=== PATIENT | female | born 1935 | race Caucasian/White ===

== ENCOUNTER 2019-10-12 13:10 | Outpatient (CLI) | payer MEDICARE, OTHER, SELFPAY ==
[2019-10-12 16:35] LABS: Basophils % 0.4 %; Eosinophils # 0.1 10^3/uL (0.0-0.8); Hematocrit 42.5 % (37.0-47.0); Hemoglobin 12.7 g/dL (11.5-15.3); Lymphocytes # 1.2 10^3/uL (0.8-4.8); Lymphocytes % 21.2 %; Mean Corpuscular HGB Conc 29.9 g/dL (30.0-36.0); Mean Corpuscular Hemoglobin 28.2 pg (28.0-34.0); Mean Corpuscular Volume 94.2 fL (81-99); Mean Platelet Volume 10.1 fL (7.4-10.4); Monocytes # 0.4 10^3/uL (0.2-0.9); Monocytes % 7.8 %; Neutrophils # 3.8 10^3/uL (1.8-7.7); Neutrophils % 68.4 %; Nucleated Red Blood Cells % 0 %; Platelet Count 358 10^3/cmm (130-400); Red Blood Count 4.51 10^6/uL (4.1-5.3); Red Cell Distribution Width 13.6 % (12.1-15.1); White Blood Count 5.5 10^3/uL (4.0-10.0)
[2019-10-12 16:46] LABS: Alanine Aminotransferase 11 U/L (0-33); Albumin Level 3.8 g/dL (3.5-5.2); Alkaline Phosphatase 81 IU/L (35-105); Anion Gap 16.2 (5-19); Aspartate Amino Transferase 19 U/L (0-32); Blood Urea Nitrogen 29 mg/dL (8-23); Carbon Dioxide 28 mmol/L (22-29); Chloride 101 mmol/L (98-107); Ferritin 121 ng/mL (15-150); Globulin 3.7 g/dL (1.3-4.6); Glucose 96 mg/dL (65-115); Iron 69 ug/dL (37-145); Osmolality Calculated 289 mOsm/kg (285-295); Percent Saturation 25.7 % (20-50); Potassium 4.2 mmol/L (3.5-5.1); Sodium 141 mmol/L (136-145); Total Bilirubin 0.3 mg/dL (0.15-1.2); Total Iron Binding Capacity 268 mcg/dl; Total Protein 7.5 g/dL (6.6-8.7); Unsaturated Iron Binding 199 ug/dL (112-347)
== END 2019-10-12 13:11 | disposition home or self-care (01) ==
LOC: ONCMED 16:30
PROVIDERS: Family Provider Nurse Practitioner Family; PCP Nurse Practitioner Family; Visit Provider Internal Medicine Medical Oncology
DX: Z08 Encounter for follow-up examination after completed treatment for malignant neoplasm (principal); D50.9 Iron deficiency anemia, unspecified; E78.00 Pure hypercholesterolemia, unspecified; M81.0 Age-related osteoporosis without current pathological fracture; M19.90 Unspecified osteoarthritis, unspecified site; E04.1 Nontoxic single thyroid nodule; R42 Dizziness and giddiness; I71.4 Abdominal aortic aneurysm, without rupture; K59.09 Other constipation; Z85.118 Personal history of other malignant neoplasm of bronchus and lung; Z79.01 Long term (current) use of anticoagulants
CPT/HCPCS: 36415; 80053; 82728; 83540; 83550; 85025

== ENCOUNTER 2019-10-28 11:11 | Inpatient (IN) | payer MEDICARE, OTHER, SELFPAY ==
[2019-10-28] VITALS (9 sets, daily range): BP systolic 84–166; BP diastolic 51–75; PULSE 70–92; RESP 18–20; TEMP 36.6–38.6; O2SAT 92–97; BMI 21.9
--- NOTE | 2019-10-28 11:50 | XRR_ITS ---
PROCEDURE INFORMATION: Exam: XR Chest, 1 View Exam date and time: 10/28/2019 12:07 PM Age: 84 years old Clinical indication: Pain; Other: Back; Additional info: Weakness, h/o lung cancer TECHNIQUE: Imaging protocol: XR of the chest Views: 1 view. COMPARISON: CR Chest 1 [place] [id number] 09/24/2017 10:49 AM FINDINGS: Lungs: No confluent infiltrate evident. Pleural space: Unremarkable. No pleural effusion. No pneumothorax. Heart/Mediastinum: Prior surgery with mediastinal clips and sutures in place. Vasculature: Calcified tortuous aorta. Bones/joints: Unremarkable. XR/XR chest 1V portable [id number] IMPRESSION: No acute process evident.
--- NOTE | 2019-10-28 11:51 | ECG_ITS ---
Measurements Intervals [place] Rate: 71 P: 78 VA: 195 QRS: -18 QRSD: 112 T: 68 QT: 414 QTc: 452 SINUS RHYTHM MODERATE INTRAVENTRICULAR CONDUCTION DELAY [110+ ms QRS DURATION] NONSPECIFIC T-WAVE ABNORMALITY Compared to ECG 09/25/2017 05:41:55 Intraventricular conduction delay now present T-wave abnormality still present Electronically Signed On 10-29-2019 11:06:21 CDT by Sam Cody MD [email or web address]
[2019-10-28] MEDS: sodium chloride 0.9% 1,000 ML 999 ML IV (12:08)
[2019-10-28] MEDS: ondansetron 2 mg/ML SDV 2 mL 4 MG IVP ×2 (12:10→17:53)
[2019-10-28] MEDS: morphine 4 mg/mL SDV 1 mL 2 MG IVP (12:10)
[2019-10-28 12:24] LABS: Hematocrit 40.7 % (37.0-47.0); Hemoglobin 12.8 g/dL (11.5-15.3); Lymphocytes # 0.2 10^3/uL (0.8-4.8); Mean Corpuscular HGB Conc 31.4 g/dL (30.0-36.0); Mean Corpuscular Hemoglobin 27.6 pg (28.0-34.0); Mean Corpuscular Volume 87.7 fL (81-99); Mean Platelet Volume 11.1 fL (7.4-10.4); Monocytes # 0.2 10^3/uL (0.2-0.9); Monocytes % 5.6 %; Neutrophils # 2.3 10^3/uL (1.8-7.7); Nucleated Red Blood Cells % 0 %; Platelet Count 135 10^3/cmm (130-400); Red Blood Count 4.64 10^6/uL (4.1-5.3); Red Cell Distribution Width 13.7 % (12.1-15.1); White Blood Count 2.7 10^3/uL (4.0-10.0)
--- NOTE | 2019-10-28 12:30 | ED_ITS ---
HPI - General Adult General: Chief complaint: General Medical Stated complaint: multiple complaints Time Seen by Provider: 10/28/19 11:41 History of Present Illness: HPI narrative: Patient is an 84-year-old female presenting with complaints of being sick for a week. She said for the first several days she just felt terrible and was not able to eat. For the past several days she has had terrible vomiting and diarrhea. She also complains of severe pain in her back and legs. She cannot really describe the pain but says it is like nothing she has ever had before. She was also having left ear pain and went to see her primary care doctor a few days ago. She was put on amoxicillin for an ear infection and mastoiditis. She reports that that is feeling better. She denies cough or shortness of breath. Onset (ago): week(s) (1) Location: head, back and lower extremity Radiation: back and extremity Severity: severe Quality: other (Unable to describe) Pain Consistency: constant Relieving factors: none Exacerbating factors: none Associated symptoms: Reports decreased appetite, dyspnea, malaise, nausea, vomiting and other (Diarrhea); Deny chest pain, headache(s) or rash Treatments prior to arrival: none Review of Systems General: Reports: 10 or more systems reviewed and unremarkable except in HPI and below Const: Reports: malaise Eyes: Denies: change in vision ENMT: Denies: odynophagia Card: Denies: chest pain or swelling of feet/ankles Resp: Reports: dyspnea GI: Reports: nausea, vomiting and diarrhea : Denies: flank pain or difficulty voiding Musc: Reports: back pain and extremity pain; Denies: neck pain Skin/Breast: Denies: rash Neuro: Reports: numbness in extremities, weakness in extremities and difficulty walking; Denies: headache(s) Edison/Lymph: Denies: easy bruising or easy bleeding [facility] ED PFSH: Medical History (Updated 10/28/19 @ 17:02 by Austen Villeda MD) AAA (abdominal aortic aneurysm) Chronic back pain COPD (chronic obstructive pulmonary disease) Diastolic dysfunction without heart failure DJD (degenerative joint disease) Hyperlipidemia Hypertension Pulmonary embolism Recurrent adenocarcinoma of lung Surgical History (Updated 10/28/19 @ 16:54 by Austen Villeda MD) H/O: hysterectomy History of lobectomy of lung Twice, bilateral, Right upper lobe lobectomy 2001 Left upper lobe lobectomy 2009 Hx of cholecystectomy S/P AAA repair Family History Other CAD (coronary artery disease) Social History Smoking and tobacco status: never smoked Alcohol intake: former Physical Exam Const: COMMON NORMALS: patient oriented x3 and no limitations GENERAL APPEARANCE: cooperative, in distress, lethargic and ill appearing ORIENTATION/CONSCIOUSNESS: Yes lethargic HENMT: COMMON NORMALS: external ears normal HEAD & SCALP: normal to inspection FACE & SINUS: normal facial exam EXTERNAL EAR: Yes external ears normal and Yes mastoids normal TYMPANIC MEMBRANE: TM normal on the right and TM normal on the left (no infection) Eye: GENERAL EYE: appearance normal, both eyes and all related structures Neck/C-Spine: COMMON NORMALS: supple, no meningeal signs and no JVD Chest: COMMONS NORMALS: normal inspection of the chest Resp: COMMON NORMALS: normal respiratory effort, No use of accessory muscles and clear to auscultation bilaterally AUSCULTATION: clear to auscultation bilaterally Cardio: COMMON NORMALS: no JVD, regular rate, regular rhythm and No murmurs present (Cardio) RATE: regular rate RHYTHM: regular rhythm GI: COMMON NORMALS: Normal to inspection, nondistended, normoactive bowel sounds present, Soft to palpation and non-tender INSPECTION: Yes normal to inspection AUSCULTATION: Yes normoactive bowel sounds PALPATION: Yes Soft to palpation Back/Pelvis: COMMON NORMALS: thoracic and lumbar spine normal to inspection Extremity: COMMON NORMALS: normal to inspection Neuro: COMMON NORMALS: patient oriented x3, moves all extremities, no focal motor deficits and no sensory deficits noted SENSORIUM/ORIENTATION: Yes lethargic MENINGEAL SIGNS: Yes no meningeal signs Psych: COMMON NORMALS: mental status grossly normal, cooperative and normal affect Skin: COMMON NORMALS: no rashes or lesions noted and turgor normal GENERAL SKIN EXAM: no rashes or lesions noted and turgor normal Course ED course: Patient came in with complaints of vomiting for several days. She was hypotensive at triage. She was quite dehydrated on her labs. She has not had a cough or fever. Her creatinine was 1.8. She responded well to some fluids and reported feeling better. She said she would like to go home but she is still quite weak and not tolerating fluids. She will be admitted for hydration given her acute renal injury. I did also cover her with some antibiotics based on the concern that she might be septic on her initial presentation. Vital Signs: Vital signs: Vital Signs Temperature 98.8 F 10/28/19 17:00 Pulse Rate 70 10/28/19 18:37 Respiratory Rate 18 10/28/19 17:00 Blood Pressure 166/74 10/28/19 17:00 Pulse Oximetry 93 10/28/19 18:37 [facility] - General Adult Lab Data: Labs: Lab Results 10/28/19 10/28/19 10/28/19 Range/Units 12:00 12:00 12:00 WBC 2.7 L (4.0-10.0) 10^3/ uL RBC 4.64 (4.1-5.3) 10^6/u L Hgb 12.8 (11.5-15.3) g/dL Hct 40.7 (37.0-47.0) % MCV 87.7 (81-99) fL MCH 27.6 L (28.0-34.0) pg MCHC 31.4 (30.0-36.0) g/dL RDW 13.7 (12.1-15.1) % Plt Count 135 (130-400) 10^3/c mm MPV 11.1 H (7.4-10.4) fL Neut % (Auto) 85.0 % Lymph % (Auto) 9.0 % [place] % (Auto) 5.6 % Eos % (Auto) 0.0 % Baso % (Auto) 0.0 % Neut # (Auto) 2.3 (1.8-7.7) 10^3/u L Lymph # (Auto) 0.2 L (0.8-4.8) 10^3/u L [place] # (Auto) 0.2 (0.2-0.9) 10^3/u L Eos # (Auto) 0.0 (0.0-0.8) 10^3/u L Baso # (Auto) 0.0 (0.0-0.1) 10^3/u L Nucleated RBC % (a uto) 0 % Nucleated RBCs # 0.0 /100WBC ESR 23 H (0-15) mm/hr PT (10.5-13.3) SECO NDS INR (0.8-1.2) Sodium 131 L (136-145) mmol/L Potassium 3.9 (3.5-5.1) mmol/L Chloride 95 L (98-107) mmol/L Carbon Dioxide 21 L (22-29) mmol/L Anion Gap 18.9 (5-19) BUN 36 H (8-23) mg/dL Creatinine 1.8 H (0.5-0.9) mg/dL Glucose 137 H (65-115) mg/dL POC Glucose (70-110) mg/dL Calculated Osmolal ity 272 L (285-295) mOsm/k g Lactate (0.5-2.2) mmol/L Calcium 8.9 (8.5-10.5) mg/dL Magnesium 2.0 (1.7-2.3) mg/dL Total Bilirubin 0.3 (0.15-1.2) mg/dL AST 45 H (0-32) U/L ALT 19 (0-33) U/L Alkaline Phosphata se 62 (35-105) IU/L Troponin T Baselin e (0-10) ng/mL Troponin T 120 Min cher-ae heights (0-10) ng/mL Delta Troponin T (0-10) ABS# C-Reactive Protein 89.2 H (0.0-4.9) mg/L Total Protein 7.0 (6.6-8.7) g/dL Albumin 3.4 L (3.5-5.2) g/dL Globulin 3.6 (1.3-4.6) g/dL Lipase 47 (13-60) U/L Procalcitonin 2.74 H (0-0.5) ng/mL Urine Color (Yellow) Urine Appearance (CLEAR) Urine pH (5-7) Ur Specific Gravit y (1.005-1.030) Urine Protein (Negative) Urine Glucose (UA) (Normal) Urine Ketones (Negative) Urine Blood (Negative) Urine Nitrate (Negative) Urine Bilirubin (NEGATIVE) Urine Urobilinogen (Negative) mg/dL Ur Leukocyte Breonna ase (Negative) Urine RBC (0-2) /hpf Urine WBC (0-5) /hpf Ur Squamous Epith Cells (0-5) Amorphous Sediment Urine Bacteria (NONE) Coarse Granular Ca sts /lpf Ur Random Sodium mmol/L Ur Random Potassiu m mmol/L Ur Random Chloride mmol/L 10/28/19 10/28/19 10/28/19 Range/Units 12:00 12:00 12:37 WBC (4.0-10.0) 10^3/ uL RBC (4.1-5.3) 10^6/u L Hgb (11.5-15.3) g/dL Hct (37.0-47.0) % MCV (81-99) fL MCH (28.0-34.0) pg MCHC (30.0-36.0) g/dL RDW (12.1-15.1) % Plt Count (130-400) 10^3/c mm MPV (7.4-10.4) fL Neut % (Auto) % Lymph % (Auto) % [place] % (Auto) % Eos % (Auto) % Baso % (Auto) % Neut # (Auto) (1.8-7.7) 10^3/u L Lymph # (Auto) (0.8-4.8) 10^3/u L [place] # (Auto) (0.2-0.9) 10^3/u L Eos # (Auto) (0.0-0.8) 10^3/u L Baso # (Auto) (0.0-0.1) 10^3/u L Nucleated RBC % (a uto) % Nucleated RBCs # /100WBC ESR (0-15) mm/hr PT 12.80 (10.5-13.3) SECO NDS INR 0.93 (0.8-1.2) Sodium (136-145) mmol/L Potassium (3.5-5.1) mmol/L Chloride (98-107) mmol/L Carbon Dioxide (22-29) mmol/L Anion Gap (5-19) BUN (8-23) mg/dL Creatinine (0.5-0.9) mg/dL Glucose (65-115) mg/dL POC Glucose (70-110) mg/dL Calculated Osmolal ity (285-295) mOsm/k g Lactate 1.2 (0.5-2.2) mmol/L Calcium (8.5-10.5) mg/dL Magnesium (1.7-2.3) mg/dL Total Bilirubin (0.15-1.2) mg/dL AST (0-32) U/L ALT (0-33) U/L Alkaline Phosphata se (35-105) IU/L Troponin T Baselin e 36 H (0-10) ng/mL Troponin T 120 Min cher-ae heights (0-10) ng/mL Delta Troponin T (0-10) ABS# C-Reactive Protein (0.0-4.9) mg/L Total Protein (6.6-8.7) g/dL Albumin (3.5-5.2) g/dL Globulin (1.3-4.6) g/dL Lipase (13-60) U/L Procalcitonin (0-0.5) ng/mL Urine Color (Yellow) Urine Appearance (CLEAR) Urine pH (5-7) Ur Specific Gravit y (1.005-1.030) Urine Protein (Negative) Urine Glucose (UA) (Normal) Urine Ketones (Negative) Urine Blood (Negative) Urine Nitrate (Negative) Urine Bilirubin (NEGATIVE) Urine Urobilinogen (Negative) mg/dL Ur Leukocyte Breonna ase (Negative) Urine RBC (0-2) /hpf Urine WBC (0-5) /hpf Ur Squamous Epith Cells (0-5) Amorphous Sediment Urine Bacteria (NONE) Coarse Granular Ca sts /lpf Ur Random Sodium mmol/L Ur Random Potassiu m mmol/L Ur Random Chloride mmol/L 10/28/19 10/28/19 10/28/19 Range/Units 14:05 14:15 14:25 WBC (4.0-10.0) 10^3/ uL RBC (4.1-5.3) 10^6/u L Hgb (11.5-15.3) g/dL Hct (37.0-47.0) % MCV (81-99) fL MCH (28.0-34.0) pg MCHC (30.0-36.0) g/dL RDW (12.1-15.1) % Plt Count (130-400) 10^3/c mm MPV (7.4-10.4) fL Neut % (Auto) % Lymph % (Auto) % [place] % (Auto) % Eos % (Auto) % Baso % (Auto) % Neut # (Auto) (1.8-7.7) 10^3/u L Lymph # (Auto) (0.8-4.8) 10^3/u L [place] # (Auto) (0.2-0.9) 10^3/u L Eos # (Auto) (0.0-0.8) 10^3/u L Baso # (Auto) (0.0-0.1) 10^3/u L Nucleated RBC % (a uto) % Nucleated RBCs # /100WBC ESR (0-15) mm/hr PT (10.5-13.3) SECO NDS INR (0.8-1.2) Sodium (136-145) mmol/L Potassium (3.5-5.1) mmol/L Chloride (98-107) mmol/L Carbon Dioxide (22-29) mmol/L Anion Gap (5-19) BUN (8-23) mg/dL Creatinine (0.5-0.9) mg/dL Glucose (65-115) mg/dL POC Glucose 116 (70-110) mg/dL Calculated Osmolal ity (285-295) mOsm/k g Lactate (0.5-2.2) mmol/L Calcium (8.5-10.5) mg/dL Magnesium (1.7-2.3) mg/dL Total Bilirubin (0.15-1.2) mg/dL AST (0-32) U/L ALT (0-33) U/L Alkaline Phosphata se (35-105) IU/L Troponin T Baselin e (0-10) ng/mL Troponin T 120 Min cher-ae heights 26.27 H (0-10) ng/mL Delta Troponin T -9.73 L (0-10) ABS# C-Reactive Protein (0.0-4.9) mg/L Total Protein (6.6-8.7) g/dL Albumin (3.5-5.2) g/dL Globulin (1.3-4.6) g/dL Lipase (13-60) U/L Procalcitonin (0-0.5) ng/mL Urine Color Yellow (Yellow) Urine Appearance Sl cloudy A (CLEAR) Urine pH 5 (5-7) Ur Specific Gravit y 1.015 (1.005-1.030) Urine Protein Trace (Negative) Urine Glucose (UA) Norm (Normal) Urine Ketones Negative (Negative) Urine Blood 2+ H (Negative) Urine Nitrate Negative (Negative) Urine Bilirubin Neg (NEGATIVE) Urine Urobilinogen Norm (Negative) mg/dL Ur Leukocyte Breonna ase Negative (Negative) Urine RBC 0-4 H (0-2) /hpf Urine WBC Rare (0-5) /hpf Ur Squamous Epith Cells 5-10 H (0-5) Amorphous Sediment 2+ Urine Bacteria 2+ H (NONE) Coarse Granular Ca sts 0-4 H /lpf Ur Random Sodium mmol/L Ur Random Potassiu m mmol/L Ur Random Chloride mmol/L 10/27/ Range/Units 14:25 WBC (4.0-10.0) 10^3/ uL RBC (4.1-5.3) 10^6/u L Hgb (11.5-15.3) g/dL Hct (37.0-47.0) % MCV (81-99) fL MCH (28.0-34.0) pg MCHC (30.0-36.0) g/dL RDW (12.1-15.1) % Plt Count (130-400) 10^3/c mm MPV (7.4-10.4) fL Neut % (Auto) % Lymph % (Auto) % [place] % (Auto) % Eos % (Auto) % Baso % (Auto) % Neut # (Auto) (1.8-7.7) 10^3/u L Lymph # (Auto) (0.8-4.8) 10^3/u L [place] # (Auto) (0.2-0.9) 10^3/u L Eos # (Auto) (0.0-0.8) 10^3/u L Baso # (Auto) (0.0-0.1) 10^3/u L Nucleated RBC % (a uto) % Nucleated RBCs # /100WBC ESR (0-15) mm/hr PT (10.5-13.3) SECO NDS INR (0.8-1.2) Sodium (136-145) mmol/L Potassium (3.5-5.1) mmol/L Chloride (98-107) mmol/L Carbon Dioxide (22-29) mmol/L Anion Gap (5-19) BUN (8-23) mg/dL Creatinine (0.5-0.9) mg/dL Glucose (65-115) mg/dL POC Glucose (70-110) mg/dL Calculated Osmolal ity (285-295) mOsm/k g Lactate (0.5-2.2) mmol/L Calcium (8.5-10.5) mg/dL Magnesium (1.7-2.3) mg/dL Total Bilirubin (0.15-1.2) mg/dL AST (0-32) U/L ALT (0-33) U/L Alkaline Phosphata se (35-105) IU/L Troponin T Baselin e (0-10) ng/mL Troponin T 120 Min cher-ae heights (0-10) ng/mL Delta Troponin T (0-10) ABS# C-Reactive Protein (0.0-4.9) mg/L Total Protein (6.6-8.7) g/dL Albumin (3.5-5.2) g/dL Globulin (1.3-4.6) g/dL Lipase (13-60) U/L Procalcitonin (0-0.5) ng/mL Urine Color (Yellow) Urine Appearance (CLEAR) Urine pH (5-7) Ur Specific Gravit y (1.005-1.030) Urine Protein (Negative) Urine Glucose (UA) (Normal) Urine Ketones (Negative) Urine Blood (Negative) Urine Nitrate (Negative) Urine Bilirubin (NEGATIVE) Urine Urobilinogen (Negative) mg/dL Ur Leukocyte Breonna ase (Negative) Urine RBC (0-2) /hpf Urine WBC (0-5) /hpf Ur Squamous Epith Cells (0-5) Amorphous Sediment Urine Bacteria (NONE) Coarse Granular Ca sts /lpf Ur Random Sodium 16 mmol/L Ur Random Potassiu m 28 mmol/L Ur Random Chloride 13 mmol/L Discharge Plan Discharge Admit Provider: Austen Villeda Discharge Date/Time: 10/28/19 16:30 Coding Level of Care Code ED Petroleum Inspector for g Fwd Exam Comprehensive
[2019-10-28 12:33] LABS: INR 0.93 (0.8-1.2)
--- NOTE | 2019-10-28 12:37 | CTR_ITS ---
PROCEDURE INFORMATION: Exam: CT Head Without Contrast Exam date and time: 10/28/2019 12:38 PM Age: 84 years old Clinical indication: Dizziness; Additional info: Question mastoiditis, weakness TECHNIQUE: Imaging protocol: Computed tomography of the head without contrast. Radiation optimization: All CT scans at this facility use at least one of these dose optimization techniques: automated exposure control; mA and/or kV adjustment per patient size (includes targeted exams where dose is matched to clinical indication); or iterative reconstruction. COMPARISON: CT head wo con* [id number] 06/29/2018 12:50 PM RADIATION DOSE METRICS: Total DLP: 780.95 mGy-cm FINDINGS: Brain: No acute intracranial mass or bleed. Mild cerebral atrophy. Mild cerebral hemisphere subcortical and periventricular white matter low-density which appears chronic and is presumably related to chronic small vessel disease. Punctate left parietal cortical calcification, unchanged. Ventricles: Normal. No ventriculomegaly. Bones/joints: Unremarkable. No acute fracture. Sinuses: Visualized sinuses are unremarkable. No fluid levels. Mastoid air cells: Visualized mastoid air cells are well aerated. Soft tissues: Unremarkable. CT/CT head wo con* [id number] IMPRESSION: No acute process evident. Radiation Dose CTDIVOL = (mGy): DLP = 780.95 (mGy-cm)
[2019-10-28 12:43] LABS: Troponin(5th) Baseline 36 ng/mL (0-10)
[2019-10-28 12:51] LABS: Procalcitonin 2.74 ng/mL (0-0.5)
[2019-10-28 12:56] LABS: Lactate (Lactic Acid level) 1.2 mmol/L (0.5-2.2)
[2019-10-28 13:02] LABS: Alanine Aminotransferase 19 U/L (0-33); Albumin Level 3.4 g/dL (3.5-5.2); Alkaline Phosphatase 62 IU/L (35-105); Anion Gap 18.9 (5-19); Aspartate Amino Transferase 45 U/L (0-32); Blood Urea Nitrogen 36 mg/dL (8-23); C Reactive Protein 89.2 mg/L (0.0-4.9); Calcium 8.9 mg/dL (8.5-10.5); Carbon Dioxide 21 mmol/L (22-29); Chloride 95 mmol/L (98-107); Globulin 3.6 g/dL (1.3-4.6); Glucose 137 mg/dL (65-115); Lipase 47 U/L (13-60); Osmolality Calculated 272 mOsm/kg (285-295); Potassium 3.9 mmol/L (3.5-5.1); Sodium 131 mmol/L (136-145); Total Bilirubin 0.3 mg/dL (0.15-1.2)
[2019-10-28 13:40] LABS: Erythrocyte Sedimentation Rate 23 mm/hr (0-15)
--- NOTE | 2019-10-28 13:51 | ECG_ITS ---
Measurements Intervals [place] Rate: 72 P: 60 AL: 197 QRS: -20 QRSD: 112 T: 82 QT: 390 QTc: 429 SINUS RHYTHM WITH OCCASIONAL SUPRAVENTRICULAR PREMATURE COMPLEXES MODERATE INTRAVENTRICULAR CONDUCTION DELAY [110+ ms QRS DURATION] NONSPECIFIC T-WAVE ABNORMALITY Compared to ECG 09/25/2017 05:41:55 Intraventricular conduction delay now present T-wave abnormality still present Electronically Signed On 10-29-2019 11:10:21 CDT by Sam Cody MD [email or web address]
--- NOTE | 2019-10-28 14:10 | PC.NURSE ---
Patient blood glucose is 116 and shown to ER doctor
[2019-10-28 14:13] LABS: Glucose Point of Care 116 mg/dL (70-110)
[2019-10-28 14:34] LABS: Add Urine Microscopic? YES; Bilirubin Urine Neg (NEGATIVE); Blood Urine 2+ (Negative); Glucose Urine UA Norm (Normal); Ketones Urine Negative (Negative); Leukocyte Esterase Urine Negative (Negative); Nitrate Urine Negative (Negative); Protein Urine Trace (Negative); Specific Gravity, Urine 1.015 (1.005-1.030); Urine Color Yellow (Yellow); Urobilinogen Urine Norm (Negative); pH Urine 5 (5-7)
[2019-10-28 14:43] LABS: Troponin 5 2HR 26.27 ng/mL (0-10)
[2019-10-28 14:44] LABS: Amorphous Sediment Urine 2+; Bacteria Urine 2+; RBC Urine 0-4 /hpf (0-2)
[2019-10-28 14:45] LABS: Add Urine Culture? Yes; Coarse Granular Casts Urine 0-4 /lpf; WBC Urine RARE /hpf (0-5)
[2019-10-28 15:00] LABS: Troponin 5 2HR Delta -9.73 ABS# (0-10)
--- NOTE | 2019-10-28 15:22 | PM.HP ---
Providers/Chief Complaint Primary Care Provider: ALYSON Keane Chief Complaint: N/V History of Present Illness Keely Chan is a 84 year old female with past medical history of hypertension with labile blood pressures for which Coreg has been recently started by Dr. 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 Palmer, diastolic dysfunction of of left ventricle without any symptoms of heart failure, dizziness, AAA post repair, pulmonary embolism on maintenance Xarelto, dyslipidemia, chronic anemia on oral iron supplementation, GERD who presents to the ER today because of multiple episodes of nausea and vomiting for last 2 days and 3 episodes of diarrhea since yesterday evening. Patient states she was at her baseline health till Wednesday when she started having dizziness went to her primary care and was diagnosed of left ear mastoiditis for which she was started on Augmentin after which from she started having recurrent nausea and multiple episodes of vomiting in which she was vomiting mostly food particles at first but now clear liquid and 3-4 episodes of diarrhea since yesterday evening. Diarrhea is mostly liquidy, not bloodstained, not foul-smelling. She complains of mild abdominal pain since today morning. She is not able to eat anything because she feels nauseous when she is trying to eat. Of note, she was seen by Dr. Palmer on October 08 and she was having constipation and was started on bowel regimen which she was taking p.o. this Wednesday. Today she was feeling mild dizziness so she presented to the ER. In ER, on presentation she was having hypotension which was treated with IV fluid boluses, her blood work showed leukopenia with white count of 2.7, TABBY with creatinine of 1.8, sodium of 132 and bicarb of 21 on the BMP. Procalcitonin was also done in the ER which was 2.4. She denies of having any fever, chills, headache, flulike symptoms, runny nose, cough, sick contacts, anybody who she knows having similar symptoms, dysuria, chest pain, palpitations, hemoptysis. Review of Systems Const: Denies: fever(s), chills, body aches, change in appetite, malaise, night sweats, diaphoresis, change in sleep pattern, daytime sleepiness or snoring Eyes: Denies: change in vision, blurry vision, photophobia, eye discomfort or eye discharge ENMT: Denies: throat pain, enlarged tonsils, hoarseness, mouth pain, oral sores, dry mouth, tinnitus, nasal congestion or post nasal drip Card: Denies: chest pain, palpitations, irregular heart rhythm, edema, swelling of feet/ankles, lightheadedness, syncope, pre-syncope, dyspnea on exertion, orthopnea, leg pain with exertion or acrocyanosis Resp: Denies: dyspnea, productive cough, non-productive cough, wheezing, stridor, pain on inspiration, change in phlegm color, hemoptysis or chest congestion GI: Reports: abdominal pain, nausea, vomiting, diarrhea and GI cramping; Denies: hematemesis, coffee ground emesis, dysphagia, heartburn, constipation, bloating, change in bowel habits, pain on defecation, hematochezia or melena : Denies: flank pain, dysuria, urinary frequency, urinary urgency, urinary hesitancy, nocturia or hematuria Musc: Denies: neck pain, back pain, extremity pain, joint pain, joint swelling, joint redness, joint stiffness or limited range of motion Neuro: Reports: dizziness; Denies: headache(s), numbness in extremities, weakness in extremities, sensory changes, lack of coordination, difficulty walking, frequent falls, vertigo, confusion, Slurred speech present, difficulty communicating thoughts or seizure-like activity Psych: Denies: anxiety, depression, mood swings, panic attacks, hopelessness or irritability Endo: Denies: polyuria, polydipsia, tired all the time, cold intolerance, excessive sweating, flushing or heat intolerance Edison/Lymph: Denies: easy bruising or easy bleeding All/Imm: Denies: tongue swelling, facial swelling or acute wheezing Medications/Allergies Home Medications Medication Instructions Recorded Confirmed Last Taken Type aspirin 81 mg tablet,delayed 81 mg PO DAILY 10/16/19 10/28/19 10/28/19 History release carvedilol 6.25 mg tablet 6.25 mg PO BID 90 Days #180 tab 10/16/19 10/28/19 10/28/19 Rx cholecalciferol (vitamin D3) 1,250 1,250 mcg PO Q7D cap 10/16/19 10/28/1920 History mcg (50,000 unit) capsule fluticasone propionate 50 2 spray INTRANASAL DAILY 10/16/19 10/28/19 10/27/19 History mcg/actuation nasal spray,suspension gabapentin 300 mg capsule 400 mg PO BID 10/16/19 10/28/19 10/28/19 History hydrocodone 5 mg-acetaminophen 325 1 tab PO Q6H PRN 10/16/19 10/28/19 10/28/19 History mg tablet nitroglycerin 0.4 mg sublingual 0.4 mg SUBLINGUAL Q5M PRN 10/16/19 10/28/19 Unknown History tablet omeprazole 40 mg capsule,delayed 40 mg PO DAILY 10/16/19 10/28/19 10/28/19 History release rivaroxaban 20 mg tablet 20 mg PO DAILY 10/16/19 10/28/19 10/28/19 History amoxicillin 1,000 mg PO BID 10/28/19 10/28/19 10/28/19 History cetirizine 10 mg PO DAILY 10/28/19 10/28/19 10/28/19 History meclizine 25 mg PO TID PRN 10/28/19 10/28/19 Unknown History montelukast 10 mg PO DAILY 10/28/19 10/28/19 10/28/19 History Allergies Allergy/AdvReac Type Severity Reaction Status Date / Time ezetimibe [From Zetia] Allergy Unknown unknown Verified 10/16/19 11:51 simvastatin [From Zocor] Allergy Unknown unknown Verified 10/16/19 11:51 tetanus and diphtheria Allergy Unknown unknown Verified 10/16/19 11:51 toxoids albuterol AdvReac Unknown hypertensio Verified 10/16/19 11:51 n PFSH Acute PFSH: Medical History (Updated 10/28/19 @ 17:02 by Austen Villeda MD) AAA (abdominal aortic aneurysm) Chronic back pain COPD (chronic obstructive pulmonary disease) Diastolic dysfunction without heart failure DJD (degenerative joint disease) Hyperlipidemia Hypertension Pulmonary embolism Recurrent adenocarcinoma of lung Surgical History (Updated 10/28/19 @ 16:54 by Austen Villeda MD) H/O: hysterectomy History of lobectomy of lung Twice, bilateral, Right upper lobe lobectomy 2001 Left upper lobe lobectomy 2010 Hx of cholecystectomy S/P AAA repair Family History Other CAD (coronary artery disease) Social History Smoking and tobacco status: never smoked Alcohol intake: former Vitals/I&O/Wt Last Vital Signs Temp 97.9 F 10/28/19 11:34 Pulse 82 10/28/19 11:47 Resp 20 H 10/28/19 12:10 BP 109/61 10/28/19 11:47 Pulse Ox 96 10/28/19 11:47 Weight last 48 hrs Weight 63.503 kg Physical Exam Narrative: EXAM NARRATIVE: General: Acute distress because of abdominal pain, dehydrated, AO x3 HEENT: PERRLA, pupils bilaterally equal and reactive Chest: Normal vesicular breath sounds, no added sounds, equal good air entry bilaterally CVS: S1-S2 regular, no murmurs, no tachycardia, no gallops, no rubs Abdomen: Soft,tender, no organomegaly, bowel sounds present, epigastric region Neuro: No focal deficits, no facial deformity, AO x3, power 5/5 in all limbs Data : 10/28/19 12:00 10/28/19 12:00 A&P Assessment and plan (1) Vomiting: Status: Acute (2) Diarrhea: Status: Acute (3) Hypotension: Status: Acute (4) TABBY (acute kidney injury): Status: Acute (5) Pulmonary embolism: Status: Acute Qualifiers: Pulmonary embolism type: unspecified Chronicity: chronic Acute cor pulmonale presence: unspecified Qualified Code(s): I27.82 - Chronic pulmonary embolism (6) Hypertension: Status: Acute Qualifiers: Hypertension type: essential hypertension Qualified Code(s): I10 - Essential (primary) hypertension (7) Hyperlipidemia: Status: Acute Qualifiers: Hyperlipidemia type: mixed hyperlipidemia Qualified Code(s): E78.2 - Mixed hyperlipidemia (8) Recurrent adenocarcinoma of lung: Status: Acute (9) Diastolic dysfunction without heart failure: Status: Acute (10) Metabolic acidosis: Status: Acute (11) Hyponatremia: Status: Acute (12) Hypokalemia: Status: Acute Additional A&P Information Dehydration: Most likely due to vomiting/diarrhea: Could be related to gastritis because of amoxicillin but given the recent exposure to antibiotic cannot rule out C. difficile. Normal saline with 20 mg potassium at 100 cc/h. Check CT abdomen pelvis without contrast Stool studies for C. difficile, lactoferrin, bacterial antigen for parasite and bacteria, rotavirus antigen. Clear liquid diet for now. Will advance as tolerated. Zofran for nausea. No Loperamide for till C. difficile is ruled out. TABBY: Baseline creatinine normal. 1.8 today. Most likely from dehydration. IV fluids as above. Medical reconciliation done for nephrotoxic drugs. Metabolic acidosis: Most likely because of extreme vomiting and diarrhea along with TABBY. Continue IV fluids. Hyponatremia: Most likely from dehydration tach but given the history of lung cancer cannot rule out SIADH. Urine lites, urine osmolarity, serum osmolarity. Continue IV fluids as above. Check BMP in 6 hours to monitor for sodium levels. Hypokalemia: Most likely because of vomiting and diarrhea. Replace with oral 40 mEq. Also replaced with IV fluids after the above. Hypertension: Not on any treatment as per Dr. Tapia recently. We will continue to hold off on Coreg and monitor blood pressures. Pulmonary embolism: Continue Xarelto as outpatient. Oxygen therapy as needed keeping saturation over 92%. Recurrent adenocarcinoma of lungs: Post lobectomy: Follows up with Dr. Palmer last seen earlier this month. On Flovent/expectant treatment. Full code. Clear liquid diet. Xarelto will also work as DVT prophylaxis Attestations Medical Necessity Statement*: More than 2 midnights for vomiting, diarrhea, TABBY Time Spent in Patient Care: Greater than 35 minutes (>than 50% of time spent in counselling and/or direct pt care on unit). Coding Level of Care Code Acute Retail Client Solutions Analyst for [facility] Fwd Diagnoses Vomiting R11.10 Diarrhea R19.7 Hypotension I95.9 TABBY (acute kidney injury) N17.9 Pulmonary embolism I27.82 Pulmonary embolism type: unspecified Chronicity: chronic Acute cor pulmonale presence: unspecified Hypertension I10 Hypertension type: essential hypertension Hyperlipidemia E78.2 Hyperlipidemia type: mixed hyperlipidemia Recurrent adenocarcinoma of lung C34.90 Diastolic dysfunction without heart failure I51.89 Metabolic acidosis E87.2 Hyponatremia E87.1 Hypokalemia E87.6
--- NOTE | 2019-10-28 15:46 | CTR_ITS ---
PROCEDURE INFORMATION: Exam: CT Abdomen And Pelvis Without Contrast Exam date and time: 10/28/2019 3:50 PM Age: 84 years old Clinical indication: Nausea and vomiting; Prior surgery; Surgery date: 6+ months; Surgery type: Gb, hyst, appy, aorta; Patient HX: C/O n/v/d x 2 days; Additional info: Diarrhea TECHNIQUE: Imaging protocol: Computed tomography of the abdomen and pelvis without contrast. Radiation optimization: All CT scans at this facility use at least one of these dose optimization techniques: automated exposure control; mA and/or kV adjustment per patient size (includes targeted exams where dose is matched to clinical indication); or iterative reconstruction. COMPARISON: [place] [id number] 11/18/2013 6:11 PM RADIATION DOSE METRICS: Total DLP: 556.18 mGy-cm FINDINGS: Liver: Normal. No mass. Gallbladder and bile ducts: Prior cholecystectomy. Mild intrahepatic biliary ductal dilatation, chronic and unchanged. Pancreas: Normal. No ductal dilation. Spleen: Normal. No splenomegaly. Adrenals: Normal. No mass. Kidneys and ureters: Normal. No hydronephrosis. Stomach and bowel: Sigmoid colon contains several diverticula. No evidence for acute diverticulitis. Appendix: No evidence of appendicitis. Intraperitoneal space: Unremarkable. No free air. No significant fluid collection. Vasculature: Status post EVAR with aortoiliac stent graft in place. Lymph nodes: Unremarkable. No enlarged lymph nodes. Bladder: Unremarkable as visualized. Reproductive: Prior hysterectomy. Bones/joints: Unremarkable. No acute fracture. Soft tissues: Unremarkable. CT/CT abdomen pelvis [facility] [id number] IMPRESSION: 1.) no acute process evident. 2.) Prior surgeries as noted above. 3.) Several sigmoid colon diverticula. No evidence for acute diverticulitis. Radiation Dose CTDIVOL = (mGy): DLP = 556.18 (mGy-cm)
[2019-10-28 16:39] LABS: Lactic Sepsis W/Reflex 1.4 mmol/L (0.5-2.2)
[2019-10-28 17:37] LABS: Glucose Point of Care 99 mg/dL (70-110)
--- NOTE | 2019-10-28 17:51 | ECG_ITS ---
Measurements Intervals [place] Rate: 79 P: 47 ID: [id number] QRS: -40 QRSD: 102 T: 71 QT: 381 QTc: 438 SINUS RHYTHM LEFT AXIS DEVIATION [QRS AXIS < -30] NONSPECIFIC T-WAVE ABNORMALITY Compared to ECG 09/25/2017 05:41:55 Left-axis deviation now present T-wave abnormality still present Electronically Signed On 10-29-2019 11:10:52 CDT by Sam Cody MD [id number]
[2019-10-28] MEDS: meclizine 25 mg tablet PO (17:52)
[2019-10-28] MEDS: HYDROcodone-acetaminophen 5-325 mg Tablet 1 TAB PO (17:52)
[2019-10-28] MEDS: gabapentin 400 mg Capsule PO (17:52)
[2019-10-28] MEDS: sodium chlor 0.45% +KCl 20 mEq 20 MEQ/1,000 ML BAG 125 MEQ IV (17:53)
[2019-10-28 18:53] LABS: Troponin 5 6HR 27.83 ng/mL (0-10)
[2019-10-28 19:16] LABS: Potassium, Radom Urine 28 mmol/L
[2019-10-28 19:23] LABS: Urine Random Chloride 13 mmol/L; Urine Random Sodium 16 mmol/L
[2019-10-28 23:33] LABS: Blood Urea Nitrogen 32 mg/dL (8-23); Carbon Dioxide 21 mmol/L (22-29); Chloride 99 mmol/L (98-107); Glucose 103 mg/dL (65-115); Osmolality Calculated 271 mOsm/kg (285-295); Sodium 132 mmol/L (136-145)
[2019-10-29] VITALS (9 sets, daily range): BP systolic 91–118; BP diastolic 49–78; PULSE 63–115; RESP 16–32; TEMP 36.6–38.1; O2SAT 93–97
[2019-10-29] MEDS: acetaminophen 325 mg Tablet 650 MG PO ×2 (01:04→11:25)
[2019-10-29] MEDS: metroNIDAZOLE IV 500 MG/100 ML PREMIX 100 MG IV ×3 (01:05→16:32)
[2019-10-29] MEDS: HYDROcodone-acetaminophen 5-325 mg Tablet 1 TAB PO ×2 (01:05→07:57)
[2019-10-29] MEDS: cefTRIAXone 1,000 MG in sodium chloride 0.9% (plus) 50 ML 100 MG IV (01:05)
[2019-10-29] MEDS: sodium chlor 0.45% +KCl 20 mEq 20 MEQ/1,000 ML BAG 125 MEQ IV ×2 (04:32→16:33)
[2019-10-29 06:02] LABS: Hematocrit 36.7 % (37.0-47.0); Hemoglobin 11.3 g/dL (11.5-15.3); Mean Corpuscular HGB Conc 30.8 g/dL (30.0-36.0); Mean Corpuscular Hemoglobin 27.9 pg (28.0-34.0); Mean Corpuscular Volume 90.6 fL (81-99); Mean Platelet Volume 11.5 fL (7.4-10.4); Nucleated Red Blood Cells % 0 %; Platelet Count 96 10^3/cmm (130-400); Red Blood Count 4.05 10^6/uL (4.1-5.3); Red Cell Distribution Width 14.1 % (12.1-15.1); White Blood Count 1.8 10^3/uL (4.0-10.0)
[2019-10-29 06:20] LABS: Alanine Aminotransferase 17 U/L (0-33); Albumin Level 2.9 g/dL (3.5-5.2); Alkaline Phosphatase 54 IU/L (35-105); Anion Gap 15.9 (5-19); Aspartate Amino Transferase 49 U/L (0-32); Blood Urea Nitrogen 29 mg/dL (8-23); Carbon Dioxide 22 mmol/L (22-29); Chloride 100 mmol/L (98-107); Glucose 106 mg/dL (65-115); Osmolality Calculated 275 mOsm/kg (285-295); Potassium 3.9 mmol/L (3.5-5.1); Sodium 134 mmol/L (136-145); Total Bilirubin 0.2 mg/dL (0.15-1.2); Total Protein 5.9 g/dL (6.6-8.7)
[2019-10-29 07:18] LABS: Slide Review Slide Review Perform
[2019-10-29 07:20] LABS: Absolute Segmented Neutrophil 0.9 10/cmm (1.6-7.1); Band Neutrophils Absolute 0.6 10^3/cmm (0.0-1.2); Lymphocytes 11 %; Lymphocytes Absolute 0.2 10^3/cmm (1.2-3.4); Segmented Neutrophils 51 %; Total Cells Counted 100 (0-100)
[2019-10-29 07:21] LABS: Anisocytosis 1+; Ovalocytes 1+; Platelet Estimate Decreased (Normal); Poikilocytosis 1+
[2019-10-29] MEDS: aspirin 81 mg EC Tablet PO (07:57)
[2019-10-29] MEDS: rivaroxaban 10 mg Tablet PO (07:57)
[2019-10-29] MEDS: gabapentin 400 mg Capsule PO ×2 (07:57→17:24)
[2019-10-29] MEDS: pantoprazole DR 40 mg Tablet PO (07:58)
[2019-10-29] MEDS: cetirizine 10 mg Tablet PO (07:58)
[2019-10-29] MEDS: montelukast sodium 10 mg Tablet PO (07:58)
[2019-10-29] MEDS: fluticasone nasal spray 16gm Btl 2 SPRAY INTRANASAL (08:00)
[2019-10-29 08:38] LABS: Eosinophil Urine No Eosinophils Seen; Urine Eosinophil Count 0 (0-0)
--- NOTE | 2019-10-29 10:37 | P.PN_ITS ---
Subjective Subjective: Interval history: Overnight patient developed fevers. Going as high as 101.1 Fahrenheit. On examination today she states she is feeling a lot better. States her nausea and vomiting has improved. She has not had any more episodes of bowel movements. She is wondering if she can go today. States she is feeling little weak but overall a lot better. Denies of having any headache, palpitations. Vitals/I&O/Wt Last Vital Signs Temp 99.2 F 10/29/19 07:24 Pulse 63 10/29/19 08:43 Resp 18 10/29/19 07:24 BP 109/67 10/29/19 07:24 Pulse Ox 97 10/29/19 08:43 10/28/19 10/29/19 10/29/19 22:59 06:59 14:59 Intake Total 1150 / 2150 120 / 120 Balance 1150 / 2150 120 / 120 Weight last 48 hrs Weight 63.503 kg Physical Exam Narrative: EXAM NARRATIVE: General: No acute distress, AO x3 HEENT: PERRLA, pupils bilaterally equal and reactive Chest: Normal vesicular breath sounds, no added sounds, equal good air entry bilaterally CVS: S1-S2 regular, no murmurs, no tachycardia, no gallops, no rubs Abdomen: Soft,tender, no organomegaly, bowel sounds present, epigastric region Neuro: No focal deficits, no facial deformity, AO x3, power 5/5 in all limbs Data : 10/29/19 05:35 10/29/19 05:35 Micro: Microbiology 10/29/19 01:03 Blood Culture - Preliminary Blood SPECIMEN COLLECTED 10/29/19 01:06 Blood Culture - Preliminary Blood SPECIMEN COLLECTED 10/28/19 18:25 Blood Culture - Preliminary Blood SPECIMEN COLLECTED 10/28/19 18:20 Blood Culture - Preliminary Blood SPECIMEN COLLECTED A&P Assessment and plan (1) Vomiting: Status: Acute (2) Diarrhea: Status: Acute (3) Hypotension: Status: Acute (4) TABBY (acute kidney injury): Status: Acute (5) Pulmonary embolism: Status: Acute Qualifiers: Acute cor pulmonale presence: unspecified Chronicity: chronic Pulmonary embolism type: unspecified Qualified Code(s): I27.82 - Chronic pulmonary embolism (6) Recurrent adenocarcinoma of lung: Status: Acute (7) Diastolic dysfunction without heart failure: Status: Acute (8) Metabolic acidosis: Status: Acute (9) Hyponatremia: Status: Acute (10) Hypokalemia: Status: Acute (11) Leukopenia: Status: Acute (12) Hypertension: Status: Acute Qualifiers: Hypertension type: essential hypertension Qualified Code(s): I10 - Essential (primary) hypertension (13) Hyperlipidemia: Status: Acute Qualifiers: Hyperlipidemia type: mixed hyperlipidemia Qualified Code(s): E78.2 - Mixed hyperlipidemia Additional A&P Information Gastroenteritis: Most likely viral. Dehydration: Most likely due to vomiting/diarrhea: Resolving Could be related to gastritis because of amoxicillin but given the recent exposure to antibiotic cannot rule out C. difficile. CT abdomen results appreciated. Negative for any colitis. For now continue with ceftriaxone and Flagyl. Will de-escalate antibiotics as per the culture results. Tolerating diet well. Increase to GI soft/bland diet. Decrease fluid to 50 cc/h. Stool studies elevated. Zofran for nausea. No Loperamide for till C. difficile is ruled out. Leukopenia: Baseline white count normal. Worsening leukopenia today. 1.8. ANC normal. Have requested for peripheral smear. ESR CRP mildly elevated. We will continue to monitor. TABBY: Baseline creatinine normal. Improving. 1.4 today. Most likely from dehydration. IV fluids as above. Medical reconciliation done for nephrotoxic drugs. Metabolic acidosis: Resolved. Most likely because of extreme vomiting and diarrhea along with TABBY. Continue IV fluids. Hyponatremia: Most likely from dehydration. Urine studies appreciated. Continue IV fluids as above. Check BMP in 6 hours to monitor for sodium levels. Hypokalemia: Resolved. Most likely because of vomiting and diarrhea. Hypertension: Blood pressure stable. Not on any treatment as per Dr. Tapia recently. We will continue to hold off on Coreg and monitor blood pressures. Pulmonary embolism: Continue Xarelto as outpatient. Oxygen therapy as needed keeping saturation over 92%. Recurrent adenocarcinoma of lungs: Post lobectomy: Follows up with Dr. Palmer last seen earlier this month. On Flovent/expectant treatment. Diastolic dysfunction of heart: Euvolemic. Continue to monitor for fluid overload. Full code. Clear liquid diet. Xarelto will also work as DVT prophylaxis Attestations Medical Necessity Statement*: Gastroenteritis Time Spent in Patient Care: Greater than 35 minutes (>than 50% of time spent in counselling and/or direct pt care on unit) . Coding Level of Care Code Acute Apparel Rental Clerk for [facility] Fwd Diagnoses Vomiting R11.10 Diarrhea R19.7 Hypotension I95.9 TABBY (acute kidney injury) N17.9 Pulmonary embolism I27.82 Acute cor pulmonale presence: unspecified Chronicity: chronic Pulmonary embolism type: unspecified Recurrent adenocarcinoma of lung C34.90 Diastolic dysfunction without heart failure I51.89 Metabolic acidosis E87.2 Hyponatremia E87.1 Hypokalemia E87.6 Leukopenia D72.819 Hypertension I10 Hypertension type: essential hypertension Hyperlipidemia E78.2 Hyperlipidemia type: mixed hyperlipidemia
[2019-10-29 10:43] LABS: LAB Peripheral Smear Sent for Review
--- NOTE | 2019-10-29 18:23 | PC.RESP ---
Pulmonary rehab information to be mailed to patient.
[2019-10-30] VITALS (126 sets, daily range): BP systolic 81–134; BP diastolic 49–84; PULSE 66–128; RESP 16–27; TEMP 36.4–37.7; O2SAT 75–98
[2019-10-30] MEDS: metroNIDAZOLE IV 500 MG/100 ML PREMIX 100 MG IV ×2 (02:00→10:16)
[2019-10-30] MEDS: cefTRIAXone 1,000 MG in sodium chloride 0.9% (plus) 50 ML 100 MG IV (02:00)
[2019-10-30 06:28] LABS: Hematocrit 36.1 % (37.0-47.0); Hemoglobin 11.2 g/dL (11.5-15.3); Mean Corpuscular Hemoglobin 27.7 pg (28.0-34.0); Mean Corpuscular Volume 89.1 fL (81-99); Mean Platelet Volume 12.1 fL (7.4-10.4); Platelet Count 70 10^3/cmm (130-400); Red Blood Count 4.05 10^6/uL (4.1-5.3); Red Cell Distribution Width 14.2 % (12.1-15.1); White Blood Count 1.9 10^3/uL (4.0-10.0)
[2019-10-30 06:54] LABS: Alanine Aminotransferase 33 U/L (0-33); Albumin Level 2.9 g/dL (3.5-5.2); Alkaline Phosphatase 49 IU/L (35-105); Anion Gap 16.9 (5-19); Aspartate Amino Transferase 120 U/L (0-32); Blood Urea Nitrogen 22 mg/dL (8-23); Calcium 7.1 mg/dL (8.5-10.5); Carbon Dioxide 19 mmol/L (22-29); Chloride 96 mmol/L (98-107); Globulin 2.5 g/dL (1.3-4.6); Glucose 109 mg/dL (65-115); Osmolality Calculated 263 mOsm/kg (285-295); Potassium 3.9 mmol/L (3.5-5.1); Sodium 128 mmol/L (136-145); Total Bilirubin 0.2 mg/dL (0.15-1.2); Total Protein 5.4 g/dL (6.6-8.7)
[2019-10-30 07:03] LABS: Total Cells Counted 100 (0-100)
[2019-10-30 07:23] LABS: Absolute Segmented Neutrophil 1.4 10/cmm (1.6-7.1); Band Neutrophils Absolute 0.2 10^3/cmm (0.0-1.2); Lymphocytes 11 %; Segmented Neutrophils 76 %
[2019-10-30 07:24] LABS: Lymphocytes Absolute 0.2 10^3/cmm (1.2-3.4)
[2019-10-30 07:25] LABS: Ovalocytes 1+
[2019-10-30 07:29] LABS: Anisocytosis 1+; Platelet Estimate Decreased (Normal); Poikilocytosis 1+
--- NOTE | 2019-10-30 09:04 | ECG_ITS ---
Measurements Intervals [place] Rate: 123 P: MD: 0 QRS: -24 QRSD: 101 T: 70 QT: 285 QTc: 408 ATRIAL FIBRILLATION WITH RAPID VENTRICULAR RESPONSE BORDERLINE LEFT AXIS DEVIATION [QRS AXIS < -20] NONSPECIFIC T-WAVE ABNORMALITY ABNORMAL RHYTHM ECG Compared to ECG 10/28/2019 14:14:28 Sinus rhythm no longer present Intraventricular conduction delay no longer present T-wave abnormality still present Electronically Signed On 10-30-2019 10:28:55 CDT by Sam Cody MD [id number]
--- NOTE | 2019-10-30 09:14 | XR_ITS ---
WS: [id number] PORTABLE CHEST HISTORY: sob COMPARISON: 10/28/2019 Significantly rotated to the RIGHT. There is also motion artifact. Taking into consideration the kris on and rotation no pneumonia is identified. No pleural effusion or pneumothorax. Cardiac size: Normal. Mediastinum/Aorta: Mild atherosclerosis aorta. No osseous abnormality seen. XR/XR chest 1V portable [id number] IMPRESSION: 1. Limited by rotation and motion. 2. No abnormality identified or interval change since 10/28/2019.
--- NOTE | 2019-10-30 09:15 | ECG_ITS ---
Measurements Intervals [place] Rate: 101 P: MO: 0 QRS: -33 QRSD: 105 T: 61 QT: 335 QTc: 435 ATRIAL FIBRILLATION WITH RAPID VENTRICULAR RESPONSE WITH ABERRANT CONDUCTION OR VENTRICULAR PREMATURE COMPLEXES MARKED LEFT AXIS DEVIATION [QRS AXIS < -30] Compared to ECG 10/30/2019 11:03:10 Ventricular premature complex(es) now present Aberrant conduction of supraventricular beat(s) now present Left-axis deviation now present Myocardial infarct finding no longer present Electronically Signed On 10-31-2019 22:06:01 CDT by Mica Barrow M.D. [id number]
--- NOTE | 2019-10-30 09:30 | PC.NURSE ---
After 5mg metoprolol IV and 40mg Lasix IV Dr. Cerna gave verbal order for another 5mg metoprolol IV. Pt bp 101/58 pule 104 at this time, Dr. Cerna said to go ahead and give another dose.
[2019-10-30] MEDS: metoprolol tartrate 1 mg/1 mL SDV 5 mL 5 MG (09:47)
[2019-10-30] MEDS: FUROsemide 10 mg/mL SDV 4mL 40 MG IVP ×2 (09:47→18:01)
[2019-10-30] MEDS: aspirin 81 mg EC Tablet PO (10:14)
[2019-10-30] MEDS: gabapentin 400 mg Capsule PO ×2 (10:15→18:01)
[2019-10-30] MEDS: fluticasone nasal spray 16gm Btl 2 SPRAY INTRANASAL (10:15)
[2019-10-30] MEDS: cetirizine 10 mg Tablet PO (10:15)
[2019-10-30] MEDS: rivaroxaban 10 mg Tablet PO (10:16)
[2019-10-30] MEDS: pantoprazole DR 40 mg Tablet PO (10:16)
[2019-10-30] MEDS: montelukast sodium 10 mg Tablet PO (10:16)
[2019-10-30] MEDS: metoprolol tartrate 1 mg/1 mL SDV 5 mL 5 MG IV (10:17)
[2019-10-30] MEDS: HYDROcodone-acetaminophen 5-325 mg Tablet 1 TAB PO (10:18)
[2019-10-30] MEDS: amiodarone 200 mg Tablet 400 MG PO (10:34)
[2019-10-30 10:44] LABS: Troponin(5th) Baseline 82 ng/mL (0-10)
--- NOTE | 2019-10-30 10:44 | PC.PT ---
Pt. nurse requests hold today, due to pt. being very ill . Will check back 10/31/19
[2019-10-30 10:52] LABS: NT Pro B Type Natriuretic Pept 8766 pg/mL (0-450)
--- NOTE | 2019-10-30 11:15 | ECG_ITS ---
Measurements Intervals [place] Rate: 112 P: MT: 0 QRS: -28 QRSD: 102 T: 64 QT: 329 QTc: 449 ATRIAL FIBRILLATION WITH RAPID VENTRICULAR RESPONSE POSSIBLE ANTERIOR MYOCARDIAL INFARCTION [30 ms Q WAVE IN V3/V4, OR R < 0.2 mV IN V4 V4 V4 V4], OF INDETERMINATE AGE Compared to ECG 10/30/2019 09:57:32 Myocardial infarct finding now present T-wave abnormality no longer present Electronically Signed On 10-30-2019 14:26:00 CDT by Sam Cody MD [id number]
--- NOTE | 2019-10-30 12:26 | CTR_ITS ---
PROCEDURE INFORMATION: Exam: CT Angiography Chest With Contrast Exam date and time: 10/30/2019 12:58 PM Age: 84 years old Clinical indication: Nausea and vomiting; Shortness of breath; Prior surgery; Surgery date: 6+ months; Surgery type: Gb, hysto, appy, aorta; Additional info: SOB, R/O pe TECHNIQUE: Imaging protocol: Computed tomographic angiography of the chest with intravenous contrast. 3D rendering: MIP and/or 3D reconstructed images were created by the technologist. Radiation optimization: All CT scans at this facility use at least one of these dose optimization techniques: automated exposure control; mA and/or kV adjustment per patient size (includes targeted exams where dose is matched to clinical indication); or iterative reconstruction. Contrast material: Visipaque 320; Contrast volume: 95 ml; Contrast route: RT AC; COMPARISON: CTA Chest-Pulmonary Emb [id number] 09/24/2017 12:16 PM RADIATION DOSE METRICS: Total DLP: 1269.57 mGy-cm FINDINGS: Pulmonary arteries: Normal. No pulmonary emboli. Aorta: No aortic aneurysm. No aortic dissection. Thyroid: Left thyroid hyperdensity measuring 8.4 mm. No specific followup required/recommended. Lungs: Previous right upper lobectomy. Previous left upper lobe and lingular resection. Right lower lobe superior segment pulmonary parenchymal scarring. There is moderate centrilobular emphysema in the remaining left lower lobe. Moderate paraseptal and centrilobular emphysema is present in the right lower lobe. Right lower lobe calcified pulmonary parenchymal granuloma. Left posterior pulmonary partial passive atelectasis. Pleural space: Small left, minimal right pleural effusions. No pneumothorax. Heart: Cardiac right atrial mild enlargement is present measuring 5.0 cm AP dimension (previously 4.6 cm). LAD, LCx and RCA calcified coronary atherosclerosis. Mediastinum: Right hilar granulomatous jose martin calcifications are present. Lymph nodes: No enlarged lymph nodes. 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 Left 5th intercostal site synostosis, probable prior surgical site. Diffuse osteopenia. Thoracic spine vertebral body marginal osteophytes are noted at multiple levels. No destructive bony process identified. Soft tissues: Benign bilateral breast macro calcifications. IMPRESSION: 1. Previous right upper lobectomy. 2. Previous left upper lobe and lingular resection. 3. No pulmonary embolism identified. 4. Pulmonary emphysema. 5. Small left, minimal right pleural effusions, new. 6. Mild cardiac right atrial enlargement, increased. 7. Coronary atherosclerosis. 8. Please see the abdomen/pelvis CT report of the same date for additional findings. COMMENTS: Consistent with the [employer]'s Incidental Findings Committee white paper (J Am Gulshan Radiol 2015): In patients aged 35 years and older with an incidental thyroid nodule equal to or greater than 1.[address], MRI or extrathyroidal US, further evaluation with dedicated thyroid US is recommended for patients with normal life expectancy and without comorbidities. For smaller nodules without suspicious features, no further evaluation or follow up is recommended. PROCEDURE INFORMATION: Exam: CT Abdomen And Pelvis With Contrast Exam date and time: 10/30/2019 12:58 PM Age: 84 years old Clinical indication: Nausea and vomiting; Shortness of breath; Prior surgery; Surgery date: 6+ months; Surgery type: Gb, hysto, appy, aorta; Additional info: SOB, R/O pe TECHNIQUE: Imaging protocol: Computed tomography of the abdomen and pelvis with intravenous contrast. Radiation optimization: All CT scans at this facility use at least one of these dose optimization techniques: automated exposure control; mA and/or kV adjustment per patient size (includes targeted exams where dose is matched to clinical indication); or iterative reconstruction. Contrast material: Visipaque 320; Contrast volume: 95 ml; Contrast route: IV; COMPARISON: CTA Chest-Pulmonary Emb [id number] 09/24/2017 12:16 PM RADIATION DOSE METRICS: Total DLP: 1269.57 mGy-cm FINDINGS: Liver: Normal. No mass. Gallbladder and bile ducts: The gallbladder is surgically absent, with metallic clips in the gallbladder fossa. Mild central intrahepatic biliary ductal dilatation. Pancreas: Normal. No ductal dilation. Spleen: Splenic calcified granuloma. Adrenals: Normal. No mass. Kidneys and ureters: Normal. No hydronephrosis. Stomach and bowel: There is mildly increased fluid noted throughout the abdominal and rectosigmoid colon. Sigmoid and descending colonic diverticula are present without evidence of diverticulitis. Appendix: The vermiform appendix is not identified on this examination. There is, however, no pericecal abnormality to suggest appendicitis. Intraperitoneal space: Unremarkable. No free air. No significant fluid collection. Vasculature: An aorto-iliac stent graft is present, patent. No evidence of endoleak. Collapsed viejas aortic lumen. Left pelvic phleboliths. Lymph nodes: No enlarged lymph nodes. Bladder: Unremarkable as visualized. Reproductive: The uterus is status post hysterectomy. The ovaries are not identified. Bones/joints: Diffuse osteopenia. L4-L5 and L5-S1 degenerative disc disease. Soft tissues: Unremarkable. CT/CT angio chest w abd pel w con IMPRESSION: 1. Prior cholecystectomy. 2. Mild central intrahepatic biliary ductal dilatation, stable. 3. Aortoiliac stent graft. 4. Increased abdominal and rectosigmoid colonic fluid consistent with any diarrheal illness. Clinical correlation is recommended. 5. Prior hysterectomy. 6. Diverticulosis. 7. Please see the CTA chest report of the same date for additional findings. Radiation Dose CTDIVOL = (mGy): DLP = 1269.57~1269.57 (mGy-cm)
--- NOTE | 2019-10-30 12:35 | PC.NURSE ---
Invertebrate Paleontologist called and left a message for the son and the daughter to let them know that pt was being transferred to ICU.
[2019-10-30 12:43] LABS: Troponin 5 2HR 89.12 ng/mL (0-10); Troponin 5 2HR Delta 7.12 ABS# (0-10)
--- NOTE | 2019-10-30 12:43 | PC.NURSE ---
Sterile Technician spoke to pt son regarding transferring her to ICU he voiced understanding
[2019-10-30] MEDS: iodixanol 320 mg/mL 100mL Btl IV (13:51)
[2019-10-30] MEDS: sodium chloride 0.9% 250 ML IV (14:34)
--- NOTE | 2019-10-30 15:15 | ECG_ITS ---
Measurements Intervals [place] Rate: 106 P: MD: 0 QRS: -22 QRSD: 105 T: 76 QT: 321 QTc: 427 ATRIAL FIBRILLATION WITH RAPID VENTRICULAR RESPONSE BORDERLINE LEFT AXIS DEVIATION [QRS AXIS < -20] NONSPECIFIC T-WAVE ABNORMALITY ABNORMAL RHYTHM ECG Compared to ECG 10/28/2019 14:14:28 Sinus rhythm no longer present Intraventricular conduction delay no longer present T-wave abnormality still present Electronically Signed On 10-30-2019 10:33:15 CDT by Sam Cody MD [email or web address]
[2019-10-30 17:22] LABS: Troponin 5 6HR 112.9 ng/mL (0-10); Troponin 5 6HR Delta 30.9 ng/L (0-12)
--- NOTE | 2019-10-30 17:26 | ECG_ITS ---
Measurements Intervals [place] Rate: 115 P: [place]: 0 QRS: -28 QRSD: 106 T: 79 QT: 304 QTc: 421 ATRIAL FIBRILLATION WITH RAPID VENTRICULAR RESPONSE BORDERLINE LEFT AXIS DEVIATION [QRS AXIS < -20] NONSPECIFIC T-WAVE ABNORMALITY Compared to ECG 10/30/2019 11:03:10 T-wave abnormality now present Myocardial infarct finding no longer present Electronically Signed On 10-31-2019 22:05:13 CDT by Mica Barrow M.D. [email or web address]
--- NOTE | 2019-10-30 17:30 | PM.PN ---
Subjective Subjective: Interval history: This morning patient was seen on the general medical floors, I was alerted by nursing staff that patient was increasingly short of breath, was put on 15 L nonrebreather, she was found to be in A. fib with RVR, heart rates in the 140s, rate controlled with 5 mg IV metoprolol push once, heart rate was in the 90s to low teens, she received 40 mg IV Lasix, her breathing improved, was put onto 3 to 4 L nasal cannula, but blood pressures remained soft, that she was transferred to the ICU for further monitoring, she was also started on amiodarone 400 mg daily In the ICU, patient's blood pressures have remained normotensive, last blood pressure 116/76, heart rates 100s to the 120s, A. fib, she is on 2 to 3 L nasal cannula, patient stated that her breathing had improved, she has had urine output, 220 charted, but I was told by nurses that she has had good urine output, patient's answering all questions appropriate, alert oriented x3, Chest x-ray, BMP, troponin show acute hypoxic respiratory failure likely secondary to CHF, denies any chest pain, will continue to monitor in ICU Vitals/I&O/Wt Last Vital Signs Temp 97.5 F L 10/30/19 14:30 Pulse 107 H 10/30/19 16:40 Resp 23 H 10/30/19 16:40 BP 116/76 10/30/19 16:40 Pulse Ox 93 10/30/19 16:40 10/30/19 10/30/19 10/30/19 06:59 14:59 22:59 Intake Total 2019 220 / 220 Balance 2019 220 220 Physical Exam Const: COMMON NORMALS: no acute distress and patient oriented x3 HENMT: COMMON NORMALS: normocephalic HEAD & SCALP: normocephalic Neck/C-Spine: COMMON NORMALS: no JVD Resp: COMMON NORMALS: No retractions and No use of accessory muscles AUSCULTATION: crackles Cardio: COMMON NORMALS: no JVD, regular rate, regular rhythm, S1 normal heart sound present and S2 normal heart sound present RATE: regular rate RHYTHM: regular rhythm HEART SOUNDS: S1 normal heart sound present and S2 normal heart sound present GI: COMMON NORMALS: Normal to inspection, nondistended, normoactive bowel sounds present, Soft to palpation, non-tender, No hepatosplenomegaly present, no masses and no bruits PALPATION: Yes Soft to palpation and Yes No hepatosplenomegaly present Extremity: COMMON NORMALS: capillary refill normal, no clubbing, cyanosis or edema, no calf tenderness and no pedal edema Neuro: COMMON NORMALS: patient oriented x3 Psych: COMMON NORMALS: mental status grossly normal Data : 10/30/19 06:11 10/30/19 06:11 Micro: Microbiology 10/28/19 14:25 Urine Culture - Preliminary Urine,Clean Catch 10/29/19 01:03 Blood Culture - Preliminary Blood NEGATIVE TO DATE 10/29/19 01:06 Blood Culture - Preliminary Blood NEGATIVE TO DATE 10/28/19 18:25 Blood Culture - Preliminary Blood NEGATIVE TO DATE 10/28/19 18:20 Blood Culture - Preliminary Blood NEGATIVE TO DATE A&P Assessment and plan (1) Acute respiratory failure with hypoxia: -Secondary to heart failure exacerbation, A. fib Plan: -Admit to ICU -Currently doing well on nasal cannula, BiPAP as needed, patient is a full code -Diuresed to 40 mg IV Lasix in the morning, will give another 40 mg this afternoon -Place Chinchilla for strict I's and O's -Repeat chest x-ray in the morning, repeat BMP tomorrow morning -Echocardiogram has been ordered Status: Acute (2) New onset atrial fibrillation: -Currently rate controlled -Currently on amiodarone 400 mg daily -We will add additional rate control medications depending on heart rates -For now I have held off on anticoagulation as patient's platelet count is 71, hemoglobin 11.2, no overt signs of bleeding -SCDs for DVT prophylaxis Status: Acute (3) NSTEMI (non-ST elevated myocardial infarction): -Baseline troponin 82, 120-minute 89.2, 6-hour 112.9, positive delta 30.9, EKG shows no acute ST-T wave changes -Likely type II end STEMI from acute respiratory failure Plan: -Repeat troponin in 6 hours -Telemetry monitoring -Serial EKGs, monitor for chest pain -I have held off on aspirin, as patient's platelet count is 70,000 -We will reassess resuming antiplatelet therapy tomorrow morning -Continue statin Status: Acute (4) Hyperlipidemia: Status: Acute Qualifiers: Hyperlipidemia type: mixed hyperlipidemia Qualified Code(s): E78.2 - Mixed hyperlipidemia (5) Vomiting: Status: Acute (6) Diarrhea: Status: Acute (7) Hypotension: Status: Acute (8) TABBY (acute kidney injury): Status: Acute (9) Pulmonary embolism: Status: Acute Qualifiers: Pulmonary embolism type: unspecified Chronicity: chronic Acute cor pulmonale presence: unspecified Qualified Code(s): I27.82 - Chronic pulmonary embolism (10) Recurrent adenocarcinoma of lung: Status: Acute (11) Diastolic dysfunction without heart failure: Status: Acute (12) Metabolic acidosis: Status: Acute (13) Hyponatremia: Status: Acute (14) Hypokalemia: Status: Acute (15) Leukopenia: Status: Acute (16) Hypertension: Status: Acute Qualifiers: Hypertension type: essential hypertension Qualified Code(s): I10 - Essential (primary) hypertension Additional A&P Information Gastroenteritis: Most likely viral. Dehydration: Most likely due to vomiting/diarrhea: Resolving Could be related to gastritis because of amoxicillin but given the recent exposure to antibiotic cannot rule out C. difficile. CT abdomen results appreciated. Negative for any colitis. For now continue with ceftriaxone and Flagyl. Tolerating diet well. Increase to GI soft/bland diet. Stop IV fluids Stool studies elevated. Zofran for nausea. No Loperamide for till C. difficile is ruled out. Leukopenia: Baseline white count normal. Cell count 1.9 ANC normal. Have requested for peripheral smear. ESR CRP mildly elevated. We will continue to monitor. TABBY: Baseline creatinine normal. Creatinine 1.5 today Medical reconciliation done for nephrotoxic drugs. Metabolic acidosis: Resolved. Continue IV fluids. Hyponatremia: We will continue to monitor serum sodiums, fluid restrictions Hypokalemia: Resolved. Most likely because of vomiting and diarrhea. Hypertension: Blood pressure stable. Not on any treatment as per Dr. Tapia recently. We will continue to hold off on Coreg and monitor blood pressures. Pulmonary embolism: Hold Xarelto Oxygen therapy as needed keeping saturation over 92%. Recurrent adenocarcinoma of lungs: Post lobectomy: Follows up with Dr. Palmer last seen earlier this month. On Flovent/expectant treatment. Diastolic dysfunction of heart: Received 2 dose of Lasix today, dose as needed Full code. Clear liquid diet. SCDs for DVT prophylaxis Attestations Medical Necessity Statement*: Patient requires continued hospitalization, ICU, for acute respiratory failure secondary to A. 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
[2019-10-30] MEDS: atorvastatin 40 mg Tablet PO (20:24)
[2019-10-31] VITALS (91 sets, daily range): BP systolic 72–124; BP diastolic 32–83; PULSE 71–131; RESP 15–29; TEMP 36.6–36.9; O2SAT 87–98
[2019-10-31] MEDS: cefTRIAXone 1,000 MG in sodium chloride 0.9% (plus) 50 ML 100 MG IV (00:47)
[2019-10-31 04:34] LABS: Basophils % 0.4 %; Hematocrit 36.6 % (37.0-47.0); Hemoglobin 11.7 g/dL (11.5-15.3); Lymphocytes # 0.3 10^3/uL (0.8-4.8); Lymphocytes % 14.5 %; Mean Corpuscular Hemoglobin 27.4 pg (28.0-34.0); Mean Corpuscular Volume 85.7 fL (81-99); Mean Platelet Volume 12.8 fL (7.4-10.4); Monocytes # 0.1 10^3/uL (0.2-0.9); Monocytes % 3.4 %; Neutrophils # 1.9 10^3/uL (1.8-7.7); Neutrophils % 80.8 %; Nucleated Red Blood Cells % 0 %; Platelet Count 67 10^3/cmm (130-400); Red Blood Count 4.27 10^6/uL (4.1-5.3); Red Cell Distribution Width 14.6 % (12.1-15.1); White Blood Count 2.3 10^3/uL (4.0-10.0)
[2019-10-31 05:04] LABS: Alanine Aminotransferase 68 U/L (0-33); Albumin Level 2.6 g/dL (3.5-5.2); Alkaline Phosphatase 49 IU/L (35-105); Anion Gap 19.5 (5-19); Aspartate Amino Transferase 229 U/L (0-32); Blood Urea Nitrogen 33 mg/dL (8-23); Calcium 7.6 mg/dL (8.5-10.5); Carbon Dioxide 17 mmol/L (22-29); Chloride 95 mmol/L (98-107); Globulin 3.1 g/dL (1.3-4.6); Glucose 105 mg/dL (65-115); Magnesium 1.6 mg/dL (1.7-2.3); Osmolality Calculated 264 mOsm/kg (285-295); Phosphorus 2.9 mg/dL (2.5-4.5); Potassium 3.5 mmol/L (3.5-5.1); Sodium 128 mmol/L (136-145); Total Bilirubin 0.2 mg/dL (0.15-1.2); Total Protein 5.7 g/dL (6.6-8.7)
[2019-10-31 05:54] LABS: Slide Review Slide Review Perform
[2019-10-31] MEDS: gabapentin 400 mg Capsule PO ×2 (08:44→17:45)
[2019-10-31] MEDS: pantoprazole DR 40 mg Tablet PO (08:44)
[2019-10-31] MEDS: dilTIAZem 30 mg Tablet PO ×3 (08:45→20:17)
[2019-10-31] MEDS: montelukast sodium 10 mg Tablet PO (08:45)
[2019-10-31] MEDS: amiodarone 200 mg Tablet 400 MG PO (08:45)
[2019-10-31] MEDS: cetirizine 10 mg Tablet PO (08:45)
--- NOTE | 2019-10-31 10:15 | XR_ITS ---
WS: [id number] PORTABLE CHEST HISTORY: low oxygen COMPARISON: 10/30/2019 Partial obscuration of the LEFT diaphragm and blunting of the LEFT costophrenic angle. RIGHT lung is clear. Small amount of biapical pleural thickening and scarring. Small LEFT pleural effusion. Cardiac size: Normal. Mediastinum/Aorta: Mild atherosclerosis aorta. Surgical clips are noted at the AP window. No osseous abnormality seen. XR/XR chest 1V portable [id number] IMPRESSION: 1. Small LEFT pleural effusion with LEFT basilar pneumonitis. 2. Prior LEFT upper lobe resection. 3. Emphysema.
--- NOTE | 2019-10-31 10:24 | PC.SOCIAL ---
Pg 2 IMM. Explained to pt Pg 2 IMM. Pt verbally understands. No questions voiced. Provided pt a copy & left on pt's bedside table. Signed, dated, & timed a copy & placed in pt's chart.
[2019-10-31 11:16] LABS: Glucose Point of Care 100 mg/dL (70-110)
[2019-10-31 11:27] LABS: LAB Peripheral Smear Sent for Review
--- NOTE | 2019-10-31 11:42 | PM.PN ---
Subjective Subjective: Interval history: This morning patient was seen in the ICU, she was on 5 L oxygen, I turned her down to 2-3 oxygen, she sustained this throughout my examination, she states that her breathing has improved, has a minimal cough, no fevers, no chills, no nausea, no vomiting, no chest pain, no palpitations he is fairly weak,, has poor appetite, she states that she lives at home alone, does not use any oxygen at home Vitals/I&O/Wt Last Vital Signs Temp 98.4 F 10/31/19 10:20 Pulse 106 H 10/31/19 10:20 Resp 26 H 10/31/19 10:20 BP 95/52 10/31/19 10:20 Pulse Ox 92 10/31/19 10:20 10/30/19 10/31/19 10/31/19 22:59 06:59 14:59 Intake Total 300 / 520 150 / 670 240 / 240 Output Total 350 / 350 1000 / 1350 Balance -50 / 170 -850 / -680 240 / 240 Physical Exam Const: COMMON NORMALS: no acute distress and patient oriented x3 HENMT: COMMON NORMALS: normocephalic HEAD & SCALP: normocephalic Neck/C-Spine: COMMON NORMALS: no JVD Resp: COMMON NORMALS: normal respiratory effort, No retractions and No use of accessory muscles AUSCULTATION: crackles Cardio: COMMON NORMALS: no JVD, regular rate, regular rhythm, S1 normal heart sound present and S2 normal heart sound present RATE: regular rate RHYTHM: regular rhythm HEART SOUNDS: S1 normal heart sound present and S2 normal heart sound present GI: COMMON NORMALS: Normal to inspection, nondistended, normoactive bowel sounds present, Soft to palpation, non-tender, No hepatosplenomegaly present, no masses and no bruits PALPATION: Yes Soft to palpation and Yes No hepatosplenomegaly present Extremity: COMMON NORMALS: capillary refill normal, no clubbing, cyanosis or edema, no calf tenderness and no pedal edema Neuro: COMMON NORMALS: patient oriented x3 Psych: COMMON NORMALS: mental status grossly normal Urinary Catheter Management^: Chinchilla: Cath Placed During This Visit: yes Reason for Continuing Indwelling Catheter: Accurate Measurement of Urinary Output in Critically Ill Patients Urinary Catheter Date of Insertion: 10/30/19 Urinary Catheter Time of Insertion: 17:30 Data : 10/31/19 03:57 10/31/19 03:57 Micro: Microbiology 10/28/19 14:25 Urine Culture - Final Urine,Clean Catch 10/31/19 08:30 Stool Lactoferrin - Final Stool Occult Blood (FIT) - Final A&P Assessment and plan (1) Acute respiratory failure with hypoxia: -Secondary to heart failure exacerbation, A. fib Plan: -Admit to ICU -Patient's blood work shows persistent leukopenia, has persistent oxygen requirement, CT of the chest was negative for pulmonary embolism, CT chest showed no infiltrate, minimal right pleural effusion, her admission diagnosis was abdominal pain and diarrhea, as a significant number of COVID cases present with diarrhea and abdominal pain, given patient's previous findings, I will order COVID-19 testing, COVID-19 precautions -Currently stable on nasal cannula, BiPAP as needed, patient is a full code -Creatinine is up to 2.7, hold Lasix, fluid restrictions, monitor I's and O's -Place Chinchilla for strict I's and O's, diuresed 1350 since Chinchilla catheter placement -Repeat chest x-ray in the morning, repeat BMP tomorrow morning -Echocardiogram has been ordered Status: Acute (2) New onset atrial fibrillation: -Currently rate controlled -Currently on amiodarone 400 mg daily -I have added Cardizem 60 every 6 hours as patient has had heart rates in the high 120s 130s -For now I have held off on anticoagulation as patient's platelet count is 67, hemoglobin 11.7, no overt signs of bleeding -SCDs for DVT prophylaxis Status: Acute (3) NSTEMI (non-ST elevated myocardial infarction): -Baseline troponin 82, 120-minute 89.2, 6-hour 112.9, positive delta 30.9, EKG shows no acute ST-T wave changes -Likely type II end STEMI from acute respiratory failure Plan: -Telemetry monitoring -Serial EKGs, monitor for chest pain -I have held off on aspirin, as patient's platelet count is 67,000 -We will reassess resuming antiplatelet therapy tomorrow morning -Continue statin -Awaiting echocardiogram Status: Acute (4) Hyperlipidemia: Status: Acute Qualifiers: Hyperlipidemia type: mixed hyperlipidemia Qualified Code(s): E78.2 - Mixed hyperlipidemia (5) Vomiting: Status: Acute (6) Diarrhea: Status: Acute (7) Hypotension: Status: Acute (8) TABBY (acute kidney injury): Status: Acute (9) Pulmonary embolism: Status: Acute Qualifiers: Pulmonary embolism type: unspecified Chronicity: chronic Acute cor pulmonale presence: unspecified Qualified Code(s): I27.82 - Chronic pulmonary embolism (10) Recurrent adenocarcinoma of lung: Status: Acute (11) Diastolic dysfunction without heart failure: Status: Acute (12) Metabolic acidosis: Status: Acute (13) Hyponatremia: Status: Acute (14) Hypokalemia: Status: Acute (15) Leukopenia: Status: Acute (16) Hypertension: Status: Acute Qualifiers: Hypertension type: essential hypertension Qualified Code(s): I10 - Essential (primary) hypertension (17) Generalized weakness: Status: Acute Additional A&P Information Gastroenteritis: Most likely viral. CT scan of the abdomen shows increased abdominal and rectosigmoid colonic fluid consistent with diarrheal illness, COVID-19 testing pending For now continue with ceftriaxone and Flagyl. Tolerating diet well. Increase to GI soft/bland diet. Stool studies pending Zofran for nausea. C. difficile pending Leukopenia: Baseline white count normal. Cell count 2.3 ANC normal. Peripheral smear shows pancytopenia, no atypical forms seen We will continue to monitor. Thrombocytopenia, platelet count 67,000, CT scan of the abdomen shows no liver cirrhosis, no splenomegaly, hepatitis panel pending, HIV pending, PATRICIA pending TABBY: Creatinine up to 2.7 Baseline creatinine normal. Hold Lasix Hold nephrotoxic agents Metabolic acidosis: Resolved. Hyponatremia: We will continue to monitor serum sodiums, fluid restrictions Hypokalemia: Resolved. Most likely because of vomiting and diarrhea. Hypertension: Blood pressure stable. Not on any treatment as per Dr. Willie dsouza. We will continue to hold off on Coreg and monitor blood pressures. Pulmonary embolism: Hold Xarelto Oxygen therapy as needed keeping saturation over 92%. Recurrent adenocarcinoma of lungs: Post lobectomy: Follows up with Dr. Palmer last seen earlier this month. On Flovent/expectant treatment. Diastolic dysfunction of heart: Received 2 dose of Lasix today, hold Lasix for now as elevated creatinine Generalized weakness: PT OT, encourage oral hydration Full code. Clear liquid diet. SCDs for DVT prophylaxis Attestations Medical Necessity Statement*: Patient requires persistent hospitalization for acute respiratory failure, atrial fibrillation, versus leukopenia, thrombocytopenia, generalized weakness Coding Level of Care Code Acute Transfusion Nurse for Chg Fwd Diagnoses Acute respiratory failure with hypoxia J96.01 New onset atrial fibrillation I48.91 NSTEMI (non-ST elevated myocardial infarction) I21.4 Hyperlipidemia E78.2 Hyperlipidemia type: mixed hyperlipidemia Vomiting R11.10 Diarrhea R19.7 Hypotension I95.9 TABBY (acute kidney injury) N17.9 Pulmonary embolism I27.82 Pulmonary embolism type: unspecified Chronicity: chronic Acute cor pulmonale presence: unspecified Recurrent adenocarcinoma of lung C34.90 Diastolic dysfunction without heart failure I51.89 Metabolic acidosis E87.2 Hyponatremia E87.1 Hypokalemia E87.6 Leukopenia D72.819 Hypertension I10 Hypertension type: essential hypertension Generalized weakness R53.1
[2019-10-31] MEDS: HYDROcodone-acetaminophen 5-325 mg Tablet 1 TAB PO (13:18)
[2019-10-31 13:26] LABS: Osmolality Urine 780 mOsm/kg (50-1200)
[2019-10-31 13:27] LABS: Procalcitonin 7.18 ng/mL (0-0.5)
[2019-10-31 13:38] LABS: C Reactive Protein 132.2 mg/L (0.0-4.9)
[2019-10-31 13:40] LABS: Hepatitis A Antibody IgM Non-Reactive (Nonreactive); Hepatitis B Core AB, Total Non-Reactive (Nonreactive); Hepatitis B Surface AB 3.5 (0-8.5); Hepatitis B Surface Antigen Non-Reactive (Nonreactive); Hepatitis C Virus Antibody Non-Reactive (Nonreactive)
[2019-10-31 13:43] LABS: Influenza A by IFA Negative (Negative); Influenza B by IFA Negative (Negative)
[2019-10-31] MEDS: dextrose 5%-sod chloride 0.9% 1,000 ML 50 ML IV (14:12)
[2019-10-31 14:17] LABS: HIV 1 & 2 Antibody Non-Reactive (Non-Reactiv); HIV 1 & 2 Antigen Non-Reactive (Non-Reactiv)
--- NOTE | 2019-10-31 18:00 | PC.PT ---
PT evaluation on hold awaiting coved testing results
[2019-10-31] MEDS: atorvastatin 40 mg Tablet PO (20:17)
[2019-10-31] MEDS: acetaminophen 325 mg Tablet 650 MG PO (22:07)
--- NOTE | 2019-10-31 23:19 | PC.NURSE ---
DR ESTRELLA PT BECAME HYPOTENSIVE, PT WAS NOT SYMPTOMATIC. PT BLOOD PRESSURE WAS 85/48 WITH PT IN [place]. DR DONNELLY GAVE ORDER TO GIVE 1L BOLUS OF NORMAL SALINE.
[2019-10-31] MEDS: sodium chloride 0.9% 1,000 ML 999 ML IV (23:38)
[2019-11-01] VITALS (34 sets, daily range): BP systolic 86–123; BP diastolic 41–82; PULSE 73–104; RESP 16–25; TEMP 36.5–37.6; O2SAT 92–97
[2019-11-01] MEDS: sodium chloride 0.9% 500 ML 999 ML IV (02:15)
--- NOTE | 2019-11-01 02:20 | PC.NURSE ---
DR SAMEER BHARDWAJ WAS COMPLAINING OF CHEST PAIN IN THE CENTER OF HER CHEST, EKG WAS PERFORMED AND DR DONNELLY WAS CALLED. NO NEW ORDERS.
--- NOTE | 2019-11-01 02:23 | ECG_ITS ---
Measurements Intervals [place] Rate: 78 P: OR: 0 QRS: -32 QRSD: 110 T: 89 QT: 387 QTc: 443 ATRIAL FIBRILLATION MARKED LEFT AXIS DEVIATION [QRS AXIS < -30] MODERATE INTRAVENTRICULAR CONDUCTION DELAY NONSPECIFIC T-WAVE ABNORMALITY Compared to ECG 10/30/2019 17:42:51 Intraventricular conduction delay now present T-wave abnormality still present Electronically Signed On 11-01-2019 11:50:31 CDT by Mica Barrow M.D. [email or web address]
[2019-11-01 03:48] LABS: Basophils % 0.3 %; Hematocrit 34.4 % (37.0-47.0); Hemoglobin 10.7 g/dL (11.5-15.3); Lymphocytes # 0.5 10^3/uL (0.8-4.8); Lymphocytes % 15.5 %; Mean Corpuscular HGB Conc 31.1 g/dL (30.0-36.0); Mean Corpuscular Hemoglobin 27.1 pg (28.0-34.0); Mean Corpuscular Volume 87.1 fL (81-99); Mean Platelet Volume 12.3 fL (7.4-10.4); Monocytes # 0.1 10^3/uL (0.2-0.9); Monocytes % 3.6 %; Neutrophils # 2.6 10^3/uL (1.8-7.7); Neutrophils % 79.7 %; Nucleated Red Blood Cells % 0 %; Platelet Count 72 10^3/cmm (130-400); Red Blood Count 3.95 10^6/uL (4.1-5.3); Red Cell Distribution Width 14.9 % (12.1-15.1); White Blood Count 3.3 10^3/uL (4.0-10.0)
[2019-11-01 04:17] LABS: Alanine Aminotransferase 46 U/L (0-33); Albumin Level 2.4 g/dL (3.5-5.2); Alkaline Phosphatase 44 IU/L (35-105); Anion Gap 17.5 (5-19); Aspartate Amino Transferase 138 U/L (0-32); Blood Urea Nitrogen 39 mg/dL (8-23); Calcium 7.1 mg/dL (8.5-10.5); Carbon Dioxide 17 mmol/L (22-29); Chloride 100 mmol/L (98-107); Globulin 2.6 g/dL (1.3-4.6); Glucose 99 mg/dL (65-115); Magnesium 1.6 mg/dL (1.7-2.3); Osmolality Calculated 270 mOsm/kg (285-295); Phosphorus 3.7 mg/dL (2.5-4.5); Potassium 3.5 mmol/L (3.5-5.1); Sodium 131 mmol/L (136-145); Total Bilirubin 0.2 mg/dL (0.15-1.2)
[2019-11-01 04:44] LABS: Slide Review Slide Review Perform
[2019-11-01] MEDS: HYDROcodone-acetaminophen 5-325 mg Tablet 1 TAB PO (05:59)
--- NOTE | 2019-11-01 06:39 | PC.NURSE ---
SHIFT SUMMARY PT HAS REMAINED ALERT AND ORIENTATED. PT HAS BEEN TURNED NEEDED. NO BM TONIGHT. PT WAS RESPONSIVE TO FLUID BOLUS LAST NIGHT. PT WAS GIVEN PAIN MEDS IN THE NIGHT TO HELP WITH PAIN. PT IS GENERALIZED WEAKNESS.
--- NOTE | 2019-11-01 07:00 | USCV_ITS ---
Keely Chan Age: 84 Gender: F : 1935 Exam Date: 11/01/2019 12:24 Ordering Phys: Bhupinder Cerna MD Technologist: Thanh Cee [place] [facility] [place]: BP: 121 / 54 HR: 92 Rhythm: Atrial fibrillation Technical Quality: Poor MEASUREMENTS (Male / Female) Normal Values 2D ECHO LV Diastolic Diameter PLAX 2.9 cm 4.2 - 5.9 / 3.9 - 5.3 cm LV Systolic Diameter PLAX 1.9 cm IVS Diastolic Thickness 0.9 cm 0.6 - 1.0 / 0.6 - 0.9 cm IVS Systolic Thickness 1.2 cm LVPW Diastolic Thickness 0.9 cm 0.6 - 1.0 / 0.6 - 0.9 cm LVPW Systolic Thickness 1.2 cm LVOT Diameter 2.0 cm LV Ejection Fraction 2D Teich 65.9 % LV Ejection Fraction MOD 2C 60.1 % LV Ejection Fraction 2C AL 58.5 % LA Diameter 3.2 cm LA Width 4.1 cm LA Height 4.7 cm RA Width 3.7 cm RA Height 5.1 cm Aorta at Sinotubular Diameter 2.4 cm M-MODE Aortic Annulus Diameter 3.1 cm LA Ao Ratio MM 1.0 MV E Point Septal Separation 1.1 cm DOPPLER AV Peak Velocity 113.0 cm/s LVOT Peak Velocity 102.0 cm/s AV Area Cont Eq vti 2.6 cm squared AV Area Cont Eq pk 2.8 cm squared MV Area PHT 4.9 cm squared Mitral E to A Ratio 2.7 MV E' Velocity 11.0 cm/s Mitral E to MV E' Ratio 9.0 Mitral E to LV E' Lateral Ratio 9.3 Mitral E to LV E' Septal Ratio 8.7 TR Peak Velocity 223.0 cm/s TR Peak Gradient 19.9 mmHg TV Peak E Velocity 80.0 cm/s Right Atrial Pressure 3.0 mmHg Pulmonary Artery Systolic Pressu 22.9 mmHg FINDINGS Left Ventricle This is a poor quality study. The rhythm is atrial fibrillation. The ventricle is likely normal in size. There are no obvious wall motion disturbances. Ejection fraction is within normal range. Diastolic function cannot be determined due to the rhythm. Right Ventricle Normal right ventricular size and systolic function. Normal right ventricular systolic pressure. Right Atrium The right atrium is normal in size. Left Atrium Mildly increased left atrial size. Mitral Valve Mitral valve not well visualized. Aortic Valve Aortic valve not well visualized. Tricuspid Valve Tricuspid valve not well visualized. Pulmonic Valve Pulmonic valve not well visualized. Pericardium Normal pericardium without effusion. Aorta Normal ascending aorta dimension. CONCLUSIONS This is a poor quality study. The rhythm is atrial fibrillation. The ventricle is likely normal in size. There are no obvious wall motion disturbances. Ejection fraction is within normal range. Diastolic function cannot be determined due to the rhythm. Mildly increased left atrial size. Technically limited study. No significant valve abnormalities. From the previous echo dictated 09/25/2017, the only change is the new onset of atrial fibrillation. Dr. Priyank Torrez MD (Electronically Signed) Final Date: 01 Nov 2019 17:58 S
--- NOTE | 2019-11-01 07:43 | XR_ITS ---
WS: [id number] PORTABLE CHEST HISTORY: REQUIRING 5l OXYGEN COMPARISON: 10/31/2019 Hyperexpansion and chronic emphysema. Linear opacification in the RIGHT lower lobe. Normal vasculatur e. No pleural effusion or pneumothorax. Cardiac size: Mildly enlarged cardiac silhouette. Mediastinum/Aorta: Mild atherosclerosis aorta. Osteopenia. Endovascular graft in the abdominal aorta. XR/XR chest 1V portable [id number] IMPRESSION: 1. Increasing atelectasis at the RIGHT lung base. 2. Severe chronic emphysema.
[2019-11-01] MEDS: magnesium sulfate premix 2 GM/50 ML PIGGYBACK IV (07:44)
[2019-11-01 07:53] LABS: ABG PCO2 31.1 mmHg (35-45); ABG PH Result 7.36 (7.35-7.45); Arterial Blood Gas Hematocrit 34.1 % (37-47); Base Excess ABG -6.8 mmol/L (-2.0-2.0); Blood Gas Allen Test Pos; Blood Gas Sample Site Brachial, right; Blood Gas Sample Type Arterial; HCO3 ABG 17.7 mmol/L (22-26); Oxygen Device NC; PO2 ABG 67.6 mmHg (80.0-100.0)
[2019-11-01] MEDS: cefTRIAXone 1,000 MG in sodium chloride 0.9% (plus) 50 ML 100 MG IV (07:58)
[2019-11-01] MEDS: montelukast sodium 10 mg Tablet PO (07:59)
[2019-11-01] MEDS: cetirizine 10 mg Tablet PO (08:00)
[2019-11-01] MEDS: amiodarone 200 mg Tablet PO (08:00)
[2019-11-01] MEDS: gabapentin 400 mg Capsule PO ×2 (08:00→17:19)
[2019-11-01] MEDS: pantoprazole DR 40 mg Tablet PO (08:00)
[2019-11-01 08:31] LABS: Iron 43 ug/dL (37-145); NT Pro B Type Natriuretic Pept 14886 pg/mL (0-450)
[2019-11-01] MEDS: metroNIDAZOLE IV 500 MG/100 ML PREMIX 100 MG IV ×2 (08:57→16:47)
[2019-11-01 09:14] LABS: Lactic Acid level (Lactate) 1.1 mmol/L (0.5-2.2)
[2019-11-01 09:20] LABS: Troponin T (5th) Once 118 ng/mL (0-10)
[2019-11-01 09:31] LABS: Fibrinogen 256 mg/dL (184-529)
[2019-11-01 09:39] LABS: Cortisol Random 14.92 mcg/dL (2.47-19.5)
[2019-11-01 09:40] LABS: Calcium 6.2 mg/dL (8.5-10.5); Parathyroid Hormone 196.3 pg/mL (15-65)
[2019-11-01 09:41] LABS: D Dimer 7.44 ug/mIFEU (0-0.59)
--- NOTE | 2019-11-01 10:04 | ECG_ITS ---
Measurements Intervals [place] Rate: 84 P: HI: 0 QRS: -29 QRSD: 105 T: 91 QT: 365 QTc: 431 ATRIAL FIBRILLATION BORDERLINE LEFT AXIS DEVIATION [QRS AXIS < -20] NONSPECIFIC T-WAVE ABNORMALITY Compared to ECG 10/30/2019 17:42:51 No significant changes Electronically Signed On 11-01-2019 11:48:48 CDT by Mica Barrow M.D. [email or web address]
[2019-11-01] MEDS: aspirin 81 mg EC Tablet PO (10:24)
[2019-11-01 10:28] LABS: Vitamin B12 > 2000 pg/mL (232-1245)
[2019-11-01] MEDS: dextrose 5%-sod chloride 0.9% 1,000 ML 50 ML IV (10:32)
[2019-11-01 10:43] LABS: Urine Creatinine 74 mg/dL (28-217); Urine Random Sodium 54 mmol/L
[2019-11-01 11:20] LABS: Creatinine Urine, Random 73 mg/dL (28-217)
[2019-11-01 11:33] LABS: Glucose Point of Care 136 mg/dL (70-110)
[2019-11-01 11:37] LABS: Urea Nitrogen,Urine Random 456 mg/dL
--- NOTE | 2019-11-01 11:44 | P.PN_ITS ---
Subjective Subjective: Interval history: This morning patient continues to look ill, poor appetite, has not been able to get out of bed for the last 2 days, had barely anything to eat this morning, states that she does not have an appetite, states her breathing is improved, but is requiring 5 L of oxygen, denies palpitations, no chest pain, denies lightheadedness, dizziness, no fevers Vitals/I&O/Wt Last Vital Signs Temp 98.7 F 11/01/19 08:00 Pulse 78 11/01/19 10:04 Resp 16 11/01/19 09:00 BP 111/64 11/01/19 09:00 Pulse Ox 96 11/01/19 09:00 10/31/19 11/01/19 11/01/19 22:59 06:59 14:59 Intake Total 336.667 / 443.784 8659 / 9669.395 1934.333 / 1633.333 Output Total 600 / 600 425 / 1025 200 / 200 Balance -263.333 / 96.667 575 / 263.948 4173.333 / 1433.333 Physical Exam Const: COMMON NORMALS: no acute distress and patient oriented x3 GENERAL APPEARANCE: ill appearing HENMT: COMMON NORMALS: normocephalic HEAD & SCALP: normocephalic Neck/C-Spine: COMMON NORMALS: no JVD Resp: COMMON NORMALS: normal respiratory effort, No retractions and No use of accessory muscles AUSCULTATION: crackles Cardio: COMMON NORMALS: no JVD, regular rate, S1 normal heart sound present and S2 normal heart sound present RATE: regular rate RHYTHM: abnormal rhythm HEART SOUNDS: S1 normal heart sound present and S2 normal heart sound present GI: COMMON NORMALS: Normal to inspection, nondistended, normoactive bowel sounds present, Soft to palpation, non-tender, No hepatosplenomegaly present, no masses and no bruits PALPATION: Yes Soft to palpation and Yes No hepatosplenomegaly present Extremity: COMMON NORMALS: capillary refill normal, no clubbing, cyanosis or edema, no calf tenderness and no pedal edema Neuro: COMMON NORMALS: patient oriented x3 Psych: COMMON NORMALS: mental status grossly normal Urinary Catheter Management^: Chinchilla: Cath Placed During This Visit: yes Reason for Continuing Indwelling Catheter: Accurate Measurement of Urinary Output in Critically Ill Patients Urinary Catheter Date of Insertion: 10/30/19 Urinary Catheter Time of Insertion: 17:30 Data : 11/01/19 03:20 11/01/19 03:20 Micro: Microbiology 10/31/19 11:20 MRSA Culture - Final Nose 10/31/19 08:30 Stool Lactoferrin - Final Stool Enteric Pathogens (PCR) - Final Parasite Antigen Panel - Final C.difficile Toxin B Gene (PCR) - Final Occult Blood (FIT) - Final 10/31/19 12:00 Blood Culture - Preliminary Blood SPECIMEN COLLECTED 10/31/19 11:20 Blood Culture - Preliminary Blood SPECIMEN COLLECTED 10/28/19 14:25 Urine Culture - Final Urine,Clean Catch A&P Assessment and plan (1) Acute respiratory failure with hypoxia: -Secondary to diastolic CHF exacerbation, atrial fibrillation rate controlled, aspiration pneumonia, aspiration pneumonitis -Repeat chest x-ray this morning shows right lower lobe atelectasis, no new infiltrate, white blood cell count is 3.3, pro-Nolberto is at 7.44, BNP has increased to 14 886 -Arterial blood gas this morning shows a pH of 7.36, PCO2 of 31, PO2 of 76.6 on 5 L -CT angiogram negative for pulmonary embolism -COVID-19 testing negative -Patient did have a barium swallow 6 months ago, which showed evidence of aspiration -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, thus decreased pulmonary reserve -Creatinine has increased to 2.9, patient's +6 L since at least Chinchilla catheter placement -Trial of Lasix on Wednesday produced roughly a liter of fluid output, but creatinine increased to 2.7 -Over the last 24 hours, patient's had hypotensive episode looks more dehydrated, so I have held off on diuresis, and started gentle hydration -At this point patient's oxygen requirements have remained stable, but remain profound as she did not require any oxygen at home -Patient hypoxic respiratory failure has been difficult to manage, in that that she is dehydrated and ill for the C. difficile colitis, but continues to clinical evidence of pulmonary edema making diuresis a challenge Plan: -Admit to ICU -I have started patient on Rocephin and Flagyl for aspiration pneumonia, aspiration pneumonitis. The thinking here is that she might have a component that has not manifested itself radiographically, but she does have evidence of aspiration on her swallow evaluation not too long ago -Currently stable on nasal cannula, BiPAP as needed, patient is a full code -Creatinine is up to 2.9, hold Lasix, fluid restrictions, monitor I's and O's; I might do a trial of Lasix in the afternoon pending cardiology's approval -Place Chinchilla for strict I's and O's, -Repeat chest x-ray in the morning, repeat BMP tomorrow morning -Echocardiogram has been ordered and is pending -I have consulted cardiology, Dr. Torrez, input appreciated -BiPAP during the day if needed -Patient's prognosis is guarded, status remains stable Status: Acute (2) New onset atrial fibrillation: -Currently rate controlled -Patient has received 2 doses of amiodarone 400 mg once daily, however I have discontinued this medication as I am worried about the possibility of pulmonary fibrosis/large associated with amiodarone given patient's respiratory status -We will continue Cardizem 30 mg every 6 hours -I have avoided beta-robert use, due to patient's hypotensive episodes, as as Dr. Tapia as outpatient has noted that patient has hypotensive episodes and soft blood pressures with beta-blockers -Currently patient A. fib, heart rates are reasonable between 70s to 90s -For now I have held off on anticoagulation as patient's platelet count is 72, 000, hemoglobin 10.7, no overt signs of bleeding -Echocardiogram is pending -SCDs for DVT prophylaxis Status: Acute (3) NSTEMI (non-ST elevated myocardial infarction): -Baseline troponin 82, 120-minute 89.2, 6-hour 112.9, positive delta 30.9, troponin today is 118, EKG shows no acute ST-T wave changes -Likely type II end STEMI from acute respiratory failure but cannot rule out cardiac etiology Plan: -Telemetry monitoring -Serial EKGs, monitor for chest pain -I have restarted patient's aspirin today, as platelet count improves, continue to monitor platelet count very closely -We will reassess resuming anticoagulation tomorrow based on hemoglobin and platelet count -Continue statin -Awaiting echocardiogram -I have not started the patient on Lovenox or heparin given her platelet count and her anemia -I have consulted cardiology, appreciate Dr. Torrez's input Status: Acute (4) C. difficile colitis: -CT scan of the abdomen shows increased abdominal rectosigmoid colonic fluid consistent with diarrheal illness -C. difficile positive -Likely secondary to amoxicillin use for her mastoiditis -Patient has had hypotensive episodes last night, Status: Acute (5) Hypotension: -Patient has had soft blood pressures throughout admission, this morning had an hypotensive episode systolic blood pressures in the 60s, resolved with 1.5 L bolus -Hypotension multifactorial, secondary to dehydration, C. difficile, A. fib -Currently on gentle IV hydration, D5 normal saline 50 cc an hour Status: Acute (6) TABBY (acute kidney injury): -Multifactorial, secondary to hypotensive episodes, dehydration, diuretic therapy -Creatinine 2.9 -Has decent urine output Status: Acute (7) Pulmonary embolism: -I have held patient's Xarelto for the last 2 days, given her worsening thrombocytopenia anemia, will reinstitute as platelet count and anemia improve Status: Acute Qualifiers: Pulmonary embolism type: unspecified Chronicity: chronic Acute cor pulmonale presence: unspecified Qualified Code(s): I27.82 - Chronic pulmonary embolism (8) Hyponatremia: Secondary to dehydration, Lasix therapy Status: Acute (9) Hyperlipidemia: Status: Acute Qualifiers: Hyperlipidemia type: mixed hyperlipidemia Qualified Code(s): E78.2 - Mixed hyperlipidemia (10) Leukopenia: Improving secondary to C. difficile colitis Status: Acute (11) Hypokalemia: Today I repleted the patient's potassium, phosphorus, magnesium Status: Acute (12) Poor appetite: Given patient's continued poor appetite, poor oral intake, I have started her on TPN through peripheral IV, hopefully only for short period of time, as her appetite improves Status: Acute (13) Recurrent adenocarcinoma of lung: Status: Acute (14) Generalized weakness: Status: Acute (15) Hypertension: Status: Acute Qualifiers: Hypertension type: essential hypertension Qualified Code(s): I10 - Esse ntial (primary) hypertension Additional A&P Information Hypokalemia, hypophosphatemia, hypomagnesemia, I have repleted this today Thrombocytopenia, platelet count 67,000, CT scan of the abdomen shows no liver cirrhosis, no splenomegaly, hepatitis panel negative, HIV negative TABBY: Creatinine up to 2.7 Baseline creatinine normal. Hold Lasix Hold nephrotoxic agents Metabolic acidosis: Resolved. Hyponatremia: We will continue to monitor serum sodiums, fluid restrictions Hypertension: Blood pressure stable. Not on any treatment as per Dr. Tapia recently. We will continue to hold off on Coreg and monitor blood pressures. Pulmonary embolism: Hold Xarelto Oxygen therapy as needed keeping saturation over 92%. Recurrent adenocarcinoma of lungs: Post lobectomy: Follows up with Dr. Palmer last seen earlier this month. On Flovent/expectant treatment. Diastolic dysfunction of heart: Received 2 dose of Lasix during admission, hold Lasix for now as elevated creatinine Generalized weakness: PT OT, encourage oral hydration Full code. Dysphagia diet, aspiration precautions SCDs for DVT prophylaxis Attestations Medical Necessity Statement*: Patient requires hospitalization for acute respiratory failure, new onset A. fib, C. difficile colitis, and NSTEMI Coding Level of Care Code Acute Nutrition Services Manager for [facility] Diagnoses Acute respiratory failure with hypoxia J96.01 New onset atrial fibrillation I48.91 NSTEMI (non-ST elevated myocardial infarction) I21.4 C. difficile colitis A04.72 Hypotension I95.9 TABBY (acute kidney injury) N17.9 Pulmonary embolism I27.82 Pulmonary embolism type: unspecified Chronicity: chronic Acute cor pulmonale presence: unspecified Hyponatremia E87.1 Hyperlipidemia E78.2 Hyperlipidemia type: mixed hyperlipidemia Leukopenia D72.819 Hypokalemia E87.6 Poor appetite R63.0 Recurrent adenocarcinoma of lung C34.90 Generalized weakness R53.1 Hypertension I10 Hypertension type: essential hypertension
[2019-11-01 11:45] LABS: Eosinophil Urine No Eosinophils Seen; Urine Eosinophil Count 0 (0-0)
[2019-11-01 12:17] LABS: COMPLEMENT COMPONENT C3C 97 mg/dL; COMPLEMENT COMPONENT C4C 47 mg/dL
[2019-11-01] MEDS: dilTIAZem 30 mg Tablet PO ×2 (13:12→20:27)
[2019-11-01 13:17] LABS: COMPLEMENT, TOTAL (CH50) >60 U/mL (31-60)
[2019-11-01 15:12] LABS: Coronavirus Lab Test PTC NOT DETECTED
[2019-11-01 16:39] LABS: Glucose Point of Care 132 mg/dL (70-110)
[2019-11-01] MEDS: ondansetron 2 mg/ML SDV 2 mL 4 MG IVP (16:40)
[2019-11-01] MEDS: lanolin oint 7 gm 1 APPLIC TOPICAL (17:19)
--- NOTE | 2019-11-01 17:26 | P.CONIM_ITS ---
Providers/Reason For Consult Consulting Physican/Specialty*: Cardiovascular medicine Reason for Consult*: Atrial fibrillation, troponin elevation Attending Physician: Bhupinder Cerna MD Primary Care Provider: ALYSON Keane History of Present Illness History of Present Illness Keely Chan is a 84 year old female who was admitted 4 days ago with nausea, vomiting and abdominal pain with dizziness. At the time of admission her creatinine was 1.8. She was dehydrated, hypokalemic and having diarrhea. Her beta-robert was held. On the second day she developed atrial fibrillation with a rapid ventricular response and was short of breath. Amiodarone was started for short period of time but then was discontinued. The chart states there was a suspicion of congestive heart failure however I do not see that evident on any of the radiologic studies. Her BNP was 8766 however. She was transitioned from intravenous medications over to short acting Cardizem where she is now 30 mg every 6 hours. She was also started on Xarelto. Her heart rates now have been less than 100 for couple days. Her blood pressure has been normal. She has developed hyponatremia down to 128. More recently she has been diagnosed with Clostridium difficile enterocolitis. Her diarrhea has slowed. Currently she is on a number of medications to include Xarelto, diltiazem as mentioned above and others. She has had a tremendous number of radiologic studies. There have been for 5 chest x-rays none of which is showed obvious CHF. There is some atelectasis on the right. She had a CT of the head which was negative and shortly after admission an abdominal and pelvic CT which was negative. 2 days later she had a repeat Dawson abdominal pelvic CT and a chest CT which were unremarkable. EKGs have revealed sinus rhythm and then subsequently atrial fibrillation. Her troponins initially were negative but later increased to 112. This was after she developed atrial fibrillation. Currently she is receiving some parenteral nutrition. She does not have an appetite. She is nauseated but not vomiting. Her diarrhea has slowed. Her blood pressure is now stable. Currently it is 123/65. Her heart rate is 90 but she is still in atrial fibrillation. She states she does not feel very well but she wants to go home. Review of Systems General: Reports: ROS unobtainable due to medical condition Meds/Allergies Home Medications and Allergies Home Medications Medication Instructions Recorded Confirmed Last Taken Type aspirin 81 mg tablet,delayed 81 mg PO DAILY 10/16/19 10/28/19 10/28/19 History release carvedilol 6.25 mg tablet 6.25 mg PO BID 90 Days #180 tab 10/16/19 10/28/19 10/28/19 Rx cholecalciferol (vitamin D3) 1,250 1,250 mcg PO Q7D cap 10/16/19 10/28/19 10/25/19 History mcg (50,000 unit) capsule fluticasone propionate 50 2 spray INTRANASAL DAILY 10/16/19 10/28/19 10/27/19 History mcg/actuation nasal spray,suspension gabapentin 300 mg capsule 400 mg PO BID 10/16/19 10/28/19 10/28/19 History hydrocodone 5 mg-acetaminophen 325 1 tab PO Q6H PRN 10/16/19 10/28/19 10/28/19 History mg tablet nitroglycerin 0.4 mg sublingual 0.4 mg SUBLINGUAL Q5M PRN 10/16/19 10/28/19 Unknown History tablet omeprazole 40 mg capsule,delayed 40 mg PO DAILY 10/16/19 10/28/19 10/28/19 History release rivaroxaban 20 mg tablet 20 mg PO DAILY 10/16/19 10/28/19 10/28/19 History amoxicillin 1,000 mg PO BID 10/28/19 10/28/19 10/28/19 History cetirizine 10 mg PO DAILY 10/28/19 10/28/19 10/28/19 History meclizine 25 mg PO TID PRN 10/28/19 10/28/19 Unknown History montelukast 10 mg PO DAILY 10/28/19 10/28/19 10/28/19 History Allergies Allergy/AdvReac Type Severity Reaction Status Date / Time ezetimibe [From Zetia] Allergy Unknown unknown Verified 10/16/19 11:51 simvastatin [From Zocor] Allergy Unknown unknown Verified 10/16/19 11:51 tetanus and diphtheria Allergy Unknown unknown Verified 10/16/19 11:51 toxoids albuterol AdvReac Unknown hypertensio Verified 10/16/19 11:51 n Current Medications Current Medications Generic Name Dose Route Start Last Admin Trade Name Freq PRN Reason Stop Dose Admin Acetaminophen 650 mg 10/29/19 00:03 10/31/19 22:07 Tylenol PO 650 mg Q6H PRN Administration MILD PAIN Aspirin 81 mg 10/29/19 09:00 11/01/19 10:24 Aspirin Ec PO 81 mg DAILY ESCOBAR Administration Atorvastatin Calcium 40 mg 10/30/19 21:00 10/31/19 20:17 Lipitor PO 40 mg BEDTIME ESCOBAR Administration Cetirizine HCl 10 mg 10/29/19 09:00 11/01/19 08:00 Zyrtec PO 10 mg DAILY ESCOBAR Administration Diltiazem HCl 30 mg 10/31/19 07:45 11/01/19 13:12 Cardizem PO 30 mg Q6H ESCOBAR Administration Fluticasone Propionate 2 spray 10/29/19 09:00 11/01/19 08:57 Flonase INTRANASAL Not Given DAILY ESCOBAR Gabapentin 400 mg 10/28/19 18:00 11/01/19 17:19 Neurontin PO 400 mg BID ESCOBAR Administration Dextrose/Sodium Chloride 1,000 mls @ 50 mls/hr 10/31/19 13:30 11/01/19 10:32 Dextrose 5%-Sod Chloride 0.9% IV 50 mls/hr .Q20H ESCOBAR Administration Ceftriaxone Sodium 1,000 mg/ 50 mls @ 100 mls/hr 11/01/19 08:30 11/01/19 08:46 Sodium Chloride IV Infused Q24H ESCOBAR Infusion Protocol Metronidazole 500 mg in 100 mls @ 100 mls/hr 11/01/19 09:00 11/01/19 16:47 Flagyl Iv IV 100 mls/hr Q8H ESCOBAR Administration Protocol Amino Acids/Electrolytes 1,000 mls @ 42 mls/hr 11/01/19 10:30 11/01/19 10:30 Clinimix E 4.25%-10% IV 42 mls/hr .[id number] ESCOBAR Administration Insulin Aspart 0 unit 11/01/19 12:00 11/01/19 17:15 Novolog SUBCUT Not Given [facility] Protocol Lanolin 1 applic 11/01/19 17:11 11/01/19 17:19 Lanolin Oint TOPICAL 1 applic PRN PRN Administration DRYNESS Meclizine HCl 25 mg 10/28/19 17:17 10/28/19 17:52 Antivert PO 25 mg TID PRN Administration Dizziness Montelukast Sodium 10 mg 10/29/19 09:00 11/01/19 07:59 Singulair PO 10 mg DAILY ESCOBAR Administration Ondansetron HCl 4 mg 10/28/19 17:17 11/01/19 16:40 Zofran IVP 4 mg Q8H PRN Administration vomiting, or N/V if npo Pantoprazole Sodium 40 mg 10/29/19 09:00 11/01/19 08:00 Protonix PO 40 mg DAILY ESCOBAR Administration Rivaroxaban 10 mg 10/29/19 09:00 10/30/19 10:16 Xarelto PO 10 mg DAILY ESCOBAR Administration Vancomycin HCl 125 mg 10/31/19 13:30 11/01/19 16:48 Vancocin PO 125 mg QID ESCOBAR Administration PFSH Acute PFSH: Medical History (Updated 11/01/19 @ 17:32 by Priyank Torrez MD) AAA (abdominal aortic aneurysm) Anemia Anticoagulation adequate with anticoagulant therapy Chronic back pain COPD (chronic obstructive pulmonary disease) Diastolic dysfunction without heart failure DJD (degenerative joint disease) Hyperlipidemia Hypertension Pulmonary embolism Recurrent adenocarcinoma of lung Surgical History (Updated 11/01/19 @ 17:32 by Priyank Torrez MD) H/O: hysterectomy History of lobectomy of lung Twice, bilateral, Right upper lobe lobectomy 2002 Left upper lobe lobectomy 2009 Hx of cholecystectomy S/P AAA repair Stent graft Family History Other CAD (coronary artery disease) Social History Smoking and tobacco status: never smoked Alcohol intake: former Vitals/I&O/Wt Last Vital Signs Temp 99.1 F 11/01/19 16:00 Pulse 93 11/01/19 17:00 Resp 21 H 11/01/19 17:00 BP 123/65 11/01/19 17:00 Pulse Ox 94 11/01/19 17:00 11/01/19 11/01/19 11/01/19 06:59 14:59 22:59 Intake Total 1000 / 9699.112 6132.333 / 1783.333 Output Total 425 / 1025 500 / 500 Balance 575 / 058.761 3245.333 / 1283.333 Physical Exam Narrative: EXAM NARRATIVE: GENERAL: In general she looks weak but is awake and alert and conversant HEENT: Exam within normal limits. NECK: Supple without jugular vein distention. The carotid upstroke is normal without bruits. BACK: Exam normal. LUNGS: Clear. HEART: Irregular rate and rhythm ABDOMEN: Benign without organomegaly or tenderness. EXTREMITIES: No edema. NEUROLOGIC: Exam normal. SKIN: Unremarkable. Urinary Catheter Management^: Chinchilla: Cath Placed During This Visit: yes Reason for Continuing Indwelling Catheter: Accurate Measurement of Urinary Output in Critically Ill Patients Urinary Catheter Date of Insertion: 10/30/19 Urinary Catheter Time of Insertion: 17:30 Data Micro: Micro: Microbiology 10/31/19 12:00 Blood Culture - Pr eliminary Blood NEGATIVE TO ANA E 10/31/19 11:20 Blood Culture - Pr eliminary Blood NEGATIVE TO ANA E 10/31/19 11:20 MRSA Culture - Fin al Nose 10/31/19 08:30 Stool Lactoferrin - Final Stool Enteric Pathogens (PCR) - Final Parasite Antigen P prince - Final C.difficile Toxin B Gene (PCR) - Fin al Occult Blood (FIT) - Final Other Data: Other data: EKG reveals sinus rhythm initially then atrial fibrillation with an interventricular conduction delay and nonspecific ST wave changes. She is COVID negative. Chest x-ray shows some right-sided atelectasis but no evidence of heart failure. Initial troponins 36, 27 and 28. 2 days later 112. BNP 8766. A&P Assessment and plan (1) Recurrent adenocarcinoma of lung: Status: Acute (2) Hyperlipidemia: Status: Acute Qualifiers: Hyperlipidemia type: mixed hyperlipidemia Qualified Code(s): E78.2 - Mixed hyperlipidemia (3) Hypertension: Status: Acute Qualifiers: Hypertension type: essential hypertension Qualified Code(s): I10 - Essential (primary) hypertension (4) AAA (abdominal aortic aneurysm): Status: Acute Qualifiers: Presence of rupture: without rupture Qualified Code(s): I71.4 - Abdominal aortic aneurysm, without rupture (5) Hypotension: Status: Acute (6) Diarrhea: Status: Acute (7) TABBY (acute kidney injury): Status: Acute (8) Diastolic dysfunction without heart failure: Status: Acute (9) Vomiting: Status: Acute (10) Metabolic acidosis: Status: Acute (11) Hyponatremia: Status: Acute (12) Hypokalemia: Status: Acute (13) Acute and chronic respiratory failure with hypoxia: Status: Acute (14) New onset atrial fibrillation: Status: Acute (15) Acute respiratory failure with hypoxia: Status: Acute (16) Generalized weakness: Status: Acute (17) C. difficile colitis: Status: Acute (18) Poor appetite: Status: Acute (19) Anticoagulation adequate with anticoagulant therapy: Status: Acute Additional A&P Information I think we will just continue the Cardizem as is. I would not transfer her off of the short acting Cardizem so that we can manipulate the dose as necessary. Currently her heart rate is consistently below 100 and does not need to be manipulated further. Her blood pressure is stable. Her other underlying illnesses such as the enterocolitis and gastrointestinal issues need to be treated. I would continue the anticoagulant for now. I would not use any amiodarone. Right now rate control and anticoagulation are important. She has acute kidney injury from dehydration which needs to be reversed. We will follow. 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 Castaneda Patient Type New History Comprehensive Exam Comprehensive Medical Decision Making High Complexity Diagnoses Recurrent adenocarcinoma of lung C34.90 Hyperlipidemia E78.2 Hyperlipidemia type: mixed hyperlipidemia Hypertension I10 Hypertension type: essential hypertension AAA (abdominal aortic aneurysm) I71.4 Presence of rupture: without rupture Hypotension I95.9 Diarrhea R19.7 TABBY (acute kidney injury) N17.9 Diastolic dysfunction without heart failure I51.89 Vomiting R11.10 Metabolic acidosis E87.2 Hyponatremia E87.1 Hypokalemia E87.6 Acute and chronic respiratory failure with hypoxia J96.21 New onset atrial fibrillation I48.91 Acute respiratory failure with hypoxia J96.01 Generalized weakness R53.1 C. difficile colitis A04.72 Poor appetite R63.0 Anticoagulation adequate with anticoagulant therapy Z79.01
--- NOTE | 2019-11-01 18:27 | PC.PT ---
PT note; patient still on hold awaiting coved testing; will follow
[2019-11-01] MEDS: atorvastatin 40 mg Tablet PO (20:27)
[2019-11-01] MEDS: budesonide 0.5 mg/2 mL Neb INHALATION (20:29)
[2019-11-02] VITALS (14 sets, daily range): BP systolic 77–129; BP diastolic 44–68; PULSE 69–85; RESP 16–25; TEMP 36.4–36.5; O2SAT 91–99
[2019-11-02] MEDS: metroNIDAZOLE IV 500 MG/100 ML PREMIX 100 MG IV ×3 (01:44→18:02)
[2019-11-02] MEDS: dilTIAZem 30 mg Tablet PO ×4 (01:44→20:45)
[2019-11-02 03:37] LABS: Basophils % 0.5 %; Hemoglobin 10.2 g/dL (11.5-15.3); Lymphocytes # 0.8 10^3/uL (0.8-4.8); Lymphocytes % 22.2 %; Mean Corpuscular HGB Conc 31.9 g/dL (30.0-36.0); Mean Corpuscular Hemoglobin 27.6 pg (28.0-34.0); Mean Corpuscular Volume 86.7 fL (81-99); Mean Platelet Volume 12.3 fL (7.4-10.4); Monocytes # 0.3 10^3/uL (0.2-0.9); Neutrophils # 2.6 10^3/uL (1.8-7.7); Neutrophils % 69.5 %; Nucleated Red Blood Cells % 0 %; Platelet Count 70 10^3/cmm (130-400); Red Blood Count 3.69 10^6/uL (4.1-5.3); Red Cell Distribution Width 15.1 % (12.1-15.1); White Blood Count 3.7 10^3/uL (4.0-10.0)
[2019-11-02 04:00] LABS: Alanine Aminotransferase 33 U/L (0-33); Albumin Level 2.3 g/dL (3.5-5.2); Alkaline Phosphatase 45 IU/L (35-105); Anion Gap 15.4 (5-19); Aspartate Amino Transferase 91 U/L (0-32); Blood Urea Nitrogen 30 mg/dL (8-23); Calcium 6.9 mg/dL (8.5-10.5); Carbon Dioxide 18 mmol/L (22-29); Chloride 102 mmol/L (98-107); Globulin 2.6 g/dL (1.3-4.6); Glucose 143 mg/dL (65-115); Magnesium 1.9 mg/dL (1.7-2.3); Osmolality Calculated 274 mOsm/kg (285-295); Potassium 3.4 mmol/L (3.5-5.1); Sodium 132 mmol/L (136-145); Total Bilirubin 0.2 mg/dL (0.15-1.2); Total Protein 4.9 g/dL (6.6-8.7)
[2019-11-02 04:34] LABS: Slide Review Slide Review Perform
[2019-11-02] MEDS: acetaminophen 325 mg Tablet 650 MG PO ×2 (05:20→20:45)
--- NOTE | 2019-11-02 05:34 | PC.NURSE ---
patient complained of sore throat and achy pains all over. tylenol given for aches and pain patient is now resting comfortably in bed. still is very weak and fraille to look at. v/s are wnl and has had no chest pain this evening.
--- NOTE | 2019-11-02 07:46 | PM.PN ---
Subjective Subjective: Interval history: Keely is essentially unchanged from yesterday. She is still weak without an appetite. Her heart rate however has been lower. She is currently in the 70s. Her blood pressure now is 94/51 but overnight it was in the low 100s and high 90s. She has no specific complaints other than weakness and poor appetite. Medications: Reviewed: Yes Vitals/I&O/Wt Last Vital Signs Temp 99.1 F 11/01/19 16:00 Pulse 81 11/02/19 04:00 Resp 23 H 11/02/19 04:00 BP 94/51 11/02/19 04:00 Pulse Ox 95 11/02/19 04:00 11/01/19 11/02/19 11/02/19 22:59 06:59 14:59 Intake Total 220 / 2003.333 100 / 2103.333 Output Total 450 / 950 250 / 1200 Balance -230 / 1053.333 -150 / 903.333 Physical Exam Narrative: EXAM NARRATIVE: GENERAL: In general she is weak but awake and alert HEENT: Exam within normal limits. NECK: Supple without jugular vein distention. The carotid upstroke is normal without bruits. BACK: Exam normal. LUNGS: Clear. HEART: Irregularly irregular rhythm ABDOMEN: Benign without organomegaly or tenderness. EXTREMITIES: No edema. NEUROLOGIC: Exam normal. SKIN: Unremarkable. Urinary Catheter Management^: Chinchilla: Cath Placed During This Visit: yes Reason for Continuing Indwelling Catheter: Accurate Measurement of Urinary Output in Critically Ill Patients Urinary Catheter Date of Insertion: 10/30/19 Urinary Catheter Time of Insertion: 17:30 Data : 11/02/19 03:10 11/02/19 03:10 Micro: Microbiology 10/31/19 11:20 Blood Culture - Preliminary Blood Gram positive cocci 10/31/19 12:00 Blood Culture - Preliminary Blood NEGATIVE TO DATE A&P Assessment and plan (1) Elevated troponin: Status: Acute (2) Anticoagulation adequate with anticoagulant therapy: Status: Acute (3) Poor appetite: Status: Acute (4) C. difficile colitis: Status: Acute (5) Generalized weakness: Status: Acute (6) Acute respiratory failure with hypoxia: Status: Acute (7) New onset atrial fibrillation: Status: Acute (8) Acute and chronic respiratory failure with hypoxia: Status: Acute (9) Hyponatremia: Status: Acute (10) Hypokalemia: Status: Acute (11) Metabolic acidosis: Status: Acute (12) Vomiting: Status: Acute (13) Diastolic dysfunction without heart failure: Status: Acute (14) Recurrent adenocarcinoma of lung: Status: Acute (15) TABBY (acute kidney injury): Status: Acute (16) AAA (abdominal aortic aneurysm): Status: Acute Qualifiers: Presence of rupture: without rupture Qualified Code(s): I71.4 - Abdominal aortic aneurysm, without rupture (17) Pulmonary embolism: Status: Acute Qualifiers: Pulmonary embolism type: unspecified Chronicity: chronic Acute cor pulmonale presence: unspecified Qualified Code(s): I27.82 - Chronic pulmonary embolism (18) Hyperlipidemia: Status: Acute Qualifiers: Hyperlipidemia type: mixed hyperlipidemia Qualified Code(s): E78.2 - Mixed hyperlipidemia Additional A&P Information Continue current plan. No changes made. We will follow along. 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 difficile colitis A04.72 Generalized weakness R53.1 Acute respiratory failure with hypoxia J96.01 New onset atrial fibrillation I48.91 Acute and chronic respiratory failure with hypoxia J96.21 Hyponatremia E87.1 Hypokalemia E87.6 Metabolic acidosis E87.2 Vomiting R11.10 Diastolic dysfunction without heart failure I51.89 Recurrent adenocarcinoma of lung C34.90 TABBY (acute kidney injury) N17.9 AAA (abdominal aortic aneurysm) I71.4 Presence of rupture: without rupture Pulmonary embolism I27.82 Pulmonary embolism type: unspecified Chronicity: chronic Acute cor pulmonale presence: unspecified Hyperlipidemia E78.2 Hyperlipidemia type: mixed hyperlipidemia
[2019-11-02] MEDS: budesonide 0.5 mg/2 mL Neb INHALATION ×2 (07:50→20:57)
[2019-11-02 07:58] LABS: Glucose Point of Care 153 mg/dL (70-110)
[2019-11-02] MEDS: cefTRIAXone 1,000 MG in sodium chloride 0.9% (plus) 50 ML 100 MG IV (08:20)
[2019-11-02] MEDS: aspirin 81 mg EC Tablet PO (08:22)
[2019-11-02] MEDS: montelukast sodium 10 mg Tablet PO (08:22)
[2019-11-02] MEDS: pantoprazole DR 40 mg Tablet PO (08:22)
[2019-11-02] MEDS: gabapentin 400 mg Capsule PO ×2 (08:22→18:02)
[2019-11-02] MEDS: potassium chloride premix 40 MEQ/100 ML PREMIX 25 MEQ IV (08:23)
[2019-11-02] MEDS: rivaroxaban 10 mg Tablet PO (09:44)
[2019-11-02] MEDS: cetirizine 10 mg Tablet PO (09:51)
[2019-11-02] MEDS: fluticasone nasal spray 16gm Btl 2 SPRAY INTRANASAL (09:51)
[2019-11-02 12:12] LABS: Glucose Point of Care 152 mg/dL (70-110)
[2019-11-02 13:02] LABS: Osmolality Urine 367 mOsm/kg (50-1200)
--- NOTE | 2019-11-02 13:37 | PC.SOCIAL ---
IMM Update Pg 2 of IMM given and explained to patent who verbalized understanding. Copy provided.
[2019-11-02 13:56] LABS: CENTROMERE B ANTIBODY <1.0 NEG AI (<1.0 NEG); JO-1 ANTIBODY <1.0 NEG AI (<1.0 NEG); RNP ANTIBODY <1.0 NEG AI (<1.0 NEG); SCL-70 ANTIBODY <1.0 NEG AI (<1.0 NEG); SJOGREN'S ANTIBODY (SS-A) <1.0 NEG AI (<1.0 NEG); SM ANTIBODY <1.0 NEG AI (<1.0 NEG)
--- NOTE | 2019-11-02 14:00 | PC.NURSE ---
Insulin and oral vancocin , delayed due to caring for other patients at that time..
--- NOTE | 2019-11-02 14:40 | PC.NURSE ---
PPN done infusing, Fresh bag of PPN started . Fresh tubing.
--- NOTE | 2019-11-02 14:51 | PC.NURSE ---
Pt's belongings located in room 253-1. Brought to pt in ICU 1. John Chan, son, , called and notified that belongings wee found and with his mother now.
[2019-11-02 14:52] LABS: ANA SCREEN, IFA NEGATIVE (NEGATIVE)
--- NOTE | 2019-11-02 15:52 | PM.PN ---
Subjective Subjective: Interval history: This morning patient states that she feels a bit better, but still has a poor appetite, she is only consumed half of her Ensure drink, has not really touched breakfast, denies shortness of breath, denies chest pain, states that she really wants to go home, but is fairly weak, remains in complete assist, afebrile, had hypotensive episodes overnight, resolving with fluid boluses, currently A. fib heart rates between 60s to 100, no diarrhea, no abdominal pain, no dysuria, currently down to 4 L Vitals/I&O/Wt Last Vital Signs Temp 97.5 F L 11/02/19 14:00 Pulse 69 11/02/19 14:00 Resp 20 H 11/02/19 14:00 BP 107/68 11/02/19 14:00 Pulse Ox 98 11/02/19 14:00 11/02/19 11/02/19 11/02/19 06:59 14:59 22:59 Intake Total 200 / 2203.333 1180 / 1180 Output Total 250 / 1200 Balance -50 / 7348.890 5830 / 1180 Physical Exam Const: COMMON NORMALS: no acute distress and patient oriented x3 GENERAL APPEARANCE: ill appearing HENMT: COMMON NORMALS: normocephalic HEAD & SCALP: normocephalic Neck/C-Spine: COMMON NORMALS: no JVD Resp: COMMON NORMALS: normal respiratory effort, No retractions and No use of accessory muscles AUSCULTATION: crackles Cardio: COMMON NORMALS: no JVD, regular rate, S1 normal heart sound present and S2 normal heart sound present RATE: regular rate RHYTHM: abnormal rhythm HEART SOUNDS: S1 normal heart sound present and S2 normal heart sound present GI: COMMON NORMALS: Normal to inspection, nondistended, normoactive bowel sounds present, Soft to palpation, non-tender, No hepatosplenomegaly present, no masses and no bruits PALPATION: Yes Soft to palpation and Yes No hepatosplenomegaly present Extremity: COMMON NORMALS: capillary refill normal, no clubbing, cyanosis or edema, no calf tenderness and no pedal edema Neuro: COMMON NORMALS: patient oriented x3 Psych: COMMON NORMALS: mental status grossly normal Urinary Catheter Management^: Chinchilla: Cath Placed During This Visit: yes Reason for Continuing Indwelling Catheter: Accurate Measurement of Urinary Output in Critically Ill Patients Urinary Catheter Date of Insertion: 10/30/19 Urinary Catheter Time of Insertion: 17:30 Data : 11/02/19 03:10 11/02/19 03:10 Micro: Microbiology 11/01/19 09:47 Urine Culture - Preliminary Urine Catheterized Yeast species 10/31/19 11:20 Blood Culture - Preliminary Blood Gram positive cocci 10/31/19 12:00 Blood Culture - Preliminary Blood NEGATIVE TO DATE A&P Assessment and plan (1) Acute respiratory failure with hypoxia: -Secondary to diastolic CHF exacerbation, atrial fibrillation rate controlled, aspiration pneumonia, aspiration pneumonitis -Repeat chest x-ray this morning shows right lower lobe atelectasis, no new infiltrate, white blood cell count is 3.3, pro-Nolberto is at 7.44, BNP has increased to 14 886 -Arterial blood gas this morning shows a pH of 7.36, PCO2 of 31, PO2 of 76.6 on 5 L -CT angiogram negative for pulmonary embolism -COVID-19 testing negative -Patient did have a barium swallow 6 months ago, which showed evidence of aspiration -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, thus decreased pulmonary reserve -Creatinine has increased to 2.9, patient's +6 L since at least Chinchilla catheter placement -Trial of Lasix on Wednesday produced roughly a liter of fluid output, but creatinine increased to 2.7 -Over the last 24 hours, patient's had hypotensive episode looks more dehydrated, so I have held off on diuresis, and started gentle hydration -At this point patient's oxygen requirements have remained stable, but remain profound as she did not require any oxygen at home -Patient hypoxic respiratory failure has been difficult to manage, in that that she is dehydrated and ill for the C. difficile colitis, but continues to clinical evidence of pulmonary edema making diuresis a challenge Plan: -Admit to ICU -I have started patient on Rocephin and Flagyl for aspiration pneumonia, aspiration pneumonitis. The thinking here is that she might have a component that has not manifested itself radiographically, but she does have evidence of aspiration on her swallow evaluation not too long ago -Currently stable on nasal cannula, BiPAP as needed, patient is a full code -Creatinine is 2.3, hold Lasix, fluid restrictions, monitor I's and O's; I might do a trial of Lasix pending cardiology's approval -Place Chinchilla for strict I's and O's, -Repeat chest x-ray in the morning, repeat BMP tomorrow morning -Echocardiogram was a poor quality study, ejection fraction within normal range, no obvious wall motion disturbances -I have consulted cardiology, Dr. Torrez, input appreciated -BiPAP during the day if needed -Patient's prognosis is guarded, status remains stable Status: Acute (2) New onset atrial fibrillation: -Currently rate controlled -Patient has received 2 doses of amiodarone 400 mg once daily, however I have discontinued this medication as I am worried about the possibility of pulmonary fibrosis/large associated with amiodarone given patient's respiratory status -We will continue Cardizem 30 mg every 6 hours -I have avoided beta-robert use, due to patient's hypotensive episodes, as as Dr. Tapia as outpatient has noted that patient has hypotensive episodes and soft blood pressures with beta-blockers -Currently patient A. fib, heart rates are reasonable between 60s to 90s -Today I will resume anticoagulation as patient's platelet count is 70,000, hemoglobin 10.2, no overt signs of bleeding -SCDs and Xarelto for DVT prophylaxis Status: Acute (3) NSTEMI (non-ST elevated myocardial infarction): -Baseline troponin 82, 120-minute 89.2, 6-hour 112.9, positive delta 30.9, troponin today is 118, EKG shows no acute ST-T wave changes -Likely type II end STEMI from acute respiratory failure but cannot rule out cardiac etiology Plan: -Telemetry monitoring -Serial EKGs, monitor for chest pain -I have restarted patient's aspirin today, as platelet count improves, continue to monitor platelet count very closely -We will reassess resuming anticoagulation tomorrow based on hemoglobin and platelet count -Continue statin -Awaiting echocardiogram -I have not started the patient on Lovenox or heparin given her platelet count and her anemia -I have consulted cardiology, appreciate Dr. Torrez's input Status: Acute (4) C. difficile colitis: -CT scan of the abdomen shows increased abdominal rectosigmoid colonic fluid consistent with diarrheal illness -C. difficile positive -Likely secondary to amoxicillin use for her mastoiditis -Patient has had hypotensive episodes last night, resolving with fluid boluses Status: Acute (5) Hypotension: -Patient has had soft blood pressures throughout admission, this morning had an hypotensive episode systolic blood pressures in the 90, resolved with 1.5 L bolus -Hypotension multifactorial, secondary to dehydration, C. difficile, A. fib -Currently on gentle IV hydration, D5 normal saline 50 cc an hour Status: Acute (6) TABBY (acute kidney injury): -Multifactorial, secondary to hypotensive episodes, dehydration, diuretic therapy -Creatinine 2.3 -Has decent urine output Status: Acute (7) Pulmonary embolism: -I have held patient's Xarelto for the last 2 days, given her worsening thrombocytopenia anemia, will reinstitute as platelet count and anemia improve Status: Acute Qualifiers: Pulmonary embolism type: unspecified Chronicity: chronic Acute cor pulmonale presence: unspecified Qualified Code(s): I27.82 - Chronic pulmonary embolism (8) Hyponatremia: Secondary to dehydration, Lasix therapy Status: Acute (9) Hyperlipidemia: Status: Acute Qualifiers: Hyperlipidemia type: mixed hyperlipidemia Qualified Code(s): E78.2 - Mixed hyperlipidemia (10) Leukopenia: Improving secondary to C. difficile colitis Status: Acute (11) Hypokalemia: Today I repleted the patient's potassium, phosphorus, magnesium Status: Acute (12) Poor appetite: Given patient's continued poor appetite, poor oral intake, I have started her on TPN through peripheral IV, hopefully only for short period of time, as her appetite improves Status: Acute (13) Recurrent adenocarcinoma of lung: Status: Acute (14) Generalized weakness: Status: Acute (15) Hypertension: Status: Acute Qualifiers: Hypertension type: essential hypertension Qualified Code(s): I10 - Essential (primary) hypertension Additional A&P Information Hypokalemia, hypophosphatemia, hypomagnesemia, resolving Thrombocytopenia, platelet count 70,000, CT scan of the abdomen shows no liver cirrhosis, no splenomegaly, hepatitis panel negative, HIV negative TABBY: Creatinine up to 2.3 Baseline creatinine normal. Hold Lasix Hold nephrotoxic agents Metabolic acidosis: Resolved. Hyponatremia: We will continue to monitor serum sodiums, fluid restrictions Hypertension: Blood pressure stable. Not on any treatment as per Dr. Tapia recently. We will continue to hold off on Coreg and monitor blood pressures. Pulmonary embolism: Xarelto Oxygen therapy as needed keeping saturation over 92%. Recurrent adenocarcinoma of lungs: Post lobectomy: Follows up with Dr. Palmer last seen earlier this month. On Flovent/expectant treatment. Diastolic dysfunction of heart: Received 2 dose of Lasix during admission, hold Lasix for now as elevated creatinine Generalized weakness: PT OT, encourage oral hydration Full code. Dysphagia diet, aspiration precautions SCDs for DVT prophylaxis Attestations Medical Necessity Statement*: Patient requires hospitalization for C. difficile colitis, hypotensive episodes, dehydration, malnutrition Coding Level of Care Code Acute Real Time Analyst for [facility] Fw Diagnoses Acute respiratory failure with hypoxia J96.01 New onset atrial fibrillation I48.91 NSTEMI (non-ST elevated myocardial infarction) I21.4 C. difficile colitis A04.72 Hypotension I95.9 TABBY (acute kidney injury) N17.9 Pulmonary embolism I27.82 Pulmonary embolism type: unspecified Chronicity: chronic Acute cor pulmonale presence: unspecified Hyponatremia E87.1 Hyperlipidemia E78.2 Hyperlipidemia type: mixed hyperlipidemia Leukopenia D72.819 Hypokalemia E87.6 Poor appetite R63.0 Recurrent adenocarcinoma of lung C34.90 Generalized weakness R53.1 Hypertension I10 Hypertension type: essential hypertension
[2019-11-02 17:56] LABS: Glucose Point of Care 127 mg/dL (70-110)
[2019-11-02] MEDS: dextrose 5%-sod chloride 0.9% 1,000 ML 50 ML IV (20:45)
[2019-11-02] MEDS: atorvastatin 40 mg Tablet PO (20:45)
[2019-11-03] VITALS (13 sets, daily range): BP systolic 118–155; BP diastolic 57–72; PULSE 69–83; RESP 16–28; TEMP 36.4–37.1; O2SAT 83–100
[2019-11-03] MEDS: dilTIAZem 30 mg Tablet PO ×4 (01:53→19:59)
[2019-11-03] MEDS: metroNIDAZOLE IV 500 MG/100 ML PREMIX 100 MG IV ×3 (01:53→17:06)
[2019-11-03 04:08] LABS: Basophils % 0.4 %; Hematocrit 32.8 % (37.0-47.0); Hemoglobin 10.5 g/dL (11.5-15.3); Lymphocytes # 1.3 10^3/uL (0.8-4.8); Lymphocytes % 29.3 %; Mean Corpuscular Hemoglobin 27.6 pg (28.0-34.0); Mean Corpuscular Volume 86.1 fL (81-99); Mean Platelet Volume 12.6 fL (7.4-10.4); Monocytes # 0.3 10^3/uL (0.2-0.9); Monocytes % 6.2 %; Neutrophils # 2.9 10^3/uL (1.8-7.7); Neutrophils % 63.7 %; Nucleated Red Blood Cells % 0 %; Platelet Count 74 10^3/cmm (130-400); Red Blood Count 3.81 10^6/uL (4.1-5.3); Red Cell Distribution Width 15.2 % (12.1-15.1); White Blood Count 4.5 10^3/uL (4.0-10.0)
[2019-11-03 04:19] LABS: Alanine Aminotransferase 31 U/L (0-33); Albumin Level 2.4 g/dL (3.5-5.2); Alkaline Phosphatase 50 IU/L (35-105); Anion Gap 13.5 (5-19); Aspartate Amino Transferase 78 U/L (0-32); Blood Urea Nitrogen 23 mg/dL (8-23); Carbon Dioxide 20 mmol/L (22-29); Chloride 105 mmol/L (98-107); Globulin 2.4 g/dL (1.3-4.6); Glucose 153 mg/dL (65-115); Magnesium 1.7 mg/dL (1.7-2.3); Osmolality Calculated 280 mOsm/kg (285-295); Phosphorus 2.2 mg/dL (2.5-4.5); Potassium 3.5 mmol/L (3.5-5.1); Sodium 135 mmol/L (136-145); Total Bilirubin 0.2 mg/dL (0.15-1.2); Total Protein 4.8 g/dL (6.6-8.7)
[2019-11-03 05:06] LABS: Slide Review Slide Review Perform
[2019-11-03] MEDS: cefTRIAXone 1,000 MG in sodium chloride 0.9% (plus) 50 ML 100 MG IV (07:59)
[2019-11-03] MEDS: pantoprazole DR 40 mg Tablet PO (08:00)
[2019-11-03] MEDS: aspirin 81 mg EC Tablet PO (08:00)
[2019-11-03] MEDS: gabapentin 400 mg Capsule PO ×2 (08:00→17:10)
[2019-11-03] MEDS: rivaroxaban 10 mg Tablet PO (08:00)
[2019-11-03] MEDS: montelukast sodium 10 mg Tablet PO (08:00)
[2019-11-03] MEDS: cetirizine 10 mg Tablet PO (08:00)
[2019-11-03 08:12] LABS: Glucose Point of Care 160 mg/dL (70-110)
[2019-11-03] MEDS: fluticasone nasal spray 16gm Btl 2 SPRAY INTRANASAL (08:22)
[2019-11-03] MEDS: methylphenidate 10 mg Tablet 2.5 MG PO ×2 (08:22→17:06)
[2019-11-03] MEDS: budesonide 0.5 mg/2 mL Neb INHALATION ×2 (09:10→20:00)
--- NOTE | 2019-11-03 10:52 | PM.PN ---
Subjective Subjective: Interval history: This morning patient was examined, she feels a bit better, looks a bit better, but states that she still has a poor appetite, has generalized weakness, states that she really wants to go home, but has not been able to get out of bed for the last few days, and has had a poor appetite Patient's blood pressures have been improved, she is down to 3 L oxygen, afebrile, blood cultures remain unremarkable, kidney function down to 1.4, sodium improving to 134, diarrhea has improved, overall patient is clinically improving. But patient continues to have a poor appetite and generalized weakness Vitals/I&O/Wt Last Vital Signs Temp 97.5 F L 11/02/19 14:00 Pulse 69 11/03/19 09:14 Resp 20 H 11/03/19 09:10 BP 121/61 11/03/19 08:00 Pulse Ox 95 11/03/19 09:10 11/02/19 11/03/19 11/03/19 22:59 06:59 14:59 Intake Total 150 / 1430 100 / 1530 Output Total 1575 / 1575 600 / 2175 Balance -1425 / -145 -500 / -645 Physical Exam Const: COMMON NORMALS: no acute distress and patient oriented x3 HENMT: COMMON NORMALS: normocephalic HEAD & SCALP: normocephalic Neck/C-Spine: COMMON NORMALS: no JVD Resp: COMMON NORMALS: normal respiratory effort, No retractions, No use of accessory muscles and clear to auscultation bilaterally AUSCULTATION: clear to auscultation bilaterally Cardio: COMMON NORMALS: no JVD, regular rate, regular rhythm, S1 normal heart sound present and S2 normal heart sound present RATE: regular rate RHYTHM: regular rhythm HEART SOUNDS: S1 normal heart sound present and S2 normal heart sound present GI: COMMON NORMALS: Normal to inspection, nondistended, normoactive bowel sounds present, Soft to palpation, non-tender, No hepatosplenomegaly present, no masses and no bruits PALPATION: Yes Soft to palpation and Yes No hepatosplenomegaly present Extremity: COMMON NORMALS: capillary refill normal, no clubbing, cyanosis or edema, no calf tenderness and no pedal edema Neuro: COMMON NORMALS: patient oriented x3 Psych: COMMON NORMALS: mental status grossly normal Urinary Catheter Management^: Chinchilla: Cath Placed During This Visit: yes Reason for Continuing Indwelling Catheter: Accurate Measurement of Urinary Output in Critically Ill Patients Urinary Catheter Date of Insertion: 10/30/19 Urinary Catheter Time of Insertion: 17:30 Data : 11/03/19 03:54 11/03/19 03:54 Micro: Microbiology 10/29/19 01:03 Blood Culture - Final Blood NO GROWTH AFTER 5 DAYS 10/29/19 01:06 Blood Culture - Final Blood NO GROWTH AFTER 5 DAYS 10/28/19 18:20 Blood Culture - Final Blood NO GROWTH AFTER 5 DAYS 10/28/19 18:25 Blood Culture - Final Blood NO GROWTH AFTER 5 DAYS 11/01/19 09:47 Urine Culture - Preliminary Urine Catheterized Yeast species A&P Assessment and plan (1) Acute respiratory failure with hypoxia: -Secondary to diastolic CHF exacerbation, atrial fibrillation rate controlled, aspiration pneumonia, aspiration pneumonitis -CT angiogram negative for pulmonary embolism -COVID-19 testing negative -Patient did have a barium swallow 6 months ago, which showed evidence of aspiration -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, thus decreased pulmonary reserve -Creatinine has increased to 2.9, patient's +6 L since at least Chinchilla catheter placement -Trial of Lasix on Wednesday produced roughly a liter of fluid output, but creatinine increased to 2.7, thus Lasix has been held for the last 4 days -Over the last 24 hours, minimal hypotensive episodes, currently normotensive -At this point patient's oxygen requirements have remained stable, but remain profound as she did not require any oxygen at home, currently on 3 L -Patient hypoxic respiratory failure has been difficult to manage, in that that she is dehydrated and ill for the C. difficile colitis, but continues to clinical evidence of pulmonary edema making diuresis a challenge Plan: -We will moved to general medical floors -Continue Rocephin and Flagyl for aspiration pneumonitis, aspiration pneumonia -Currently stable on nasal cannula, BiPAP as needed, patient is a full code -Creatinine is 1.4, hold Lasix, fluid restrictions, monitor I's and O's; I might do a trial of Lasix pending cardiology's approval -Place Chinchilla for strict I's and O's, -Echocardiogram was a poor quality study, ejection fraction within normal range, no obvious wall motion disturbances -I have consulted cardiology, Dr. Torrez, input appreciated -BiPAP during the day if needed -Patient's prognosis is guarded, status remains stable Status: Acute (2) New onset atrial fibrillation: -Currently rate controlled -Patient has received 2 doses of amiodarone 400 mg once daily, however I have discontinued this medication as I am worried about the possibility of pulmonary fibrosis/large associated with amiodarone given patient's respiratory status -We will continue Cardizem 30 mg every 6 hours -I have avoided beta-robert use, due to patient's hypotensive episodes, as as Dr. Tapia as outpatient has noted that patient has hypotensive episodes and soft blood pressures with beta-blockers -Currently patient A. fib, heart rates are reasonable between 60s to 90s - resume anticoagulation as patient's platelet count is 72,000, hemoglobin 10.5, no overt signs of bleeding -SCDs and Xarelto for DVT prophylaxis Status: Acute (3) NSTEMI (non-ST elevated myocardial infarction): -Baseline troponin 82, 120-minute 89.2, 6-hour 112.9, positive delta 30.9, troponin today is 118, EKG shows no acute ST-T wave changes -Likely type II end STEMI from acute respiratory failure but cannot rule out cardiac etiology Plan: -Telemetry monitoring -Serial EKGs, monitor for chest pain -I have restarted patient's aspirin today, as platelet count improves, continue to monitor platelet count very closely -Eliquis resumed -Continue statin -I have not started the patient on Lovenox or heparin given her platelet count and her anemia -I have consulted cardiology, appreciate Dr. Torrez's input Status: Acute (4) C. difficile colitis: -CT scan of the abdomen shows increased abdominal rectosigmoid colonic fluid consistent with diarrheal illness -C. difficile positive -Likely secondary to amoxicillin use for her mastoiditis -Hypotensive episodes resolved, on gentle IV hydration Status: Acute (5) Hypotension: -Patient has had soft blood pressures throughout admission, this morning had an hypotensive episode systolic blood pressures in the 90, resolved with 1.5 L bolus -Hypotension multifactorial, secondary to dehydration, C. difficile, A. fib -Currently on gentle IV hydration, D5 normal saline 50 cc an hour Status: Acute (6) TABBY (acute kidney injury): -Multifactorial, secondary to hypotensive episodes, dehydration, diuretic therapy -Creatinine 1.4 -Has decent urine output Status: Acute (7) Pulmonary embolism: -I have held patient's Xarelto for the last 2 days, given her worsening thrombocytopenia anemia, will reinstitute as platelet count and anemia improve Status: Acute Qualifiers: Pulmonary embolism type: unspecified Chronicity: chronic Acute cor pulmonale presence: unspecified Qualified Code(s): I27.82 - Chronic pulmonary embolism (8) Hyponatremia: Secondary to dehydration, Lasix therapy Status: Acute (9) Hyperlipidemia: Status: Acute Qualifiers: Hyperlipidemia type: mixed hyperlipidemia Qualified Code(s): E78.2 - Mixed hyperlipidemia (10) Leukopenia: Improving secondary to C. difficile colitis Status: Acute (11) Hypokalemia: Today I repleted the patient's potassium, phosphorus, magnesium Status: Acute (12) Poor appetite: -Discontinue TPN today -We will do a trial of Ritalin 2.5 mg twice daily to stimulate her appetite Status: Acute (13) Recurrent adenocarcinoma of lung: Status: Acute (14) Generalized weakness: Status: Acute (15) Hypertension: Status: Acute Qualifiers: Hypertension type: essential hypertension Qualified Code(s): I10 - Essential (primary) hypertension Additional A&P Information Hypokalemia, hypophosphatemia, hypomagnesemia, repleted today Thrombocytopenia, platelet count 72,000, CT scan of the abdomen shows no liver cirrhosis, no splenomegaly, hepatitis panel negative, HIV negative TABBY: Creatinine up to 1.4 Baseline creatinine normal. Hold Lasix Hold nephrotoxic agents Metabolic acidosis: Resolved. Hyponatremia: We will continue to monitor serum sodiums, fluid restrictions Hypertension: Blood pressure stable. Not on any treatment as per Dr. Tapia recently. We will continue to hold off on Coreg and monitor blood pressures. Pulmonary embolism: Xarelto Oxygen therapy as needed keeping saturation over 92%. Recurrent adenocarcinoma of lungs: Post lobectomy: Follows up with Dr. Palmer last seen earlier this month. On Flovent/expectant treatment. Diastolic dysfunction of heart: Received 2 dose of Lasix during admission, hold Lasix for now as elevated creatinine Generalized weakness: PT OT, encourage oral hydration Full code. Dysphagia diet, aspiration precautions SCDs and Xarelto for DVT prophylaxis Attestations Medical Necessity Statement*: Patient requires hospitalization, for C. difficile colitis, generalized weakness, dehydration, poor appetite, acute respiratory failure Coding Level of Care Code Acute Covering Machine Operator Helper for [facility] Fwd Diagnoses Acute respiratory failure with hypoxia J96.01 New onset atrial fibrillation I48.91 NSTEMI (non-ST elevated myocardial infarction) I21.4 C. difficile colitis A04.72 Hypotension I95.9 TABBY (acute kidney injury) N17.9 Pulmonary embolism I27.82 Pulmonary embolism type: unspecified Chronicity: chronic Acute cor pulmonale presence: unspecified Hyponatremia E87.1 Hyperlipidemia E78.2 Hyperlipidemia type: mixed hyperlipidemia Leukopenia D72.819 Hypokalemia E87.6 Poor appetite R63.0 Recurrent adenocarcinoma of lung C34.90 Generalized weakness R53.1 Hypertension I10 Hypertension type: essential hypertension
[2019-11-03] MEDS: magnesium sulfate premix 2 GM/50 ML PIGGYBACK IV (11:57)
--- NOTE | 2019-11-03 11:58 | P.PN_ITS ---
Subjective Subjective: Interval history: Keely says she feels terrible. When I asked her what that means she just says she hurts all over. She is not short of breath. She does not feel like she is getting much better. She still has no appetite whatsoever. Not eating or drinking very much at all. Heart rates have been lower now averaging in the 60s and 70s. Blood pressures have been quite good running well within the normal range. She remains on the short acting Cardizem as the only medication which impacts her heart rate. She is still taking low- dose rivaroxaban. Medications: Reviewed: Yes Vitals/I&O/Wt Last Vital Signs Temp 97.5 F L 11/02/19 14:00 Pulse 69 11/03/19 09:14 Resp 20 H 11/03/19 09:10 BP 121/61 11/03/19 08:00 Pulse Ox 95 11/03/19 09:10 11/02/19 11/03/19 11/03/19 22:59 06:59 14:59 Intake Total 150 / 1430 100 / 1530 Output Total 1575 / 1575 600 / 2175 Balance -1425 / -145 -500 / -645 Physical Exam Narrative: EXAM NARRATIVE: GENERAL: Awake and alert conversant HEENT: Exam within normal limits. NECK: Supple without jugular vein distention. The carotid upstroke is normal without bruits. BACK: Exam normal. LUNGS: Clear. HEART: Irregularly irregular rhythm ABDOMEN: Benign without organomegaly or tenderness. EXTREMITIES: No edema. NEUROLOGIC: Exam normal. SKIN: Unremarkable. Urinary Catheter Management^: Chinchilla: Cath Placed During This Visit: yes Reason for Continuing Indwelling Catheter: Accurate Measurement of Urinary Output in Critically Ill Patients Urinary Catheter Date of Insertion: 10/30/19 Urinary Catheter Time of Insertion: 17:30 Data : 11/03/19 03:54 11/03/19 03:54 Micro: Microbiology 10/29/19 01:03 Blood Culture - Final Blood NO GROWTH AFTER 5 DAYS 10/29/19 01:06 Blood Culture - Final Blood NO GROWTH AFTER 5 DAYS 10/28/19 18:20 Blood Culture - Final Blood NO GROWTH AFTER 5 DAYS 10/28/19 18:25 Blood Culture - Final Blood NO GROWTH AFTER 5 DAYS 11/01/19 09:47 Urine Culture - Preliminary Urine Catheterized Yeast species A&P Assessment and plan (1) Elevated troponin: Status: Acute (2) Anticoagulation adequate with anticoagulant therapy: Status: Acute (3) Poor appetite: Status: Acute (4) C. difficile colitis: Status: Acute (5) Generalized weakness: Status: Acute (6) Acute respiratory failure with hypoxia: Status: Acute (7) New onset atrial fibrillation: Status: Acute (8) Acute and chronic respiratory failure with hypoxia: Status: Acute (9) Metabolic acidosis: Status: Acute (10) Vomiting: Status: Acute (11) Diastolic dysfunction without heart failure: Status: Acute (12) Recurrent adenocarcinoma of lung: Status: Acute (13) TABBY (acute kidney injury): Status: Acute (14) Hypotension: Status: Acute (15) Diarrhea: Status: Acute (16) AAA (abdominal aortic aneurysm): Status: Acute Qualifiers: Presence of rupture: without rupture Qualified Code(s): I71.4 - Abdominal aortic aneurysm, without rupture (17) Pulmonary embolism: Status: Acute Qualifiers: Pulmonary embolism type: unspecified Chronicity: chronic Acute cor pulmonale presence: unspecified Qualified Code(s): I27.82 - Chronic pulmonary embolism (18) Hyperlipidemia: Status: Acute Qualifiers: Hyperlipidemia type: mixed hyperlipidemia Qualified Code(s): E78.2 - Mixed hyperlipidemia Additional A&P Information She remains pretty seriously ill but is probably well enough to go upstairs to the floor. Her cardiac status now is quite stable. Her heart rate is well controlled. I would not change the Cardizem since it is short acting and we can adjusted as necessary. I would not exchange specialist to a long-acting medication at this point nor would I change the medicine to a different class. I would continue the anticoagulant. She needs strengthening and treatment of her enterocolitis and other problems. We will follow along. 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 difficile colitis A04.72 Generalized weakness R53.1 Acute respiratory failure with hypoxia J96.01 New onset atrial fibrillation I48.91 Acute and chronic respiratory failure with hypoxia J96.21 Metabolic acidosis E87.2 Vomiting R11.10 Diastolic dysfunction without heart failure I51.89 Recurrent adenocarcinoma of lung C34.90 TABBY (acute kidney injury) N17.9 Hypotension I95.9 Diarrhea R19.7 AAA (abdominal aortic aneurysm) I71.4 Presence of rupture: without rupture Pulmonary embolism I27.82 Pulmonary embolism type: unspecified Chronicity: chronic Acute cor pulmonale presence: unspecified Hyperlipidemia E78.2 Hyperlipidemia type: mixed hyperlipidemia
[2019-11-03] MEDS: acetaminophen 325 mg Tablet 650 MG PO (12:16)
[2019-11-03 12:22] LABS: Glucose Point of Care 112 mg/dL (70-110)
[2019-11-03 16:37] LABS: THYROID PEROXIDASE ANTIBODIES <1 IU/mL (<9)
[2019-11-03 17:03] LABS: Glucose Point of Care 125 mg/dL (70-110)
[2019-11-03] MEDS: ondansetron 2 mg/ML SDV 2 mL 4 MG IVP (18:32)
[2019-11-03] MEDS: atorvastatin 40 mg Tablet PO (19:59)
[2019-11-03] MEDS: dextrose 5%-sod chloride 0.9% 1,000 ML 50 ML IV (20:00)
[2019-11-03 21:13] LABS: Glucose Point of Care 118 mg/dL (70-110)
[2019-11-04] VITALS (8 sets, daily range): BP systolic 113–127; BP diastolic 62–77; PULSE 70–87; RESP 16–24; TEMP 36.6–37.3; O2SAT 94–97
[2019-11-04] MEDS: metroNIDAZOLE IV 500 MG/100 ML PREMIX 100 MG IV ×2 (01:38→09:11)
[2019-11-04] MEDS: dilTIAZem 30 mg Tablet PO ×4 (01:38→19:40)
[2019-11-04] MEDS: acetaminophen 325 mg Tablet 650 MG PO ×3 (01:39→23:26)
[2019-11-04 06:18] LABS: Basophils % 0.4 %; Eosinophils % 0.4 %; Hematocrit 33.6 % (37.0-47.0); Hemoglobin 10.8 g/dL (11.5-15.3); Lymphocytes # 2.1 10^3/uL (0.8-4.8); Lymphocytes % 40.6 %; Mean Corpuscular HGB Conc 32.1 g/dL (30.0-36.0); Mean Corpuscular Hemoglobin 28.1 pg (28.0-34.0); Mean Corpuscular Volume 87.3 fL (81-99); Mean Platelet Volume 12.7 fL (7.4-10.4); Monocytes # 0.4 10^3/uL (0.2-0.9); Monocytes % 6.6 %; Neutrophils # 2.7 10^3/uL (1.8-7.7); Neutrophils % 51.2 %; Nucleated Red Blood Cells % 0 %; Platelet Count 104 10^3/cmm (130-400); Red Blood Count 3.85 10^6/uL (4.1-5.3); Red Cell Distribution Width 15.2 % (12.1-15.1); White Blood Count 5.3 10^3/uL (4.0-10.0)
--- NOTE | 2019-11-04 06:30 | PC.NURSE ---
pt complain of discomfort and sensation to urinate. Chinchilla examined (14F), no kinks in tubing but urine output to be below normal at 175ml. Balloon deflated, advanced and reinflated. no noticable urine return. scanned bladder to reveal 800+ in bladder. 20ml sterile saline to flush any sediment with no success. With further attempts i was able to manually pull urine out using 60ml syringe but it was very difficult and slow to drain. Lots of sediment seen. Possibly to much sediment to catie dequately with sz 14F cath. Phys notified of situation and he stated with sediment he recommends 16-20F cath. I am unaware why the patient has 14F if it was because a largr cath wasnt able to be advanced. At this time patients bladder has been manually drained and she is in no dicomfort. I will pass this event to day shift nurse for further monitoring.
[2019-11-04 06:35] LABS: Alanine Aminotransferase 31 U/L (0-33); Albumin Level 2.3 g/dL (3.5-5.2); Alkaline Phosphatase 55 IU/L (35-105); Anion Gap 13.7 (5-19); Aspartate Amino Transferase 81 U/L (0-32); Blood Urea Nitrogen 14 mg/dL (8-23); Calcium 6.7 mg/dL (8.5-10.5); Carbon Dioxide 22 mmol/L (22-29); Chloride 104 mmol/L (98-107); Globulin 2.5 g/dL (1.3-4.6); Glucose 111 mg/dL (65-115); Magnesium 1.7 mg/dL (1.7-2.3); Osmolality Calculated 279 mOsm/kg (285-295); Potassium 3.7 mmol/L (3.5-5.1); Sodium 136 mmol/L (136-145); Total Bilirubin 0.3 mg/dL (0.15-1.2); Total Protein 4.8 g/dL (6.6-8.7)
[2019-11-04 06:56] LABS: Glucose Point of Care 111 mg/dL (70-110)
[2019-11-04 07:12] LABS: Slide Review Slide Review Perform
--- NOTE | 2019-11-04 07:55 | PM.PN ---
Subjective Subjective: Interval history: Keely has been transferred to the second floor. This morning she tells me she wants to go home. She states if I stay in here too long I am going to . She states that she has enough help at home but I tend to doubt that. She continues to have diarrhea. She has a poor appetite. She cannot keep much down other than very soft foods. She does not have any pain. She is not short of breath. Medications: Reviewed: Yes Vitals/I&O/Wt Last Vital Signs Temp 97.8 F 11/04/19 04:04 Pulse 70 11/04/19 04:04 Resp 24 H 11/04/19 04:04 BP 116/62 11/04/19 04:04 Pulse Ox 96 11/04/19 04:04 11/03/19 11/04/19 11/04/19 22:59 06:59 14:59 Intake Total 1329.0909 / 2836.1909 Output Total 1005 / 1005 Balance 1329.0909 / 2836.1909 -1005 / 1831.1909 Physical Exam Narrative: EXAM NARRATIVE: GENERAL: In general she appears weak but is awake alert and conversant. HEENT: Exam within normal limits. NECK: Supple without jugular vein distention. The carotid upstroke is normal without bruits. BACK: Exam normal. LUNGS: Clear. HEART: Regular rate and rhythm. ABDOMEN: Benign without organomegaly or tenderness. EXTREMITIES: No edema. NEUROLOGIC: Exam normal. SKIN: Unremarkable. Urinary Catheter Management^: Chinchilla: Cath Placed During This Visit: yes Reason for Continuing Indwelling Catheter: Accurate Measurement of Urinary Output in Critically Ill Patients Urinary Catheter Date of Insertion: 10/30/19 Urinary Catheter Time of Insertion: 17:30 Data : 11/04/19 05:48 11/04/19 05:48 Micro: Microbiology 11/01/19 09:47 Urine Culture - Final Urine Catheterized Josefina albicans A&P Assessment and plan (1) Elevated troponin: Status: Acute (2) Anticoagulation adequate with anticoagulant therapy: Status: Acute (3) Poor appetite: Status: Acute (4) C. difficile colitis: Status: Acute (5) Generalized weakness: Status: Acute (6) Acute respiratory failure with hypoxia: Status: Acute (7) New onset atrial fibrillation: Status: Acute (8) Acute and chronic respiratory failure with hypoxia: Status: Acute (9) Leukopenia: Status: Acute (10) Metabolic acidosis: Status: Acute (11) Vomiting: Status: Acute (12) Diastolic dysfunction without heart failure: Status: Acute (13) Recurrent adenocarcinoma of lung: Status: Acute (14) TABBY (acute kidney injury): Status: Acute (15) Diarrhea: Status: Acute (16) AAA (abdominal aortic aneurysm): Status: Acute Qualifiers: Presence of rupture: without rupture Qualified Code(s): I71.4 - Abdominal aortic aneurysm, without rupture (17) Pulmonary embolism: Status: Acute Qualifiers: Pulmonary embolism type: unspecified Chronicity: chronic Acute cor pulmonale presence: unspecified Qualified Code(s): I27.82 - Chronic pulmonary embolism (18) Hypertension: Status: Acute Qualifiers: Hypertension type: essential hypertension Qualified Code(s): I10 - Essential (primary) hypertension (19) Hyperlipidemia: Status: Acute Qualifiers: Hyperlipidemia type: mixed hyperlipidemia Qualified Code(s): E78.2 - Mixed hyperlipidemia Additional A&P Information She remains too ill to be discharged. I do not know that she will be able to go home. She may need senior care placement. She still having fairly severe diarrhea and is not eating much. Her heart rates have been well controlled. I would continue the short acting Cardizem until such time she is discharged. 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 difficile colitis A04.72 Generalized weakness R53.1 Acute respiratory failure with hypoxia J96.01 New onset atrial fibrillation I48.91 Acute and chronic respiratory failure with hypoxia J96.21 Leukopenia D72.819 Metabolic acidosis E87.2 Vomiting R11.10 Diastolic dysfunction without heart failure I51.89 Recurrent adenocarcinoma of lung C34.90 TBABY (acute kidney injury) N17.9 Diarrhea R19.7 AAA (abdominal aortic aneurysm) I71.4 Presence of rupture: without rupture Pulmonary embolism I27.82 Pulmonary embolism type: unspecified Chronicity: chronic Acute cor pulmonale presence: unspecified Hypertension I10 Hypertension type: essential hypertension Hyperlipidemia E78.2 Hyperlipidemia type: mixed hyperlipidemia
[2019-11-04] MEDS: methylphenidate 10 mg Tablet 2.5 MG PO (08:46)
[2019-11-04] MEDS: gabapentin 400 mg Capsule PO ×2 (08:46→17:25)
[2019-11-04] MEDS: cefTRIAXone 1,000 MG in sodium chloride 0.9% (plus) 50 ML 100 MG IV (08:46)
[2019-11-04] MEDS: aspirin 81 mg EC Tablet PO (08:46)
[2019-11-04] MEDS: rivaroxaban 10 mg Tablet PO (08:46)
[2019-11-04] MEDS: montelukast sodium 10 mg Tablet PO (08:46)
[2019-11-04] MEDS: pantoprazole DR 40 mg Tablet PO (08:46)
[2019-11-04] MEDS: cetirizine 10 mg Tablet PO (08:46)
[2019-11-04] MEDS: budesonide 0.5 mg/2 mL Neb INHALATION ×2 (09:08→19:33)
[2019-11-04] MEDS: fluticasone nasal spray 16gm Btl 2 SPRAY INTRANASAL (09:11)
[2019-11-04] MEDS: ondansetron 2 mg/ML SDV 2 mL 4 MG IVP ×2 (09:20→19:38)
[2019-11-04] MEDS: calcium carbonate 500 mg Chew Tablet 1000 MG PO ×3 (09:50→22:11)
[2019-11-04] MEDS: magnesium sulfate premix 2 GM/50 ML PIGGYBACK IV (10:38)
[2019-11-04 12:35] LABS: Glucose Point of Care 121 mg/dL (70-110)
[2019-11-04 13:00] LABS: 25 Hydroxy Vitamin D 41 ng/mL (30-100); Lipase 180 U/L (13-60)
--- NOTE | 2019-11-04 13:05 | PM.PN ---
Subjective Subjective: Interval history: This morning patient states that he feels a bit better, no shortness of breath, no chest pain, continues to have a poor appetite, continues to have generalized weakness, has not been able to get out of bed, I stopped patient's peripheral TPN yesterday, but her appetite has not improved, I also added a low-dose of Ritalin, but she her appetite has not improved, patient creatinine is improved to 1, sodium is improved yesterday 136, remains afebrile, blood pressures are significantly better, more normotensive, heart rates are well controlled. I had extensive discussion with patient at bedside about senior living placement, short-term rehab. However patient adamantly refuses, states that she stays here too long she is going to , she wants to go home. I advised patient that the basic requirements for discharge to home is self management which includes is ambulation, feeding, and using stooling/ Urinating without help. Patient cannot do any of these without complete assistance. I was very honest with patient, I do not see her going home, she is very unsafe to go home, she needs snf facility placement for short-term rehab. I will reach out to family members to see if they can convince her. Vitals/I&O/Wt Last Vital Signs Temp 98.2 F 11/04/19 11:54 Pulse 82 11/04/19 11:54 Resp 20 H 11/04/19 11:54 BP 122/77 11/04/19 11:54 Pulse Ox 96 11/04/19 11:54 11/03/19 11/04/19 11/04/19 22:59 06:59 14:59 Intake Total 1329.0909 / 2836.1909 100 / 2936.1909 Output Total 1005 / 1005 Balance 1329.0909 / 2836.1909 -905 / 1931.1909 Physical Exam Const: COMMON NORMALS: no acute distress and patient oriented x3 HENMT: COMMON NORMALS: normocephalic HEAD & SCALP: normocephalic Neck/C-Spine: COMMON NORMALS: no JVD Resp: COMMON NORMALS: normal respiratory effort, No retractions, No use of accessory muscles and clear to auscultation bilaterally AUSCULTATION: clear to auscultation bilaterally Cardio: COMMON NORMALS: no JVD, regular rate, regular rhythm, S1 normal heart sound present and S2 normal heart sound present RATE: regular rate RHYTHM: regular rhythm HEART SOUNDS: S1 normal heart sound present and S2 normal heart sound present GI: COMMON NORMALS: Normal to inspection, nondistended, normoactive bowel sounds present, Soft to palpation, non-tender, No hepatosplenomegaly present, no masses and no bruits PALPATION: Yes Soft to palpation and Yes No hepatosplenomegaly present Extremity: COMMON NORMALS: capillary refill normal, no clubbing, cyanosis or edema, no calf tenderness and no pedal edema Neuro: COMMON NORMALS: patient oriented x3 Psych: COMMON NORMALS: mental status grossly normal Urinary Catheter Management^: Chinchilla: Cath Placed During This Visit: yes Reason for Continuing Indwelling Catheter: Accurate Measurement of Urinary Output in Critically Ill Patients Urinary Catheter Date of Insertion: 10/30/19 Urinary Catheter Time of Insertion: 17:30 Data : 11/04/19 05:48 11/04/19 05:48 Micro: Microbiology 11/01/19 09:47 Urine Culture - Final Urine Catheterized Josefina albicans A&P Assessment and plan (1) Acute respiratory failure with hypoxia: -Secondary to diastolic CHF exacerbation, atrial fibrillation rate controlled, aspiration pneumonia, aspiration pneumonitis -CT angiogram negative for pulmonary embolism -COVID-19 testing negative -Patient did have a barium swallow 6 months ago, which showed evidence of aspiration -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 difficile colitis, but continues to clinical evidence of pulmonary edema making diuresis a challenge Plan: -We will moved to general medical floors -I will de-escalate her antibiotics to oral Augmentin -Currently stable on nasal cannula, BiPAP as needed, patient is a full code -Creatinine is 1.0, hold Lasix, fluid restrictions, monitor I's and O's -Chinchilla catheter still in place, due to profound weakness -Echocardiogram was a poor quality study, ejection fraction within normal range, no obvious wall motion disturbances -I have consulted cardiology, Dr. Torrez, input appreciated -BiPAP during the day if needed Status: Acute (2) New onset atrial fibrillation: -Currently rate controlled -Patient has received 2 doses of amiodarone 400 mg once daily, however I have discontinued this medication as I am worried about the possibility of pulmonary fibrosis/large associated with amiodarone given patient's respiratory status -We will continue Cardizem 30 mg every 6 hours -I have avoided beta-robert use, due to patient's hypotensive episodes, as as Dr. Tapia as outpatient has noted that patient has hypotensive episodes and soft blood pressures with beta-blockers -Currently patient A. fib, heart rates are reasonable between 60s to 90s - resume anticoagulation as patient's platelet count is 667225, hemoglobin 10.8, no overt signs of bleeding -SCDs and Xarelto for DVT prophylaxis Status: Acute (3) NSTEMI (non-ST elevated myocardial infarction): -Baseline troponin 82, 120-minute 89.2, 6-hour 112.9, positive delta 30.9, troponin today is 118, EKG shows no acute ST-T wave changes -Likely type II end STEMI from acute respiratory failure but cannot rule out cardiac etiology Plan: -Telemetry monitoring -Serial EKGs, monitor for chest pain -Restarted aspirin -Eliquis resumed -Continue statin -I have consulted cardiology, appreciate Dr. Torrez's input Status: Acute (4) C. difficile colitis: -CT scan of the abdomen shows increased abdominal rectosigmoid colonic fluid consistent with diarrheal illness -C. difficile positive -Likely secondary to amoxicillin use for her mastoiditis -Blood pressures are now reasonable Status: Acute (5) Hypotension: -Patient has had soft blood pressures throughout admission, this morning had an hypotensive episode systolic blood pressures in the 90, resolved with 1.5 L bolus -Hypotension multifactorial, secondary to dehydration, C. difficile, A. fib -Blood pressure is now reasonable stop IV fluids Status: Acute (6) TABBY (acute kidney injury): -Multifactorial, secondary to hypotensive episodes, dehydration, diuretic therapy -Creatinine 1.0 -Has decent urine output Status: Acute (7) Pulmonary embolism: -I have held patient's Xarelto for the last 2 days, given her worsening thrombocytopenia anemia, will reinstitute as platelet count and anemia improve Status: Acute Qualifiers: Pulmonary embolism type: unspecified Chronicity: chronic Acute cor pulmonale presence: unspecified Qualified Code(s): I27.82 - Chronic pulmonary embolism (8) Hyponatremia: resolved Status: Acute (9) Hyperlipidemia: Status: Acute Qualifiers: Hyperlipidemia type: mixed hyperlipidemia Qualified Code(s): E78.2 - Mixed hyperlipidemia (10) Leukopenia: Improving secondary to C. difficile colitis, resolved Status: Acute (11) Hypokalemia: Today I repleted the patient's potassium, phosphorus, magnesium Status: Acute (12) Poor appetite: -Discontinue TPN today -We will do a trial of Ritalin 2.5 mg twice daily to stimulate her appetite Status: Acute (13) Recurrent adenocarcinoma of lung: Status: Acute (14) Generalized weakness: Status: Acute (15) Hypertension: Status: Acute Qualifiers: Hypertension type: essential hypertension Qualified Code(s): I10 - Essential (primary) hypertension Additional A&P Information Hypokalemia, hypophosphatemia, hypomagnesemia, hypocalcemia repleted today Thrombocytopenia, CT scan of the abdomen shows no liver cirrhosis, no splenomegaly, hepatitis panel negative, HIV negative TABBY: Creatinine up to 1.0 Baseline creatinine normal. Hold Lasix Hold nephrotoxic agents Metabolic acidosis: Resolved. Hyponatremia: We will continue to monitor serum sodiums, fluid restrictions Hypertension: Blood pressure stable. Not on any treatment as per Dr. Tapia recently. We will continue to hold off on Coreg and monitor blood pressures. Pulmonary embolism: Xarelto Oxygen therapy as needed keeping saturation over 92%. Recurrent adenocarcinoma of lungs: Post lobectomy: Follows up with Dr. Palmer last seen earlier this month. On Flovent/expectant treatment. Diastolic dysfunction of heart: Received 2 dose of Lasix during admission, hold Lasix for now as elevated creatinine Generalized weakness: PT OT, encourage oral hydration Full code. Dysphagia diet, aspiration precautions SCDs and Xarelto for DVT prophylaxis Attestations Medical Necessity Statement*: Define patient requires continued hospitalization for acute respiratory failure, C. 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 difficile colitis A04.72 Hypotension I95.9 TABBY (acute kidney injury) N17.9 Pulmonary embolism I27.82 Pulmonary embolism type: unspecified Chronicity: chronic Acute cor pulmonale presence: unspecified Hyponatremia E87.1 Hyperlipidemia E78.2 Hyperlipidemia type: mixed hyperlipidemia Leukopenia D72.819 Hypokalemia E87.6 Poor appetite R63.0 Recurrent adenocarcinoma of lung C34.90 Generalized weakness R53.1 Hypertension I10 Hypertension type: essential hypertension
[2019-11-04] MEDS: lidocaine 1% INJ 20 mL 5 ML IV (13:19)
[2019-11-04 16:31] LABS: Glucose Point of Care 126 mg/dL (70-110)
--- NOTE | 2019-11-04 16:32 | PC.SOCIAL ---
*IMM* Patient received the important message from [employer]. Copy placed in the patients chart.
[2019-11-04] MEDS: methylphenidate 10 mg Tablet 5 MG PO (17:24)
[2019-11-04 21:05] LABS: Glucose Point of Care 122 mg/dL (70-110)
[2019-11-04] MEDS: atorvastatin 40 mg Tablet PO (22:07)
[2019-11-05] VITALS (9 sets, daily range): BP systolic 116–136; BP diastolic 65–80; PULSE 67–82; RESP 16–25; TEMP 36.5–36.8; O2SAT 91–98
[2019-11-05] MEDS: HYDROcodone-acetaminophen 5-325 mg Tablet 1 TAB PO ×3 (01:06→17:10)
[2019-11-05] MEDS: dilTIAZem 30 mg Tablet PO ×4 (01:06→20:58)
[2019-11-05 06:45] LABS: Basophils % 0.3 %; Eosinophils % 0.5 %; Hematocrit 33.2 % (37.0-47.0); Hemoglobin 10.4 g/dL (11.5-15.3); Lymphocytes # 3.2 10^3/uL (0.8-4.8); Lymphocytes % 50.7 %; Mean Corpuscular HGB Conc 31.3 g/dL (30.0-36.0); Mean Corpuscular Hemoglobin 27.6 pg (28.0-34.0); Mean Corpuscular Volume 88.1 fL (81-99); Mean Platelet Volume 12.2 fL (7.4-10.4); Monocytes # 0.5 10^3/uL (0.2-0.9); Monocytes % 8.6 %; Neutrophils # 2.4 10^3/uL (1.8-7.7); Neutrophils % 38.9 %; Nucleated Red Blood Cells % 0 %; Platelet Count 147 10^3/cmm (130-400); Red Blood Count 3.77 10^6/uL (4.1-5.3); Red Cell Distribution Width 15.3 % (12.1-15.1); White Blood Count 6.3 10^3/uL (4.0-10.0)
[2019-11-05 06:47] LABS: Glucose Point of Care 105 mg/dL (70-110)
[2019-11-05 07:03] LABS: Alanine Aminotransferase 35 U/L (0-33); Albumin Level 2.4 g/dL (3.5-5.2); Alkaline Phosphatase 69 IU/L (35-105); Anion Gap 12.6 (5-19); Aspartate Amino Transferase 86 U/L (0-32); Blood Urea Nitrogen 10 mg/dL (8-23); Calcium 7.7 mg/dL (8.5-10.5); Carbon Dioxide 25 mmol/L (22-29); Chloride 105 mmol/L (98-107); Globulin 2.9 g/dL (1.3-4.6); Glucose 107 mg/dL (65-115); Magnesium 1.6 mg/dL (1.7-2.3); Osmolality Calculated 284 mOsm/kg (285-295); Phosphorus 2.2 mg/dL (2.5-4.5); Potassium 3.6 mmol/L (3.5-5.1); Sodium 139 mmol/L (136-145); Total Bilirubin 0.3 mg/dL (0.15-1.2); Total Protein 5.3 g/dL (6.6-8.7)
--- NOTE | 2019-11-05 07:21 | PM.PN ---
Subjective Subjective: Interval history: Keely seems slightly improved this morning. She is still awake and alert. No significant symptoms. Heart rate and blood pressure are nicely controlled. She is not in any distress. Still very weak with a poor appetite. Vitals/I&O/Wt Last Vital Signs Temp 98.1 F 11/05/19 04:00 Pulse 73 11/05/19 04:00 Resp 18 11/05/19 04:00 BP 122/65 11/05/19 04:00 Pulse Ox 97 11/05/19 04:00 11/04/19 11/05/19 11/05/19 22:59 06:59 14:59 Intake Total 200 / 200 Output Total 600 / 600 800 / 1400 Balance -400 / -400 -800 / -1200 Physical Exam Narrative: EXAM NARRATIVE: GENERAL: Comfortable at rest HEENT: Exam within normal limits. NECK: Supple without jugular vein distention. The carotid upstroke is normal without bruits. BACK: Exam normal. LUNGS: Clear. HEART: Irregular rate and rhythm ABDOMEN: Benign without organomegaly or tenderness. EXTREMITIES: No edema. NEUROLOGIC: Exam normal. SKIN: Unremarkable. Urinary Catheter Management^: Chinchilla: Cath Placed During This Visit: yes Reason for Continuing Indwelling Catheter: Accurate Measurement of Urinary Output in Critically Ill Patients Urinary Catheter Date of Insertion: 10/30/19 Urinary Catheter Time of Insertion: 17:30 Data : 11/04/19 05:48 11/05/19 06:23 A&P Assessment and plan (1) Elevated troponin: Status: Acute (2) Anticoagulation adequate with anticoagulant therapy: Status: Acute (3) Poor appetite: Status: Acute (4) C. 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 heart failure: Status: Acute (15) Recurrent adenocarcinoma of lung: Status: Acute (16) TABBY (acute kidney injury): Status: Acute (17) Diarrhea: Status: Acute (18) AAA (abdominal aortic aneurysm): Status: Acute Qualifiers: Presence of rupture: without rupture Qualified Code(s): I71.4 - Abdominal aortic aneurysm, without rupture (19) Pulmonary embolism: Status: Acute Qualifiers: Pulmonary embolism type: unspecified Chronicity: chronic Acute cor pulmonale presence: unspecified Qualified Code(s): I27.82 - Chronic pulmonary embolism (20) Hypertension: Status: Acute Qualifiers: Hypertension type: essential hypertension Qualified Code(s): I10 - Essential (primary) hypertension (21) Hyperlipidemia: Status: Acute Qualifiers: Hyperlipidemia type: mixed hyperlipidemia Qualified Code(s): E78.2 - Mixed hyperlipidemia Additional A&P Information No change from a cardiac standpoint. 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
[2019-11-05 07:33] LABS: Slide Review Slide Review Perform
[2019-11-05] MEDS: budesonide 0.5 mg/2 mL Neb INHALATION ×2 (08:02→19:57)
[2019-11-05] MEDS: aspirin 81 mg EC Tablet PO (08:23)
[2019-11-05] MEDS: rivaroxaban 10 mg Tablet PO (08:23)
[2019-11-05] MEDS: gabapentin 400 mg Capsule PO ×2 (08:23→17:10)
[2019-11-05] MEDS: pantoprazole DR 40 mg Tablet PO (08:23)
[2019-11-05] MEDS: montelukast sodium 10 mg Tablet PO (08:23)
[2019-11-05] MEDS: amoxicillin-clav 875-125 mg Tablet 1 TAB PO ×2 (08:23→17:09)
[2019-11-05] MEDS: cetirizine 10 mg Tablet PO (08:23)
[2019-11-05] MEDS: methylphenidate 10 mg Tablet 5 MG PO ×2 (08:25→17:11)
[2019-11-05] MEDS: fluticasone nasal spray 16gm Btl 2 SPRAY INTRANASAL (08:31)
[2019-11-05] MEDS: calcium carbonate 500 mg Chew Tablet 1000 MG PO ×3 (09:56→20:58)
[2019-11-05] MEDS: lidocaine 1% INJ 20 mL 5 ML IV (11:00)
[2019-11-05] MEDS: magnesium sulfate premix 2 GM/50 ML PIGGYBACK IV (11:00)
[2019-11-05] MEDS: potassium chloride premix 40 MEQ/100 ML PREMIX 25 MEQ IV (11:00)
--- NOTE | 2019-11-05 11:39 | P.PN_ITS ---
Subjective Subjective: Interval history: This morning patient seen sitting up into a chair, he is down to 2 L nasal cannula, remains fairly normotensive, has complaints of persistent diarrhea, but improved, still has a poor appetite, still has generalized weakness, but worked a little bit better with physical therapy yesterday, going to physical therapy she is still a max assist, patient still adamant about going home, I spoke to patient's son over the phone yesterday, who stated that she could come home and they would take care of her at home, patient's d mother [place] [facility], that is why she is afraid to go to a [place] [facility] [place]. Patient does enjoy sweets, I brought her cake yesterday afternoon, that seem to cheer her up, she is in a bit better spirits today when I brought her some brownies, we will see how the day progresses. Clinically I feel she is doing significantly better, she is down to 2 L nasal cannula, remains normotensive, heart rates are well controlled, still showing hypokalemia, hypomagnesemia, hypophosphatemia, but I feel that as her appetite improves this should get better. I have increased her Ritalin to 5 mg twice daily. Vitals/I&O/Wt Last Vital Signs Temp 98.1 F 11/05/19 07:19 Pulse 78 11/05/19 08:21 Resp 20 H 11/05/19 08:05 BP 136/77 11/05/19 07:19 Pulse Ox 97 11/05/19 08:05 11/04/19 11/05/19 11/05/19 22:59 06:59 14:59 Intake Total 200 / 200 220 / 220 Output Total 600 / 600 800 / 1400 Balance -400 / -400 -800 / -1200 220 / 220 Physical Exam Const: COMMON NORMALS: no acute distress and patient oriented x3 HENMT: COMMON NORMALS: normocephalic HEAD & SCALP: normocephalic Neck/C-Spine: COMMON NORMALS: no JVD Resp: COMMON NORMALS: normal respiratory effort, No retractions, No use of accessory muscles and clear to auscultation bilaterally AUSCULTATION: clear to auscultation bilaterally Cardio: COMMON NORMALS: no JVD, regular rate, regular rhythm, S1 normal heart sound present and S2 normal heart sound present RATE: regular rate RHYTHM: regular rhythm HEART SOUNDS: S1 normal heart sound present and S2 normal heart sound present GI: COMMON NORMALS: Normal to inspection, nondistended, normoactive bowel sounds present, Soft to palpation, non-tender, No hepatosplenomegaly present, no masses and no bruits PALPATION: Yes Soft to palpation and Yes No hepatosplenomegaly present Extremity: COMMON NORMALS: capillary refill normal, no clubbing, cyanosis or edema, no calf tenderness and no pedal edema Neuro: COMMON NORMALS: patient oriented x3 Psych: COMMON NORMALS: mental status grossly normal Urinary Catheter Management^: Chinchilla: Cath Placed During This Visit: yes Reason for Continuing Indwelling Catheter: Accurate Measurement of Urinary Output in Critically Ill Patients Urinary Catheter Date of Insertion: 10/30/19 Urinary Catheter Time of Insertion: 17:30 Data : 11/05/19 06:23 11/05/19 06:23 A&P Assessment and plan (1) Acute respiratory failure with hypoxia: -Secondary to diastolic CHF exacerbation, atrial fibrillation rate controlled, aspiration pneumonia, aspiration pneumonitis -CT angiogram negative for pulmonary embolism -COVID-19 testing negative -Patient did have a barium swallow 6 months ago, which showed evidence of aspiration -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, thus decreased pulmonary reserve -Creatinine has increased to 2.9, patient's +6 L since at least Chinchilla catheter placement -Trial of Lasix on Wednesday produced roughly a liter of fluid output, but creatinine increased to 2.7, thus Lasix has been held, creatinine down to 1.0 -Over the last 24 hours, minimal hypotensive episodes, currently normotensive -At this point patient's oxygen requirements have remained stable, only down to 2 L Plan: -Doing well on general medical floors -I will de-escalate her antibiotics to oral Augmentin -Currently stable on nasal cannula, BiPAP as needed, patient is a full code -Creatinine is 1.1, hold Lasix, fluid restrictions, monitor I's and O's -We will discontinue Chinchilla -Echocardiogram was a poor quality study, ejection fraction within normal range, no obvious wall motion disturbances -I have consulted cardiology, Dr. Torrez, input appreciated -BiPAP during the day if needed Status: Acute (2) New onset atrial fibrillation: -Currently rate controlled -Patient has received 2 doses of amiodarone 400 mg once daily, however I have discontinued this medication as I am worried about the possibility of pulmonary fibrosis/large associated with amiodarone given patient's respiratory status -We will continue Cardizem 30 mg every 6 hours -I have avoided beta-robert use, due to patient's hypotensive episodes, as as Dr. Tapia as outpatient has noted that patient has hypotensive episodes and soft blood pressures with beta-blockers -Currently patient A. fib, heart rates are reasonable between 60s to 90s - resume anticoagulation as patient's platelet count is [id number], hemoglobin 10.8, no overt signs of bleeding -SCDs and Xarelto for DVT prophylaxis Status: Acute (3) NSTEMI (non-ST elevated myocardial infarction): -Baseline troponin 82, 120-minute 89.2, 6-hour 112.9, positive delta 30.9, troponin today is 118, EKG shows no acute ST-T wave changes -Likely type II end STEMI from acute respiratory failure but cannot rule out cardiac etiology Plan: -Telemetry monitoring -Serial EKGs, monitor for chest pain -Restarted aspirin -Eliquis resumed -Continue statin -I have consulted cardiology, appreciate Dr. Torrez's input Status: Acute (4) C. difficile colitis: -CT scan of the abdomen shows increased abdominal rectosigmoid colonic fluid consistent with diarrheal illness -C. difficile positive -Likely secondary to amoxicillin use for her mastoiditis -Blood pressures are now reasonable -Diarrhea persist to some degree, on day 5 of oral vancomycin Status: Acute (5) Hypotension: -Patient has had soft blood pressures throughout admission, this morning had an hypotensive episode systolic blood pressures in the 90, resolved with 1.5 L bolus -Hypotension multifactorial, secondary to dehydration, C. difficile, A. fib -Blood pressure is now reasonable stop IV fluids Status: Acute (6) TABBY (acute kidney injury): -Multifactorial, secondary to hypotensive episodes, dehydration, diuretic therapy -Creatinine 1.1 -Has decent urine output Status: Acute (7) Pulmonary embolism: -Xarelto has been resumed Status: Acute Qualifiers: Pulmonary embolism type: unspecified Chronicity: chronic Acute cor pulmonale presence: unspecified Qualified Code(s): I27.82 - Chronic pulmonary embolism (8) Hyponatremia: resolved Status: Acute (9) Hyperlipidemia: Status: Acute Qualifiers: Hyperlipidemia type: mixed hyperlipidemia Qualified Code(s): E78.2 - Mixed hyperlipidemia (10) Leukopenia: Improving secondary to C. difficile colitis, resolved Status: Acute (11) Hypokalemia: Today I repleted the patient's potassium, phosphorus, magnesium Status: Acute (12) Poor appetite: -Discontinue TPN today -We will do a trial of Ritalin 2.5 mg twice daily to stimulate her appetite Status: Acute (13) Recurrent adenocarcinoma of lung: Status: Acute (14) Generalized weakness: -Continues to have profound generalized weakness, working a bit better with physical therapy, refusing [place] [facility] [place], I have spoken to family who agreed to take her home on either Wednesday or Wednesday Status: Acute (15) Hypertension: Status: Acute Qualifiers: Hypertension type: essential hypertension Qualified Code(s): I10 - Essential (primary) hypertension Additional A&P Information Hypokalemia, hypophosphatemia, hypomagnesemia, hypocalcemia repleted today Thrombocytopenia, improved, CT scan of the abdomen shows no liver cirrhosis, no splenomegaly, hepatitis panel negative, HIV negative TABBY: Creatinine up to 1.1 Baseline creatinine normal. Hold Lasix Hold nephrotoxic agents Metabolic acidosis: Resolved. Hyponatremia: We will continue to monitor serum sodiums, fluid restrictions Hypertension: Blood pressure stable. Not on any treatment as per Dr. Tapia recently. We will continue to hold off on Coreg and monitor blood pressures. Pulmonary embolism: Xarelto Oxygen therapy as needed keeping saturation over 92%. Recurrent adenocarcinoma of lungs: Post lobectomy: Follows up with Dr. Palmer last seen earlier this month. On Flovent/expectant treatment. Diastolic dysfunction of heart: Received 2 dose of Lasix during admission, hold Lasix for now as elevated creatinine Generalized weakness: PT OT, encourage oral hydration Full code. Dysphagia diet, aspiration precautions SCDs and Xarelto for DVT prophylaxis I have continued to recommend to patient and family that [place] [facility] [place], for short-term rehab would yield the best long-term outcome for the patient, decrease risk of falls, significant morbidity and mortality, allow for appropriate strengthening, conditioning, hydration, clinical monitoring. But patient continually refuses, as her mother in a [place] [facility], she does not want to go through that. Patient refusing [place] [facility] placement, anticipate discharge on Wednesday and Wednesday to family who are agreeable to take care of her, home health care Attestations Medical Necessity Statement*: Patient cannot continue hospitalization due to C. difficile colitis, weakness, deconditioning, hypokalemia, hypomagnesemia, hypophosphatemia Coding Level of Care Code Acute Hris Manager for [facility] F[facility] Diagnoses Acute respiratory failure with hypoxia J96.01 New onset atrial fibrillation I48.91 NSTEMI (non-ST elevated myocardial infarction) I21.4 C. difficile colitis A04.72 Hypotension I95.9 TABBY (acute kidney injury) N17.9 Pulmonary embolism I27.82 Pulmonary embolism type: unspecified Chronicity: chronic Acute cor pulmonale presence: unspecified Hyponatremia E87.1 Hyperlipidemia E78.2 Hyperlipidemia type: mixed hyperlipidemia Leukopenia D72.819 Hypokalemia E87.6 Poor appetite R63.0 Recurrent adenocarcinoma of lung C34.90 Generalized weakness R53.1 Hypertension I10 Hypertension type: essential hypertension
[2019-11-05] MEDS: atorvastatin 40 mg Tablet PO (20:58)
[2019-11-05 21:40] LABS: Glucose Point of Care 167 mg/dL (70-110)
[2019-11-05 21:40] LABS: Glucose Point of Care 123 mg/dL (70-110)
[2019-11-05 21:40] LABS: Glucose Point of Care 93 mg/dL (70-110)
[2019-11-06] VITALS (8 sets, daily range): BP systolic 117–137; BP diastolic 63–84; PULSE 76–92; RESP 16–20; TEMP 36.4–37; O2SAT 94–96
[2019-11-06] MEDS: dilTIAZem 30 mg Tablet PO ×4 (03:04→20:32)
[2019-11-06] MEDS: calcium carbonate 500 mg Chew Tablet 1000 MG PO ×4 (03:09→20:32)
[2019-11-06 06:02] LABS: Basophils % 0.4 %; Eosinophils % 0.6 %; Hematocrit 34.7 % (37.0-47.0); Hemoglobin 10.8 g/dL (11.5-15.3); Lymphocytes # 3.9 10^3/uL (0.8-4.8); Lymphocytes % 55.8 %; Mean Corpuscular HGB Conc 31.1 g/dL (30.0-36.0); Mean Corpuscular Hemoglobin 27.2 pg (28.0-34.0); Mean Corpuscular Volume 87.4 fL (81-99); Mean Platelet Volume 12.5 fL (7.4-10.4); Monocytes # 0.6 10^3/uL (0.2-0.9); Monocytes % 8.4 %; Neutrophils # 2.4 10^3/uL (1.8-7.7); Neutrophils % 34.1 %; Nucleated Red Blood Cells % 0 %; Platelet Count 186 10^3/cmm (130-400); Red Blood Count 3.97 10^6/uL (4.1-5.3); Red Cell Distribution Width 15.2 % (12.1-15.1)
[2019-11-06 06:09] LABS: Alanine Aminotransferase 33 U/L (0-33); Albumin Level 2.4 g/dL (3.5-5.2); Alkaline Phosphatase 72 IU/L (35-105); Anion Gap 11.1 (5-19); Aspartate Amino Transferase 71 U/L (0-32); Blood Urea Nitrogen 9 mg/dL (8-23); Calcium 7.9 mg/dL (8.5-10.5); Carbon Dioxide 26 mmol/L (22-29); Chloride 104 mmol/L (98-107); Globulin 3.1 g/dL (1.3-4.6); Glucose 110 mg/dL (65-115); Magnesium 1.7 mg/dL (1.7-2.3); Osmolality Calculated 281 mOsm/kg (285-295); Phosphorus 1.8 mg/dL (2.5-4.5); Potassium 4.1 mmol/L (3.5-5.1); Sodium 137 mmol/L (136-145); Total Bilirubin 0.3 mg/dL (0.15-1.2); Total Protein 5.5 g/dL (6.6-8.7)
[2019-11-06 06:16] LABS: Glucose Point of Care 96 mg/dL (70-110)
--- NOTE | 2019-11-06 06:17 | PC.NURSE ---
Shift Summary pt took medications well with no problems, had good urinary output, some liquid brown stools, then slept throughout the night. no complaints from pt. pt on 2L NC.
[2019-11-06 06:34] LABS: Slide Review Slide Review Perform
[2019-11-06] MEDS: budesonide 0.5 mg/2 mL Neb INHALATION ×2 (08:07→20:21)
--- NOTE | 2019-11-06 08:23 | P.PN_ITS ---
Subjective Subjective: Interval history: Keely wants to go home. She is still very weak. She says the diarrhea is killing me . She has some discomfort in her abdomen from the diarrhea. She is still nauseated. No vomiting. She is keeping some food down but is not eating much. Heart rate and blood pressures are still well within normal range. No evidence of angina or heart failure. Medications: Reviewed: Yes Vitals/I&O/Wt Last Vital Signs Temp 98.1 F 11/06/19 07:57 Pulse 88 11/06/19 08:07 Resp 16 11/06/19 08:07 BP 121/71 11/06/19 07:57 Pulse Ox 96 11/06/19 08:07 11/05/19 11/06/19 11/06/19 22:59 06:59 14:59 Intake Total 60 / 500 Output Total 200 / 700 Balance -140 / -200 Physical Exam Narrative: EXAM NARRATIVE: GENERAL: She is comfortable at rest HEENT: Exam within normal limits. NECK: Supple without jugular vein distention. The carotid upstroke is normal without bruits. BACK: Exam normal. LUNGS: Clear. HEART: Irregularly irregular ABDOMEN: Benign without organomegaly or tenderness. EXTREMITIES: No edema. NEUROLOGIC: Exam normal. SKIN: Unremarkable. Urinary Catheter Management^: Chinchilla: Cath Placed During This Visit: yes, but has since been removed by the nurse Reason for Continuing Indwelling Catheter: Decision to DC Catheter Urinary Catheter Date of Insertion: 10/30/19 Urinary Catheter Time of Insertion: 17:30 Date Urinary Catheter Removed: 11/05/19 Time Urinary Catheter Discontinued: 13:19 Data : 11/06/19 05:30 11/06/19 05:30 Micro: Microbiology 10/31/19 12:00 Blood Culture - Final Blood NO GROWTH AFTER 5 DAYS A&P Assessment and plan (1) Elevated troponin: Status: Acute (2) Anticoagulation adequate with anticoagulant therapy: Status: Acute (3) Poor appetite: Status: Acute (4) C. difficile colitis: Status: Acute (5) Generalized weakness: Status: Acute (6) Acute respiratory failure with hypoxia: Status: Acute (7) New onset atrial fibrillation: Status: Acute (8) Acute and chronic respiratory failure with hypoxia: Status: Acute (9) Hypokalemia: Status: Acute (10) Hyponatremia: Status: Acute (11) Vomiting: Status: Acute (12) Diastolic dysfunction without heart failure: Status: Acute (13) Recurrent adenocarcinoma of lung: Status: Acute (14) TABBY (acute kidney injury): Status: Acute (15) Diarrhea: Status: Acute (16) AAA (abdominal aortic aneurysm): Status: Acute Qualifiers: Presence of rupture: without rupture Qualified Code(s): I71.4 - Abdominal aortic aneurysm, without rupture (17) Pulmonary embolism: Status: Acute Qualifiers: Pulmonary embolism type: unspecified Chronicity: chronic Acute cor pulmonale presence: unspecified Qualified Code(s): I27.82 - Chronic pulmonary embolism (18) Hypertension: Status: Acute Qualifiers: Hypertension type: essential hypertension Qualified Code(s): I10 - Essential (primary) hypertension (19) Hyperlipidemia: Status: Acute Qualifiers: Hyperlipidemia type: mixed hyperlipidemia Qualified Code(s): E78.2 - Mixed hyperlipidemia Additional A&P Information She remains stable from a cardiac standpoint. No changes made. Attestations Medical Necessity Statement*: Not applicable Coding Level of Care Code Established Pt Acute Facilities Clerk for Chg Fwd Patient Type Established History Detailed Exam Detailed Medical Decision Making Moderate Complexity Diagnoses Elevated troponin R79.89 Anticoagulation adequate with anticoagulant therapy Z79.01 Poor appetite R63.0 C. difficile colitis A04.72 Generalized weakness R53.1 Acute respiratory failure with hypoxia J96.01 New onset atrial fibrillation I48.91 Acute and chronic respiratory failure with hypoxia J96.21 Hypokalemia E87.6 Hyponatremia E87.1 Vomiting R11.10 Diastolic dysfunction without heart failure I51.89 Recurrent adenocarcinoma of lung C34.90 TABBY (acute kidney injury) N17.9 Diarrhea R19.7 AAA (abdominal aortic aneurysm) I71.4 Presence of rupture: without rupture Pulmonary embolism I27.82 Pulmonary embolism type: unspecified Chronicity: chronic Acute cor pulmonale presence: unspecified Hypertension I10 Hypertension type: essential hypertension Hyperlipidemia E78.2 Hyperlipidemia type: mixed hyperlipidemia
[2019-11-06] MEDS: methylphenidate 10 mg Tablet 5 MG PO ×2 (08:42→17:24)
[2019-11-06] MEDS: amoxicillin-clav 875-125 mg Tablet 1 TAB PO (08:42)
[2019-11-06] MEDS: montelukast sodium 10 mg Tablet PO (08:42)
[2019-11-06] MEDS: rivaroxaban 10 mg Tablet PO (08:42)
[2019-11-06] MEDS: aspirin 81 mg EC Tablet PO (08:42)
[2019-11-06] MEDS: cetirizine 10 mg Tablet PO (08:42)
[2019-11-06] MEDS: gabapentin 400 mg Capsule PO ×2 (08:42→17:24)
[2019-11-06] MEDS: pantoprazole DR 40 mg Tablet PO (08:42)
[2019-11-06] MEDS: HYDROcodone-acetaminophen 5-325 mg Tablet 1 TAB PO (08:44)
[2019-11-06] MEDS: fluticasone nasal spray 16gm Btl 2 SPRAY INTRANASAL (08:51)
--- NOTE | 2019-11-06 10:02 | PC.SOCIAL ---
IMM Updated Updated pt on Pg 2 IMM. Pt verbally understands. No questions voiced. Provided pt a copy & left on pt's bedside table. Signed, dated, & timed copy in chart.
[2019-11-06 11:23] LABS: Glucose Point of Care 348 mg/dL (70-110)
--- NOTE | 2019-11-06 15:14 | P.PN_ITS ---
Subjective Subjective: Interval history: No acute events overnight. Patient states he continues to feel weak. Have had 1 episodes of bowel movement yesterday evening. States her appetite is little better than yesterday. Denies of any nausea, vomiting, abdominal pain. Denies of having any weakness, palpitation, chest pain. Patient worked better with physical therapy today. Vitals/I&O/Wt Last Vital Signs Temp 97.8 F 11/06/19 11:18 Pulse 92 11/06/19 11:18 Resp 17 11/06/19 11:18 BP 126/78 11/06/19 11:18 Pulse Ox 94 11/06/19 11:18 11/06/19 11/06/19 11/06/19 06:59 14:59 22:59 Intake Total 360 / 360 Balance 360 / 360 Physical Exam Narrative: EXAM NARRATIVE: General: Awake, no acute distress, AO x3 HEENT: PERRLA, pupils bilaterally equal and reactive Chest: Normal vesicular breath sounds, no added sounds, equal good air entry bilaterally CVS: S1-S2 irregular, no murmurs, no tachycardia, no gallops, no rubs Abdomen: Soft, nontender, no organomegaly, bowel sounds present but sluggish Neuro: No focal deficits, no facial deformity, AO x3, power 5/5 in all limbs Urinary Catheter Management^: Chinchilla: Cath Placed During This Visit: yes, but has since been removed by the nurse Reason for Continuing Indwelling Catheter: Decision to DC Catheter Urinary Catheter Date of Insertion: 10/30/19 Urinary Catheter Time of Insertion: 17:30 Date Urinary Catheter Removed: 11/05/19 Time Urinary Catheter Discontinued: 13:19 Data : 11/06/19 05:30 11/06/19 05:30 Micro: Microbiology 10/31/19 12:00 Blood Culture - Final Blood NO GROWTH AFTER 5 DAYS A&P Assessment and plan (1) C. difficile colitis: Status: Acute (2) Acute respiratory failure with hypoxia: Status: Acute (3) New onset atrial fibrillation: Status: Acute (4) NSTEMI (non-ST elevated myocardial infarction): -Baseline troponin 82, 120-minute 89.2, 6-hour 112.9, positive delta 30.9, troponin today is 118, EKG shows no acute ST-T wave changes -Likely type II end STEMI from acute respiratory failure but cannot rule out cardiac etiology Plan: -Telemetry monitoring -Serial EKGs, monitor for chest pain C/w ASA, Statin. Status: Acute (5) Hypotension: Resolved. Continue to hold antihypertensives for now. Status: Acute (6) TABBY (acute kidney injury): Status: Acute (7) Pulmonary embolism: Status: Acute Qualifiers: Acute cor pulmonale presence: unspecified Chronicity: chronic Pulmonary embolism type: unspecified Qualified Code(s): I27.82 - Chronic pulmonary embolism (8) Hypokalemia: Status: Acute (9) Poor appetite: Status: Acute (10) Hypertension: Status: Acute Qualifiers: Hypertension type: essential hypertension Qualified Code(s): I10 - Es sential (primary) hypertension (11) Hyponatremia: resolved Status: Acute (12) Hyperlipidemia: Status: Acute Qualifiers: Hyperlipidemia type: mixed hyperlipidemia Qualified Code(s): E78.2 - Mixed hyperlipidemia (13) Leukopenia: Status: Acute (14) Generalized weakness: Status: Acute (15) Recurrent adenocarcinoma of lung: Status: Acute Additional A&P Information C. difficile colitis: Severe: Resolving. Continue with p.o. vancomycin 125 every 6 hours. Patient would most likely need 14 days of treatment at this is her first episode. Continue to monitor for dehydration, episodes of diarrhea. Continue contact precautions. Atrial fibrillation: Rate controlled now. Continue with Cardizem 30 mg every 6 hours. Patient already on anticoagulation for pulmonary embolism. We will continue the same. Acute hypoxic respiratory failure: Resolved. Most likely because of congestive heart failure when patient was not A. fib with RVR along with possible aspiration pneumonitis. Patient has had 5-day course of antibiotics. Will discontinue Augmentin as patient most likely got C. difficile because of amoxicillin which she was getting as outpatient for mastoiditis. Oxygen supplementation keeping saturation over 92%. Continue with montelukast, Advair. Generalized weakness/poor appetite/electrolyte abnormality: Most likely because of severe C. difficile. Patient was started on citalopram. We will continue the same for now. Multiple echo abnormalities most likely because of refeeding syndrome. Resolving. Will replete phosphorus. Sodium, potassium, calcium within normal limits today. TABBY: Creatinine up to 1.1 Baseline creatinine normal. Hold Lasix Hold nephrotoxic agents Metabolic acidosis: Resolved. Leukopenia: Resolved. Thrombocytopenia, improved, CT scan of the abdomen shows no liver cirrhosis, no splenomegaly, hepatitis panel negative, HIV negative Hypertension: Blood pressure stable. As an outpatient patient is on thyroid. Blood pressure for now stable without Coreg. We will continue to monitor. Most likely because of severe C. difficile. Pulmonary embolism: Xarelto Oxygen therapy as needed keeping saturation over 92%. Recurrent adenocarcinoma of lungs: Post lobectomy: Follows up with Dr. Palmer last seen earlier this month. On observation/expectant treatment. Diastolic dysfunction of heart: Euvolemic at present. Generalized weakness: PT OT, encourage oral hydration. We will add Glucerna to patient's meal. Full code. Cardiac diet SCDs and Xarelto for DVT prophylaxis Early in the admission patient was advised to go to SNF which she had refused. Patient continues to improve working with physical therapy. Patient really wants to go home. We will try to arrange for home health on discharge. I estimate the patient continues to improve can plan to discharge tomorrow with home health. Attestations Medical Necessity Statement*: Severe C. difficile, generalized weakness Time Spent in Patient Care: Greater than 35 minutes Coding Level of Care Code Acute Raw Silk Grader for [facility] Fwd Diagnoses C. difficile colitis A04.72 Acute respiratory failure with hypoxia J96.01 New onset atrial fibrillation I48.91 NSTEMI (non-ST elevated myocardial infarction) I21.4 Hypotension I95.9 TABBY (acute kidney injury) N17.9 Pulmonary embolism I27.82 Acute cor pulmonale presence: unspecified Chronicity: chronic Pulmonary embolism type: unspecified Hypokalemia E87.6 Poor appetite R63.0 Hypertension I10 Hypertension type: essential hypertension Hyponatremia E87.1 Hyperlipidemia E78.2 Hyperlipidemia type: mixed hyperlipidemia Leukopenia D72.819 Generalized weakness R53.1 Recurrent adenocarcinoma of lung C34.90
[2019-11-06 17:14] LABS: Glucose Point of Care 82 mg/dL (70-110)
[2019-11-06] MEDS: phosphorus 250 mg Tablet PO (17:26)
[2019-11-06] MEDS: famotidine 20 mg Tablet PO (17:26)
[2019-11-06] MEDS: atorvastatin 40 mg Tablet PO (20:32)
[2019-11-06 21:07] LABS: Glucose Point of Care 158 mg/dL (70-110)
[2019-11-07] VITALS (8 sets, daily range): BP systolic 92–155; BP diastolic 50–80; PULSE 94–115; RESP 16–20; TEMP 36.8–37.9; O2SAT 92–96
[2019-11-07] MEDS: calcium carbonate 500 mg Chew Tablet 1000 MG PO ×2 (03:59→08:37)
[2019-11-07] MEDS: dilTIAZem 30 mg Tablet PO ×2 (03:59→08:36)
[2019-11-07 05:42] LABS: Basophils % 0.2 %; Eosinophils % 0.1 %; Hematocrit 35.1 % (37.0-47.0); Hemoglobin 11.1 g/dL (11.5-15.3); Lymphocytes # 3.6 10^3/uL (0.8-4.8); Lymphocytes % 42.8 %; Mean Corpuscular HGB Conc 31.6 g/dL (30.0-36.0); Mean Corpuscular Hemoglobin 27.1 pg (28.0-34.0); Mean Corpuscular Volume 85.8 fL (81-99); Mean Platelet Volume 11.8 fL (7.4-10.4); Monocytes # 0.7 10^3/uL (0.2-0.9); Monocytes % 8.4 %; Neutrophils % 48.1 %; Nucleated Red Blood Cells % 0 %; Platelet Count 230 10^3/cmm (130-400); Red Blood Count 4.09 10^6/uL (4.1-5.3); Red Cell Distribution Width 14.8 % (12.1-15.1); White Blood Count 8.3 10^3/uL (4.0-10.0)
[2019-11-07 05:59] LABS: Alanine Aminotransferase 29 U/L (0-33); Albumin Level 2.7 g/dL (3.5-5.2); Alkaline Phosphatase 73 IU/L (35-105); Aspartate Amino Transferase 55 U/L (0-32); Blood Urea Nitrogen 7 mg/dL (8-23); Calcium 8.5 mg/dL (8.5-10.5); Carbon Dioxide 27 mmol/L (22-29); Chloride 99 mmol/L (98-107); Globulin 3.1 g/dL (1.3-4.6); Glucose 113 mg/dL (65-115); Magnesium 1.3 mg/dL (1.7-2.3); Osmolality Calculated 277 mOsm/kg (285-295); Phosphorus 2.5 mg/dL (2.5-4.5); Sodium 135 mmol/L (136-145); Total Bilirubin 0.5 mg/dL (0.15-1.2); Total Protein 5.8 g/dL (6.6-8.7)
[2019-11-07 06:34] LABS: Glucose Point of Care 112 mg/dL (70-110)
[2019-11-07 06:40] LABS: Slide Review Slide Review Perform
[2019-11-07] MEDS: gabapentin 400 mg Capsule PO (08:36)
[2019-11-07] MEDS: methylphenidate 10 mg Tablet 5 MG PO (08:36)
[2019-11-07] MEDS: aspirin 81 mg EC Tablet PO (08:36)
[2019-11-07] MEDS: phosphorus 250 mg Tablet PO (08:36)
[2019-11-07] MEDS: rivaroxaban 10 mg Tablet PO (08:36)
[2019-11-07] MEDS: montelukast sodium 10 mg Tablet PO (08:36)
[2019-11-07] MEDS: HYDROcodone-acetaminophen 5-325 mg Tablet 1 TAB PO (08:37)
[2019-11-07] MEDS: fluticasone nasal spray 16gm Btl 2 SPRAY INTRANASAL (08:37)
[2019-11-07] MEDS: cetirizine 10 mg Tablet PO (08:38)
[2019-11-07] MEDS: budesonide 0.5 mg/2 mL Neb INHALATION (09:21)
--- NOTE | 2019-11-07 10:22 | PM.PN ---
Subjective Subjective: Interval history: Keely continues to slowly get stronger. She is asking to go home again today. No pain or shortness of breath. Heart rates have been under good control as has the blood pressure. She still has diarrhea but states that it is less. Medications: Reviewed: Yes Vitals/I&O/Wt Last Vital Signs Temp 98.2 F 11/07/19 07:34 Pulse 99 11/07/19 09:22 Resp 16 11/07/19 09:22 BP 153/80 11/07/19 07:34 Pulse Ox 93 11/07/19 09:22 11/06/19 11/07/19 11/07/19 22:59 06:59 14:59 Intake Total 120 / 480 240 / 240 Output Total 650 / 650 4 / 654 Balance -530 / -170 -4 / -174 240 / 240 Physical Exam Narrative: EXAM NARRATIVE: GENERAL: In general she looks stronger today HEENT: Exam within normal limits. NECK: Supple without jugular vein distention. The carotid upstroke is normal without bruits. BACK: Exam normal. LUNGS: Clear. HEART: Irregular rate and rhythm ABDOMEN: Benign without organomegaly or tenderness. EXTREMITIES: No edema. NEUROLOGIC: Exam normal. SKIN: Unremarkable. Urinary Catheter Management^: Chinchilla: Cath Placed During This Visit: yes, but has since been removed by the nurse Reason for Continuing Indwelling Catheter: Decision to DC Catheter Urinary Catheter Date of Insertion: 10/30/19 Urinary Catheter Time of Insertion: 17:30 Date Urinary Catheter Removed: 11/05/19 Time Urinary Catheter Discontinued: 13:19 Data : 11/07/19 05:14 11/07/19 05:14 A&P Assessment and plan (1) Elevated troponin: Status: Acute (2) Anticoagulation adequate with anticoagulant therapy: Status: Acute (3) Poor appetite: Status: Acute (4) C. 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 heart failure: Status: Acute (15) Recurrent adenocarcinoma of lung: Status: Acute (16) TABBY (acute kidney injury): Status: Acute (17) Diarrhea: Status: Acute (18) AAA (abdominal aortic aneurysm): Status: Acute Qualifiers: Presence of rupture: without rupture Qualified Code(s): I71.4 - Abdominal aortic aneurysm, without rupture (19) Pulmonary embolism: Status: Acute Qualifiers: Pulmonary embolism type: unspecified Chronicity: chronic Acute cor pulmonale presence: unspecified Qualified Code(s): I27.82 - Chronic pulmonary embolism (20) Hypertension: Status: Acute Qualifiers: Hypertension type: essential hypertension Qualified Code(s): I10 - Essential (primary) hypertension (21) Hyperlipidemia: Status: Acute Qualifiers: Hyperlipidemia type: mixed hyperlipidemia Qualified Code(s): E78.2 - Mixed hyperlipidemia Additional A&P Information Continue the anticoagulant and the calcium channel robert as currently prescribed. Attestations Medical Necessity Statement*: Not applicable Coding Level of Care Code Established Pt Acute Cement Sack Breaker for Chg Fwd Patient Type Established History Comprehensive Exam Comprehensive Medical Decision Making High Complexity Diagnoses Elevated troponin R79.89 Anticoagulation adequate with anticoagulant therapy Z79.01 Poor appetite R63.0 C. 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
--- NOTE | 2019-11-07 10:45 | PC.RESP ---
PULMONARY REHAB INFORMATION SENT TO PATIENT.
[2019-11-07 10:56] LABS: Glucose Point of Care 135 mg/dL (70-110)
--- NOTE | 2019-11-07 11:23 | PM.DCS ---
Discharge Providers Date of Admission: 10/28/19 14:56 Date of Discharge: November 07, 2019 Attending Provider at Admission: Austen Villeda MD Attending Provider at Discharge: Austen Villeda MD Consults: Cardiology: Dr. Torrez Primary Care Provider: ALYSON Keane Diagnoses at Discharge Discharge Diagnosis (1) Elevated troponin: Status: Acute (2) Anticoagulation adequate with anticoagulant therapy: Status: Acute (3) Poor appetite: Status: Acute (4) C. 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 heart failure: Status: Acute (15) Recurrent adenocarcinoma of lung: Status: Acute (16) TABBY (acute kidney injury): Status: Acute (17) Diarrhea: Status: Acute (18) AAA (abdominal aortic aneurysm): Status: Acute Qualifiers: Presence of rupture: without rupture Qualified Code(s): I71.4 - Abdominal aortic aneurysm, without rupture (19) Pulmonary embolism: Status: Acute Qualifiers: Acute cor pulmonale presence: unspecified Chronicity: chronic Pulmonary embolism type: unspecified Qualified Code(s): I27.82 - Chronic pulmonary embolism (20) Hypertension: Status: Acute Qualifiers: Hypertension type: essential hypertension Qualified Code(s): I10 - Essential (primary) hypertension (21) Hyperlipidemia: Status: Acute Qualifiers: Hyperlipidemia type: mixed hyperlipidemia Qualified Code(s): E78.2 - Mixed hyperlipidemia Reason for Visit Reason for Visit: Reason For Visit: N/V Hospital Course Discharge Summary: Patient has had a prolonged hospitalization. She was admitted on October 27. Keely Chan is a 84 year old female with past medical history of hypertension with labile blood pressures for which Coreg has been recently started by Dr. 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 Palmer, diastolic dysfunction of of left ventricle without any symptoms of heart failure, dizziness, AAA post repair, pulmonary embolism on maintenance Xarelto, dyslipidemia, chronic anemia on oral iron supplementation, GERD who presents to the ER today because of multiple episodes of nausea and vomiting for last 2 days and 3 episodes of diarrhea since yesterday evening. Patient states she was at her baseline health till Wednesday when she started having dizziness went to her primary care and was diagnosed of left ear mastoiditis for which she was started on Augmentin after which from she started having recurrent nausea and multiple episodes of vomiting in which she was vomiting mostly food particles at first but now clear liquid and 3-4 episodes of diarrhea since yesterday evening. Diarrhea is mostly liquidy, not bloodstained, not foul-smelling. She complains of mild abdominal pain since today morning. She is not able to eat anything because she feels nauseous when she is trying to eat. Of note, she was seen by Dr. Palmer on October 08 and she was having constipation and was started on bowel regimen which she was taking p.o. this Wednesday. Today she was feeling mild dizziness so she presented to the ER. In ER, on presentation she was having hypotension which was treated with IV fluid boluses, her blood work showed leukopenia with white count of 2.7, TABBY with creatinine of 1.8, sodium of 132 and bicarb of 21 on the BMP. Procalcitonin was also done in the ER which was 2.4. She denies of having any fever, chills, headache, flulike symptoms, runny nose, cough, sick contacts, anybody who she knows having similar symptoms, dysuria, chest pain, palpitations, hemoptysis. Eventually her stool studies came back positive for C. difficile and she was started on oral vancomycin. Her hospitalization was complicated by A. fib with RVR, leukopenia, hypoxic respiratory failure because of diastolic heart failure, development of TABBY. Because of all of this patient was in ICU for around 4 days of during this hospitalization. For A. fib with RVR cardiology was consulted her home dose of Coreg was discontinued and she was started on oral dose of Cardizem which she tolerated well and her heart rate became better controlled. Echocardiogram was done which a poor study but showed ejection fraction within normal range. For hypoxic respiratory failure it was thought to be because of diastolic heart failure for which she was start aggressively diuresed along with starting of broad-spectrum antibiotics for possible aspiration pneumonia which were eventually discontinued. Patient responded well to the treatment and was at baseline oxygen requirement by the day of discharge. Due to aggressive diuresis she developed TABBY with creatinine going up to 2.9 after which Lasix was discontinued though fluid restrictions and strict input output charting was continued. Eventually her creatinine trended down and was back to baseline. Eventually with improvement of symptoms of C. difficile her white count also improved was was back to baseline. Because of multiple episodes diarrhea patient was severely deconditioned and feeling weak for which she was encouraged to increase her oral intake and physical therapy evaluation was done. Patient was advised to go to SNF for further rehabilitation because severe deconditioning but she declined and wanted to go to home and stated she had good family support for her at home. Which was confirmed with the son. Home health has been arranged. She is been discharged in hemodynamically stable condition with advised to continue vancomycin for 14 more days and to follow-up with the primary care physician within 7 to 10 days. Physical Exam Narrative: EXAM NARRATIVE: General: Awake, no acute distress, AO x3 HEENT: PERRLA, pupils bilaterally equal and reactive Chest: Normal vesicular breath sounds, no added sounds, equal good air entry bilaterally CVS: S1-S2 irregular, no murmurs, no tachycardia, no gallops, no rubs Abdomen: Soft, nontender, no organomegaly, bowel sounds present but sluggish Neuro: No focal deficits, no facial deformity, AO x3, power 5/5 in all limbs Urinary Catheter Management^: Chinchilla: Cath Placed During This Visit: yes, but has since been removed by the nurse Reason for Continuing Indwelling Catheter: Decision to DC Catheter Urinary Catheter Date of Insertion: 10/30/19 Urinary Catheter Time of Insertion: 17:30 Date Urinary Catheter Removed: 11/05/19 Time Urinary Catheter Discontinued: 13:19 Discharge Data Data Completed and Pending: Completed Studies During Hospitalization Category Date Time Status CT abdomen pelvis wo con [id number] Rout ine Cat Scan 10/28/19 15:[address] angio chest w abd pel w con Stat Cat Scan 10/30/19 12:[address] head wo con* [id number] [id number] Stat Cat Scan 10/28/19 12:37 Completed XR chest 1V arden ble [id number] Routine Exams 10/31/19 10:15 Completed XR chest 1V arden ble [id number] Routine Exams 11/01/19 07:43 Completed XR chest 1V arden ble [id number] Stat Exams 10/28/19 11:50 Completed XR chest 1V arden ble [id number] Stat Exams 10/30/19 09:14 Completed CV echo complete* [id number] Routine Ultrasound 11/01/19 07:00 Completed Pending at discharge Category Date Time Status PATRICIA Profile Rheum atology Stat Lab 10/31/19 03:57 Results Blood Culture Sta t Lab 10/31/19 12:00 Results Complete Blood Co unt w/Auto AM LABS Lab 11/08/19 04:00 Ordered Comprehensive Met abolic Panel AM LA BS Lab 11/08/19 04:00 Ordered Magnesium AM LABS Lab 11/08/19 04:00 Ordered Phosphorus AM LAB S Lab 11/08/19 04:[address] at Lab 10/31/19 10:45 Uncollected Sputum Culture an d Gram Stain Stat Lab 10/31/19 10:45 Uncollected Labs from last 24 hours 11/07/19 11/07/19 11/07/19 10:49 06:30 05:14 WBC RBC Hgb Hct MCV MCH MCHC RDW Plt Count MPV Neut % (Auto) Lymph % (Auto) Shannon % (Auto) Eos % (Auto) Baso % (Auto) Neut # (Auto) Lymph # (Auto) Shannon # (Auto) Eos # (Auto) Baso # (Auto) Nucleated RBC % (a uto) Nucleated RBCs # Sodium 135 L Potassium 4.0 Chloride 99 Carbon Dioxide 27 Anion Gap 13.0 BUN 7 L Creatinine 0.9 Glucose 113 POC Glucose 135 112 Calculated Osmolal ity 277 L Calcium 8.5 Phosphorus 2.5 Magnesium 1.3 L Total Bilirubin 0.5 AST 55 H ALT 29 Alkaline Phosphata se 73 Total Protein 5.8 L Albumin 2.7 L Globulin 3.1 11/07/19 11/06/19 11/06/19 05:14 21:01 17:03 WBC 8.3 RBC 4.09 L Hgb 11.1 L Hct 35.1 L MCV 85.8 MCH 27.1 L MCHC 31.6 RDW 14.8 Plt Count 230 MPV 11.8 H Neut % (Auto) 48.1 Lymph % (Auto) 42.8 Shannon % (Auto) 8.4 Eos % (Auto) 0.1 Baso % (Auto) 0.2 Neut # (Auto) 4.0 Lymph # (Auto) 3.6 Shannon # (Auto) 0.7 Eos # (Auto) 0.0 Baso # (Auto) 0.0 Nucleated RBC % (a uto) 0 Nucleated RBCs # 0.0 Sodium Potassium Chloride Carbon Dioxide Anion Gap BUN Creatinine Glucose POC Glucose 158 82 Calculated Osmolal ity Calcium Phosphorus Magnesium Total Bilirubin AST ALT Alkaline Phosphata se Total Protein Albumin Globulin 11/06/19 11:11 WBC RBC Hgb Hct MCV MCH MCHC RDW Plt Count MPV Neut % (Auto) Lymph % (Auto) Shannon % (Auto) Eos % (Auto) Baso % (Auto) Neut # (Auto) Lymph # (Auto) Shannon # (Auto) Eos # (Auto) Baso # (Auto) Nucleated RBC % (a uto) Nucleated RBCs # Sodium Potassium Chloride Carbon Dioxide Anion Gap BUN Creatinine Glucose POC Glucose 348 Calculated Osmolal ity Calcium Phosphorus Magnesium Total Bilirubin AST ALT Alkaline Phosphata se Total Protein Albumin Globulin Vitals: Last Vital Signs Temp 98.2 F 11/07/19 07:34 Pulse 99 11/07/19 09:22 Resp 16 11/07/19 09:22 BP 153/80 11/07/19 07:34 Pulse Ox 93 11/07/19 09:22 Discharge Plan Discharge Patient Disposition: Home Health Service Condition: Stable Prescriptions: New vancomycin 1,000 mg Recon Soln 125 mg PO QID 14 Days Qty: 56 RF: 0 Xarelto 10 mg Tablet 10 mg PO DAILY Qty: 30 RF: 0 Cardizem CD 120 mg capsule,extended release 24hr 120 mg PO DAILY Qty: 30 RF: 0 Advair Diskus 100-50 mcg/dose blister with device 1 inh INHALATION DAILY Qty: 60 RF: 0 doxycycline hyclate 100 mg capsule 100 mg PO DAILY 3 Days Qty: 3 RF: 0 Continued aspirin [Adult Low Dose Aspirin] 81 mg tablet,delayed release (DR/EC) 81 mg PO DAILY RF: 0 omeprazole 40 mg capsule,delayed release(DR/EC) 40 mg PO DAILY RF: 0 gabapentin 300 mg capsule 400 mg PO BID RF: 0 nitroglycerin [Nitrostat] 0.4 mg tablet, sublingual 0.4 mg SUBLINGUAL Q5M PRN (Reason: Chest Pain) RF: 0 hydrocodone-acetaminophen 5-325 mg tablet 1 tab PO Q6H PRN (Reason: Pain) RF: 0 cholecalciferol (vitamin D3) 1,250 mcg (50,000 unit) capsule 1,250 mcg PO Q7D RF: 0 fluticasone propionate [Flonase Allergy Relief] 50 mcg/actuation spray,suspension 2 spray INTRANASAL DAILY RF: 0 cetirizine 10 mg Tablet 10 mg PO DAILY RF: 0 meclizine 25 mg Tablet 25 mg PO TID PRN (Reason: Dizziness) RF: 0 montelukast 10 mg Tablet 10 mg PO DAILY RF: 0 Discontinued Xarelto 20 mg tablet 20 mg PO DAILY RF: 0 carvedilol 6.25 mg tablet 6.25 mg PO BID 90 Days Qty: 180 RF: 3 amoxicillin 500 mg Capsule 1,000 mg PO BID RF: 0 Discharge Orders: Discharge Order (Routine); Ordered 11/07/19 Ordered By: Austen Villeda Referrals: [facility] [Outside] Cristiana Willis FNP [Primary Care Provider] - 11/14/19 10:30 am Discharge Diet: Advance as tolerated and GI Soft Discharge Activity: Resume usual activity and Increase activity as tolerated Patient Instructions: Diltiazem (By mouth), Doxycycline (By mouth), Fluticasone (By breathing), Vancomycin (By mouth), Rivaroxaban (By mouth), Viral Pneumonia (DC), Vancomycin Resistant Enterococcus Infection (DC), Soft Diet Activity Restrictions/Additional Instructions: Continue GI soft diet for now. Currently advance it gradually now 1 week. Home health has been arranged. Please continue physical therapy with home health. Coreg has been withheld and Cardizem has been started. Doxycycline is the antibiotic for pneumonia. Please take it for 3 more days to finish a course. Please follow-up with your primary care provider within next 7 to 10 days. Discharge Date/Time: 11/07/19 15:00 Discharge Attestations Time Spent in Discharge Care*: greater than 30 min Specific Discharge Activities: Specific discharge activities: educating patient, educating and/or supporting family/caregiver, discussing with returned case inspector/social workers/dc planners, documenting/other paperwork and evaluating patient/reviewing data Status at Discharge: Cognitive status at discharge: cognitively intact, Behavioral status at discharge: cooperative, Functional status at discharge: uses cane/walker Overall status at discharge: patient is progressing back to baseline Quality Metrics Clinical Quality Measures During this hospital stay, did patient experience: None Coding Level of Care Code Acute Marine Extension Agent for Chg Fwd Diagnoses Elevated troponin R79.89 Anticoagulation adequate with anticoagulant therapy Z79.01 Poor appetite R63.0 C. difficile colitis A04.72 Generalized weakness R53.1 Acute respiratory failure with hypoxia J96.01 New onset atrial fibrillation I48.91 Acute and chronic respiratory failure with hypoxia J96.21 Leukopenia D72.819 Hypokalemia E87.6 Hyponatremia E87.1 Metabolic acidosis E87.2 Vomiting R11.10 Diastolic dysfunction without heart failure I51.89 Recurrent adenocarcinoma of lung C34.90 TABBY (acute kidney injury) N17.9 Diarrhea R19.7 AAA (abdominal aortic aneurysm) I71.4 Presence of rupture: without rupture Pulmonary embolism I27.82 Acute cor pulmonale presence: unspecified Chronicity: chronic Pulmonary embolism type: unspecified Hypertension I10 Hypertension type: essential hypertension Hyperlipidemia E78.2 Hyperlipidemia type: mixed hyperlipidemia
--- NOTE | 2019-11-07 16:38 | PC.NURSE ---
This [employer] TECHNICIAN got the patient ready to go home. This [employer] TECHNICIAN checked the patients oxygen and it was at 94%. This [employer] TECHNICIAN took the oxygen off the patient and got her dressed and this [employer] TECHNICIAN checked her oxygen level again before leaving the floor and it was at 94% with room air.
--- NOTE | 2019-11-07 17:22 | PC.NURSE ---
DISCHARGE PRESCRIPTIONS DISCHARGE PRESCRIPTIONS SENT TO WRONG PHARMACY AT DISCHARGE. PRESCRIPTIONS FAXED TO [facility].
--- NOTE | 2019-11-08 17:05 | PC.SOCIAL ---
Insurance will not pay for Advair once daily since it comes in a qty of 60 they will pay for twice a day with qty of 60. Dr Villeda is okay with patient taking this BID. Gave verbal order to [facility] to change to twice daily inhalation. Notified daughter Praveena of change. She verbalized understanding and repeated back the instructions.
[2019-11-09 00:31] LABS: DNA AB (DS) CRITHIDIA,IFA NEGATIVE (NEGATIVE)
== END 2019-11-07 15:00 | disposition home health service (06) | DRG 371 ==
LOC: ER 14:43 → MEDSURG 15:27 → ICU 10-30 14:25 → MEDSURG 11-03 14:06
PROVIDERS: Emergency Medicine; Family Medicine; Admitting Provider Student in an Organized Health Care Education/Training Program; PCP Nurse Practitioner Family; Visit Provider Student in an Organized Health Care Education/Training Program
DX: A04.72 Enterocolitis due to Clostridium difficile, not specified as recurrent (principal); I50.31 Acute diastolic (congestive) heart failure; J96.01 Acute respiratory failure with hypoxia; I21.A1 Myocardial infarction type 2; J69.0 Pneumonitis due to inhalation of food and vomit; N17.9 Acute kidney failure, unspecified; E87.2 Acidosis; E87.1 Hypo-osmolality and hyponatremia; I11.0 Hypertensive heart disease with heart failure; Z85.118 Personal history of other malignant neoplasm of bronchus and lung; Z90.2 Acquired absence of lung [part of]; Z86.711 Personal history of pulmonary embolism; Z79.01 Long term (current) use of anticoagulants; E78.2 Mixed hyperlipidemia; D64.9 Anemia, unspecified; K21.9 Gastro-esophageal reflux disease without esophagitis; I95.9 Hypotension, unspecified; G89.29 Other chronic pain; M54.9 Dorsalgia, unspecified; J44.9 Chronic obstructive pulmonary disease, unspecified; E87.6 Hypokalemia; E86.0 Dehydration; I48.91 Unspecified atrial fibrillation; Z79.891 Long term (current) use of opiate analgesic; Z79.82 Long term (current) use of aspirin; D69.6 Thrombocytopenia, unspecified
CPT/HCPCS: 12345; 36415; 36416; 36600; 51702; 70450; 71045; 71275; 74176; 74177; 80048; 80053; 80500; 81001; 82274; 82306; 82310; 82436; 82533; 82570; 82575; 82607; 82728; 82746; 82803; 82962; 83010; 83540; 83605; 83630; 83690; 83735; 83880; 83935; 83970; 84100; 84133; 84145; 84300; 84484; 84540; 85007; 85025; 85027; 85045; 85362; 85378; 85384; 85610; 85651; 85730; 85999; 86140; 86705; 86706; 86709; 86803; 87040; 87086; 87106; 87205; 87340; 87425; 87493; 87506; 87635; 87641; 87804; 87806; 92610; 93005; 93010; 93306; 94640; 94664; 96372; 96375; 97110; 97116; 97161; 97530; 99284; J0696; J1815; J1940; J2001; J2270; J2405; J3370; J3475; J3480; J3490; J7030; J7040; J7050; J7626; J8597; Q9967; S0030

== ENCOUNTER 2019-12-14 08:27 | Outpatient (CLI) | payer MEDICARE, OTHER, SELFPAY ==
--- NOTE | 2019-12-16 16:48 | ONC FU_ITS ---
Dr. Palmer Patient Follow-Up Note Patient: Keely Chan V Unit #: [id number]: [id number] Dicatated By: Alexei Palmer M.D.Date of Visit:Dec 14, 2019 Onc Med Follow-up/Prog Note Chief Complaint: Lung cancer/anemia. History of Present Illness: This is an 84 year-old woman with bilateral non-small cell lung cancer, both stage IA. She has had a mild anemia. 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 She received no further treatment. 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 She again received no further treatment. During subsequent followup there has been no evidence of recurrence. She also is known to have osteoporosis. A CT bone density study in 2005 showed a T score of -3.9. She had been intolerant of Fosamax and she did receive infusions of Reclast in 2006 and in 2007. She tolerated those well. I had seen her again in August 2013 because her PCP, Cristiana Willis NP, had wanted her to get another Reclast infusion, which she did receive here on 09/04/2013. She was to return in one year, but she failed to keep that appointment. I had seen her for an office visit on 10/02/2015. She just came in at that time reporting that something was wrong . Chest CT at that time no adenopathy, recurrent mass, or other evidence of malignancy. She was found to be mildly anemic, though, and she subsequently started an oral iron supplement. Serum iron studies in October showed low transferrin saturation at 12%. Followup studies in January showed no improvement in the iron deficiency, though at that point her hemoglobin was just borderline low. I did opt to give her one dose of parenteral iron with Injectafer in February 2016. Her other medical illnesses include hypercholesterolemia and GERD. She has a history of Lakhani's esophagus. She also is known to have an abdominal aortic aneurysm. She had previously smoked up to 2 packs of cigarettes daily, she quit in 2006. INTERIM HISTORY: Repeat thyroid ultrasound on 03/26/2017 showed multiple cystic and solid nodules in both lobes of the thyroid, but similar in appearance compared to previous studies. Chest CT on 02/03/2018 showed improvement in superior segment right lower lobe infiltrate compared to prior study from November 2017. At that time there is a new spiculated opacity noted in the left upper lobe measuring 1.4 cm. A few prominent paratracheal lymph nodes appeared unchanged. Restaging PET/CT on 04/02/2018 was negative for malignancy. The previously described left upper lobe nodule was not present on that study. Reticular infiltrate in the superior segment right lower lobe showed minimal inflammatory FDG activity, consistent with scarring. There were no other areas of abnormal uptake. She continued on observation/expectant management. Her laboratory studies on 07/13/2018 included CBC showing hemoglobin down to 9.4 g with hematocrit 29.8%. The red cell indices were borderline low. The white blood cell count was 5400 and the platelet count was 347,000. The serum iron was low at 26 mcg/dL with transferrin saturation 8%. Ferritin was also relatively low at 37 ng/mL. I had seen her for a follow-up visit on 07/28/2018. In the setting of persistent iron deficiency despite oral iron supplementation, she was given parenteral iron replacement with Injectafer. Her subsequent evaluation included EGD and colonoscopy. There was no evidence of GI malignancy. Restaging PET/CT on 09/10/2018 showed no evidence for recurrent or residual malignancy. On 10/28/2019 she was admitted to the hospital after presenting to the emergency room with nausea/vomiting and diarrhea. She was found to have C. difficile colitis. She had dehydration and acute renal injury. Her hospitalization was further complicated by atrial fibrillation and by diastolic congestive heart failure with acute respiratory failure. She had gradual recovery, and she was discharged home on 11/07/2019. More recently, she has been seen by an ENT physician in [place] due to problems with her balance and equilibrium. She had a voice change, as she was not able to talk above a whisper. 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 She is scheduled to have further evaluation with PET/CT. She also is supposed to be getting a tube placed in her left ear. She is seen for a followup visit. She says she is still very weak and she has very limited activity. Her ECOG score is 2. She still has no appetite. Her weight is down 15 pounds. She has not had fever since her hospitalization. She does have sweating intermittently. She has ongoing complaints with her balance and equilibrium. She is complaining of sore throat and she she says that anything she eats hurts. She occasionally has nausea. She does not have acid reflux symptoms. She is no longer having diarrhea, but she says her stools have the same abnormal coloration. Her bladder function has been okay. She has pain all over, but especially in her back. She has only rare headache. She has neuropathy in her feet. Medications: Cardizem CD 1 Capsule (of 120 mg) Capsule SR 24 HR Oral daily, Cetirizine HCl 1 Tablet (of 5 mg) Oral daily, Flonase Allergy Relief 2 spray(s) (of 50 mcg/act) Suspension Nasal PRN, Gabapentin 1 Capsule (of 300 mg) Oral b.i.d., Hydrocodone-Acetaminophen 1 Tablet (of 5-325 mg) Oral b.i.d. PRN, Meclizine HCl 1 Tablet (of 25 mg) Oral daily, PriLOSEC 1 Capsule (of 40 mg) Capsule Delayed Release Oral b.i.d., Singulair 1 Tablet (of 10 mg) Oral daily, Stool Softener 1 Tablet Capsule Oral daily, Tylenol Arthritis Pain 1 (650 mg) Tablet, controlled release Oral b.i.d., Xarelto 1 Tablet (of 10 mg) Oral daily Allergies: Albuterol Sulfate, fosamax, and lidoderm. Review of Systems: Constitutional - She is very weak. Her energy is low. She is able to do some very light work. But she is mostly sitting. Her appetite is very poor. Her weight is down 15 pounds from last visit. No fevers. She has occasional sweating episodes, this occured yesterday. No hot flashes. ECOG score is 2, ENMT - She has sinus congestion/drainage. No mouth sores. No sore throat or difficulty swallowing. Patient reporting that she was recently evaluated by her ENT, Keegan Morales MD, in [place] and was told she had vocal cord paralysis and referred her back here to be evaluated. Patient reports that she is scheduled for PET scan and swallow study. She is also to have tympanostomy tubes placed at her next visit, Hematologic/Lymphatic - She bruises easily, Respiratory - She has shortness of breath with exertion. No cough. No pleuritic pain or hemoptysis, Cardiovascular - She has intermittent chest pain, she described as sharp shooting pains. She reports that she has a N-STEMI NC while being hospitalized. No palpitations, Gastrointestinal - No nausea or vomiting. No heartburn or acid reflux. No blood in the stool or black stools. Patient was recently hospitalized for C-Diff. She continues to have alteration in her bowel habits, Genitourinary (F) - No dysuria or hematuria. No urinary frequency. No urgency or incontinence, Musculoskeletal - She is having lower back pain, Integumentary - No skin complications, Neurologic - No headache . She continues to have persistent dizziness. She describes this as an alteration in her balance. She has numbness and tingling in her feet. She also reports numbness in her hands during cold conditions. No other focal neurologic symptoms, Psychiatric - No anxiety or depression. She has insomnia. Vital Signs: Performed on Dec 14, 2019 08:45 Height - 67.00 in Weight - 137.8 lbs (LOW) BSA - 1.73 sq.m BMI - 21.58 Temperature - 97.8 F (LOW) Pulse - 72 /min Respiration - 20 /min BP - 101/61 mm(hg) O2 Sat - 97 % Pain - 2 Physical Examination: Constitutional - She appears generally weak, but not acutely ill, Eyes - Sclerae nonicteric. Conjunctivae clear, ENMT - No lesions noted in the oral cavity. The right TM is unremarkable. The left TM appears discolored and dull, Hematologic/Lymphatic - No cervical, or clavicular, or axillary adenopathy, Respiratory - Lungs are clear with diminished air movement bilaterally, Cardiovascular - Heart rhythm is regular. There is a II/ systolic murmur at the base. There is no gallop or rub noted, Abdomen - Soft. Liver and spleen are not enlarged. There is no abdominal mass or ascites noted and there is no inguinal adenopathy, Extremities - There is evidence of venous insufficiency in her legs and feet. There is slight edema. Dorsalis pedis pulses are palpable bilaterally, Neurologic - No focal neurologic deficits noted. Impression: 1. Patient with bilateral non-small cell lung cancer, both stage IA. She underwent left upper lobectomy/left mediastinal lymphadenectomy in 2006 and right upper lobectomy/right mediastinal lymphadenectomy in 2009. Thus far there has been no evidence of recurrence of her lung cancer. 2. In September 2015 she was found to be mildly anemic. Her laboratory studies were consistent with iron deficiency. It had not been correcting with an oral iron supplement, and she did receive an infusion of Injectafer in February 2016. 3. She has GERD and a history of Lakhani's esophagus. Her other medical illnesses include: 4. Hypercholesterolemia. 5. Osteoporosis. 6. Degenerative arthritis. 7. She is known to have abdominal aortic aneurysm. 8. She has a history of thyroid nodules. 9. She has a history of pulmonary embolism in 2013, and she has been on chronic anticoagulation with rivaroxaban. As of March 2018 her restaging PET/CT was negative for malignancy. She continued, though, to have fairly marginal performance status. Her laboratory studies in July showed recurrence of iron deficiency anemia with positive stool Hemoccult. She was then given parenteral iron replacement with Injectafer. Her further evaluation included EGD and colonoscopy, which reportedly showed no evidence of malignancy. She had a significant response to the parenteral iron, though she initially she remained mildly anemic. A restaging PET/CT in September 2018 showed no evidence of recurrent or residual malignancy. She continued on observation/expectant management. During follow-up she has had limited activity tolerance and somewhat marginal performance status. At her follow-up visit in October she had complained of dizzy spells. These did not improve when she stopped gabapentin. She subsequently was admitted to the hospital with C. difficile colitis. She is showing gradual recovery from that illness. In the meantime, she is continued to have problems with balance/equilibrium, and she has been found to have right vocal cord paralysis. Plan: She is being scheduled for restaging PET/CT, and I will want to see those results and review the disc as soon as they are available. In the meantime, she will be scheduled for a repeat brain MRI for evaluation of her dysequilibrium. She will have further evaluation as indicated. Signed By: Alexei Palmer M.D. <<Signature on File>>
== END 2019-12-14 08:28 | disposition home or self-care (01) ==
LOC: ONCMED 08:31
PROVIDERS: PCP Nurse Practitioner Family; Visit Provider Internal Medicine Medical Oncology
DX: Z08 Encounter for follow-up examination after completed treatment for malignant neoplasm (principal); Z85.118 Personal history of other malignant neoplasm of bronchus and lung; J38.01 Paralysis of vocal cords and larynx, unilateral; R42 Dizziness and giddiness; D50.9 Iron deficiency anemia, unspecified; K21.9 Gastro-esophageal reflux disease without esophagitis; K22.70 Barrett's esophagus without dysplasia; E78.00 Pure hypercholesterolemia, unspecified; M81.0 Age-related osteoporosis without current pathological fracture; M19.90 Unspecified osteoarthritis, unspecified site; I71.4 Abdominal aortic aneurysm, without rupture; Z79.01 Long term (current) use of anticoagulants; Z86.711 Personal history of pulmonary embolism; Z90.2 Acquired absence of lung [part of]
CPT/HCPCS: 99214

== ENCOUNTER 2019-12-26 11:11 | Outpatient (CLI) | payer MEDICARE, OTHER, SELFPAY ==
--- NOTE | 2019-12-26 11:21 | MR_ITS ---
WS: [id number] MRI BRAIN WITH AND WITHOUT CONTRAST HISTORY: LUNG Cancer; dizziness COMPARISON: 12/01/[address] head 10/28/2019 TECHNIQUE: Multiplanar imaging performed through the brain with Prohance 17 ml's IV. No acute infarcts are seen. Sinha-white matter differentiation is well preserved. Mild chronic microva scular ischemic changes in the white matter. Perivascular space along the inferior RIGHT basal gangli a. Single susceptibility artifact cortical white matter RIGHT frontal lobe. Ventricles and extra-axial spaces are normal. Clivus and pituitary gland are normal. Visualized posterior fossa and brainstem are also normal. Postcontrast images are negative for masses or vascular malformations. Dural venous sinuses are normal. Paranasal sinuses: Well aerated with no significant disease. Mastoid air cells: Bilateral mastoid air cell effusions, much greater on the LEFT. Calvarium and scalp: Normal. MR/MR head wo/w con [id number] IMPRESSION: 1. No metastatic disease to the brain. 2. Mild atrophy and mild chronic microvascular ischemic disease is stable.
== END 2019-12-26 11:12 | disposition home or self-care (01) ==
LOC: RADSHAW 11:16
PROVIDERS: PCP Nurse Practitioner Family; Visit Provider Internal Medicine Medical Oncology
DX: C34.12 Malignant neoplasm of upper lobe, left bronchus or lung (principal); R42 Dizziness and giddiness; I67.82 Cerebral ischemia
CPT/HCPCS: 70553; A9579

== ENCOUNTER 2020-04-16 12:05 | Outpatient (CLI) | payer MEDICARE, OTHER, SELFPAY ==
[2020-04-16 12:38] LABS: Basophils % 0.3 %; Eosinophils # 0.2 10^3/uL (0.0-0.8); Eosinophils % 2.6 %; Hemoglobin 11.7 g/dL (11.5-15.3); Lymphocytes # 1.6 10^3/uL (0.8-4.8); Lymphocytes % 27.8 %; Mean Corpuscular Hemoglobin 26.8 pg (28.0-34.0); Mean Corpuscular Volume 89.4 fL (81-99); Mean Platelet Volume 9.7 fL (7.4-10.4); Monocytes # 0.6 10^3/uL (0.2-0.9); Monocytes % 9.5 %; Neutrophils # 3.49 10^3/uL (1.8-7.7); Neutrophils % 59.5 %; Nucleated Red Blood Cells % 0 %; Platelet Count 353 10^3/cmm (130-400); Red Blood Count 4.36 10^6/uL (4.1-5.3); Red Cell Distribution Width 14.9 % (12.1-15.1); White Blood Count 5.9 10^3/uL (4.0-10.0)
[2020-04-16 12:57] LABS: Alanine Aminotransferase 10 U/L (0-33); Albumin Level 3.6 g/dL (3.5-5.2); Alkaline Phosphatase 69 IU/L (35-105); Anion Gap 12.6 (5-19); Aspartate Amino Transferase 19 U/L (0-32); Blood Urea Nitrogen 22 mg/dL (8-23); Calcium 8.8 mg/dL (8.5-10.5); Carbon Dioxide 28 mmol/L (22-29); Chloride 105 mmol/L (98-107); Ferritin 88 ng/mL (15-150); Globulin 3.1 g/dL (1.3-4.6); Glucose 102 mg/dL (65-115); Iron 50 ug/dL (37-145); Osmolality Calculated 296 mOsm/kg (285-295); Percent Saturation 20.2 % (20-50); Potassium 4.6 mmol/L (3.5-5.1); Sodium 141 mmol/L (136-145); Total Bilirubin 0.3 mg/dL (0.15-1.2); Total Iron Binding Capacity 247 mcg/dl; Total Protein 6.7 g/dL (6.6-8.7); Unsaturated Iron Binding 197 ug/dL (112-347)
--- NOTE | 2020-04-16 17:00 | ONC FU_ITS ---
Dr. Palmer Patient Follow-Up Note Patient: Keely Chan V Unit #: [id number]: 1935 Dicatated By: Alexei Palmer M.D.Date of Visit:Apr 16, 2020 Onc Med Follow-up/Prog Note Chief Complaint: Lung cancer/anemia. History of Present Illness: This is an 84 year-old woman with bilateral non-small cell lung cancer, both stage IA. She has had a mild anemia. 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 She received no further treatment. 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 She again received no further treatment. During subsequent followup there has been no evidence of recurrence. She also is known to have osteoporosis. A CT bone density study in 2005 showed a T score of -3.9. She had been intolerant of Fosamax and she did receive infusions of Reclast in 2006 and in 2007. She tolerated those well. I had seen her again in August 2013 because her PCP, Cristiana Willis NP, had wanted her to get another Reclast infusion, which she did receive here on 09/04/2013. She was to return in one year, but she failed to keep that appointment. I had seen her for an office visit on 10/02/2015. She just came in at that time reporting that something was wrong . Chest CT at that time no adenopathy, recurrent mass, or other evidence of malignancy. She was found to be mildly anemic, though, and she subsequently started an oral iron supplement. Serum iron studies in October showed low transferrin saturation at 12%. Followup studies in January showed no improvement in the iron deficiency, though at that point her hemoglobin was just borderline low. I did opt to give her one dose of parenteral iron with Injectafer in February 2016. Her other medical illnesses include hypercholesterolemia and GERD. She has a history of Lakhani's esophagus. She also is known to have an abdominal aortic aneurysm. She had previously smoked up to 2 packs of cigarettes daily, she quit in 2006. INTERIM HISTORY: Repeat thyroid ultrasound on 03/26/2017 showed multiple cystic and solid nodules in both lobes of the thyroid, but similar in appearance compared to previous studies. Chest CT on 02/03/2018 showed improvement in superior segment right lower lobe infiltrate compared to prior study from November 2017. At that time there is a new spiculated opacity noted in the left upper lobe measuring 1.4 cm. A few prominent paratracheal lymph nodes appeared unchanged. Restaging PET/CT on 04/02/2018 was negative for malignancy. The previously described left upper lobe nodule was not present on that study. Reticular infiltrate in the superior segment right lower lobe showed minimal inflammatory FDG activity, consistent with scarring. There were no other areas of abnormal uptake. She continued on observation/expectant management. Her laboratory studies on 07/13/2018 included CBC showing hemoglobin down to 9.4 g with hematocrit 29.8%. The red cell indices were borderline low. The white blood cell count was 5400 and the platelet count was 347,000. The serum iron was low at 26 mcg/dL with transferrin saturation 8%. Ferritin was also relatively low at 37 ng/mL. I had seen her for a follow-up visit on 07/28/2018. In the setting of persistent iron deficiency despite oral iron supplementation, she was given parenteral iron replacement with Injectafer. Her subsequent evaluation included EGD and colonoscopy. There was no evidence of GI malignancy. Restaging PET/CT on 09/10/2018 showed no evidence for recurrent or residual malignancy. On 10/28/2019 she was admitted to the hospital after presenting to the emergency room with nausea/vomiting and diarrhea. She was found to have C. difficile colitis. She had dehydration and acute renal injury. Her hospitalization was further complicated by atrial fibrillation and by diastolic congestive heart failure with acute respiratory failure. She had gradual recovery, and she was discharged home on 11/07/2019. More recently, she has been seen by an ENT physician in [place] due to problems with her balance and equilibrium. She had a voice change, as she was not able to talk above a whisper. 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 She had further evaluation with PET/CT, which reportedly was negative for malignancy. I had seen her for a follow-up visit in December, and I did order a brain MRI, which also was negative for metastatic disease. She is seen for a follow-up visit. She says her energy has been pretty good, but she still has limited activity due to her back pain. She is able to do some light work. ECOG score is 1. Her appetite is not that good, but her weight is up a little. She has not had fever. She does have sweating almost every night. She has a lot of sinus drainage. Her throat feels slightly raw, and she still has some hoarseness. She does not complain of cough. She does have shortness of breath with activity, and she also complains that she has chest pain with exertion. She occasionally has nausea. She has ongoing problems with constipation associated with her pain medication, but it is adequately managed with senna/docusate. Bladder function remains adequate, though she does complain that she voids more frequently during the night then daytime. She has ongoing problems with her back pain and she continues to have poor balance/dysequilibrium. She does not complain of headache. She has numbness on the bottoms of her feet. Medications: Cetirizine HCl 1 Tablet (of 5 mg) Oral daily, Flonase Allergy Relief 2 spray(s) (of 50 mcg/act) Suspension Nasal PRN, Gabapentin 1 Capsule (of 300 mg) Oral b.i.d., Hydrocodone-Acetaminophen 1 Tablet (of 5-325 mg) Oral b.i.d. PRN, Meclizine HCl 1 Tablet (of 25 mg) Oral daily, PriLOSEC 1 Capsule (of 40 mg) Capsule Delayed Release Oral b.i.d., Singulair 1 Tablet (of 10 mg) Oral daily, Stool Softener 1 Tablet Capsule Oral daily, Tylenol Arthritis Pain 1 (650 mg) Tablet, controlled release Oral b.i.d., Xarelto 1 Tablet (of 10 mg) Oral daily Allergies: Albuterol Sulfate, fosamax, and lidoderm. Review of Systems: Constitutional - Her energy is pretty good, but she has limited activity due to her back. She is able to do some light work. Her appetite is not that good. Her weight is up a little. She has not had fever. She has sweating practically every night. ECOG score is 1, ENMT - She has a lot of sinus congestion/drainage. No mouth sores. No sore throat or difficulty swallowing. She has ongoing hoarseness associated with the right vocal cord paralysis, Hematologic/Lymphatic - She has easy bruising, Respiratory - She has shortness of breath with activity. No cough. No pleuritic pain or hemoptysis, Cardiovascular - She complains of having chest pain with exertion. No palpitations, Gastrointestinal - She occasionally has nausea. Her acid reflux is adequately managed with medication. She has chronic constipation associated with her pain medication. It is managed adequately with senna/docusate. No blood in the stool or black stools, Genitourinary (F) - No dysuria or hematuria. She voids more frequently at night than she does in the daytime. No urgency or incontinence, Musculoskeletal - She has chronic back pain, Integumentary - No skin rash, Neurologic - No headache. She has ongoing problems with dysequilibrium. She has numbness on the bottoms of her feet. No numbness or tingling. No other focal neurologic symptoms, Psychiatric - No anxiety or depression. No insomnia. Vital Signs: Performed on Apr 16, 2020 13:43 Height - 67.00 in Weight - 142.4 lbs (HIGH) BSA - 1.75 sq.m BMI - 22.30 Temperature - 98.0 F (LOW) Pulse - 85 /min Respiration - 16 /min BP - 156/79 mm(hg) (HIGH) O2 Sat - 96 % Pain - 3 Physical Examination: Constitutional - She looks pretty good generally, Eyes - Sclerae nonicteric. Conjunctivae clear, ENMT - No lesions noted in the oral cavity, Hematologic/Lymphatic - No cervical, or clavicular, or axillary adenopathy, Respiratory - Lungs are clear with diminished air movement bilaterally, Cardiovascular - Heart rhythm is regular. There is a II/ systolic murmur at the base. There is no gallop or rub noted, Abdomen - Soft. Liver and spleen are not enlarged. There is no abdominal mass or ascites noted and there is no inguinal adenopathy, Extremities - There are venous stasis changes. There is currently no edema, Neurologic - No focal neurologic deficits noted. Lab/Imaging: Test performed on Apr 16, 2020 12:11 Ferritin 88 ng/mL Iron 50 mcg/dL Sodium 141 mmol/L Iron Binding Capacity (TIBC) 247 mcg/dl Potassium 4.6 mmol/L % Iron Saturation 20.2 % Chloride 105 mmol/L CO2 28 mmol/L UIBC 197 mcg/dL Anion Gap 12.6 BUN 22 mg/dL Creatinine 1.2 mg/dL Cr Clearance (Est) 36.22 mL/min Glucose 102 mg/dL Osmolality - Calculated 296 mOsm/kg Calcium 8.8 mg/dL Protein, Total 6.7 g/dL Albumin 3.6 g/dL Globulin 3.1 g/dL Bilirubin, Total 0.3 mg/dL ALT (SGPT) 10 U/L AST (SGOT) 19 U/L Alkaline Phosphatase 69 IU/L WBC 5.9 10 3/uL RBC 4.36 10 6/uL HGB 11.7 g/dL HCT 39.0 % MCV 89.4 fL MCH 26.8 pg MCHC 30.0 g/dL RDW 14.9 % Platelet Count 353 10 3/cmm MPV 9.7 fL Neutrophils 3.49 10 3/uL Lymphocytes 1.6 10 3/uL Monocytes 0.6 10 3/uL Eosinophils 0.2 10 3/uL Basophils 0.0 10 3/uL Neutrophil % 59.5 % Lymphocyte % 27.8 % Monocyte % 9.5 % Eosinophil % 2.6 % Basophils % 0.3 % NRBC % 0 % Impression: 1. Patient with bilateral non-small cell lung cancer, both stage IA. She underwent left upper lobectomy/left mediastinal lymphadenectomy in 2006 and right upper lobectomy/right mediastinal lymphadenectomy in 2009. Thus far there has been no evidence of recurrence of her lung cancer. 2. In September 2015 she was found to be mildly anemic. Her laboratory studies were consistent with iron deficiency. It had not been correcting with an oral iron supplement, and she did receive an infusion of Injectafer in February 2016. 3. She has GERD and a history of Lakhani's esophagus. Her other medical illnesses include: 4. Hypercholesterolemia. 5. Osteoporosis. 6. Degenerative arthritis. 7. She is known to have abdominal aortic aneurysm. 8. She has a history of thyroid nodules. 9. She has a history of pulmonary embolism in 2013, and she has been on chronic anticoagulation with rivaroxaban. As of March 2018 her restaging PET/CT was negative for malignancy. She continued, though, to have fairly marginal performance status. Her laboratory studies in July showed recurrence of iron deficiency anemia with positive stool Hemoccult. She was then given parenteral iron replacement with Injectafer. Her further evaluation included EGD and colonoscopy, which reportedly showed no evidence of malignancy. She had a significant response to the parenteral iron, though she initially she remained mildly anemic. A restaging PET/CT in September 2018 showed no evidence of recurrent or residual malignancy. She continued on observation/expectant management. During follow-up she has had limited activity tolerance and somewhat marginal performance status. At her follow-up visit in October 2019 she had complained of dizzy spells. These did not improve when she stopped gabapentin. She subsequently was admitted to the hospital with C. difficile colitis. She had gradual recovery from that illness. In the meantime, she continued to have problems with balance/equilibrium, and she was found to have right vocal cord paralysis. There was no evidence, though, of recurrence of her lung cancer on restaging PET/CT and on brain MRI. Plan: She remains on observation/expectant management. I will see her again in 1 year, or sooner as needed. Signed By: Alexei Palmer M.D. <<Signature on File>>
== END 2020-04-16 12:06 | disposition home or self-care (01) ==
PROVIDERS: PCP Nurse Practitioner Family; Visit Provider Internal Medicine Medical Oncology
DX: Z08 Encounter for follow-up examination after completed treatment for malignant neoplasm (principal); Z85.118 Personal history of other malignant neoplasm of bronchus and lung; D50.9 Iron deficiency anemia, unspecified; K21.9 Gastro-esophageal reflux disease without esophagitis; E78.00 Pure hypercholesterolemia, unspecified; M81.0 Age-related osteoporosis without current pathological fracture; M19.90 Unspecified osteoarthritis, unspecified site; I71.4 Abdominal aortic aneurysm, without rupture; Z86.39 Personal history of other endocrine, nutritional and metabolic disease; Z86.711 Personal history of pulmonary embolism; Z79.01 Long term (current) use of anticoagulants
CPT/HCPCS: 36415; 80053; 82728; 83540; 83550; 85025; G0463

== ENCOUNTER 2020-10-24 09:55 | Outpatient (CLI) | payer MEDICARE, OTHER, SELFPAY ==
--- NOTE | 2020-10-24 10:12 | CT_ITS ---
WS: [id number] CT scan of the chest with IV contrast, additional two-dimensional coronal and sagittal reconstruction was performed. 10/24/2020 Clinical Data: MALIGNANT NEOPLASM OF LUNG Comparison: CT angiogram chest with abdomen and pelvis imaging, 10/30/2019. DLP: 600.[address] scans at [facility] use at least one of these dose optimization techniques: automat ed exposure control; mA and/or kV adjustment per patient size (includes targeted exams where dose is matched to clinical indication); or iterative reconstruction. Findings: The thyroid gland shows a low-density lesion area in the left lobe unchanged. The patient has had a r ight upper lobectomy and a left upper lobe and lingular resection. The remainder of the lungs shows e mphysematous change. No nodules, masses or effusions are seen. The heart size is normal with no pericardial effusion. There is coronary artery calcification. The pu lmonary artery shows no abnormalities. The thoracic aorta demonstrates calcification in the wall and mural thrombus down to the level of the abdominal aorta. There is an aortic stent graft. There is no axillary or significant mediastinal adenopathy. There are right fifth rib and left fifth rib fractur es probably from surgery. Degenerative change of the thoracic vertebral bodies is noted. No bony meta static disease is seen. The upper abdomen demonstrates no change from before. There are clips in the right upper quadrant fro m a cholecystectomy. CT/CT chest w con* [id number] Impression: 1. Postoperative changes of right upper lobectomy and left upper lobe and ling ular resection. 2. Emphysema. 3. Negative for acute cardiopulmonary disease.
[2020-10-24] MEDS: iodixanol 320 mg/mL 100mL Btl IV (10:35)
== END 2020-10-24 09:56 | disposition home or self-care (01) ==
LOC: RADWPI 10:04
PROVIDERS: PCP Nurse Practitioner Family; Visit Provider Nurse Practitioner Family
DX: Z85.110 Personal history of malignant carcinoid tumor of bronchus and lung (principal); J43.9 Emphysema, unspecified
CPT/HCPCS: 71260; Q9967

== ENCOUNTER 2020-10-31 15:21 | Outpatient (CLI) | payer MEDICARE, OTHER, SELFPAY ==
--- NOTE | 2020-10-31 16:00 | MR_ITS ---
WS: [id number] MRI THORACIC SPINE without contrast. HISTORY: THORACIC BACK PAIN COMPARISON: 12/01/2017 TECHNIQUE: Multiplanar sequences are performed in sagittal and axial planes. Moderate increase in thoracic kyphosis. Disc spaces are narrowed throughout the thoracic spine. No ac [place] fractures or marrow edema. T1-2: Normal. T2-3: Bilateral facet joint arthritis with mild foraminal narrowing. T3-4: Mild bilateral foraminal stenosis due to facet arthritis. T4-5: Mild bilateral foraminal narrowing due to facet disease. T5-6: Mild foraminal narrowing and facet arthritis. Small RIGHT nerve root sleeve diverticulum. T6-7: Stable RIGHT paracentral disc protrusion. No cord contact. T7-8: Moderate-sized central to LEFT paracentral disc protrusion contacting and displacing the thora cic cord. T8-9: LEFT nerve root sleeve diverticulum. T9-10: Small central disc protrusion similar to the prior study. No stenosis. T10-11: Mild facet arthritis. T11-12: Mild facet arthritis. Small RIGHT nerve root sleeve diverticulum. Ectatic thoracic aorta. MR/MR thoracic spin wo con* [id number] IMPRESSION: 1. Very similar appearance of the thoracic spine as compared to 12/01/2017. 2. Increase in thoracic kyphosis with moderate spondylosis. 3. Moderate size central to LEFT paracentral disc protrusion at T7-8 contacts and displaces the thoracic cord.
== END 2020-10-31 15:22 | disposition home or self-care (01) ==
PROVIDERS: PCP Nurse Practitioner Family; Visit Provider Nurse Practitioner Family
DX: M40.294 Other kyphosis, thoracic region (principal); M47.814 Spondylosis without myelopathy or radiculopathy, thoracic region; M51.24 Other intervertebral disc displacement, thoracic region
CPT/HCPCS: 72146

== ENCOUNTER 2020-12-26 14:19 | Outpatient (CLI) | payer MEDICARE, OTHER, SELFPAY ==
--- NOTE | 2020-12-26 14:33 | XR_ITS ---
WS: [id number] Bone mineral density performed on a [employer], 12/26/2020 Clinical data: OSTEOPOROSIS AGE RELATED WITHOUT CURRENT PATHOLOGICAL FX Comparison study: DEXA scan, 10/15/2014. Findings: The first 4 lumbar vertebral bodies demonstrated the bone mineral density of 1.242 g/cm2 for a young adult T score of 0.5. Measurement of the left hip reveals a bone mineral density of 0.724 g/cm2 with a young adult T score of -2.3. Measurement of the right hip reveals the bone mineral density of 0.684 g/cm2 for young adult T score of -2.6. XR/XR DEXA axial skeleton* [id number] Impression: 1. The bone mineral density of the lumbar spine diminished slightly compared to the prior study, normal. 2. The bone mineral density of the left hip diminished compared to prior study, osteopenia. 3. The bone mineral density of the right hip also diminished compared to the pr ior study, osteoporosis.
== END 2020-12-26 14:20 | disposition home or self-care (01) ==
LOC: RADWPI 14:23
PROVIDERS: PCP Nurse Practitioner Family; Visit Provider Nurse Practitioner Family
DX: M81.0 Age-related osteoporosis without current pathological fracture (principal)
CPT/HCPCS: 77080

== ENCOUNTER → 2021-03-13 09:53 | Outpatient (BNVA) | payer MEDICARE, OTHER, SELFPAY | PROVIDERS: PCP Nurse Practitioner Family; Referring Provider Nurse Practitioner Family; Visit Provider Internal Medicine | DX: M81.0 Age-related osteoporosis without current pathological fracture (principal); R40.20 Unspecified coma; R29.6 Repeated falls; Z87.891 Personal history of nicotine dependence | CPT/HCPCS: 80053; 82306; 82310; 83970; 84439; 84443; 99204 ==

== ENCOUNTER 2021-03-13 11:07 | Outpatient (CLI) | payer MEDICARE, OTHER, SELFPAY ==
[2021-03-13 12:31] LABS: Calcium 9.1 mg/dL (8.5-10.5)
[2021-03-13 12:46] LABS: Free T4 Free Thyroxine 1.09 ng/dL (0.82-1.77)
[2021-03-13 12:49] LABS: Alanine Aminotransferase 16 U/L (0-33); Albumin Level 3.8 g/dL (3.5-5.2); Alkaline Phosphatase 77 IU/L (35-105); Anion Gap 14.8 (5-19); Aspartate Amino Transferase 20 U/L (0-32); Blood Urea Nitrogen 18 mg/dL (8-23); Calcium 8.9 mg/dL (8.5-10.5); Carbon Dioxide 27 mmol/L (22-29); Chloride 104 mmol/L (98-107); Globulin 3.2 g/dL (1.3-4.6); Glucose 97 mg/dL (65-115); Osmolality Calculated 294 mOsm/kg (285-295); Potassium 4.8 mmol/L (3.5-5.1); Sodium 141 mmol/L (136-145); Total Bilirubin 0.2 mg/dL (0.15-1.2)
[2021-03-13 12:50] LABS: 25 Hydroxy Vitamin D 36 ng/mL (30-100); Thyroid Stimulating Hormone 0.85 uIU/mL (0.27-4.20)
[2021-03-13 13:02] LABS: Parathyroid Hormone 144.1 pg/mL (15-65)
== END 2021-03-13 11:08 | disposition home or self-care (01) ==
LOC: LAB 11:19
PROVIDERS: PCP Nurse Practitioner Family; Visit Provider Internal Medicine
DX: M81.0 Age-related osteoporosis without current pathological fracture (principal)
CPT/HCPCS: 80053; 82306; 82310; 83970; 84439; 84443

== ENCOUNTER → 2021-03-27 15:35 | Outpatient (BNVA) | payer MEDICARE, OTHER, SELFPAY | PROVIDERS: PCP Nurse Practitioner Family; Referring Provider Nurse Practitioner Family; Visit Provider Physician Assistant | DX: M54.50 Low back pain, unspecified (principal) | CPT/HCPCS: 72110 ==

== ENCOUNTER 2021-04-23 09:06 | Outpatient (CLI) | payer MEDICARE, OTHER, SELFPAY ==
[2021-04-23 09:32] LABS: Basophils % 0.6 %; Eosinophils # 0.1 10^3/uL (0.0-0.8); Eosinophils % 2.6 %; Hematocrit 40.6 % (37.0-47.0); Hemoglobin 12.3 g/dL (11.5-15.3); Lymphocytes # 0.8 10^3/uL (0.8-4.8); Lymphocytes % 14.9 %; Mean Corpuscular HGB Conc 30.3 g/dL (30.0-36.0); Mean Corpuscular Hemoglobin 27.2 pg (28.0-34.0); Mean Corpuscular Volume 89.6 fl (81-99); Mean Platelet Volume 9.3 fL (7.4-10.4); Monocytes # 0.5 10^3/uL (0.2-0.9); Monocytes % 9.9 %; Neutrophils # 3.89 10^3/uL (1.8-7.7); Neutrophils % 71.6 %; Nucleated Red Blood Cells % 0 %; Platelet Count 324 10^3/cmm (130-400); Red Blood Count 4.53 10^6/uL (4.1-5.3); Red Cell Distribution Width 13.8 % (12.1-15.1); White Blood Count 5.4 10^3/uL (4.0-10.0)
[2021-04-23 10:02] LABS: Alanine Aminotransferase 7 U/L (0-33); Albumin Level 3.6 g/dL (3.5-5.2); Alkaline Phosphatase 64 IU/L (35-105); Anion Gap 11.7 (5-19); Aspartate Amino Transferase 22 U/L (0-32); Blood Urea Nitrogen 24 mg/dL (8-23); Calcium 7.8 mg/dL (8.5-10.5); Carbon Dioxide 30 mmol/L (22-29); Chloride 103 mmol/L (98-107); Globulin 3.3 g/dL (1.3-4.6); Glucose 111 mg/dL (65-115); Osmolality Calculated 295 mOsm/kg (285-295); Potassium 4.7 mmol/L (3.5-5.1); Sodium 140 mmol/L (136-145); Total Bilirubin 0.3 mg/dL (0.15-1.2); Total Protein 6.9 g/dL (6.6-8.7)
--- NOTE | 2021-04-26 14:27 | ONC FU_ITS ---
Dr. Palmer Patient Follow-Up Note Patient: Keely Chan V Unit #: [id number]: 1935 Dicatated By: Alexei Palmer M.D.Date of Visit:Apr 23, 2021 Onc Med Follow-up/Prog Note Chief Complaint: Lung cancer/anemia. History of Present Illness: This is an 85 year-old woman with bilateral non-small cell lung cancer, both stage IA. She also has had a mild anemia. 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 She received no further treatment. 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 She again received no further treatment. During her follow-up she also had been found to be mildly anemic, and she had started an oral iron supplement. Serum iron studies in October 2015 showed low transferrin saturation at 12%. Followup studies in January showed no improvement in the iron deficiency, though at that point her hemoglobin was just borderline low. I did opt to give her one dose of parenteral iron with Injectafer in February 2016. As of her follow-up visit in April 2020 she was still slightly anemic with hemoglobin 11.7 g. Her serum iron studies at that time were just borderline low with transferrin saturation 20.2%. Her other medical illnesses include hypercholesterolemia, osteoporosis, multinodular goiter, and GERD. She has a history of Lakhani's esophagus. She also is known to have an abdominal aortic aneurysm. She had previously smoked up to 2 packs of cigarettes daily, she quit in 2006. INTERIM HISTORY: On 10/28/2019 she was admitted to the hospital after presenting to the emergency room with nausea/vomiting and diarrhea. She was found to have C. difficile colitis. She had dehydration and acute renal injury. Her hospitalization was further complicated by atrial fibrillation and by diastolic congestive heart failure with acute respiratory failure. She had gradual recovery, and she was discharged home on 11/07/2019. She had then been seen by an ENT physician in [place] due to problems with her balance and equilibrium. She had a voice change, as she was not able to talk above a whisper. 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 She had further evaluation with PET/CT, which reportedly was negative for malignancy. I had seen her for a follow-up visit in December 2019, and I did order a brain MRI, which also was negative for metastatic disease. A repeat chest CT on 10/24/2020 showed postoperative changes from right upper lobectomy and left upper lobe and lingular resections. There was evidence of emphysema, but there was no evidence for any acute cardiopulmonary disease. Thoracic spine MRI on 10/31/2020 showed degenerative changes and some increase in thoracic kyphosis. A moderate size central to left paracentral disc protrusion at T7-8 was noted to contact and displace the thoracic cord. There was no evidence of metastatic disease. She is seen for a scheduled visit. She says her energy is not good and she complains that she feels tired all the time. Her activity is limited by her back pain, but she is able to do some light housework. Her ECOG score is 1. Her appetite is not too good, but her weight is stable. She has not had fever. She sometimes has sweating. She does not complain of cough. She is short of breath with any activity. She sometimes has chest pain, and she now has a loop recorder in place. She occasionally has nausea. Her acid reflux is adequately managed with Prilosec. Bowel function lately has been okay, though she usually has constipation. Bladder function remains adequate, but she does have nocturia anywhere from 2-4 times. She has chronic back pain. She says that something recently happened to her right knee and that her kneecap has been slipping. She does not complain of headache. She continues to complain of being dizzy all the time. She has Raynaud's symptoms in her hands and feet. She has no focal neurologic symptoms. Medications: Cardizem CD 1 Capsule (of 120 mg) Capsule SR 24 HR Oral daily, Cetirizine HCl 1 Tablet (of 5 mg) Oral daily, Flonase Allergy Relief 2 spray(s) (of 50 mcg/act) Suspension Nasal PRN, Gabapentin 1 Capsule (of 300 mg) Oral b.i.d., Hydrocodone-Acetaminophen 1 Tablet (of 5-325 mg) Oral b.i.d. PRN, Meclizine HCl 1 Tablet (of 25 mg) Oral daily, PriLOSEC 1 Capsule (of 40 mg) Capsule Delayed Release Oral b.i.d., Singulair 1 Tablet (of 10 mg) Oral daily, Stool Softener 1 Tablet Capsule Oral daily, Tylenol Arthritis Pain 1 (650 mg) Tablet, controlled release Oral b.i.d., Xarelto 1 Tablet (of 10 mg) Oral daily Allergies: Albuterol Sulfate, fosamax, and lidoderm. Vital Signs: Performed on Apr 23, 2021 10:47 Height - 67.00 in Weight - 151.8 lbs (HIGH) BSA - 1.80 sq.m BMI - 23.78 Temperature - 97.4 F (LOW) Pulse - 73 /min Respiration - 18 /min BP - 124/70 mm(hg) O2 Sat - 96 % Pain - 3 Fatigue - 6 Physical Examination: Constitutional - She looks pretty good generally, Eyes - Sclerae nonicteric. Conjunctivae clear, ENMT - No lesions noted in the oral cavity, Hematologic/Lymphatic - No cervical, or clavicular, or axillary adenopathy, Respiratory - Lungs sound clear with diminished air movement bilaterally, Cardiovascular - Heart rhythm is regular. There is a II/ systolic murmur at the base. There is no gallop or rub noted, Abdomen - Soft. Liver and spleen are not enlarged. There is no abdominal mass or ascites noted and there is no inguinal adenopathy, Extremities - There are venous stasis changes. There is slight edema, Neurologic - No focal neurologic deficits noted. Lab/Imaging: Test performed on Apr 23, 2021 09:20 Sodium 140 mmol/L Potassium 4.7 mmol/L Chloride 103 mmol/L CO2 30 mmol/L Anion Gap 11.7 BUN 24 mg/dL Creatinine 1.1 mg/dL Cr Clearance (Est) 41.38 mL/min Glucose 111 mg/dL Osmolality - Calculated 295 mOsm/kg Calcium 7.8 mg/dL Protein, Total 6.9 g/dL Albumin 3.6 g/dL Globulin 3.3 g/dL Bilirubin, Total 0.3 mg/dL ALT (SGPT) 7 U/L AST (SGOT) 22 U/L Alkaline Phosphatase 64 IU/L WBC 5.4 10 3/uL RBC 4.53 10 6/uL HGB 12.3 g/dL HCT 40.6 % MCV 89.6 fl MCH 27.2 pg MCHC 30.3 g/dL RDW 13.8 % Platelet Count 324 10 3/cmm MPV 9.3 fL Neutrophils 3.89 10 3/uL Lymphocytes 0.8 10 3/uL Monocytes 0.5 10 3/uL Eosinophils 0.1 10 3/uL Basophils 0.0 10 3/uL Neutrophil % 71.6 % Lymphocyte % 14.9 % Monocyte % 9.9 % Eosinophil % 2.6 % Basophils % 0.6 % NRBC % 0 % Problem List: 1. Bilateral non-small cell lung cancer, both stage IA. She underwent left upper lobectomy/left mediastinal lymphadenectomy in 2006 and right upper lobectomy/right mediastinal lymphadenectomy in 2009. Thus far there has been no evidence of recurrence of her lung cancer. 2. Iron deficiency anemia. 3. She has GERD and a history of Lakhani's esophagus. 4. Hypercholesterolemia. 5. Osteoporosis. 6. Degenerative arthritis. 7. She is known to have abdominal aortic aneurysm. 8. She has a history of thyroid nodules. 9. She has a history of pulmonary embolism in 2013, and she has been on chronic anticoagulation with rivaroxaban. Problems Addressed with this Encounter and Plan: 1. Patient with bilateral non-small cell lung cancer, both stage IA. She underwent left upper lobectomy/left mediastinal lymphadenectomy in 2006 and right upper lobectomy/right mediastinal lymphadenectomy in 2009. She received no further treatment. During follow-up she has had limited activity tolerance and somewhat marginal performance status. At her follow-up visit in October 2019 she had complained of dizzy spells. These did not improve when she stopped gabapentin. She subsequently was admitted to the hospital with C. difficile colitis. She had gradual recovery from that illness. In the meantime, she continued to have problems with balance/equilibrium, and she was found to have right vocal cord paralysis. Restaging with PET/CT and brain MRI showed no evidence of malignancy. Her clinical status and since then remained stable. She has limited activity, in part due to her degenerative disease and chronic back pain. There has been no evidence, though, of recurrence of her lung cancer. She remains on expectant management. At this point she will continue regular follow-up with Cristiana Garcia. I will plan to see her again only as needed. 2. In September 2015 she was found to be mildly anemic. Her laboratory studies were consistent with iron deficiency. It had not been correcting with an oral iron supplement, and she did receive an infusion of Injectafer in February 2016. During follow-up her blood counts have been low normal or just slightly decreased. I can see her again as needed if there is a significant decline in her hemoglobin/hematocrit levels. Signed By: Alexei Palmer M.D. <<Signature on File>>
== END 2021-04-23 09:07 | disposition home or self-care (01) ==
LOC: ONCMED 09:07
PROVIDERS: PCP Nurse Practitioner Family; Visit Provider Internal Medicine Medical Oncology
DX: Z08 Encounter for follow-up examination after completed treatment for malignant neoplasm (principal); Z85.118 Personal history of other malignant neoplasm of bronchus and lung; D50.9 Iron deficiency anemia, unspecified; K21.9 Gastro-esophageal reflux disease without esophagitis; K22.70 Barrett's esophagus without dysplasia; E78.00 Pure hypercholesterolemia, unspecified; M81.0 Age-related osteoporosis without current pathological fracture; M19.90 Unspecified osteoarthritis, unspecified site; Z86.39 Personal history of other endocrine, nutritional and metabolic disease; Z86.711 Personal history of pulmonary embolism; Z79.01 Long term (current) use of anticoagulants
CPT/HCPCS: 36415; 80053; 85025; 99214

== ENCOUNTER 2021-05-15 09:46 | Outpatient (CLI) | payer MEDICARE, OTHER, SELFPAY ==
--- NOTE | 2021-05-15 10:00 | IR_ITS ---
WS: [id number] MYELOGRAM LUMBAR SPINE Fluoroscopic guided lumbar myelogram CLINICAL INFORMATION: M48.062 - Spinal stenosis, lumbar region with neurogenic ... COMPARISON: None. TECHNIQUE: The procedure, including risks, benefits, and complications, were discussed with the patie nt who agreed to proceed. A timeout was performed to confirm correct patient, procedure, and site. Using sterile technique, the patient was prepped and draped in the usual sterile fashion. After admin istration of local anesthesia using 1% preservative-free lidocaine and using fluoroscopic guidance, a 22-gauge spinal needle was advanced into the subarachnoid space at the L5-S1 level. Subsequently 13 cc of Omnipaque 240 was administered into the thecal sac. The needle was removed and hemostasis was a chieved. Spot fluoroscopic images were obtained. FLUOROSCOPIC TIME: 0.6 minutes. Spot fluoroscopic images demonstrate prior aortic endograft placement. Cholecystectomy clips. Normal alignment on the neutral view. Disc space narrowing worse L5-S1. No instability on flexion-extension. Mild facet arthropathy L5-S1. Please see CT myelogram report for additional detail. IR/IR myelogram sp lumbar [id number] IMPRESSION: 1. Uncomplicated lumbar myelogram. 2. Normal alignment on the neutral view. No instability on flexion-extension. 3. Disc space narrowing worse L5-S1.
[2021-05-15] MEDS: iohexol 240 mg/mL 50 mL Btl INTRATHECA (10:48)
--- NOTE | 2021-05-15 11:30 | CT_ITS ---
WS: [id number] CT LUMBAR MYELOGRAM TECHNIQUE: CT lumbar myelogram of the lumbar spine with coronal and sagittal reformatted images. CLINICAL INFORMATION: M48.062 - Spinal stenosis, lumbar region with neurogenic ... COMPARISON: None. DLP: 1776.[address] scans at [facility] use at least one of these dose optimization techniques: automated e xposure control; mA and/or kV adjustment per patient size (includes targeted exams where dose is matc hed to clinical indication); or iterative reconstruction. FINDINGS: Mild lumbar curve. No acute compression. No high-grade central canal stenosis. Disc bulging worse L4- 5 with vacuum disc phenomenon. Vacuum disc phenomenon L5-S1 with mild disc bulging. L1-L2: Mild disc osteophytic ridging. Spinal canal and foramen are patent. L2-L3: No significant disc bulging. Spinal canal and foramen are patent. Mild facet arthropathy. L3-L4: Mild annular bulging. Moderate facet arthropathy. Ligamentum flavum flavum hypertrophy. Spinal canal and foramen are patent. L4-L5: Mild disc bulging with vacuum disc phenomenon. Moderate to advanced facet arthropathy with lig amentum flavum hypertrophy. Slight effacement of ventral thecal sac with slight impingement traversin g L5 nerve roots bilaterally. Foramen are patent. Mild central canal stenosis. L5-S1: Shallow central disc protrusion with slight encroachment traversing S1 nerve roots bilaterally . Slight impingement traversing right S1 nerve root. Moderate facet arthropathy. Foramen are patent. Partially visualized aortic biiliac endograft. Adrenal glands are normal. CT/CT lumbar spine w con [id number] IMPRESSION: 1. Mild lumbar curve. No acute compression. No high-grade central canal stenos is. 2. Mild central canal stenosis L4-5 due to mild annular bulging with facet art hropathy and ligamentum flavum hypertrophy. Slight impingement traversing right greater than left L5 nerve roots. 3. Mild disc bulging L5-S1 with a tiny shallow central protrusion. Slight cont act of the right S1 nerve root. 4. Moderate facet arthropathy L3-L5. 5. Aortic biiliac endograft.
== END 2021-05-15 09:47 | disposition home or self-care (01) ==
PROVIDERS: PCP Nurse Practitioner Family; Visit Provider Physician Assistant
DX: M48.062 Spinal stenosis, lumbar region with neurogenic claudication (principal); M51.37 Other intervertebral disc degeneration, lumbosacral region; M47.816 Spondylosis without myelopathy or radiculopathy, lumbar region; M51.27 Other intervertebral disc displacement, lumbosacral region; M48.061 Spinal stenosis, lumbar region without neurogenic claudication
CPT/HCPCS: 62304; 72120; 72132; 85610; Q9966

== ENCOUNTER 2021-10-03 08:59 | Outpatient (CLI) | payer MEDICARE, OTHER, SELFPAY ==
--- NOTE | 2021-10-03 10:21 | CT_ITS ---
WS: [id number] CT CHEST TECHNIQUE: Contrast enhanced CT of the chest with coronal and sagittal reformatted images. CLINICAL INFORMATION: IMAGING OF LUNG ABNORMAL COMPARISON: CT October 24, 2020 DLP: 671.[address] scans at [facility] use at least one of these dose optimization techniques: automated e xposure control; mA and/or kV adjustment per patient size (includes targeted exams where dose is matc hed to clinical indication); or iterative reconstruction. FINDINGS: Postoperative changes RIGHT upper lobectomy. Prior LEFT upper lobe and lingula resection. Advanced ch ronic emphysematous changes similar to previous. Small amount of fibrosis or pleural fluid in the sup erior RIGHT upper lobe along the fissure. This is similar to October 25, 2019 likely related to prior pos toperative changes. Moderate aortic atheromatous disease. Aortic calcification. Coronary calcification. Calcified nodule thyroid isthmus measuring 9 mm is unchanged. Adrenal glands are normal. Partially visualized is aortic endograft in the upper abdomen. Cholecystec lm clips. Normal portal vein and splenic vein. Prior cholecystectomy. Celiac and SMA are patent. Mild thoracic kyphosis. Mild thoracic curve. CT/CT chest w con* [id number] IMPRESSION: 1. Prior postoperative changes RIGHT upper lobectomy. Prior postoperative rueda ges LEFT upper lobe and lingula resection. 2. Advanced chronic emphysematous changes similar to previous. No new suspicio us pulmonary parenchymal abnormalities 3. Small amount of pleural fluid or pleural thickening in the RIGHT upper lobe along the fissure likely due to postoperative changes. This is similar to October 24, 2020. 4. No mediastinal or hilar lymphadenopathy. 5. Moderate to advanced irregular atheromatous disease thoracic aorta. 6. Partially visualized aortic endograft in the upper abdomen. 7. Cholecystectomy.
[2021-10-03 12:49] LABS: Blood Urea Nitrogen 24 mg/dL (8-23)
== END 2021-10-03 09:00 | disposition home or self-care (01) ==
LOC: RAD 09:01
PROVIDERS: PCP Nurse Practitioner Family; Visit Provider Nurse Practitioner Family
DX: J43.9 Emphysema, unspecified (principal); R91.8 Other nonspecific abnormal finding of lung field; I70.0 Atherosclerosis of aorta
CPT/HCPCS: 71260; 82565; 84520; Q9967

== ENCOUNTER → 2022-06-16 10:11 | Outpatient (BNVA) | payer MEDICARE, OTHER, SELFPAY | PROVIDERS: PCP Nurse Practitioner Family; Referring Provider Nurse Practitioner Family; Visit Provider Orthopaedic Surgery | DX: M19.012 Primary osteoarthritis, left shoulder (principal); S43.402A Unspecified sprain of left shoulder joint, initial encounter; X58.XXXA Exposure to other specified factors, initial encounter | CPT/HCPCS: 20610; 73030; 99203; J0702; J3490 ==

== ENCOUNTER → 2022-10-06 11:27 | Outpatient (BNVA) | payer MEDICARE, OTHER, SELFPAY | PROVIDERS: PCP Nurse Practitioner Family; Visit Provider Internal Medicine Cardiovascular Disease | DX: I25.10 Atherosclerotic heart disease of native coronary artery without angina pectoris (principal); Z95.5 Presence of coronary angioplasty implant and graft; R07.89 Other chest pain; I11.9 Hypertensive heart disease without heart failure; Z79.01 Long term (current) use of anticoagulants; Z85.118 Personal history of other malignant neoplasm of bronchus and lung; I25.2 Old myocardial infarction | CPT/HCPCS: 99215 ==

== ENCOUNTER 2022-10-27 14:42 | Outpatient (CLI) | payer MEDICARE, OTHER, SELFPAY ==
--- NOTE | 2022-10-27 14:50 | US_ITS ---
WS: [id number] RENAL ULTRASOUND HISTORY: CHRONIC KIDNEY DISEASE STAGE 4 COMPARISON: 06/04/2010 and 03/29/2017 TECHNIQUE: 2-D and color Doppler imaging of the kidney submitted. Right kidney: 8.7 cm x 4.7 cm x 3.2 cm. Cortex: 0.8 cm Moderate atrophy of the kidney and increased echogenicity. Progressive atrophy and chronic medical re nal disease since the prior exams. No hydronephrosis or solid mass. Mild diffuse cortical thinning. Left kidney: 9.9 cm x 5.0 cm x 3.8 cm. Cortex: 1.0 cm Low normal size kidney with mild progressive atrophy and increased echogenicity since the prior studi es. No hydronephrosis. Cortex is low normal size throughout the kidney. Aorta: Atherosclerotic plaque with no aneurysm. Urinary Bladder: Minimally distended. US/US renal BI* [id number] IMPRESSION: 1. Mild progressive renal atrophy and chronic medical renal disease as compare d to the prior studies from 2009 and 2016. 2. No renal obstruction.
== END 2022-10-27 14:43 | disposition home or self-care (01) ==
PROVIDERS: PCP Nurse Practitioner Family; Visit Provider Internal Medicine Nephrology
DX: I12.9 Hypertensive chronic kidney disease with stage 1 through stage 4 chronic kidney disease, or unspecified chronic kidney disease (principal); N18.4 Chronic kidney disease, stage 4 (severe)
CPT/HCPCS: 76770

== ENCOUNTER 2022-11-05 09:14 | Outpatient (CLI) | payer MEDICARE, OTHER, SELFPAY ==
--- NOTE | 2022-11-05 | ECG_ITS ---
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 Interpretive Statements NAME OF STUDY: LEXISCAN SESTAMIBI STRESS TEST INDICATION: Chest Pressure PROCEDURE: At the baseline, the blood pressure was 186/79 mmHg with a heart rate of 64 bpm. The electrocardiogram showed sinus rhythm, normal axis with possible old septal infarct. The Lexiscan was infused over a period of 20 seconds. A total of 0.4 milligrams of Lexiscan was infused. The stress phase was continued for a total of 5 minutes. Heart rate at the end of the stress phase was 70 bpm with a blood pressure 149/60 mmHg. The EKG at the peak infusion revealed significant ST-T wave changes. Developed chest pain ~ 2 min during Lexiscan infusion which resolved spontaneously in recovery. Sestamibi was injected 20 seconds after the Lexiscan infusion. Blood pressure at the end of the recovery phase was 133/55 mmHg with a heart rate of 71 beats per minute. CONCLUSION: 1. No significant EKG changes with the LexiScan infusion. 2. No LexiScan induced chest pain or cardiac arrhythmia. 3. Normal blood pressure and heart rate response. 4. Sestamibi/sestamibi perfusion scan pending; see separate report. Electronically Signed On 11-18-2022 17:26:21 CDT by Mica Barrow M.D. [id number]
[2022-11-05 09:30] VITALS: BMI 25.0
--- NOTE | 2022-11-05 10:01 | NMCV_ITS ---
NM lory perf SPECT r/s* [id number] Keely Chan Age: 87 Gender: F : 1935 Exam Date: 11/05/2022 10:26 Ordering Phys: Priyank Torrez MD ([email or web address]) Technologist: RAMONA Mendoza Exam Location: [facility] Indications: CHEST PAIN, ATHEROSCLEROTIC HEART DISEASE, CORONARY ANGIOPLASTY STATUS STRESS TEST Please see separate stress test report in [facility] for full findings IMAGE PROTOCOL Rest/Stress 1 Lexiscan Day Radiopharmaceutical Dose (mCi) Administration Site Administered by Rest: Tc-99m 10.9 IV RAMONA Russ Sestamibi Stress:Tc-99m 32.7 IV RAMONA Russ Sestamibi Rest: 05-Nov-2022 60 Discovery 630 Stress: 05-Nov-2022 30 Discovery 630 0.4mg Lexiscan. Images obtained in supine and prone position. SPECT RESULTS Technical Quality: Excellent Raw Data Analysis: Normal Image Corrections: No attenuation or motion correction applied Summed Stress Score: 4 Summed Rest Score: 2 Summed Difference Score: 2 PERFUSION FINDINGS Small sized reversible perfusion abnormality of mild severity of mid to apical inferior bedoya. FUNCTIONAL RESULTS (calculated via Gated SPECT) Stress Image LV EF (%): 63 Stress EDV (mL):82 TID: 1.16 Stress ESV (mL):30 FUNCTIONAL FINDINGS: The left ventricle is normal in size. Transient Ischemia Dilatation of 1.16. The left ventricular ejection fraction is normal with a value of 63%. There is normal left ventricular wall thickening. IMPRESSIONS 1. Small sized reversible perfusion abnormality of mild severity of mid to apical inferior bedoya. 2. This may represent small area of ischemia in right coronary artery. 3. Overall left ventricular systolic function is normal without regional wall motion abnormalities, LVEF=63%. 4. EKG portion of the study will be reported separately. Mica Barrow MD (Electronically Signed) Final Date: 08 November 2022 21:46 S
[2022-11-05] MEDS: regadenoson 0.4 Mg/5 ml Syringe IVP (10:59)
[2022-11-05 11:09] VITALS: BP 133/55; PULSE 70
== END 2022-11-05 09:15 | disposition home or self-care (01) ==
LOC: CDL 09:14
PROVIDERS: PCP Nurse Practitioner Family; Visit Provider Internal Medicine Cardiovascular Disease
DX: R07.89 Other chest pain (principal); I25.10 Atherosclerotic heart disease of native coronary artery without angina pectoris; Z98.61 Coronary angioplasty status; R93.1 Abnormal findings on diagnostic imaging of heart and coronary circulation
CPT/HCPCS: 36415; 78452; 93017; 96374; A9500; J2785

== ENCOUNTER → 2022-11-18 13:19 | Outpatient (BNVA) | payer MEDICARE, OTHER, SELFPAY | PROVIDERS: PCP Nurse Practitioner Family; Visit Provider Internal Medicine Cardiovascular Disease | DX: I25.10 Atherosclerotic heart disease of native coronary artery without angina pectoris (principal); I26.99 Other pulmonary embolism without acute cor pulmonale; Z95.5 Presence of coronary angioplasty implant and graft; R07.89 Other chest pain; N17.9 Acute kidney failure, unspecified; R00.2 Palpitations; J44.9 Chronic obstructive pulmonary disease, unspecified; Z79.01 Long term (current) use of anticoagulants; I48.91 Unspecified atrial fibrillation; C34.90 Malignant neoplasm of unspecified part of unspecified bronchus or lung; I27.82 Chronic pulmonary embolism; E78.2 Mixed hyperlipidemia; I10 Essential (primary) hypertension | CPT/HCPCS: 99214 ==

== ENCOUNTER 2022-12-29 08:22 | Outpatient (CLI) | payer MEDICARE, OTHER, SELFPAY ==
--- NOTE | 2022-12-29 08:45 | USCV_ITS ---
Keely Chan Age: 87 Gender: F : 1935 Exam Date: 12/29/2022 08:50 Ordering Phys: Priyank Torrez MD ([email or web address]) Technologist: Bennett Amaya Exam Location: [facility] [place] Indication: AAA repair HISTORY: Diameter (cm) AP x Transverse x Length Velocity (cm/s) Waveform Prox Aorta: 2.30 x 1.93 x 76.80 Mid Aorta: 3.10 x 2.85 x 23.10 Distal Aorta: 2.37 x 2.01 x 45.90 Right Iliac Prox: 1.14 x 1.32 x 128.10 Left Iliac Prox: 1.23 x 1.05 x 111.60 Stent Prox Landing x x Aneurysmal Sac Max x x Lt Lat Sac Dim Rt Lat Sac Dim Stent Dist Landing x x Right Iliac Stent x x Left Iliac Stent x x Right Renal Art Left Renal Art FINDINGS: Comparison:. 11/02/18 and 10/28/19 Endovascular aorta graft repair is similar to the prior exams. No aneurysmal dilatation. No evidence of periaortic fluid is detected. There is no evidence of right common iliac artery stenosis. There is no evidence of left common iliac artery stenosis. CONCLUSIONS Stable AAA endovascular graft repair. Dr. Nasima Alonzo DO (Electronically Signed) Final Date: 29 December 2022 12:36 S
== END 2022-12-29 08:23 | disposition home or self-care (01) ==
LOC: RAD 08:23
PROVIDERS: PCP Nurse Practitioner Family; Visit Provider Internal Medicine Cardiovascular Disease
DX: I71.40 Abdominal aortic aneurysm, without rupture, unspecified (principal)
CPT/HCPCS: 93978; 99214

== ENCOUNTER 2023-01-11 07:20 | Outpatient (CLI) | payer MEDICARE, OTHER, SELFPAY ==
--- NOTE | 2023-01-11 07:44 | P.HP_ITS ---
Providers/Chief Complaint Admitting Physician: martin Primary Care Provider: ALYSON Keane Chief Complaint: Z95.5, I25.10, R07.89 History of Present Illness Keely Chan is a 87 year old female who is being seen in the cardiac catheterization laboratory today for purposes of angiography. I originally saw her on October 06 of this year and then follow-up on November 18. Her previous cardiac care has been in the [place] area. She has a history of coronary disease with stents. We have never received any of that information. She is also had a history of racing of the heart and palpitations. Evaluations have not revealed anything. She even had a loop recorder placed which was unrevealing. She has a small AAA, history of anemia, anticoagulation for her pulmonary embolism history, hypertension and dyslipidemia. She was a previous smoker and has COPD. She has had adenocarcinoma the lung and has had surgery twice however I do not know those details either. When I first saw her in October she had multiple complaints including shortness of breath, pain in her thighs and legs, chest pain, weakness among others. She told me at the time she thought the symptoms were similar to her which she had prior to the placement of her previous stents. She was concerned that those symptoms represented a recurrence of her coronary artery disease. A sestamibi examination was required and revealed a very small defect in the distribution of the right coronary artery but no ischemia elsewhere. Her ejection fraction was normal. I saw her back on 18 November and we reviewed the results of the test. She continued to have disabling shortness of breath, burning and pain in her thighs and legs, weakness, dizziness and continued sharp chest pains. I had a long discussion with the patient and her daughter out how to proceed. I explained to her that it 87 years old the risk of the procedure is slightly higher however she wished to proceed because her symptoms were so disabling. I ordered a scan of her abdominal aorta since she has had a AAA repair. This was unremarkable. There was no endoleak and the graft appeared to be situated properly. Review of Systems Narrative: She has multiple's symptoms and other areas. She complains of pain in her legs and thighs, weakness, dizziness, shortness of breath among many others. Medications/Allergies Home Medications Medication Instructions Recorded Confirmed Last Taken Type cholecalciferol (vitamin D3) 1,250 1,250 mcg PO Q7D 10/16/19 01/07/23 10/25/19 History mcg (50,000 unit) capsule gabapentin 300 mg capsule 400 mg PO BID 10/16/19 01/07/23 10/28/19 History hydrocodone 5 mg-acetaminophen 325 1 tab PO Q6H PRN Pain 10/16/19 01/07/23 10/28/19 History mg tablet nitroglycerin 0.4 mg sublingual 0.4 mg sublingual Q5M PRN Chest 10/16/19 01/07/23 Unknown History tablet (Nitrostat) Pain omeprazole 40 mg capsule,delayed 40 mg PO DAILY 10/16/19 01/07/23 10/28/19 History release meclizine 25 mg tablet 25 mg PO TID PRN Dizziness 10/28/19 01/07/23 Unknown History rivaroxaban 10 mg tablet (Xarelto) 10 mg PO DAILY #30 tabs 11/07/19 01/07/23 Unknown Rx amiodarone 200 mg tablet 200 mg PO DAILY 10/06/22 01/07/23 Unknown History amlodipine 5 mg tablet 5 mg PO DAILY #90 tabs 10/06/22 01/07/23 Unknown Rx cetirizine 10 mg tablet 10 mg PO DAILY PRN allergy symptoms 10/06/22 01/07/23 Unknown History clopidogrel 75 mg tablet 75 mg PO DAILY 10/06/22 01/07/23 Unknown History fluticasone propionate 50 2 spray intranasal DAILY PRN 10/06/22 01/07/23 Unknown History mcg/actuation nasal allergy symptoms spray,suspension (Flonase Allergy Relief) hydrochlorothiazide 12.5 mg capsule 12.5 mg PO DAILY PRN Hypertension 10/06/22 01/07/23 Unknown History montelukast 10 mg tablet 10 mg PO DAILY PRN Allergic 10/06/22 01/07/23 Unknown History Symptoms triamcinolone acetonide 0.1 % 1 applic topical DAILY 10/06/22 01/07/23 Unknown History topical cream Allergies Allergy/AdvReac Type Severity Reaction Status Date / Time ezetimibe [From Zetia] Allergy Unknown unknown Verified 11/18/22 08:48 simvastatin [From Zocor] Allergy Unknown unknown Verified 11/18/22 08:48 tetanus and diphtheria Allergy Unknown unknown Verified 11/18/22 08:48 toxoids albuterol AdvReac Unknown hypertensio Verified 11/18/22 08:48 n PFSH Acute PFSH: Medical History AAA (abdominal aortic aneurysm) Anemia Anticoagulation adequate with anticoagulant therapy CAD (coronary artery disease) Chest pressure Chronic back pain COPD (chronic obstructive pulmonary disease) Diastolic dysfunction without heart failure DJD (degenerative joint disease) Hyperlipidemia Hypertension Palpitations Pulmonary embolism Recurrent adenocarcinoma of lung Surgical History (Updated 01/11/23 @ 07:50 by Priyank Torrez MD) H/O: hysterectomy History of lobectomy of lung Twice, bilateral, Right upper lobe lobectomy 2001 Left upper lobe lobectomy 2009 Hx of cholecystectomy S/P AAA repair Stent graft Stented coronary artery Family History Father No problems noted. Mother Hypertension CHF (congestive heart failure) Other CAD (coronary artery disease) Social History Quit status (tobacco): has quit using tobacco Second hand smoke exposure: No Smoking risk assessment/counseling performed?: Yes Alcohol intake: former Desire information about alcohol rehabilitation?: No Counseling given: Yes Substance/Drug Use: never Desire information about substance/drug rehabilitation?: No Counseling given: Yes Caregiver/support person: Yes Lives independently: Yes Household members: none Housing: House Marital status: / Number of children: 2 Number of grandchildren: 3 Highest education level completed: Some College, No Degree service: No Current occupational status: retired Physical Exam Narrative: GENERAL: In general she looks and feels well HEENT: Exam within normal limits. NECK: Supple without jugular vein distention. The carotid upstroke is normal without bruits. BACK: Exam normal. LUNGS: Clear. HEART: Regular rate and rhythm. ABDOMEN: Benign without organomegaly or tenderness. EXTREMITIES: No edema. She has a very large sequence of varicose veins on the posterior aspect of her right leg behind the knee. 1 of those is somewhat tender. NEUROLOGIC: Exam normal. SKIN: Unremarkable. A&P Assessment and plan (1) Stented coronary artery: (2) CAD (coronary artery disease): (3) Chest pressure: (4) Palpitations: (5) COPD (chronic obstructive pulmonary disease): (6) Anticoagulation adequate with anticoagulant therapy: (7) New onset atrial fibrillation: (8) Acute and chronic respiratory failure with hypoxia: (9) Recurrent adenocarcinoma of lung: (10) TABBY (acute kidney injury): (11) AAA (abdominal aortic aneurysm): Qualifiers: Presence of rupture: without rupture Qualified Code(s): I71.4 - Abdominal aortic aneurysm, without rupture (12) Pulmonary embolism: Qualifiers: Pulmonary embolism type: unspecified Chronicity: chronic Acute cor pulmonale presence: unspecified Qualified Code(s): I27.82 - Chronic pulmonary embolism (13) Hypertension: Qualifiers: Hypertension type: essential hypertension Qualified Code(s): I10 - Essential (primary) hypertension (14) Hyperlipidemia: Qualifiers: Hyperlipidemia type: mixed hyperlipidemia Qualified Code(s): E78.2 - Mixed hyperlipidemia (15) S/P AAA repair: Plan Outpatient cardiac catheterization today. I spoke to her at length. I explained the risks and benefits again. She signed the consent form in my presence. Her daughter was in the room. Attestations Medical Necessity Statement*: Outpatient cardiac catheterization. Admission will be based on the results of the examination. and Straight Forward/Low Time for a total of 25 minutes, includes reviewing past or interval history, examining/interviewing patient, placing orders, counseling patient/family/other support, updating patient/family/other support, discussing plan of care with staff, documenting encounter and coordinating care Diagnoses Stented coronary artery Z95.5 CAD (coronary artery disease) I25.10 Chest pressure R07.89 Palpitations R00.2 COPD (chronic obstructive pulmonary disease) J44.9 Anticoagulation adequate with anticoagulant therapy Z79.01 New onset atrial fibrillation I48.91 Acute and chronic respiratory failure with hypoxia J96.21 Recurrent adenocarcinoma of lung C34.90 TABBY (acute kidney injury) N17.9 AAA (abdominal aortic aneurysm) I71.4 Presence of rupture: without rupture Pulmonary embolism I27.82 Pulmonary embolism type: unspecified Chronicity: chronic Acute cor pulmonale presence: unspecified Hypertension I10 Hypertension type: essential hypertension Hyperlipidemia E78.2 Hyperlipidemia type: mixed hyperlipidemia S/P AAA repair Z98.890; Z86.79
[2023-01-11 08:00] LABS: Basophils % 0.7 %; Eosinophils # 0.1 10^3/uL (0.0-0.8); Eosinophils % 1.7 %; Hematocrit 39.6 % (37.0-47.0); Hemoglobin 12.1 g/dL (11.5-15.3); Lymphocytes # 0.7 10^3/uL (0.8-4.8); Lymphocytes % 11.7 %; Mean Corpuscular HGB Conc 30.6 g/dL (30.0-36.0); Mean Corpuscular Hemoglobin 28.1 pg (28.0-34.0); Mean Corpuscular Volume 92.1 fl (81-99); Mean Platelet Volume 9.5 fL (7.4-10.4); Monocytes # 0.6 10^3/uL (0.2-0.9); Monocytes % 9.6 %; Neutrophils # 4.53 10^3/uL (1.8-7.7); Nucleated Red Blood Cells % 0 %; Platelet Count 341 10^3/cmm (130-400); Red Cell Distribution Width 15.9 % (12.1-15.1)
[2023-01-11 08:03] VITALS: BP 179/81; PULSE 63; RESP 14; TEMP 36.7; O2SAT 96; BMI 25.7
[2023-01-11] MEDS: diphenhydrAMINE 50 mg Capsule PO (08:10)
[2023-01-11 08:30] LABS: Anion Gap 15.6 (5-19); Blood Urea Nitrogen 30 mg/dL (8-23); Calcium 9.6 mg/dL (8.5-10.5); Carbon Dioxide 29 mmol/L (22-29); Chloride 102 mmol/L (98-107); Glucose 110 mg/dL (65-115); Osmolality Calculated 301 mOsm/kg (285-295); Potassium 4.6 mmol/L (3.5-5.1); Sodium 142 mmol/L (136-145)
--- NOTE | 2023-01-11 08:54 | PC.NURSE ---
Pt creatinine result is elevated. Physician and pt discussed procedure and decided to postpone to a later date.
--- NOTE | 2023-01-11 08:54 | PM.MISC ---
Miscellaneous Note Note: Keely had been seen in the office and was scheduled for coronary angiography today. In September her creatinine was 1.1 with a BUN of 24. Today it has jumped up to 1.8 with a BUN of 30. After a lengthy discussion with Keely and her family, I have decided to postpone the angiogram. In the interim we will have her drink fluids approximately 50 ounces per day. She will see her primary care provider and in 3 to 4 weeks her blood BUN and creatinine will be repeated. Based on that information we will decide about the angiogram.
== END 2023-01-11 07:21 | disposition home or self-care (01) ==
LOC: CCL 07:20
PROVIDERS: PCP Nurse Practitioner Family; Visit Provider Internal Medicine Cardiovascular Disease
DX: I25.10 Atherosclerotic heart disease of native coronary artery without angina pectoris; Z95.5 Presence of coronary angioplasty implant and graft; R07.89 Other chest pain; R00.2 Palpitations; J44.9 Chronic obstructive pulmonary disease, unspecified; Z79.01 Long term (current) use of anticoagulants; I48.91 Unspecified atrial fibrillation; I10 Essential (primary) hypertension; E78.2 Mixed hyperlipidemia; I71.40 Abdominal aortic aneurysm, without rupture, unspecified; Z87.891 Personal history of nicotine dependence; Z79.02 Long term (current) use of antithrombotics/antiplatelets; R94.4 Abnormal results of kidney function studies; Z53.9 Procedure and treatment not carried out, unspecified reason
CPT/HCPCS: 80048; 85025; J1644; J2250; J3010; J3490; Q0163

== ENCOUNTER 2023-03-11 10:25 | Observation (INO) | payer MEDICARE, OTHER, SELFPAY ==
[2023-03-11] VITALS (17 sets, daily range): BP systolic 121–178; BP diastolic 57–73; PULSE 15–81; RESP 11–22; TEMP 36.5–37.3; O2SAT 89–96; BMI 24.1
--- NOTE | 2023-03-11 07:30 | XACV_ITS ---
Exam Room: 2 Ht: 165 cm Wt: 66 kg BSA: 1.75 m2 Gender: Female : 1935 Any Known Allergies: Other Exam Priority: Routine Procedure(s): Procedure Description: Diagnostic procedure Procedure Description: Left Heart Catheterization Procedure Description: Coronary Angiography Shan RIDDLE; Diagnostic Cath Status: Elective Diagnostic Findings * Elderly woman with known coronary disease and previously placed LAD stents. Several months of disabling, crippling symptoms of chest pain, shortness of breath and fatigue. Stress testing relatively unremarkable with a fixed defect in the distribution of the right coronary artery which has been normal in the past. Requested coronary angiography due to disabling symptoms. * Due to her creatinine, we utilized Visipaque. We also made an effort to minimize the contrast. The left main artery shows a 10 to 20% ostial eccentric stenosis. The LAD has multiple stents along its course but there are no areas of restenosis. The circumflex exhibits a 30 to 40% stenosis proximally and a 70 to 80% stenosis in the midportion. The right coronary artery is a small but dominant artery and is essentially normal. PCI Status: Elective PCI LVEF Assessed: No PCI Indication: New Onset Angina <= 2 months Interventional Findings * Due to the severity of the symptoms I decided to proceed directly to intervention. 3.5 x 15 mm stent was placed in the mid circumflex with a good angiographic result. Decision for PCI with Surgical Consult: No PCI for Multi-vessel Disease: No Conclusions 1. Coronary artery disease. Patent previously placed LAD stents. Mid circumflex lesion primarily stented this time. Recommendations * Medical treatment at this point. Interventional RX Recommendation: PCI w/o planned CABG Diagnostic RX Recommendation: PCI w/o planned CABG Anticoagulation: Heparin Pressures Phase:Rest AO : 149 / 49 ( 77 ) @ 10:05:00 AM 165 / 67 ( 95 ) @ 10:11:00 AM 142 / 48 ( 82 ) @ 10:16:00 AM Clinical Evaluation EBL: 5mL-10mL Procedural Details Procedure Consent Obtained. Admit Source: Out Patient. Pre-Procedure Time Out. Identified patient by full name and date of as verbalized by the patient/guarantor. Does the consent match the physician's order: Yes. Accurate & Complete Informed Consent: Yes. Inpatient/Outpatient History & Physical on Chart: Yes. If H&P is completed, is and addenduem needed: No; If yes, is the addendum complete: N/A. Visualize and Verify Site with Patient/Guarantor: N/A. Relevant Radiology Images available: Yes. The risks, benefits, and alternatives of sedation and/or procedure were discussed by physician. The patient agrees to continue. Procedure started. [facility] Clinical Fraility Score: 7: Severely Frail. Senior Health Consultant Indications: Worsening Angina. Chest Pain Symptom Assessment: Typical Angina Symptoms. Correct patient, site and procedure confirmed by cath team. Current diagnosis: Chest Pain. PERRLA. Strong, equal hand bedspread cutter bilaterally. Lungs clear x 5 lobes. IV Site on Arrival: 20 gauge in the right anticubital. IV Fluids: 0.9% NaCl at KVO. 0 mL infused prior to woods laborer. Pre Procedural Pulses: right radial was 1+. Pre Procedural Pulses: left radial was 2+. Pre Procedural Pulses: bilateral dorsalis pedis was 3+. Pre Procedural Pulses: bilateral posterior tibial was Doppled. Oxygen started at 2liters/min via nasal canula. bilateral groins was prepped with chloroprep then draped in the usual sterile fashion. Physician notified. Baseline sample Acquired. HR: 61 BPM. Physician arrived. Physician scrubbed in. Immediate Pre-Procedure Time Out. Correct Patient: Yes; Correct Procedure: Yes; Correct Site: Yes; Correct Patient Position: Yes; Correct Supplies: Yes; Dried Flammable Prep: Yes; Blood Products Available: No;. Lidocaine 1% infiltrated to the right groin. Arterial access obtained. A 5 cypriot JL4 catheter in over exchange wire. Multiple views taken of left coronary artery. Catheter removed over the exchange wire. A 5 cypriot JR4 catheter in over wire. Multiple views taken of right coronary artery. Catheter removed over the exchange wire. Sheath upsized to a 6 Fr. 6 cypriot XB 3 guide catheter was inserted over the wire. Petal guidewire was advanced through the guide catheter to lesion in the mid Circ. Guidewire advanced across lesion. Stent inserted to lesion in the mid Circ. Inflation Number : 1 Sharita Jon TWILA 3.5X15 HERB -Lot Number# [id number] EXP 04-27-2025 was prepped and advanced across the Mid CX. The stent was deployed at 12 MANUELA for 0:25 seconds. Stent balloon and wire out. Guide catheter out. Physician scrubbed out. A Suture was successful obtaining hemostatsis at the Right Femoral artery insertion site. Arterial sheath flushed and connected to tranducer and pressure bag with heparinized saline. Post Procedure: Pulses reassessed and unchanged. PERRLA. Strong, equal hand bedspread cutter bilaterally. No VTE prophylaxis required. Medication's Wasted: Heparin = 1000 units. Total IV fluids: 52 mL. Post-op diagnosis: CAD. Complications: None. Estimated blood loss: 5mL-10mL. Responsiveness - Normal response to verbal stimuli; alert and oriented, PERRLA. Airway - Unaffected, no intervention required; spontaneous ventilation. Circulation: W/N/L, pulses unchanged. Nausea/Vomiting: No. Procedure completed. Patient transferred by bed to CPRU. Vital chart was stopped. Access Site Site: Right Femoral artery Sheath Size: 5 Fr Hemostasis Method: Suture Hemostasis Success: Successful Procedure Medications Start: 8:45 AM Stop: 8:45 AM Medication: Versed Amount: 1 mg Route: I.V. Start: 8:45 AM Stop: 8:45 AM Medication: Fentanyl Amount: 50 mcg Route: I.V. Start: 8:51 AM Stop: 8:51 AM Medication: Versed Amount: 1 mg Route: I.V. Start: 9:00 AM Stop: 9:00 AM Medication: Versed Amount: 1 mg Route: I.V. Start: 9:00 AM Stop: 9:00 AM Medication: Fentanyl Amount: 25 mcg Route: I.V. Start: 9:06 AM Stop: 9:06 AM Medication: Versed Amount: 1 mg Route: I.V. Start: 9:18 AM Stop: 9:18 AM Medication: Heparin Amount: 5000 units Route: I.V. Start: 9:22 AM Stop: 9:22 AM Medication: Fentanyl Amount: 25 mcg Route: I.V. I, the attending physician, have reviewed and verified all procedure medications. Yes, all medications given per verbal order History/Risk Factors Hypertension: Yes Dyslipidemia: Yes Peripheral Arterial Disease (PAD): No Myocardial Infarction (HI): No Obesity: No Renal Disease: No Prior Interventions PCI: Yes CABG: No Valve Surgery: No Report Signatures Finalized by Dr. Priyank Torrez MD on 03/11/2023 09:46 AM
--- NOTE | 2023-03-11 07:41 | PM.HP ---
Providers/Chief Complaint Admitting Physician: martin Primary Care Provider: ALYSON Keane Chief Complaint: Z95.5 History of Present Illness Keely Chan is an 87 year old female seen today for the purposes of cardiac catheterization. I originally saw her in consultation on October 06 of this year with a follow-up visit on November 18. Her previous cardiac care had been delivered in [place]. She does have a history of coronary artery disease with stents. Despite multiple attempts to get the information from [place] we were never able to do so. When I saw her on October 06 she complained of racing of the heart, palpitations which had been going on for some time. Apparently the work-up for that has been unremarkable. A loop recorder had been placed which was unrevealing. She has a history of a small AAA, anemia, history of pulmonary embolism, hypertension and dyslipidemia. She is chronically anticoagulated. She was a previous smoker with COPD. She has had surgery twice for adenocarcinoma of the lung but I do not know the details. On both the October 06 visit in the November 18 visit she had multiple complaints to include shortness of breath, pain in her thighs and legs, chest pain, weakness among many others. She thought although symptoms were similar to what she had prior to the placement of her previous stents. A sestamibi examination was performed and revealed a very small defect in the distribution of the right coronary artery but no significant ischemia. Her ejection fraction was normal. During the November 18 visit we reviewed the results of the test. She was complaining of disabling symptoms of shortness of breath, burning and pain in her thighs and legs, weakness, dizziness and continued chest pain. I had a long discussion with the patient and her daughter. I explained the increased risk in someone 87 years old. She was concerned about the disabling symptoms and so she wanted proceed with angiography. We scheduled her for the angiogram on January 11. When she arrived her creatinine had gone up. We decided to postpone the angiogram because of the elevated creatinine and her advanced age. She is now back today for consideration of angiography. In the meantime a scan of her abdominal aorta was done since she has had a AAA repair. This was unremarkable. Review of Systems Narrative: Review of systems is positive in multiple distributions. Medications/Allergies Home Medications Medication Instructions Recorded Confirmed Last Taken Type cholecalciferol (vitamin D3) 1,250 1,250 mcg PO Q7D 10/16/19 01/11/23 01/11/23 05:30 History mcg (50,000 unit) capsule gabapentin 300 mg capsule 400 mg PO BID 10/16/19 01/11/23 01/11/23 05:30 History hydrocodone 5 mg-acetaminophen 325 1 tab PO Q6H PRN Pain 10/16/19 01/11/23 01/11/23 05:30 History mg tablet nitroglycerin 0.4 mg sublingual 0.4 mg sublingual Q5M PRN Chest 10/16/19 01/11/23 Unknown History tablet (Nitrostat) Pain omeprazole 40 mg capsule,delayed 40 mg PO DAILY 10/16/19 01/11/23 01/11/23 05:30 History release meclizine 25 mg tablet 25 mg PO TID PRN Dizziness 10/28/19 01/11/23 Unknown History rivaroxaban 10 mg tablet (Xarelto) 10 mg PO DAILY #30 tabs 11/07/19 01/11/23 01/08/23 06:00 Rx amiodarone 200 mg tablet 200 mg PO DAILY 10/06/22 01/11/23 01/11/23 05:30 History amlodipine 5 mg tablet 5 mg PO DAILY #90 tabs 10/06/22 01/11/23 01/11/23 05:30 Rx cetirizine 10 mg tablet 10 mg PO DAILY PRN allergy symptoms 10/06/22 01/11/23 Unknown History clopidogrel 75 mg tablet 75 mg PO DAILY 10/06/22 01/11/23 01/11/23 05:30 History fluticasone propionate 50 2 spray intranasal DAILY PRN 10/06/22 01/11/23 Unknown History mcg/actuation nasal allergy symptoms spray,suspension (Flonase Allergy Relief) hydrochlorothiazide 12.5 mg capsule 12.5 mg PO DAILY PRN Hypertension 10/06/22 01/11/23 01/11/23 05:30 History montelukast 10 mg tablet 10 mg PO DAILY PRN Allergic 10/06/22 01/11/23 Unknown History Symptoms triamcinolone acetonide 0.1 % 1 applic topical DAILY 10/06/22 01/11/23 Unknown History topical cream Allergies Allergy/AdvReac Type Severity Reaction Status Date / Time ezetimibe [From Zetia] Allergy Unknown unknown Verified 11/18/22 08:48 simvastatin [From Zocor] Allergy Unknown unknown Verified 11/18/22 08:48 tetanus and diphtheria Allergy Unknown unknown Verified 11/18/22 08:48 toxoids albuterol AdvReac Unknown hypertensio Verified 11/18/22 08:48 n PFSH Acute PFSH: Medical History AAA (abdominal aortic aneurysm) Anemia Anticoagulation adequate with anticoagulant therapy CAD (coronary artery disease) Chest pressure Chronic back pain COPD (chronic obstructive pulmonary disease) Diastolic dysfunction without heart failure DJD (degenerative joint disease) Hyperlipidemia Hypertension Palpitations Pulmonary embolism Recurrent adenocarcinoma of lung Surgical History (Updated 01/11/23 @ 07:50 by Priyank Torrez MD) H/O: hysterectomy History of lobectomy of lung Twice, bilateral, Right upper lobe lobectomy 2001 Left upper lobe lobectomy 2009 Hx of cholecystectomy S/P AAA repair Stent graft Stented coronary artery Family History Father No problems noted. Mother Hypertension CHF (congestive heart failure) Other CAD (coronary artery disease) Social History Quit status (tobacco): has quit using tobacco Second hand smoke exposure: No Smoking risk assessment/counseling performed?: Yes Alcohol intake: former Desire information about alcohol rehabilitation?: No Counseling given: Yes Substance/Drug Use: never Desire information about substance/drug rehabilitation?: No Counseling given: Yes Caregiver/support person: Yes Lives independently: Yes Household members: none Housing: House Marital status: / Number of children: 2 Number of grandchildren: 3 Highest education level completed: Some College, No Degree service: No Current occupational status: retired Physical Exam Narrative: GENERAL: In general she is awake and alert and in no distress HEENT: Exam within normal limits. NECK: Supple without jugular vein distention. The carotid upstroke is normal without bruits. BACK: Exam normal. LUNGS: Clear. HEART: Regular rate and rhythm. ABDOMEN: Benign without organomegaly or tenderness. EXTREMITIES: No edema. NEUROLOGIC: Exam normal. SKIN: Unremarkable. Data 03/11/23 07:30 03/11/23 07:30 A&P Assessment and plan (1) S/P AAA repair: (2) Stented coronary artery: (3) CAD (coronary artery disease): (4) Chest pressure: (5) Palpitations: (6) COPD (chronic obstructive pulmonary disease): (7) Anticoagulation adequate with anticoagulant therapy: (8) Generalized weakness: (9) New onset atrial fibrillation: (10) Acute and chronic respiratory failure with hypoxia: (11) Recurrent adenocarcinoma of lung: (12) TABBY (acute kidney injury): (13) AAA (abdominal aortic aneurysm): Qualifiers: Presence of rupture: without rupture Qualified Code(s): I71.4 - Abdominal aortic aneurysm, without rupture (14) Pulmonary embolism: Qualifiers: Pulmonary embolism type: unspecified Chronicity: chronic Acute cor pulmonale presence: unspecified Qualified Code(s): I27.82 - Chronic pulmonary embolism (15) Hypertension: Qualifiers: Hypertension type: essential hypertension Qualified Code(s): I10 - Essential (primary) hypertension (16) Hyperlipidemia: Qualifiers: Hyperlipidemia type: mixed hyperlipidemia Qualified Code(s): E78.2 - Mixed hyperlipidemia Plan Her creatinine on 11 January had gone up to 1.8. Those results are pending today. We will proceed if it is safe to do so. Attestations Medical Necessity Statement*: Outpatient cardiac catheterization. and Moderate Time for a total of 40 minutes, includes reviewing past or interval history, examining/interviewing patient, placing orders, counseling patient/family/other support, updating patient/family/other support, discussing plan of care with staff, documenting encounter and coordinating care Diagnoses S/P AAA repair Z98.890; Z86.79 Stented coronary artery Z95.5 CAD (coronary artery disease) I25.10 Chest pressure R07.89 Palpitations R00.2 COPD (chronic obstructive pulmonary disease) J44.9 Anticoagulation adequate with anticoagulant therapy Z79.01 Generalized weakness R53.1 New onset atrial fibrillation I48.91 Acute and chronic respiratory failure with hypoxia J96.21 Recurrent adenocarcinoma of lung C34.90 TABBY (acute kidney injury) N17.9 AAA (abdominal aortic aneurysm) I71.4 Presence of rupture: without rupture Pulmonary embolism I27.82 Pulmonary embolism type: unspecified Chronicity: chronic Acute cor pulmonale presence: unspecified Hypertension I10 Hypertension type: essential hypertension Hyperlipidemia E78.2 Hyperlipidemia type: mixed hyperlipidemia
[2023-03-11 07:46] LABS: Basophils # 0.1 10^3/uL (0.0-0.1); Basophils % 0.6 %; Eosinophils # 0.1 10^3/uL (0.0-0.8); Eosinophils % 1.3 %; Hematocrit 39.6 % (36-47); Lymphocytes # 0.7 10^3/uL (0.8-4.8); Mean Corpuscular HGB Conc 31.3 g/dL (30-55); Mean Corpuscular Hemoglobin 28.8 pg (27-33); Mean Corpuscular Volume 91.9 fl (85-98); Mean Platelet Volume 9.4 fL (7.4-10.4); Monocytes # 0.6 10^3/uL (0.2-0.9); Monocytes % 7.5 %; Neutrophils # 6.61 10^3/uL (1.8-7.7); Neutrophils % 81.1 %; Nucleated Red Blood Cells % 0 %; Platelet Count 380 10^3/cmm (157-399); Red Blood Count 4.31 10^6/uL (3.85-5.65); Red Cell Distribution Width 14.4 % (12.1-15.1); White Blood Count 8.15 10^3/uL (3.29-11.43)
[2023-03-11 08:22] LABS: Anion Gap 13.3 (5-19); Blood Urea Nitrogen 28 mg/dL (8-23); Calcium 8.8 mg/dL (8.5-10.5); Carbon Dioxide 29 mmol/L (22-29); Chloride 102 mmol/L (98-107); Creatinine Clr Calc Pharmacy 22.6907; Glucose 100 mg/dL (65-115); Osmolality Calculated 296 mOsm/kg (285-295); Potassium 4.3 mmol/L (3.5-5.1); Sodium 140 mmol/L (136-145)
[2023-03-11] MEDS: sodium chloride 0.9% 1,000 ML 100 ML IV ×2 (11:05→18:49)
[2023-03-11 11:51] LABS: Partial Thromboplastin Time 117.8 SECONDS (23.9-36.7)
[2023-03-11 13:45] LABS: Partial Thromboplastin Time 44.5 SECONDS (23.9-36.7)
[2023-03-11] MEDS: gabapentin 400 mg Capsule PO (17:31)
[2023-03-11] MEDS: HYDROcodone-acetaminophen 5-325 mg Tablet 1 TAB PO (18:12)
[2023-03-12 00:51] VITALS: BP 126/51; PULSE 68; RESP 19; TEMP 37.2; O2SAT 94
[2023-03-12 04:38] LABS: Anion Gap 12.1 (5-19); Blood Urea Nitrogen 20 mg/dL (8-23); Calcium 8.3 mg/dL (8.5-10.5); Carbon Dioxide 27 mmol/L (22-29); Chloride 105 mmol/L (98-107); Glucose 114 mg/dL (65-115); Osmolality Calculated 293 mOsm/kg (285-295); Potassium 4.1 mmol/L (3.5-5.1); Sodium 140 mmol/L (136-145)
[2023-03-12 05:08] VITALS: BP 132/56; PULSE 72; RESP 15; TEMP 37.7; O2SAT 93
[2023-03-12 05:33] VITALS: PULSE 72
--- NOTE | 2023-03-12 06:38 | P.DS_ITS ---
Discharge Providers Date of Admission: 03/11/23 10:25 Date of Discharge: March 12, 2023 Attending Provider at Admission: Priyank Torrez MD Attending Provider at Discharge: Priyank Torrez MD Primary Care Provider: ALYSON Keane Diagnoses at Discharge Discharge Diagnosis (1) S/P AAA repair: Status: Acute Permanent problem details: Stent graft (2) Stented coronary artery: Status: Acute (3) CAD (coronary artery disease): Status: Acute (4) Chest pressure: Status: Acute (5) Palpitations: Status: Acute (6) COPD (chronic obstructive pulmonary disease): Status: Acute (7) Anticoagulation adequate with anticoagulant therapy: Status: Acute (8) Generalized weakness: Status: Acute (9) New onset atrial fibrillation: Status: Acute (10) Acute and chronic respiratory failure with hypoxia: Status: Acute (11) Recurrent adenocarcinoma of lung: Status: Acute (12) TABBY (acute kidney injury): Status: Acute (13) AAA (abdominal aortic aneurysm): Status: Acute Qualifiers: Presence of rupture: without rupture Qualified Code(s): I71.4 - Abdominal aortic aneurysm, without rupture (14) Pulmonary embolism: Status: Acute Qualifiers: Pulmonary embolism type: unspecified Chronicity: chronic Acute cor pulmonale presence: unspecified Qualified Code(s): I27.82 - Chronic pulmonary embolism (15) Hypertension: Status: Acute Qualifiers: Hypertension type: essential hypertension Qualified Code(s): I10 - Essential (primary) hypertension (16) Hyperlipidemia: Status: Acute Qualifiers: Hyperlipidemia type: mixed hyperlipidemia Qualified Code(s): E78.2 - Mixed hyperlipidemia Reason for Visit Reason for Visit: Z95.5 Brief History: Elderly female with previous history of coronary artery disease. Stents previously placed to the LAD. I saw her several weeks ago with a variety of very unusual complaints most of which were not consistent with coronary artery disease, however, she was insistent that the symptoms were concerning for heart problems. Stress testing was relatively unremarkable. Despite this, she still had disabling symptoms of shortness of breath, chest pain, dizziness, fatigue, being tired all the time among others. I scheduled angiography for several weeks ago and her creatinine jumped from normal to 1.8. I canceled it at that time and asked her to drink a lot of fluids. She then came back yesterday for purposes of angiography. Yesterday, her creatinine was 1.7 upon arrival. She and I had a long discussion that involved her son. We decided to proceed with angiography since she is so symptomatic. I used Visipaque and minimize the contrast material. Hospital Course Hospital Course Angiography revealed her stents patent in the LAD. Left main is unremarkable aside from some eccentric disease in the ostium. The right coronary artery is small but is the dominant vessel and is normal. She had a 70% mid circumflex lesion that I stented. I chose to do this primarily because she is so symptomatic. I have not been convinced that her symptoms are not related to coronary disease but she was complaining that the symptoms were disabling. The procedure was done from the right common femoral artery because she had no radial pulse on the right. There were no complications. At the time of discharge the groin is flat, dry without hematoma or bleeding. Her Xarelto had been held 48 hours prior to the procedure. Physical Exam Narrative: GENERAL: In general she looks and feels well this morning at discharge time. HEENT: Exam within normal limits. NECK: Supple without jugular vein distention. The carotid upstroke is normal without bruits. BACK: Exam normal. LUNGS: Clear. HEART: Regular rate and rhythm. ABDOMEN: Benign without organomegaly or tenderness. EXTREMITIES: No edema. The right groin is flat, dry without hematoma, bleeding or other vascular anomaly. NEUROLOGIC: Exam normal. SKIN: Unremarkable. Discharge Data Studies Completed and Pending Completed Studies During Hospitalization Category Date Time Status TRUCK TECHNICIAN request for service Routine Exams 03/11/23 07:30 Completed Laboratory Results WBC 8.15 10^3/uL (3.29-11.43) 03/11/23 07:30 RBC 4.31 10^6/uL (3.85-5.65) 03/11/23 07:30 Hgb 12.40 g/dL (11.27-16.99) 03/11/23 07:30 Hct 39.6 % (36-47) 03/11/23 07:30 MCV 91.9 fl (85-98) 03/11/23 07:30 MCH 28.8 pg (27-33) 03/11/23 07:30 MCHC 31.3 g/dL (30-55) 03/11/23 07:30 RDW 14.4 % (12.1-15.1) 03/11/23 07:30 Plt Count 380 10^3/cmm (157-399) 03/11/23 07:30 MPV 9.4 fL (7.4-10.4) 03/11/23 07:30 Neut % (Auto) 81.1 % 03/11/23 07:30 Lymph % (Auto) 9.0 % 03/11/23 07:30 [place]ardo % (Auto) 7.5 % 03/11/23 07:30 Eos % (Auto) 1.3 % 03/11/23 07:30 Baso % (Auto) 0.6 % 03/11/23 07:30 Neut # (Auto) 6.61 10^3/uL (1.8-7.7) 03/11/23 07:30 Lymph # (Auto) 0.7 10^3/uL (0.8-4.8) L 03/11/23 07:30 [place]ardo # (Auto) 0.6 10^3/uL (0.2-0.9) 03/11/23 07:30 Eos # (Auto) 0.1 10^3/uL (0.0-0.8) 03/11/23 07:30 Baso # (Auto) 0.1 10^3/uL (0.0-0.1) 03/11/23 07:30 Nucleated RBC % (auto) 0 % 03/11/23 07:30 Nucleated RBCs # 0.0 /100WBC 03/11/23 07:30 APTT 44.5 SECONDS (23.9-36.7) H D 03/11/23 13:25 Sodium 140 mmol/L (136-145) 03/12/23 03:59 Potassium 4.1 mmol/L (3.5-5.1) 03/12/23 03:59 Chloride 105 mmol/L (98-107) 03/12/23 03:59 Carbon Dioxide 27 mmol/L (22-29) 03/12/23 03:59 Anion Gap 12.1 (5-19) 03/12/23 03:59 BUN 20 mg/dL (8-23) 03/12/23 03:59 Creatinine 1.3 mg/dL (0.5-0.9) H 03/12/23 03:59 GFR Calculation Not Reportable 03/12/23 03:59 Glucose 114 mg/dL (65-115) 03/12/23 03:59 Calculated Osmolality 293 mOsm/kg (285-295) 03/12/23 03:59 Calcium 8.3 mg/dL (8.5-10.5) L 03/12/23 03:59 Procedures Performed Coronary angiography. Primary stenting mid circumflex. Vitals Last Vital Signs Temp 99.9 F H 03/12/23 05:08 Pulse 72 03/12/23 05:33 Resp 15 03/12/23 05:08 BP 132/56 03/12/23 05:08 Pulse Ox 93 03/12/23 05:08 O2 Del Method Room Air 03/12/23 05:08 Discharge Plan Discharge Condition: Stable Prescriptions: Continued omeprazole 40 mg capsule,delayed release(DR/EC) 40 mg PO DAILY gabapentin 300 mg capsule 400 mg PO BID nitroglycerin [Nitrostat] 0.4 mg tablet, sublingual 0.4 mg SUBLINGUAL Q5M PRN (Reason: Chest Pain) hydrocodone-acetaminophen 5-325 mg tablet 1 tab PO Q6H PRN (Reason: Pain) cholecalciferol (vitamin D3) 1,250 mcg (50,000 unit) capsule 1,250 mcg PO Q7D Rx Instructions: (ON WEDNESDAYS) fluticasone propionate [Flonase Allergy Relief] 50 mcg/actuation spray,suspension 2 spray INTRANASAL DAILY PRN (Reason: allergy symptoms) clopidogrel 75 mg tablet 75 mg PO DAILY hydrochlorothiazide 12.5 mg capsule 12.5 mg PO DAILY PRN (Reason: Hypertension) Rx Instructions: 1 or 2 PRN swelling amiodarone 200 mg tablet 200 mg PO DAILY triamcinolone acetonide 0.1 % cream 1 applic topical DAILY amlodipine 5 mg tablet 5 mg PO DAILY Qty: 90 4RF meclizine 25 mg Tablet 25 mg PO TID PRN (Reason: Dizziness) Xarelto 10 mg Tablet 10 mg PO DAILY Qty: 30 0RF cetirizine 10 mg tablet 10 mg PO DAILY PRN (Reason: allergy symptoms) montelukast 10 mg tablet 10 mg PO DAILY PRN (Reason: Allergic Symptoms) Discharge Orders: Discharge Order (Routine); Ordered 03/12/23 Ordered By: Priyank Torrez Referrals: Priyank Torrez MD [Physician] - (Your Dr. Torrez follow up appointment will be scheduled during your Savannah Brunner appointment. Thank you.) Savannah Brunner FNP [Nurse Practitioner] - 03/22/23 9:30 am Discharge Diet: Cardiac Discharge Activity: Increase activity as tolerated and Limit activity as instructed Patient Instructions: Coronary Angioplasty (DC), Post Angiogram Home Care Instructions Activity Restrictions/Additional Instructions: No lifting over 5 pounds for 2 days. Report bleeding, swelling or pain in the groin. No change in medications. Discharge Attestations Time Spent in Discharge Care*: greater than 30 min Status at Discharge: Cognitive status at discharge: cognitively intact , Behavioral status at discharge: cooperative , Quality Metrics Clinical Quality Measures [ No reported AMI, CVA or VTE this stay] Coding Level of Care Code 49896 Total time (in minutes) for Discharge: 40 Diagnoses S/P AAA repair Z98.890; Z86.79 Stented coronary artery Z95.5 CAD (coronary artery disease) I25.10 Chest pressure R07.89 Palpitations R00.2 COPD (chronic obstructive pulmonary disease) J44.9 Anticoagulation adequate with anticoagulant therapy Z79.01 Generalized weakness R53.1 New onset atrial fibrillation I48.91 Acute and chronic respiratory failure with hypoxia J96.21 Recurrent adenocarcinoma of lung C34.90 TABBY (acute kidney injury) N17.9 AAA (abdominal aortic aneurysm) I71.4 Presence of rupture: without rupture Pulmonary embolism I27.82 Pulmonary embolism type: unspecified Chronicity: chronic Acute cor pulmonale presence: unspecified Hypertension I10 Hypertension type: essential hypertension Hyperlipidemia E78.2 Hyperlipidemia type: mixed hyperlipidemia
[2023-03-12 07:41] VITALS: BP 139/60; PULSE 82; RESP 19; TEMP 38.2; O2SAT 95
[2023-03-12 08:00] VITALS: PULSE 75; RESP 16; O2SAT 92
--- NOTE | 2023-03-12 08:47 | PC.CHAP ---
Pastoral Care Encounter/Spiritual Assessment Type of Contact [] Declined digital marketing analyst visit [] Patient/Family/Request visit [] Outpatient visit [] Follow-up visit [] Physician referral [] Code/Alert [x] Routine visit [] Staff referral [] Actively dying [] Patient sleeping [] Family support [] [] Out of room [] Palliative care [] [] Receiving care in room [] Pre-surgical visit [] Trauma [] Long length of stay [] ICU visit [] Other: Relational/Emotional Strength [x] Patient feels connected with others/family/visitors/staff [] Distress [] Loneliness/isolation [] Abandonment Spirituality of Patient [x] Person of Janell [] Attends Mormonism of their Janell [x] Believes in Prayer [] Reads Bible or Congregational materials [] There are Spiritual issues to be addressed Animal Eviscerator Interventions [x] Prayer [x] Active listening [] Non-anxious presence [x] Spiritual/emotional support [] Crisis/trauma care [] Spiritual counseling [] Bereavement support [] Provided bereavement packet [] Provided Bible/devotional materials [] Provided toy/stuffed animal, coloring book to patient or family member [] Provided Communion [] Anointing/[place] [] Salvation [x] Completed spiritual assessment [] Other: Impact on Illness or Injury [] Angry [] Fearful [] Anxious [] Often cries [] Exhaustion [] Unable to work [] Unable to attend baptist [] Unable to walk/stand [] Unable to read [] Unable to drive [] Unable to eat/drink [] Unable to sleep [] Unable to be with family [] Patient intubated [] Other: Summary Time spent with patient 5 min
[2023-03-12] MEDS: clopidogrel 75 mg Tablet PO (09:48)
[2023-03-12] MEDS: amiodarone 200 mg Tablet PO (09:48)
[2023-03-12] MEDS: amlodipine 5 mg Tablet PO (09:48)
[2023-03-12] MEDS: gabapentin 400 mg Capsule PO (09:48)
[2023-03-12] MEDS: pantoprazole DR 40 mg Tablet PO (09:48)
[2023-03-12 10:07] VITALS: PULSE 75; RESP 16; O2SAT 92
--- NOTE | 2023-03-12 10:08 | PC.NURSE ---
Discharge Note Patient discharged to home via POV accompanied by family. Discharge instructions reviewed with patient and/or entry level sales representative. Mobile pharmacy medications and/or prescriptions provided. Belongings/home medications returned.
== END 2023-03-12 10:09 | disposition home or self-care (01) ==
LOC: CSU 10:36
PROVIDERS: Admitting Provider Internal Medicine Cardiovascular Disease; PCP Nurse Practitioner Family; Visit Provider Internal Medicine Cardiovascular Disease
DX: I25.10 Atherosclerotic heart disease of native coronary artery without angina pectoris (principal); Z95.5 Presence of coronary angioplasty implant and graft; Z98.890 Other specified postprocedural states; Z86.79 Personal history of other diseases of the circulatory system; R07.89 Other chest pain; R00.2 Palpitations; J44.9 Chronic obstructive pulmonary disease, unspecified; Z79.01 Long term (current) use of anticoagulants; R53.1 Weakness; I48.91 Unspecified atrial fibrillation; J96.21 Acute and chronic respiratory failure with hypoxia; C34.90 Malignant neoplasm of unspecified part of unspecified bronchus or lung; N17.9 Acute kidney failure, unspecified; I71.40 Abdominal aortic aneurysm, without rupture, unspecified; I27.82 Chronic pulmonary embolism; I10 Essential (primary) hypertension; E78.2 Mixed hyperlipidemia; Z87.891 Personal history of nicotine dependence; M19.90 Unspecified osteoarthritis, unspecified site
CPT/HCPCS: 36415; 80048; 85025; 85730; 93454; 96365; 99152; 99153; C1769; C1874; C1887; C1894; C9600; G0378; J1644; J2250; J3010; J3490; J7030; Q0163; Q9967

== ENCOUNTER 2023-03-17 13:46 | Emergency (ER) | payer MEDICARE, OTHER, SELFPAY ==
[2023-03-17 13:50] VITALS: BP 121/63; PULSE 56; TEMP 36.8; O2SAT 95; BMI 24.1
--- NOTE | 2023-03-17 14:18 | XR_ITS ---
WS: [id number] Portable AP upright chest, 03/17/2023 Clinical Data: weakness Comparison: Portable chest, 11/01/2019 Findings: No nodules, masses or effusions are seen. The heart is enlarged. The pulmonary vascularity is not increased. No pneumonia or pneumothorax is seen. There is widening of the interspace between t he right fifth and sixth rib and also left fifth and sixth ribs possibly from prior thoracotomies. Th ere are clips adjacent to the aortic arch from surgery. The descending thoracic aorta shows tortuosit y and minimal calcification. There are monitor leads and devices overlying the chest. The diaphragms are flattened. There is an aortic stent graft. There is degenerative change of the left glenohumeral joint. Impression: 1. Cardiomegaly and atherosclerosis. 2. Previous bilateral thoracotomies.
--- NOTE | 2023-03-17 14:23 | ED_ITS ---
HPI - Weakness General: Chief complaint: Weakness Stated complaint: weakness Time Seen by Provider: 03/17/23 14:10 History of Present Illness: 87-year-old female presents with generalized weakness. This been going on for quite some time. Family and chart review shows a she had a stent placed last week. Chart review shows that this was done because she was symptomatic not due to significant coronary occlusion. Patient and family reports that every since she is got a lot out she has been significantly weak. Patient reports that since she has gotten out of the hospital she has had to use a walker. Associated symptoms: Denies chest pain, dysuria, nausea, syncope or vomiting Review of Systems 2 Const: Reports: fatigue and malaise Card: Denies: chest pain, lightheadedness or syncope Resp: Denies: dyspnea, productive cough or non-productive cough GI: Denies: abdominal pain, nausea or vomiting : Denies: flank pain or dysuria Neuro: Reports: other (Generalized weakness) PFS ED PFSH: Medical History AAA (abdominal aortic aneurysm) Anemia Anticoagulation adequate with anticoagulant therapy CAD (coronary artery disease) Chest pressure Chronic back pain COPD (chronic obstructive pulmonary disease) Diastolic 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 Mother Hypertension CHF (congestive heart failure) Other CAD (coronary artery disease) Social History Quit status (tobacco/nicotine): has quit using Second hand smoke exposure: No Alcohol intake: former Substance/Drug Use: never Caregiver/support person: Yes Lives independently: Yes Household members: none Housing: House Marital status: / Number of children: 2 Number of grandchildren: 3 Highest education level completed: Some College, No Degree service: No Current occupational status: retired Physical Exam Const: COMMON NORMALS: no acute distress, patient oriented x3 and alert HENMT: COMMON NORMALS: normocephalic and atraumatic HEAD & SCALP: normoce phalic and atraumatic Resp: COMMON NORMALS: normal respiratory effort, No use of accessory muscles and clear to auscultation bilaterally AUSCULTATION: clear to auscultation bilaterally Cardio: COMMON NORMALS: regular rhythm RATE: bradycardic RHYTHM: regular rhythm Extremity: COMMON NORMALS: full ROM and capillary refill normal Neuro: COMMON NORMALS: patient oriented x3 and no focal motor deficits SENSORIUM/ORIENTATION: Yes alert Skin: COMMON NORMALS: no rashes or lesions noted GENERAL SKIN EXAM: no rashes or lesions noted Course Vital Signs: Vital signs: Vital Signs Temperature 98.2 F 03/17/23 13:50 Pulse Rate 57 L 03/17/23 16:47 Blood Pressure 145/63 03/17/23 16:47 Pulse Oximetry 90 03/17/23 16:47 Oxygen Delivery Me thod Room Air 03/17/23 16:47 MDM - Weakness Medical Decision Making Patient's diagnostics as ordered reviewed and interpreted by me. Patient does have elevated troponin however is unchanging and is consistent with post stent placement. Patient's labs show slight elevation of her BUN and creatinine however this is near her baseline when compared to previous prior labs. Patient's urinalysis is concerning for likely a urinary tract infection with positive nitrates, leukocytes and bacteria. I will treat her for urinary tract infection which is likely why she is feeling a little bit weak. She should follow-up with her primary care provider in approximately 1 week for recheck of her symptoms. She was stable and discharged home Lab Data I reviewed the patient's lab results. 03/17/23 14:31 03/17/23 14:31 Laboratory Results WBC 4.47 10^3/uL (3.29-11.43) 03/17/23 14:31 RBC 4.29 10^6/uL (3.85-5.65) 03/17/23 14:31 Hgb 12.20 g/dL (11.27-16.99) 03/17/23 14:31 Hct 39.4 % (36-47) 03/17/23 14:31 MCV 91.8 fl (85-98) 03/17/23 14:31 MCH 28.4 pg (27-33) 03/17/23 14:31 MCHC 31.0 g/dL (30-55) 03/17/23 14:31 RDW 14.3 % (12.1-15.1) 03/17/23 14:31 Plt Count 326 10^3/cmm (157-399) 03/17/23 14:31 MPV 9.5 fL (7.4-10.4) 03/17/23 14:31 Neut % (Auto) 67.2 % 03/17/23 14:31 Lymph % (Auto) 21.9 % 03/17/23 14:31 Rooks % (Auto) 8.9 % 03/17/23 14:31 Eos % (Auto) 1.1 % 03/17/23 14:31 Baso % (Auto) 0.2 % 03/17/23 14: Neut # (Auto) 3.00 10^3/uL (1.8-7.7) 03/17/23 14:31 Lymph # (Auto) 1.0 10^3/uL (0.8-4.8) 03/17/23 14:31 Rooks # (Auto) 0.4 10^3/uL (0.2-0.9) 03/17/23 14:31 Eos # (Auto) 0.1 10^3/uL (0.0-0.8) 03/17/23 14:31 Baso # (Auto) 0.0 10^3/uL (0.0-0.1) 03/17/23 14:31 Nucleated RBC % (auto) 0 % 03/17/23 14:31 Nucleated RBCs # 0.0 /100WBC 03/17/23 14:31 Sodium 137 mmol/L (136-145) 03/17/23 14:31 Potassium 4.0 mmol/L (3.5-5.1) 03/17/23 14:31 Chloride 100 mmol/L (98-107) 03/17/23 14:31 Carbon Dioxide 26 mmol/L (22-29) 03/17/23 14:31 Anion Gap 15.0 (5-19) 03/17/23 14:31 BUN 27 mg/dL (8-23) H 03/17/23 14:31 Creatinine 1.7 mg/dL (0.5-0.9) H 03/17/23 14:31 GFR Calculation Not Reportable 03/17/23 14:31 Glucose 92 mg/dL (65-115) 03/17/23 14:31 Calculated Osmolality 289 mOsm/kg (285-295) 03/17/23 14:31 Calcium 8.7 mg/dL (8.5-10.5) 03/17/23 14:31 Magnesium 1.7 mg/dL (1.7-2.3) 03/17/23 14:31 Total Bilirubin 0.3 mg/dL (0.15-1.2) 03/17/23 14:31 AST 26 U/L (0-32) 03/17/23 14:31 ALT 21 U/L (0-33) 03/17/23 14:31 Alkaline Phosphatase 54 U/L (35-105) 03/17/23 14:31 Troponin T Baseline 123 ng/L (0-10) H* 03/17/23 14:31 Troponin T 120 Minute 116.2 ng/L (0-10) H 03/17/23 16:39 Delta Troponin T -6.8 ABS# (0-10) L 03/17/23 16:39 C-Reactive Protein 3.0 mg/L (0.0-4.9) 03/17/23 14:31 Total Protein 6.7 g/dL (6.6-8.7) 03/17/23 14:31 Albumin 3.6 g/dL (3.5-5.2) 03/17/23 14:31 Globulin 3.1 g/dL (1.3-4.6) 03/17/23 14:31 Urine Color Dark yellow (Yellow) 03/17/23 15:04 Urine Appearance Sl hazy (CLEAR) A 03/17/23 15:04 Urine pH 5 (5-7) 03/17/23 15:04 Ur Specific [place] 1.020 (1.005-1.030) 03/17/23 15:04 Urine Protein Trace (Negative) 03/17/23 15:04 Urine Glucose (UA) Norm (Normal) 03/17/23 15:04 Urine Ketones 1+ (Negative) H 03/17/23 15:04 Urine Blood Neg (Negative) 03/17/23 15:04 Urine Nitrate Negative (Negative) 03/17/23 15:04 Urine Bilirubin 1+ (Negative) H 03/17/23 15:04 Urine Urobilinogen 1 mg/dL (Negative) H 03/17/23 15:04 Ur Leukocyte Esterase Trace (Negative) H 03/17/23 15:04 Urine RBC 0-4 /hpf (0-2) H 03/17/23 15:04 Urine WBC 5-10 /hpf (0-5) H 03/17/23 15:04 Ur Squamous Epith Cells 0-4 /hpf (0-5) H 03/17/23 15:04 Amorphous Sediment Trace /hpf 03/17/23 15:04 Urine Bacteria 1+ /hpf (NONE) H 03/17/23 15:04 Hyaline Casts 15-25 /lpf H 03/17/23 15:04 Urine Mucus 2+ /hpf 03/17/23 15:04 SARS-CoV-2 Ag (Rapid) Negative (Negative) 03/17/23 15:03 XR interpretation done by ED provider, pending radiology final review ED provider radiology interpretation(s): No acute findings noted EKG Data EKG 1: I personally reviewed and interpreted this EKG as follows: EKG interpretation date: 03/17/23 EKG interpretation time: 13:59 Interpretation: Sinus bradycardia, ventricular rate 55 AK 180, QRS 111 Computer generated interpretation: No acute ST changes or elevation EKG 2: I personally reviewed and interpreted this EKG as follows: EKG interpretation date: 03/17/23 EKG interpretation time: 16:30 Interpretation: Sinus bradycardia, ventricular rate 57, AK 209, QRS 116. No significant changes from prior 1 Discharge Plan Discharge Patient Disposition: Home Clinical Impression: Acute cystitis with hematuria, Status post cardiac catheterization Condition: Stable Prescriptions: New cephalexin 500 mg capsule 500 mg PO TID 7 Days Qty: 21 0RF No Action gabapentin 300 mg capsule 400 mg PO BID nitroglycerin [Nitrostat] 0.4 mg tablet, sublingual 0.4 mg SUBLINGUAL Q5M PRN (Reason: Chest Pain) cholecalciferol (vitamin D3) 1,250 mcg (50,000 unit) capsule 1,250 mcg PO Q7D Rx Instructions: (ON WEDNESDAYS) fluticasone propionate [Flonase Allergy Relief] 50 mcg/actuation spray,suspension 2 spray INTRANASAL DAILY PRN (Reason: allergy symptoms) triamcinolone acetonide 0.1 % cream 1 applic topical DAILY PRN (Reason: Rash) meclizine 25 mg Tablet 25 mg PO TID PRN (Reason: Dizziness) cetirizine 10 mg tablet 10 mg PO DAILY PRN (Reason: allergy symptoms) montelukast 10 mg tablet 10 mg PO DAILY PRN (Reason: Allergic Symptoms) famotidine 20 mg tablet 20 mg PO BEDTIME hydrocodone-acetaminophen 7.5-325 mg tablet 1 tab PO Q6H PRN (Reason: Pain) pantoprazole 40 mg tablet,delayed release (DR/EC) 40 mg PO QAM amlodipine 5 mg tablet 5 mg PO QAM Xarelto 10 mg tablet 10 mg PO QAM Discharge Orders: Discharge ED (Routine); Ordered 03/17/23 Ordered By: Ernesto Reich Referrals: Cristiana Willis FNP [Primary Care Provider] - Discharge Diet: Usual diet Discharge Activity: Increase activity as tolerated Patient Instructions: Opioid Safety, Pain Management, Urinary Tract Infection in Women (DC) Activity Restrictions/Additional Instructions: Please follow-up with your primary care provider and your foreign food cook specialty next week for recheck of your symptoms. Return to the ER with any concerns. Coding Level of Care Code ED Waterworks Pump Station Operator for Radha Castaneda
[2023-03-17] MEDS: sodium chloride 0.9% 500 ML IV (14:56)
[2023-03-17 14:58] VITALS: BP 136/54; PULSE 58; O2SAT 95
[2023-03-17 15:13] LABS: Basophils % 0.2 %; Eosinophils # 0.1 10^3/uL (0.0-0.8); Eosinophils % 1.1 %; Hematocrit 39.4 % (36-47); Lymphocytes % 21.9 %; Mean Corpuscular Hemoglobin 28.4 pg (27-33); Mean Corpuscular Volume 91.8 fl (85-98); Mean Platelet Volume 9.5 fL (7.4-10.4); Monocytes # 0.4 10^3/uL (0.2-0.9); Monocytes % 8.9 %; Neutrophils % 67.2 %; Nucleated Red Blood Cells % 0 %; Platelet Count 326 10^3/cmm (157-399); Red Blood Count 4.29 10^6/uL (3.85-5.65); Red Cell Distribution Width 14.3 % (12.1-15.1); White Blood Count 4.47 10^3/uL (3.29-11.43)
[2023-03-17 15:40] LABS: SARS Covid-2 Antigen Negative (Negative)
[2023-03-17 15:42] VITALS: BP 166/70; PULSE 58; O2SAT 94
[2023-03-17 15:44] LABS: Alanine Aminotransferase 21 U/L (0-33); Albumin Level 3.6 g/dL (3.5-5.2); Alkaline Phosphatase 54 U/L (35-105); Aspartate Amino Transferase 26 U/L (0-32); Blood Urea Nitrogen 27 mg/dL (8-23); Calcium 8.7 mg/dL (8.5-10.5); Carbon Dioxide 26 mmol/L (22-29); Chloride 100 mmol/L (98-107); Globulin 3.1 g/dL (1.3-4.6); Glucose 92 mg/dL (65-115); Magnesium 1.7 mg/dL (1.7-2.3); Osmolality Calculated 289 mOsm/kg (285-295); Sodium 137 mmol/L (136-145); Total Bilirubin 0.3 mg/dL (0.15-1.2); Total Protein 6.7 g/dL (6.6-8.7)
[2023-03-17 15:45] LABS: Creatinine Clr Calc Pharmacy 22.6907; Troponin(5th) Baseline 123 ng/L (0-10)
[2023-03-17 16:16] LABS: Add Urine Microscopic? YES; Bacteria Urine 1+ /hpf; Bilirubin Urine 1+ (Negative); Blood Urine Neg (Negative); Glucose Urine UA Norm (Normal); Ketones Urine 1+ (Negative); Leukocyte Esterase Urine Trace (Negative); Nitrate Urine Negative (Negative); Protein Urine Trace (Negative); RBC Urine 0-4 /hpf (0-2); Squamous Epithelial Cell Urine 0-4 /hpf (0-5); Urine Appearance SL Hazy (CLEAR); Urine Color Dark Yellow (Yellow); Urobilinogen Urine 1 mg/dL (Negative); pH Urine 5 (5-7)
[2023-03-17 16:17] LABS: Add Urine Culture? No; Amorphous Sediment Urine TRACE /hpf; Hyaline Casts Urine 15-25 /lpf; Mucus Urine 2+ /hpf
--- NOTE | 2023-03-17 16:18 | ECG_ITS ---
[facility] Test Date: 2023-03-17 Pat Name: Keely Chan Department: Room: Gender: Female Advisor Consultant: : 1935 Requested By: Ernesto Reich Order Number: [id number] Pablo MD: Priyank Torrez M.D. Measurements Intervals [place] Rate: 57 P: 54 DC: 209 QRS: -20 QRSD: 116 T: 68 QT: 479 QTc: 469 Interpretive Statements SINUS BRADYCARDIA MODERATE INTRAVENTRICULAR CONDUCTION DELAY [110+ ms QRS DURATION] MINIMAL VOLTAGE CRITERIA FOR LVH, CONSIDER NORMAL VARIANT [MEETS CRITERIA IN ONE OF: R(aVL), S(V1), R(V5), R(V5/V6)+S(V1)] NONSPECIFIC T-WAVE ABNORMALITY PROLONGED QT INTERVAL Compared to ECG 11/01/2019 10:33:16 Intraventricular conduction delay now present Prolonged QT interval now present Atrial fibrillation no longer present T-wave abnormality still present Electronically Signed On 03-17-2023 16:52:13 CDT by Priyank Torrez M.D. [id number]
[2023-03-17 16:47] VITALS: BP 145/63; PULSE 57; O2SAT 90
[2023-03-17 17:08] LABS: Troponin 5 2HR Delta -6.8 ABS# (0-10)
[2023-03-17 17:09] LABS: Troponin 5 2HR 116.2 ng/L (0-10)
== END 2023-03-17 18:03 | disposition home or self-care (01) ==
PROVIDERS: Emergency Provider Student in an Organized Health Care Education/Training Program; PCP Nurse Practitioner Family
DX: N30.01 Acute cystitis with hematuria (principal); Z98.890 Other specified postprocedural states; Z11.52 Encounter for screening for COVID-19; Z87.891 Personal history of nicotine dependence; I25.10 Atherosclerotic heart disease of native coronary artery without angina pectoris; J44.9 Chronic obstructive pulmonary disease, unspecified; E78.5 Hyperlipidemia, unspecified; I10 Essential (primary) hypertension; Z85.118 Personal history of other malignant neoplasm of bronchus and lung
CPT/HCPCS: 36415; 71045; 80053; 81001; 83735; 84484; 85025; 86140; 87426; 93005; 99285; J7040

== ENCOUNTER → 2023-03-22 08:54 | Outpatient (BNVA) | payer MEDICARE, OTHER, SELFPAY | PROVIDERS: PCP Nurse Practitioner Family; Visit Provider Nurse Practitioner Family | DX: I25.10 Atherosclerotic heart disease of native coronary artery without angina pectoris (principal); I95.1 Orthostatic hypotension | CPT/HCPCS: 99214 ==

== ENCOUNTER 2023-04-11 11:06 | Inpatient (IN) | payer MEDICARE, OTHER, SELFPAY ==
[2023-04-11] VITALS (8 sets, daily range): BP systolic 81–179; BP diastolic 54–78; PULSE 57–74; RESP 15–26; TEMP 36.8–37; O2SAT 90–95
--- NOTE | 2023-04-11 11:28 | ECG_ITS ---
[facility] Test Date: 2023-04-11 Pat Name: Keely Chan Department: Room: Gender: Female Viner Operator: : 1935 Requested By: Brian Miller Order Number: [id number] Pablo MD: Mica Barrow M.D. Measurements Intervals [place] Rate: 57 P: 63 IN: 173 QRS: -60 QRSD: 115 T: 70 QT: 367 QTc: 360 Interpretive Statements SINUS BRADYCARDIA LEFT AXIS DEVIATION [QRS AXIS < -30] MODERATE INTRAVENTRICULAR CONDUCTION DELAY [110+ ms QRS DURATION] MODERATE VOLTAGE CRITERIA FOR LVH, CONSIDER NORMAL VARIANT [MEETS CRITERIA IN ONE OF: R(aVL), S(V1), R(V5), R(V5/V6)+S(V1)] NONSPECIFIC T-WAVE ABNORMALITY Compared to ECG 03/17/2023 16:30:48 Left-axis deviation now present Prolonged QT interval no longer present T-wave abnormality still present Electronically Signed On 04-11-2023 15:32:23 FRONT OFFICE ASSOCIATE by Mica Barrow M.D. [id number] irma
--- NOTE | 2023-04-11 11:42 | XRR_ITS ---
PROCEDURE INFORMATION: Exam: XR Chest Exam date and time: 04/11/2023 12:24 PM Age: 87 years old Clinical indication: Cough and dyspnea; Additional info: Dyspnea/cough TECHNIQUE: Imaging protocol: Radiologic exam of the chest. Views: 1 view. COMPARISON: CR XR chest 1V portable [id number] 03/17/2023 2:23 PM FINDINGS: Tubes, catheters and devices: Loop recorder in place. Lungs: No infiltrate or edema. Pleural spaces: Unremarkable. No pleural effusion. No pneumothorax. Heart/Mediastinum: Unremarkable. No cardiomegaly. Bones/joints: Previous bilateral thoracotomies. XR/XR chest 1V portable [id number] IMPRESSION: No acute findings.
--- NOTE | 2023-04-11 11:43 | CTR_ITS ---
PROCEDURE INFORMATION: Exam: CT Head Without Contrast Exam date and time: 04/11/2023 1:16 PM Age: 87 years old Clinical indication: Injury or trauma; Fall; Blunt trauma (contusions or hematomas); Additional info: Trauma/syncope TECHNIQUE: Imaging protocol: Computed tomography of the head without contrast. Radiation optimization: All CT scans at this facility use at least one of these dose optimization techniques: automated exposure control; mA and/or kV adjustment per patient size (includes targeted exams where dose is matched to clinical indication); or iterative reconstruction. REPORTING DATA: Count of CT and Cardiac NM exams in prior 12 months: This patient has received [address] and 0 known cardiac nuclear medicine studies in the 12 months prior to the current study. COMPARISON: MR head wo/w con [id number] 12/26/2019 12:39 PM RADIATION DOSE METRICS: Total DLP (mGy-cm): 1137.68 FINDINGS: Brain: Mild parenchymal volume loss. Mild bilateral periventricular and subcortical white matter hypodensities are present compatible with small-vessel ischemic disease. No midline shift. No mass, acute infarct, hemorrhage, or extra-axial fluid collection. Cerebral ventricles: No ventriculomegaly. Paranasal sinuses: Visualized sinuses are unremarkable. No fluid levels. Mastoid air cells: Opacified right mastoid and middle ear cavity. Bones/joints: Unremarkable. No acute fracture. Soft tissues: Small left temporal scalp hematoma. CT/CT head wo con* [id number] IMPRESSION: No acute intracranial abnormality. Opacified right mastoid and middle ear cavity which may represent otomastoiditis. If there is clinical suspicion for fracture through this region, CT temporal bone is recommended.
[2023-04-11 12:10] LABS: Basophils % 0.6 %; Eosinophils # 0.1 10^3/uL (0.0-0.8); Eosinophils % 1.1 %; Hematocrit 39.1 % (36-47); Lymphocytes # 0.6 10^3/uL (0.8-4.8); Lymphocytes % 8.9 %; Mean Corpuscular HGB Conc 30.9 g/dL (30-55); Mean Corpuscular Hemoglobin 28.2 pg (27-33); Mean Corpuscular Volume 91.1 fl (85-98); Mean Platelet Volume 9.4 fL (7.4-10.4); Monocytes # 0.7 10^3/uL (0.2-0.9); Monocytes % 10.3 %; Neutrophils # 5.58 10^3/uL (1.8-7.7); Neutrophils % 78.4 %; Nucleated Red Blood Cells % 0 %; Platelet Count 304 10^3/cmm (157-399); Red Blood Count 4.29 10^6/uL (3.85-5.65); Red Cell Distribution Width 14.1 % (12.1-15.1); White Blood Count 7.11 10^3/uL (3.29-11.43)
--- NOTE | 2023-04-11 12:24 | XRR_ITS ---
PROCEDURE INFORMATION: Exam: XR Left Shoulder Exam date and time: 04/11/2023 12:26 PM Age: 87 years old Clinical indication: Injury or trauma; Injury details: Lt shoulder pain post fall; Prior surgery; Surgery date: 6+ months; Surgery type: Loop recorder TECHNIQUE: Imaging protocol: Radiologic exam of the left shoulder. Views: 2 or more views. COMPARISON: CR (CHEST, ) 04/11/2023 12:24 PM FINDINGS: Bones/joints: Osteopenia. Degenerative change at the AC joint and glenohumeral joint. No fracture. Ossification associated with distal rotator cuff. Soft tissues: Normal. XR/XR shoulder LT min 2V* [id number] IMPRESSION: No acute findings.
[2023-04-11 12:26] LABS: Troponin(5th) Baseline 39 ng/L (0-10)
[2023-04-11 12:31] LABS: Alanine Aminotransferase 13 U/L (0-33); Albumin Level 3.7 g/dL (3.5-5.2); Alkaline Phosphatase 62 U/L (35-105); Anion Gap 14.3 (5-19); Aspartate Amino Transferase 19 U/L (0-32); Blood Urea Nitrogen 20 mg/dL (8-23); Calcium 9.2 mg/dL (8.5-10.5); Carbon Dioxide 28 mmol/L (22-29); Chloride 99 mmol/L (98-107); Globulin 2.6 g/dL (1.3-4.6); Glucose 116 mg/dL (65-115); Osmolality Calculated 288 mOsm/kg (285-295); Potassium 4.3 mmol/L (3.5-5.1); Sodium 137 mmol/L (136-145); Total Bilirubin 0.4 mg/dL (0.15-1.2); Total Protein 6.3 g/dL (6.6-8.7)
--- NOTE | 2023-04-11 13:09 | ED_ITS ---
HPI - Syncope General: Chief Complaint: Syncope Stated Complaint: passes out when standing up,[place] Time Seen by Provider: 04/11/23 11:16 Source: patient Mode of arrival: ambulatory History of Present Illness: 87-year-old female presents emergency room from home she has had multiple syncopal episodes recently where she completely passes out without any aura or apprehension lightheadedness dizziness etc. She has not had any chest pain or discomfort. She has known history for previous PEs, is on anticoagulation.. She did strike her head today. No vomiting no diarrhea. She had another syncopal episode yesterday. Known history of coronary artery disease and abdominal aortic aneurysm denies chest pain or abdominal pain. Recent stenting MD complaint: loss of consciousness and collapsed Prodromal symptoms: none Witnessed: Yes - by Bystander Injuries sustained associated with event: head Associated symptoms: Deny abdominal pain, chest pain, fever(s), headache(s), lightheadedness, nausea, short of breath, vertigo or weakness Treatments prior to arrival: none Review of Systems Const: Denies: fever(s) Card: Denies: chest pain or lightheadedness Resp: Denies: dyspnea GI: Denies: abdominal pain or nausea : Denies: dysuria, urinary frequency or urinary urgency Musc: Denies: neck pain or back pain Skin/Breast: Denies: rash Neuro: Denies: headache(s) or vertigo PFSH ED PFSH: Medical History AAA (abdominal aortic aneurysm) Anemia Anticoagulation adequate with anticoagulant therapy CAD (coronary artery disease) Chest pressure Chronic back pain COPD (chronic obstructive pulmonary disease) Diastolic 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 Mother Hypertension CHF (congestive heart failure) Other CAD (coronary artery disease) Social History Quit status (tobacco/nicotine): has quit using Second hand smoke exposure: No Alcohol intake: former Substance/Drug Use: never Caregiver/support person: Yes Lives independently: Yes Household members: none Housing: House Marital status: / Number of children: 2 Number of grandchildren: 3 Highest education level completed: Some College, No Degree service: No Current occupational status: retired Physical Exam Const: COMMON NORMALS: no acute distress GENERAL APPEARANCE: cooperative and comfortable ORIENTATION/CONSCIOUSNESS: Yes awake, Yes oriented to person, Yes oriented to place and Yes oriented to time HENMT: COMMON NORMALS: normocephalic, atraumatic and hearing grossly normal bilaterally HEAD & SCALP: normocephalic and atraumatic Resp: COMMON NORMALS: normal respiratory effort, No retractions, No use of accessory muscles and clear to auscultation bilaterally AUSCULTATION: clear to auscultation bilaterally Cardio: COMMON NORMALS: regular rate, regular rhythm and No murmurs present (Cardio) RATE: regular rate RHYTHM: regular rhythm GI: COMMON NORMALS: Soft to palpation and No hepatosplenomegaly present AUSCULTATION: Yes normoactive bowel sounds PALPATION: Yes Soft to palpation, No Tenderness to palpation present (GI), No Guarding due to palpation present (GI) and Yes No hepatosplenomegaly present Extremity: COMMON NORMALS: normal to inspection, capillary refill normal, no clubbing, cyanosis or edema, no calf tenderness and no pedal edema Neuro: SENSORIUM/ORIENTATION: Yes oriented to person, Yes oriented to place and Yes oriented to time Skin: COMMON NORMALS: no rashes or lesions noted GENERAL SKIN EXAM: no rashes or lesions noted Course Vital Signs: Vital signs: Vital Signs Temperature 98.6 F 04/19/23 15:29 Pulse Rate 21 L 04/19/23 15:29 Respiratory Rate 21 H 04/19/23 15:29 Blood Pressure 135/66 04/19/23 15:29 Pulse Oximetry 100 04/19/23 15:29 Oxygen Delivery Me thod Nasal Cannula 04/19/23 11:08 Oxygen Flow Rate 1 04/17/23 20:35 MDM - Syncope Medical Decision Making Admit for syncope and further evaluation. Patient has history of PEs known coronary artery disease she does have a mild cystitis cultures done antibiotics started. Discussed with hospitalist orders written Differential Diagnosis Likely syncope due to orthostatic hypotension, vasovagal syncope and pulmonary embolism Medical Records I reviewed the patient's medical records. Lab Data I reviewed the patient's lab results. 04/19/23 05:11 04/19/23 05:11 Radiology Impressions Chest X-Ray 04/11/23 11:42 IMPRESSION: No acute findings. Head CT 04/11/23 11:43 IMPRESSION: No acute intracranial abnormality. Opacified right mastoid and middle ear cavity which may represent otomastoiditis. If there is clinical suspicion for fracture through this region, CT temporal bone is recommended. Shoulder X-Ray 04/11/23 12:24 IMPRESSION: No acute findings. Cervical Spine X-Ray 04/11/23 13:11 IMPRESSION: No acute findings. Carotid Doppler Study 04/11/23 16:43 IMPRESSION: 1. Calcified plaque in the right internal carotid artery with less than 50% stenosis. 2. Calcified plaque in the left internal carotid artery with 50-69% stenosis. REFERENCES: SRU CRITERIA. The degree of internal carotid artery stenosis is based on criteria defined by the Society of Radiologists in Ultrasound (SRU). Normal is no stenosis. Mild is less than 50% stenosis. Moderate is 50-69% stenosis. Severe is greater than 69% stenosis to near occlusion. Near occlusion is a markedly narrowed lumen. Total occlusion is no detectable patent lumen. Shoulder CT 04/13/23 14:51 IMPRESSION: 1. No fracture or joint effusion. 2. Chronic primary osteoarthritis. 3. Calcific tendinosis of the infraspinatus 4. Other chronic findings as described Laboratory Results WBC 6.12 10^3/uL (3.29-11.43) 04/12/23 04:12 RBC 3.99 10^6/uL (3.85-5.65) 04/12/23 04:12 Hgb 11.30 g/dL (11.27-16.99) 04/12/23 04:12 Hct 36.6 % (36-47) 04/12/23 04:12 MCV 91.7 fl (85-98) 04/12/23 04:12 MCH 28.3 pg (27-33) 04/12/23 04:12 MCHC 30.9 g/dL (30-55) 04/12/23 04:12 RDW 13.9 % (12.1-15.1) 04/12/23 04:12 Plt Count 257 10^3/cmm (157-399) 04/12/23 04:12 MPV 9.2 fL (7.4-10.4) 04/12/23 04:12 Neut % (Auto) 65.9 % 04/12/23 04:12 Lymph % (Auto) 18.5 % 04/12/23 04:12 [place] % (Auto) 11.6 % 04/12/23 04:12 Eos % (Auto) 2.8 % 04/12/23 04:12 Baso % (Auto) 0.7 % 04/12/23 04:12 Neut # (Auto) 4.04 10^3/uL (1.8-7.7) 04/12/23 04:12 Lymph # (Auto) 1.1 10^3/uL (0.8-4.8) 04/12/23 04:12 [place] # (Auto) 0.7 10^3/uL (0.2-0.9) 04/12/23 04:12 Eos # (Auto) 0.2 10^3/uL (0.0-0.8) 04/12/23 04:12 Baso # (Auto) 0.0 10^3/uL (0.0-0.1) 04/12/23 04:12 Nucleated RBC % (auto) 0 % 04/12/23 04:12 Nucleated RBCs # 0.0 /100WBC 04/12/23 04:12 Sodium 141 mmol/L (136-145) 04/12/23 04:12 Potassium 3.8 mmol/L (3.5-5.1) 04/12/23 04:12 Chloride 103 mmol/L (98-107) 04/12/23 04:12 Carbon Dioxide 31 mmol/L (22-29) H 04/12/23 04:12 Anion Gap 10.8 (5-19) 04/12/23 04:12 BUN 22 mg/dL (8-23) 04/12/23 04:12 Creatinine 1.3 mg/dL (0.5-0.9) H 04/12/23 04:12 GFR Calculation Not Reportable 04/12/23 04:12 Glucose 93 mg/dL (65-115) 04/12/23 04:12 Estimat Average Glucose 114 04/11/23 16:58 Hemoglobin A1c 5.6 % (4.0-6.0) 04/11/23 16:58 Calculated Osmolality 295 mOsm/kg (285-295) 04/12/23 04:12 Lactic Acid 1.7 mmol/L (0.5-2.2) 04/11/23 14:50 Calcium 8.5 mg/dL (8.5-10.5) 04/12/23 04:12 Phosphorus 3.3 mg/dL (2.5-4.5) 04/12/23 04:12 Magnesium 1.8 mg/dL (1.7-2.3) 04/12/23 04:12 Total Bilirubin 0.4 mg/dL (0.15-1.2) 04/12/23 04:12 AST 18 U/L (0-32) 04/12/23 04:12 ALT 10 U/L (0-33) 04/12/23 04:12 Alkaline Phosphatase 59 U/L (35-105) 04/12/23 04:12 Troponin T Baseline 39 ng/L (0-10) H 04/11/23 11:52 Troponin T 120 Minute 41.45 ng/L (0-10) H 04/11/23 13:32 Delta Troponin T 2.45 ABS# (0-10) 04/11/23 13:32 Troponin T Hi Sens 6Hr 30.02 ng/L (0-10) H 04/11/23 16:58 Troponin T Hi Sens 6Hr Delta -8.98 ng/L (0-12) L 04/11/23 16:58 C-Reactive Protein 18.5 mg/L (0.0-4.9) H 04/11/23 16:58 NT-Pro-B Natriuret Pep 1319 pg/mL (0-450) H 04/11/23 16:58 Total Protein 5.5 g/dL (6.6-8.7) L 04/12/23 04:12 Albumin 3.3 g/dL (3.5-5.2) L 04/12/23 04:12 Globulin 2.2 g/dL (1.3-4.6) 04/12/23 04:12 Procalcitonin 0.12 ng/mL (0-0.5) 04/11/23 16:58 TSH 1.05 uIU/mL (0.27-4.20) 04/11/23 16:58 Random Cortisol 9.78 ug/dL (2.47-19.5) 04/12/23 04:12 Urine Color Cancelled 04/11/23 20: Urine Color Yellow (Yellow) 04/11/23 20: Urine Appearance Cancelled 04/11/23 20: Urine Appearance Hazy (CLEAR) A 04/11/23 20: Urine pH 6 (5-7) 04/11/23 20: Urine pH Cancelled 04/11/23 20: Ur Specific [place] 1.010 (1.005-1.030) 04/11/23 20: Ur Specific [place] Cancelled 04/11/23 20: Urine Protein Cancelled 04/11/23 20: Urine Protein Neg (Negative) 04/11/23 20:27 Urine Glucose (UA) Cancelled 04/11/23 20: Urine Glucose (UA) Norm (Normal) 04/11/23 20:27 Urine Ketones Cancelled 04/11/23 20: Urine Ketones Negative (Negative) 04/11/23 20: Urine Blood Cancelled 04/11/23 20: Urine Blood Neg (Negative) 04/11/23 20: Urine Nitrate Cancelled 04/11/23 20:27 Urine Nitrate Negative (Negative) 04/11/23 20:27 Urine Bilirubin Cancelled 04/11/23 20:27 Urine Bilirubin Neg (Negative) 04/11/23 20:27 Prot Sulfosalicylic Acd Cancelled 04/11/23 20:27 Urine Urobilinogen Cancelled 04/11/23 20:27 Urine Urobilinogen Neg mg/dL (Negative) 04/11/23 20:27 Ur Leukocyte Esterase 1+ (Negative) H 04/11/23 20: Ur Leukocyte Esterase Cancelled 04/11/23 20:27 Urine RBC 0-4 /hpf (0-2) H 04/11/23 20:27 Urine WBC 25-40 /hpf (0-5) H 04/11/23 20:27 Ur Squamous Epith Cells 5-10 /hpf (0-5) H 04/11/23 20:27 Amorphous Sediment Not Reportable 04/11/23 20:27 Urine Bacteria Trace /hpf (NONE) 04/11/23 20:27 All radiology interpretation(s) finalized by discharge Discharge Plan Discharge Patient Disposition: Placed in Observation Admit Provider: Bhupinder Cerna Clinical Impression: Syncope, Cystitis Discharge Diet: Cardiac Discharge Activity: Resume usual activity Coding Level of Care Code ED Potato Spotter for Radha Castaneda
--- NOTE | 2023-04-11 13:11 | XRR_ITS ---
PROCEDURE INFORMATION: Exam: XR Cervical Spine Exam date and time: 04/11/2023 2:14 PM Age: 87 years old Clinical indication: Injury or trauma; Patient HX: Lt neck/shoulder pain post fall TECHNIQUE: Imaging protocol: Radiologic exam of the cervical spine. Views: 2 or 3 views. COMPARISON: CT head wo con* [id number] 04/11/2023 1:16 PM FINDINGS: Bones/joints: No subluxation. Diffuse degenerative disc disease and facet arthropathy. No fracture is seen. Soft tissues: Unremarkable. Other findings: Anterior mandibular dental implants. XR/XR cervical spine 3V* [id number] IMPRESSION: No acute findings.
--- NOTE | 2023-04-11 13:43 | ECG_ITS ---
[facility] Test Date: 2023-04-11 Pat Name: Keely Chan Department: Room: 112 Gender: Female Paper Feeder: : 1935 Requested By: Brian Miller Order Number: [id number] Pablo MD: Mica Barrow M.D. Measurements Intervals [place] Rate: 61 P: 52 MN: 213 QRS: -33 QRSD: 113 T: 65 QT: 468 QTc: 472 Interpretive Statements SINUS RHYTHM Left-axis deviation Intraventricular conduction delay Compared to ECG 04/11/2023 11:28:36 T-wave abnormality no longer present Electronically Signed On 04-11-2023 15:35:33 [employer] TENDER by Mica Barrow M.D. [id number]
[2023-04-11 13:57] LABS: Troponin 5 2HR 41.45 ng/L (0-10)
[2023-04-11 13:59] LABS: Troponin 5 2HR Delta 2.45 ABS# (0-10)
--- NOTE | 2023-04-11 14:21 | PM.HP ---
Providers/Chief Complaint Admitting Physician: Bhupinder Cerna MD Primary Care Provider: ALYSON Keane Chief Complaint: passes out when standing up,hurt brad History of Present Illness Keely Chan is a 87 year old female history of CAD status post stenting, most recently to left circumflex a month ago, history of CAD, history of PE on Xarelto, history of anemia, hypertension, hyperlipidemia, who presents to [facility] for recurrent syncopal episodes. Patient tells me that in the last few weeks she had a few syncopal episodes. She does not that she saw Savannah Brunner, and she was found to be orthostatic she was put on fludrocortisone. This morning, she got up, she was ambulating with her walker with her daughter and she suddenly passed out. She has been feeling more short of breath than her usual. She has been complaining of anterior chest discomfort more than her usual. She tells me she always feels lightheaded, dizzy, denies any poor oral intake, no diarrhea, she has had a UTI she is finishing off antibiotics, but continues to have UTI-like symptoms, no flank pain, no fevers, no chills, no bloody or black stools, no nausea, vomiting, abdominal pain. Her daughter who witnessed the event, said that it lasted for few seconds, she fell face first, she has some bruising over her left brow, she has some right shoulder pain, no seizure-like episodes, no facial droop no slurring of her words, no focal weakness, Review of Systems Const: Denies: fever(s) Eyes: Denies: change in vision Card: Denies: chest pain Resp: Denies: dyspnea GI: Denies: abdominal pain Neuro: Reports: frequent falls and dizziness; Denies: numbness in extremities, sensory changes, lack of coordination, vertigo, confusion, behavioral changes, Slurred speech present, difficulty communicating thoughts or seizure-like activity Psych: Denies: anxiety Medications/Allergies Home Medications Medication Instructions Recorded Confirmed Last Taken Type cholecalciferol (vitamin D3) 1,250 1,250 mcg PO Q7D 10/16/19 04/11/23 04/07/23 History mcg (50,000 unit) capsule gabapentin 300 mg capsule 400 mg PO BID 10/16/19 04/11/23 04/11/23 History nitroglycerin 0.4 mg sublingual 0.4 mg sublingual Q5M PRN Chest 10/16/19 04/11/23 Unknown History tablet (Nitrostat) Pain meclizine 25 mg tablet 25 mg PO TID PRN Dizziness 10/28/19 04/11/23 03/10/23 20:00 History cetirizine 10 mg tablet 10 mg PO DAILY PRN allergy symptoms 10/06/22 04/11/23 04/11/23 History fluticasone propionate 50 2 spray intranasal DAILY PRN 10/06/22 04/11/23 Unknown History mcg/actuation nasal allergy symptoms spray,suspension (Flonase Allergy Relief) montelukast 10 mg tablet 10 mg PO DAILY PRN Allergic 10/06/22 04/11/23 Unknown History Symptoms famotidine 20 mg tablet 20 mg PO BEDTIME 03/17/23 04/11/23 04/10/23 History hydrocodone 7.5 mg-acetaminophen 1 tab PO Q6H PRN Pain 03/17/23 04/11/23 Unknown History 325 mg tablet pantoprazole 40 mg tablet,delayed 40 mg PO QAM 03/17/23 04/11/23 04/11/23 History release rivaroxaban 10 mg tablet (Xarelto) 10 mg PO QAM 03/17/23 04/11/23 04/11/23 History fludrocortisone 0.1 mg tablet 0.1 mg PO BID orthostatic 03/22/23 04/11/23 04/11/23 Rx hypotension #60 tabs amlodipine 5 mg tablet 5 mg PO QAM #90 tabs 04/08/23 04/11/23 04/11/23 Rx amiodarone 200 mg tablet 200 mg PO DAILY 04/11/23 04/11/23 04/11/23 History cefdinir 300 mg capsule 300 mg PO BID 04/11/23 04/11/23 04/11/23 History Allergies Allergy/AdvReac Type Severity Reaction Status Date / Time ezetimibe [From Zetia] Allergy Unknown unknown Verified 04/11/23 11:30 simvastatin [From Zocor] Allergy Unknown unknown Verified 04/11/23 11:30 tetanus and diphtheria Allergy Unknown unknown Verified 04/11/23 11:30 toxoids albuterol AdvReac Unknown hypertensio Verified 04/11/23 11:30 n PFSH Acute PFSH: Medical History AAA (abdominal aortic aneurysm) Anemia Anticoagulation adequate with anticoagulant therapy CAD (coronary artery disease) Chest pressure Chronic back pain COPD (chronic obstructive pulmonary disease) Diastolic 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 Mother Hypertension CHF (congestive heart failure) Other CAD (coronary artery disease) Social History Quit status (tobacco/nicotine): has quit using Second hand smoke exposure: No Alcohol intake: former Substance/Drug Use: never Caregiver/support person: Yes Lives independently: Yes Household members: none Housing: House Marital status: / Number of children: 2 Number of grandchildren: 3 Highest education level completed: Some College, No Degree service: No Current occupational status: retired Vitals/I&O/Wt Last Vital Signs Temp 98.2 F 04/11/23 11:16 Pulse 57 L 04/11/23 11:16 Resp 15 04/11/23 11:16 BP 116/67 04/11/23 11:16 Pulse Ox 93 04/11/23 11:16 O2 Del Method Room Air 04/11/23 11:16 Weight last 48 hrs Weight 65.771 kg Physical Exam Const: COMMON NORMALS: no acute distress and patient oriented x3 HENMT: COMMON NORMALS: normocephalic HEAD & SCALP: normocephalic Neck/C-Spine: COMMON NORMALS: no JVD Resp: COMMON NORMALS: normal respiratory effort, No retractions, No use of accessory muscles and clear to auscultation bilaterally AUSCULTATION: clear to auscultation bilaterally Cardio: COMMON NORMALS: no JVD, regular rate, regular rhythm, S1 normal heart sound present and S2 normal heart sound present RATE: regular rate RHYTHM: regular rhythm HEART SOUNDS: S1 normal heart sound present and S2 normal heart sound present GI: COMMON NORMALS: Normal to inspection, nondistended, normoactive bowel sounds present, Soft to palpation and non-tender PALPATION: Yes Soft to palpation and Yes No hepatosplenomegaly present : COMMON NORMALS: Yes no CVA tenderness Extremity: COMMON NORMALS: capillary refill normal, no clubbing, cyanosis or edema, no calf tenderness and no pedal edema Neuro: COMMON NORMALS: patient oriented x3, CN's II-XII intact bilaterally, moves all extremities and no focal motor deficits Psych: COMMON NORMALS: mental status grossly normal Data 04/11/23 11:52 04/11/23 11:52 A&P Assessment and plan (1) Syncope: (2) Chest pain: (3) Orthostatic hypotension: (4) S/P AAA repair: (5) Stented coronary artery: (6) CAD (coronary artery disease): (7) COPD (chronic obstructive pulmonary disease): (8) LOC (loss of consciousness): (9) Anticoagulation adequate with anticoagulant therapy: (10) NSTEMI (non-ST elevated myocardial infarction): (11) Hypertension: Qualifiers: Hypertension type: essential hypertension Qualified Code(s): I10 - Essential (primary) hypertension (12) Hyperlipidemia: Qualifiers: Hyperlipidemia type: mixed hyperlipidemia Qualified Code(s): E78.2 - Mixed hyperlipidemia (13) Pulmonary embolism: Qualifiers: Pulmonary embolism type: unspecified Chronicity: chronic Acute cor pulmonale presence: unspecified Qualified Code(s): I27.82 - Chronic pulmonary embolism Plan Syncope ? Recent history of orthostatic hypotension on fludrocortisone, will recheck her orthostats, ? She is currently on antibiotics for UTI repeat UA, started on Rocephin, urine cultures, blood cultures, ? She recently had a stent placed to her left circumflex, serial EKGs, serial troponins, telemetry monitoring, continue Xarelto, aspirin, statin,, she does complain of anterior chest discomfort ? She does have a loop recorder in place, the last time was interrogated was in 09/24/2022, will interrogate ? Start IV fluids, ? Serial EKGs, serial troponins, telemetry monitoring, ? Cardiac echo ? Carotid artery ultrasound, ? CT head within normal limits, ? X-ray left shoulder within normal limits ? Cervical neck x-ray pending ? If she does have any other pain complaints, from her fall, will do x-ray -History of bilateral non-small cell lung cancer stage Ia, status post left upper lobe lobectomy, left mediastinal lymphadenectomy, and right upper lobe lobectomy and right mediastinal lymphadenectomy, ? History of right vocal cord paralysis ? She has a history of repeated falls, history of loss of consciousness for she has a loop recorder placed for monitoring of arrhythmias, last interrogation, no arrhythmia events that I could see ? PT OT, ? Full code ? Xarelto for DVT prophylaxis Attestations Medical Necessity Statement*: Patient requires hospitalization, outpatient with observation, for syncope Diagnoses Syncope R55 Chest pain R07.9 Orthostatic hypotension I95.1 S/P AAA repair Z98.890; Z86.79 Stented coronary artery Z95.5 CAD (coronary artery disease) I25.10 COPD (chronic obstructive pulmonary disease) J44.9 LOC (loss of consciousness) R40.20 Anticoagulation adequate with anticoagulant therapy Z79.01 NSTEMI (non-ST elevated myocardial infarction) I21.4 Hypertension I10 Hypertension type: essential hypertension Hyperlipidemia E78.2 Hyperlipidemia type: mixed hyperlipidemia Pulmonary embolism I27.82 Pulmonary embolism type: unspecified Chronicity: chronic Acute cor pulmonale presence: unspecified
[2023-04-11 15:16] LABS: Lactic Sepsis W/Reflex 1.7 mmol/L (0.5-2.2)
--- NOTE | 2023-04-11 16:43 | USCV_ITS ---
Keely Chan Age: 87 Gender: F : 1935 Exam Date: 04/11/2023 17:46 Ordering Phys: Bhupinder Cerna MD Technologist: Bennett Amaya Exam Location: [place] Indication: syncope BP: 179 / 76 HR: 60 Rhythm: Sinus Technical Quality: Adequate MEASUREMENTS (Male / Female) Normal Values 2D ECHO LVOT Diameter 2.3 cm LV Ejection Fraction MOD 2C 61.7 % LV Ejection Fraction 2C AL 62.3 % LA Diameter 3.5 cm LA Width 3.1 cm LA Height 4.8 cm RA Width 3.8 cm RA Height 4.8 cm Aorta at Sinotubular Diameter 2.6 cm IVC Diameter 1.4 cm M-MODE Aortic Annulus Diameter 2.8 cm LA Ao Ratio MM 1.4 MV E Point Septal Separation 0.4 cm DOPPLER AV Peak Velocity 149.0 cm/s LVOT Peak Velocity 97.0 cm/s AV Area Cont Eq vti 2.8 cm squared AV Area Cont Eq pk 2.6 cm squared MV Peak Velocity 118.0 cm/s MV Area PHT 4.8 cm squared Mitral E to A Ratio 0.4 MV E' Velocity 22.0 cm/s Mitral E to MV E' Ratio 9.0 Mitral E to LV E' Lateral Ratio 8.6 Mitral E to LV E' Septal Ratio 9.7 TR Peak Velocity 137.4 cm/s TR Peak Gradient 7.6 mmHg TR Mean Velocity 90.4 cm/s TR Mean Gradient 3.9 mmHg TR Velocity Time Integral 30.9 cm Right Atrial Pressure 3.0 mmHg Pulmonary Artery Systolic Pressu 10.6 mmHg PV Peak Velocity 78.0 cm/s RV Acceleration Time 0.1 s RV Ejection Time 0.3 s RV AcT/ET 0.3 FINDINGS Left Ventricle Normal left ventricular size, systolic function and wall thickness, with no regional wall motion abnormalities. Left ventricular ejection fraction is estimated at 70 %. Grade I diastolic dysfunction (abnormal relaxation filling pattern), normal to mildly elevated filling pressures. Right Ventricle Normal right ventricular size and systolic function. Right ventricular systolic pressure 10.6 mmHg. Right Atrium Normal right atrial size. Left Atrium Mildly increased left atrial size. Mitral Valve Mild to moderate mitral annular calcification. No mitral valve stenosis. Trace mitral valve regurgitation. Aortic Valve Aortic valve not well visualized. No aortic valve stenosis. No aortic valve regurgitation. Tricuspid Valve Structurally normal tricuspid valve. Trace tricuspid valve regurgitation. Pulmonic Valve Pulmonic valve not well visualized. Pericardium No pericardial effusion. Aorta Normal size aortic root and proximal ascending aorta. IVC Normal IVC dimension with >50% respiratory change of the inferior vena cava. CONCLUSIONS 1. Normal left ventricular size, systolic function and wall thickness, with no regional wall motion abnormalities. Left ventricular ejection fraction is estimated at 70 %. Grade I diastolic dysfunction (abnormal relaxation filling pattern), normal to mildly elevated filling pressures. 2. Normal right ventricular size and systolic function. 3. No significant valvular abnormality. 4. There may not have been any significant change when compared to study dated 11/01/2019. Mica Barrow MD (Electronically Signed) Final Date: 12 April 2023 12:09 S
--- NOTE | 2023-04-11 16:43 | USR_ITS ---
PROCEDURE INFORMATION: Exam: US Duplex Bilateral Extracranial Arteries; Complete; Carotid Arteries Exam date and time: 04/11/2023 5:26 PM Age: 87 years old Clinical indication: Syncope and collapse TECHNIQUE: Imaging protocol: Real-time duplex ultrasound scan of the bilateral extracranial arteries combining ornelas scale, color Doppler and spectral waveform analysis with image documentation. Complete exam. Exam focused on the carotid arteries. COMPARISON: CT head wo con* [id number] 04/11/2023 1:16 PM FINDINGS: Right common carotid artery: Unremarkable. No occlusion or stenosis. Waveforms are normal. Right internal carotid artery: Mild calcified plaque. Peak systolic velocity in the mid artery is 117 cm/s, consistent with less than 50% stenosis. Waveforms are normal. Right ICA/CCA ratio: 1.7 Right external carotid artery: No stenosis in the origin. Right vertebral artery: Unremarkable. Antegrade flow. Left common carotid artery: Unremarkable. No occlusion or stenosis. Waveforms are normal. Left internal carotid artery: Calcified plaque. Peak systolic velocity in the proximal artery is 139.8 centimeters/seconds, consistent with 50-69% stenosis. Waveforms are normal. Left ICA/CCA ratio: 2.34 Left external carotid artery: No stenosis in the origin. Left vertebral artery: Unremarkable. Antegrade flow. US/CV carotid duplex BI* [id number] IMPRESSION: 1. Calcified plaque in the right internal carotid artery with less than 50% stenosis. 2. Calcified plaque in the left internal carotid artery with 50-69% stenosis. REFERENCES: SRU CRITERIA. The degree of internal carotid artery stenosis is based on criteria defined by the Society of Radiologists in Ultrasound (SRU). Normal is no stenosis. Mild is less than 50% stenosis. Moderate is 50-69% stenosis. Severe is greater than 69% stenosis to near occlusion. Near occlusion is a markedly narrowed lumen. Total occlusion is no detectable patent lumen.
[2023-04-11] MEDS: fludrocortisone 0.1 mg Tablet PO (17:09)
[2023-04-11] MEDS: gabapentin 400 mg Capsule PO (17:09)
[2023-04-11] MEDS: sodium chloride 0.9% 1,000 ML 100 ML IV (17:09)
[2023-04-11] MEDS: aspirin 81 mg EC Tablet PO (17:09)
[2023-04-11] MEDS: cefTRIAXone 1,000 MG in sodium chloride 0.9% (plus) 50 ML 100 MG IV (17:09)
[2023-04-11 17:37] LABS: Troponin 5 6HR 30.02 ng/L (0-10)
[2023-04-11 17:44] LABS: Cortisol Random 4.55 ug/dL (2.47-19.5); NT Pro B Type Natriuretic Pept 1319 pg/mL (0-450); Procalcitonin 0.12 ng/mL (0-0.5); Thyroid Stimulating Hormone 1.05 uIU/mL (0.27-4.20)
[2023-04-11 17:50] LABS: Estmated Average Glucose 114; Hemoglobin A1C 5.6 % (4.0-6.0)
[2023-04-11 17:55] LABS: C Reactive Protein 18.5 mg/L (0.0-4.9)
--- NOTE | 2023-04-11 18:17 | ECG_ITS ---
[facility] Test Date: 2023-04-11 Pat Name: Keely Chan Department: Room: 112 Gender: Female Roller Printer: : [id number] Requested By: Brian Miller Order Number: [id number] Pablo MD: Mica Barrow M.D. Measurements Intervals [place] Rate: 62 P: 39 AK: 183 QRS: -44 QRSD: 114 T: 69 QT: 439 QTc: 448 Interpretive Statements SINUS RHYTHM LEFT AXIS DEVIATION [QRS AXIS < -30] MODERATE INTRAVENTRICULAR CONDUCTION DELAY [110+ ms QRS DURATION] NONSPECIFIC ST & T-WAVE ABNORMALITY Compared to ECG 04/11/2023 14:40:34 T-wave abnormality now present Electronically Signed On 04-11-2023 22:32:47 SEA SHELL GATH[employer]ER by Mica Barrow M.D. [id number]
[2023-04-11] MEDS: famotidine 20 mg Tablet PO (20:24)
[2023-04-11 21:02] LABS: Bilirubin Urine Neg (Negative); Blood Urine Neg (Negative); Glucose Urine UA Norm (Normal); Ketones Urine Negative (Negative); Leukocyte Esterase Urine 1+ (Negative); Nitrate Urine Negative (Negative); Protein Urine Neg (Negative); Urine Appearance Hazy (CLEAR); Urine Color Yellow (Yellow); Urobilinogen Urine Neg (Negative); pH Urine 6 (5-7)
[2023-04-11 21:03] LABS: Add Urine Microscopic? YES
[2023-04-11 21:14] LABS: Add Urine Culture? Yes; Bacteria Urine TRACE /hpf; RBC Urine 0-4 /hpf (0-2); WBC Urine 25-40 /hpf (0-5)
[2023-04-12] VITALS (11 sets, daily range): BP systolic 63–170; BP diastolic 45–77; PULSE 52–60; RESP 14–20; TEMP 36.5–37.2; O2SAT 95–99
[2023-04-12] MEDS: HYDROcodone-acetaminophen 7.5-325 mg Tablet 1 TAB PO ×2 (00:24→08:06)
[2023-04-12] MEDS: sodium chloride 0.9% 1,000 ML 100 ML IV (03:05)
[2023-04-12] MEDS: ondansetron 2 mg/ML SDV 2 mL 4 MG IVP (04:16)
[2023-04-12 04:31] LABS: Basophils % 0.7 %; Eosinophils # 0.2 10^3/uL (0.0-0.8); Eosinophils % 2.8 %; Hematocrit 36.6 % (36-47); Lymphocytes # 1.1 10^3/uL (0.8-4.8); Lymphocytes % 18.5 %; Mean Corpuscular HGB Conc 30.9 g/dL (30-55); Mean Corpuscular Hemoglobin 28.3 pg (27-33); Mean Corpuscular Volume 91.7 fl (85-98); Mean Platelet Volume 9.2 fL (7.4-10.4); Monocytes # 0.7 10^3/uL (0.2-0.9); Monocytes % 11.6 %; Neutrophils # 4.04 10^3/uL (1.8-7.7); Neutrophils % 65.9 %; Nucleated Red Blood Cells % 0 %; Platelet Count 257 10^3/cmm (157-399); Red Blood Count 3.99 10^6/uL (3.85-5.65); Red Cell Distribution Width 13.9 % (12.1-15.1); White Blood Count 6.12 10^3/uL (3.29-11.43)
[2023-04-12 04:49] LABS: Alanine Aminotransferase 10 U/L (0-33); Albumin Level 3.3 g/dL (3.5-5.2); Alkaline Phosphatase 59 U/L (35-105); Anion Gap 10.8 (5-19); Aspartate Amino Transferase 18 U/L (0-32); Blood Urea Nitrogen 22 mg/dL (8-23); Calcium 8.5 mg/dL (8.5-10.5); Carbon Dioxide 31 mmol/L (22-29); Chloride 103 mmol/L (98-107); Globulin 2.2 g/dL (1.3-4.6); Glucose 93 mg/dL (65-115); Magnesium 1.8 mg/dL (1.7-2.3); Osmolality Calculated 295 mOsm/kg (285-295); Phosphorus 3.3 mg/dL (2.5-4.5); Potassium 3.8 mmol/L (3.5-5.1); Sodium 141 mmol/L (136-145); Total Bilirubin 0.4 mg/dL (0.15-1.2); Total Protein 5.5 g/dL (6.6-8.7)
[2023-04-12] MEDS: pantoprazole DR 40 mg Tablet PO (06:10)
[2023-04-12] MEDS: rivaroxaban 10 mg Tablet PO (06:10)
[2023-04-12] MEDS: fludrocortisone 0.1 mg Tablet PO ×2 (08:06→18:26)
[2023-04-12] MEDS: gabapentin 400 mg Capsule PO ×2 (08:06→18:27)
[2023-04-12 08:34] LABS: Cortisol Random 9.78 ug/dL (2.47-19.5)
[2023-04-12] MEDS: sodium chloride 0.9% 1,000 ML 50 ML IV (10:11)
--- NOTE | 2023-04-12 14:40 | PM.PN ---
Subjective Subjective: Patient was seen this morning, she is alert, awake, no chest pain, no palpitations, review of patient's orthostatic vitals, her systolic blood pressure dropped to 68/46, upon standing up, was grossly orthostatic, denies passing out, Vitals/I&O/Wt Last Vital Signs Temp 97.7 F 04/12/23 12:00 Pulse 52 L 04/12/23 12:00 Resp 14 04/12/23 12:00 BP 145/58 04/12/23 12:00 Pulse Ox 96 04/12/23 12:00 O2 Del Method Nasal Cannula 04/12/23 12:00 O2 Flow Rate 2 04/12/23 08:02 04/11/23 04/12/23 04/12/23 22:59 06:59 14:59 Intake Total 170 / 170 993.333 / 1163.333 480 / 480 Output Total 300 / 300 575 / 875 Balance -130 / -130 418.333 / 288.333 480 / 480 Weight last 48 hrs Weight 65.771 kg Physical Exam Const: COMMON NORMALS: no acute distress and patient oriented x3 Resp: COMMON NORMALS: normal respiratory effort, No retractions, No use of accessory muscles and clear to auscultation bilaterally AUSCULTATION: clear to auscultation bilaterally Cardio: COMMON NORMALS: regular rate, regular rhythm, S1 normal heart sound present and S2 normal heart sound present RATE: regular rate RHYTHM: regular rhythm HEART SOUNDS: S1 normal heart sound present and S2 normal heart sound present GI: COMMON NORMALS: Normal to inspection, nondistended, normoactive bowel sounds present and non-tender Extremity: COMMON NORMALS: no pedal edema Neuro: COMMON NORMALS: patient oriented x3 Psych: COMMON NORMALS: mental status grossly normal Data 04/12/23 04:12 04/12/23 04:12 Micro: Microbiology 04/11/23 14:53 Blood Culture - Preliminary Blood SPECIMEN COLLECTED 04/11/23 14:50 Blood Culture - Preliminary Blood SPECIMEN COLLECTED A&P Assessment and plan (1) Syncope: (2) Chest pain: (3) Orthostatic hypotension: (4) S/P AAA repair: (5) Stented coronary artery: (6) CAD (coronary artery disease): (7) COPD (chronic obstructive pulmonary disease): (8) LOC (loss of consciousness): (9) Anticoagulation adequate with anticoagulant therapy: (10) NSTEMI (non-ST elevated myocardial infarction): (11) Hypertension: Qualifiers: Hypertension type: essential hypertension Qualified Code(s): I10 - Essential (primary) hypertension (12) Hyperlipidemia: Qualifiers: Hyperlipidemia type: mixed hyperlipidemia Qualified Code(s): E78.2 - Mixed hyperlipidemia (13) Pulmonary embolism: Qualifiers: Pulmonary embolism type: unspecified Chronicity: chronic Acute cor pulmonale presence: unspecified Qualified Code(s): I27.82 - Chronic pulmonary embolism Plan Syncope ? Orthostatic hypotension, here her systolic blood pressure dropped to 68/46 upon standing up, she has not passed out here in the hospital ? Recent history of orthostatic hypotension on fludrocortisone, will recheck her orthostats, ? She is currently on antibiotics for UTI repeat UA, started on Rocephin, urine cultures, blood cultures, ? She recently had a stent placed to her left circumflex, serial EKGs, serial troponins, telemetry monitoring, continue Xarelto, aspirin, statin,, she does complain of anterior chest discomfort ? She does have a loop recorder in place, the last time was interrogated was in 09/24/2022, will interrogate ? Continue IV fluids ? Serial EKGs, serial troponins, telemetry monitoring, ? Cardiac echo CONCLUSIONS ?1. Normal left ventricular size, systolic function and wall ?thickness, with no regional wall motion abnormalities. Left ?ventricular ejection fraction is estimated at 70 %. Grade I ?diastolic dysfunction (abnormal relaxation filling pattern), ?normal to mildly elevated filling pressures. ?2. Normal right ventricular size and systolic function. ?3. No significant valvular abnormality. ?4. There may not have been any significant change when compared ?to study dated 11/01/2019. ? Carotid artery ultrasound, US/CV carotid duplex BI* [id number] IMPRESSION: 1. Calcified plaque in the right internal carotid artery with less than 50% stenosis. 2. Calcified plaque in the left internal carotid artery with 50-69% stenosis.? ? CT head within normal limits, ? X-ray left shoulder within normal limits ? If she does have any other pain complaints, from her fall, will do x-ray -History of bilateral non-small cell lung cancer stage Ia, status post left upper lobe lobectomy, left mediastinal lymphadenectomy, and right upper lobe lobectomy and right mediastinal lymphadenectomy, ? History of right vocal cord paralysis ? She has a history of repeated falls, history of loss of consciousness for she has a loop recorder placed for monitoring of arrhythmias, last interrogation, no arrhythmia events that I could see ? PT OT, ? Full code ? Xarelto for DVT prophylaxis Attestations Medical Necessity Statement*: Patient requires hospitalization, inpatient, greater than 2 midnights, for orthostatic hypotension, systolic blood pressures dropping more than 40 points upon standing, requiring IV hydration, Diagnoses Syncope R55 Chest pain R07.9 Orthostatic hypotension I95.1 S/P AAA repair Z98.890; Z86.79 Stented coronary artery Z95.5 CAD (coronary artery disease) I25.10 COPD (chronic obstructive pulmonary disease) J44.9 LOC (loss of consciousness) R40.20 Anticoagulation adequate with anticoagulant therapy Z79.01 NSTEMI (non-ST elevated myocardial infarction) I21.4 Hypertension I10 Hypertension type: essential hypertension Hyperlipidemia E78.2 Hyperlipidemia type: mixed hyperlipidemia Pulmonary embolism I27.82 Pulmonary embolism type: unspecified Chronicity: chronic Acute cor pulmonale presence: unspecified
[2023-04-12] MEDS: aspirin 81 mg EC Tablet PO (18:26)
[2023-04-12] MEDS: cefTRIAXone 1,000 MG in sodium chloride 0.9% (plus) 50 ML 100 MG IV (18:27)
[2023-04-12] MEDS: famotidine 20 mg Tablet PO (21:40)
[2023-04-13] VITALS (10 sets, daily range): BP systolic 88–182; BP diastolic 46–77; PULSE 55–80; RESP 17–20; TEMP 36.8–37.8; O2SAT 90–95
--- NOTE | 2023-04-13 01:00 | PC.NURSE ---
Patient has ripped out her IV and states, I want out of here. She is currently calling family. Recent VS BP171/77, HR 75, R19, SpO2 94%. She is refusing to have new IV placed, telemetry, and NC. Informed Dr Crooks. Received OK to leave IV out for now.
--- NOTE | 2023-04-13 01:55 | PC.NURSE ---
checking on patient: found patient in bed with IV catheter in hand, telemetry, NC, O2 sensor all laying on bed. Patient grabbed my arm and was trying to poke me with IV catheter stating What is going on, I know what your doing with all those damn people in the espitia. Call the police there is a drug bust going down. Patient then wanted her phone and started calling family, son answered and she talked to him and stated to him that she wanted him to get her out of this place, to come get her and bring the police. Dr dowling was notified, son called nurses station and I explained what happened. Son stated that he can come and sit with her. Dr dowling approved moving her to a private room. Patient was moved from room 112 bed 2 to 103.
[2023-04-13 07:41] LABS: Basophils % 0.5 %; Eosinophils # 0.1 10^3/uL (0.0-0.8); Eosinophils % 1.8 %; Hematocrit 36.5 % (36-47); Lymphocytes # 0.7 10^3/uL (0.8-4.8); Lymphocytes % 11.5 %; Mean Corpuscular Hemoglobin 28.6 pg (27-33); Mean Corpuscular Volume 92.4 fl (85-98); Mean Platelet Volume 9.5 fL (7.4-10.4); Monocytes # 0.6 10^3/uL (0.2-0.9); Monocytes % 9.6 %; Neutrophils # 4.61 10^3/uL (1.8-7.7); Neutrophils % 75.9 %; Nucleated Red Blood Cells % 0 %; Platelet Count 267 10^3/cmm (157-399); Red Blood Count 3.95 10^6/uL (3.85-5.65); White Blood Count 6.07 10^3/uL (3.29-11.43)
[2023-04-13 08:07] LABS: Alanine Aminotransferase 10 U/L (0-33); Albumin Level 3.4 g/dL (3.5-5.2); Alkaline Phosphatase 66 U/L (35-105); Anion Gap 11.9 (5-19); Aspartate Amino Transferase 17 U/L (0-32); Blood Urea Nitrogen 19 mg/dL (8-23); Calcium 8.7 mg/dL (8.5-10.5); Carbon Dioxide 31 mmol/L (22-29); Chloride 106 mmol/L (98-107); Globulin 2.4 g/dL (1.3-4.6); Glucose 110 mg/dL (65-115); Magnesium 1.9 mg/dL (1.7-2.3); Osmolality Calculated 303 mOsm/kg (285-295); Phosphorus 3.5 mg/dL (2.5-4.5); Potassium 3.9 mmol/L (3.5-5.1); Sodium 145 mmol/L (136-145); Total Bilirubin 0.2 mg/dL (0.15-1.2); Total Protein 5.8 g/dL (6.6-8.7)
[2023-04-13] MEDS: rivaroxaban 10 mg Tablet PO (08:41)
[2023-04-13] MEDS: pantoprazole DR 40 mg Tablet PO (08:41)
[2023-04-13] MEDS: gabapentin 400 mg Capsule PO ×2 (08:41→19:42)
[2023-04-13] MEDS: amiodarone 200 mg Tablet 100 MG PO (08:42)
[2023-04-13] MEDS: HYDROcodone-acetaminophen 7.5-325 mg Tablet 1 TAB PO (08:48)
--- NOTE | 2023-04-13 10:25 | PC.CHAP ---
Pastoral Care Encounter/Spiritual Assessment Type of Contact [] Declined hadoop infrastructure architect visit [] Patient/Family/Request visit [] Outpatient visit [] Follow-up visit [] Physician referral [] Code/Alert [x] Routine visit [] Staff referral [] Actively dying [] Patient sleeping [x] Family support [] [] Out of room [] Palliative care [] [] Receiving care in room [] Pre-surgical visit [] Trauma [] Long length of stay [] ICU visit [] Other: Relational/Emotional Strength [x] Patient feels connected with others/family/visitors/staff [] Distress [] Loneliness/isolation [] Abandonment Spirituality of Patient [x] Person of Janell [] Attends Roman Catholic of their Janell [x] Believes in Prayer [] Reads Bible or Presybeterian materials [] There are Spiritual issues to be addressed Rn Gynecology Interventions [x] Prayer [x] Active listening [] Non-anxious presence [x] Spiritual/emotional support [] Crisis/trauma care [] Spiritual counseling [] Bereavement support [] Provided bereavement packet [] Provided Bible/devotional materials [] Provided toy/stuffed animal, coloring book to patient or family member [] Provided Communion [] Anointing/[place] [] Salvation [x] Completed spiritual assessment [] Other: Impact on Illness or Injury [] Angry [] Fearful [] Anxious [] Often cries [] Exhaustion [] Unable to work [] Unable to attend denominational [] Unable to walk/stand [] Unable to read [] Unable to drive [] Unable to eat/drink [] Unable to sleep [] Unable to be with family [] Patient intubated [] Other: Summary Time spent with patient 5 min
[2023-04-13] MEDS: sodium chloride 0.9% 1,000 ML 50 ML IV (12:24)
--- NOTE | 2023-04-13 14:51 | CTR_ITS ---
PROCEDURE INFORMATION: Exam: CT Left Upper Extremity Without Contrast, Shoulder Exam date and time: 04/13/2023 6:37 PM Age: 87 years old Clinical indication: Injury or trauma; Fall; Blunt trauma (contusions or hematomas); Shoulder; Left; Additional info: Fall , pain TECHNIQUE: Imaging protocol: Computed tomography of the left upper extremity without contrast. Exam focused on the shoulder. Radiation optimization: All CT scans at this facility use at least one of these dose optimization techniques: automated exposure control; mA and/or kV adjustment per patient size (includes targeted exams where dose is matched to clinical indication); or iterative reconstruction. REPORTING DATA: Count of CT and Cardiac NM exams in prior 12 months: This patient has received 2 known CTs and 0 known cardiac nuclear medicine studies in the 12 months prior to the current study. COMPARISON: CR (CHEST, ) 04/11/2023 12:26 PM RADIATION DOSE METRICS: Total DLP (mGy-cm): 267 FINDINGS: Bones/joints: Chronic osteoarthritic changes in the left glenohumeral joint. No fracture or joint effusion. Soft tissues: There are a few tendinous calcifications within the infraspinatus tendon. Vasculature: There is centrilobular emphysema in the upper lobes new line the aortic arch is heavily calcified and mildly enlarged measuring up to 3.7 cm in the descending aorta. The ascending aorta is not included in the field of view. CT/CT shoulder LT wo con* [id number] IMPRESSION: 1. No fracture or joint effusion. 2. Chronic primary osteoarthritis. 3. Calcific tendinosis of the infraspinatus 4. Other chronic findings as described
--- NOTE | 2023-04-13 14:51 | PM.PN ---
Subjective Subjective: Patient was seen this morning, her son is at bedside, during my examination patient was receiving orthostatic vitals, standing her systolic blood pressure was 88/46 she was lightheaded and dizzy, had to be sat down, sitting her blood pressure was 165/74, I discussed with her that she has remained or orthostatic, continues to have orthostatic hypotension, certainly this is again to be a difficult situation, I Eugenie cut down her amiodarone dose, she has had elevated systolic blood pressures as high as 171, but in her case, trying to treat the blood pressures, will have undue consequences of orthostatic hypotension, and morbidity and mortality associated, but on the other hand elevated blood pressures also have a risk of CVAs and strokes and cardiovascular events, certainly this is a difficult situation, there is no perfect answer, but in her case given her age and risk factors, at this time I think she has a high risk of morbidity mortality associate with orthostatic hypotension, but low risk of cardiovascular events or CVAs or kidney problems or morbidity or mortality from elevated blood pressure does still exist and low risk does not mean no risk. After discussing the risk and benefits, her and her son voiced understanding, all Qs answered, agreed to hold blood pressure medications for now, will monitor her orthostatic vitals here in the hospital, as she remains symptomatic from orthostatic hypotension she is on fludrocortisone, I can certainly consider hydrocortisone, but I am worried about fluid overload, I do not think that she will qualify for metolazone, due to elevated systolic blood pressure at baseline, and worsening hypertension Vitals/I&O/Wt Last Vital Signs Temp 98.2 F 04/13/23 12:00 Pulse 60 04/13/23 12:00 Resp 19 H 04/13/23 12:00 BP 153/66 04/13/23 12:00 Pulse Ox 91 04/13/23 12:00 O2 Del Method Room Air 04/13/23 12:00 O2 Flow Rate 2 04/12/23 08:02 04/12/23 04/13/23 04/13/23 22:59 06:59 14:59 Intake Total 1590 / 2070 739.167 / 2809.167 462 / 462 Output Total 700 / 700 Balance 890 / 1370 739.167 / 2109.167 462 / 462 Physical Exam Const: COMMON NORMALS: no acute distress and patient oriented x3 Resp: COMMON NORMALS: normal respiratory effort, No retractions, No use of accessory muscles and clear to auscultation bilaterally AUSCULTATION: clear to auscultation bilaterally Cardio: COMMON NORMALS: regular rate, regular rhythm, S1 normal heart sound present and S2 normal heart sound present RATE: regular rate RHYTHM: regular rhythm HEART SOUNDS: S1 normal heart sound present and S2 normal heart sound present GI: COMMON NORMALS: Normal to inspection, nondistended, normoactive bowel sounds present and non-tender Extremity: COMMON NORMALS: no pedal edema Neuro: COMMON NORMALS: patient oriented x3 Psych: COMMON NORMALS: mental status grossly normal Data 04/13/23 06:54 04/13/23 06:54 Micro: Microbiology 04/11/23 20:27 Urine Culture - Final Urine,Clean Catch 04/11/23 14:50 Blood Culture - Preliminary Blood NEGATIVE TO DATE 04/11/23 14:53 Blood Culture - Preliminary Blood NEGATIVE TO DATE A&P Assessment and plan (1) Syncope: (2) Chest pain: (3) Orthostatic hypotension: (4) S/P AAA repair: (5) Stented coronary artery: (6) CAD (coronary artery disease): (7) COPD (chronic obstructive pulmonary disease): (8) LOC (loss of consciousness): (9) Anticoagulation adequate with anticoagulant therapy: (10) NSTEMI (non-ST elevated myocardial infarction): (11) Hypertension: Qualifiers: Hypertension type: essential hypertension Qualified Code(s): I10 - Essential (primary) hypertension (12) Hyperlipidemia: Qualifiers: Hyperlipidemia type: mixed hyperlipidemia Qualified Code(s): E78.2 - Mixed hyperlipidemia (13) Pulmonary embolism: Qualifiers: Pulmonary embolism type: unspecified Chronicity: chronic Acute cor pulmonale presence: unspecified Qualified Code(s): I27.82 - Chronic pulmonary embolism Plan Syncope ? Remains symptomatic, and positive orthostatic vitals ? O ? Recent history of orthostatic hypotension on fludrocortisone, will recheck her orthostats, ? She is currently on antibiotics for UTI repeat UA, started on Rocephin, urine cultures, blood cultures, ? She recently had a stent placed to her left circumflex, serial EKGs, serial troponins, telemetry monitoring, continue Xarelto, aspirin, statin,, she does complain of anterior chest discomfort ? She does have a loop recorder in place, the last time was interrogated was in 09/24/2022, will interrogate ? Continue IV fluids ? Serial EKGs, serial troponins, telemetry monitoring, ? Cardiac echo CONCLUSIONS ?1. Normal left ventricular size, systolic function and wall ?thickness, with no regional wall motion abnormalities. Left ?ventricular ejection fraction is estimated at 70 %. Grade I ?diastolic dysfunction (abnormal relaxation filling pattern), ?normal to mildly elevated filling pressures. ?2. Normal right ventricular size and systolic function. ?3. No significant valvular abnormality. ?4. There may not have been any significant change when compared ?to study dated 11/01/2019. ? Carotid artery ultrasound, US/CV carotid duplex BI* [id number] IMPRESSION: 1. Calcified plaque in the right internal carotid artery with less than 50% stenosis. 2. Calcified plaque in the left internal carotid artery with 50-69% stenosis.? ? CT head within normal limits, ? X-ray left shoulder within normal limits -History of bilateral non-small cell lung cancer stage Ia, status post left upper lobe lobectomy, left mediastinal lymphadenectomy, and right upper lobe lobectomy and right mediastinal lymphadenectomy, ? History of right vocal cord paralysis ? She has a history of repeated falls, history of loss of consciousness for she has a loop recorder placed for monitoring of arrhythmias, last interrogation, no arrhythmia events that I could see ? PT OT, ? Full code ? Xarelto for DVT prophylaxis Plan is to continue IV fluids, continue to monitor orthostatic vitals, she does complain of persistent left shoulder pain from her fall we will do an a CT scan, Attestations Medical Necessity Statement*: Patient requires hospitalization for orthostatic hypotension Diagnoses Syncope R55 Chest pain R07.9 Orthostatic hypotension I95.1 S/P AAA repair Z98.890; Z86.79 Stented coronary artery Z95.5 CAD (coronary artery disease) I25.10 COPD (chronic obstructive pulmonary disease) J44.9 LOC (loss of consciousness) R40.20 Anticoagulation adequate with anticoagulant therapy Z79.01 NSTEMI (non-ST elevated myocardial infarction) I21.4 Hypertension I10 Hypertension type: essential hypertension Hyperlipidemia E78.2 Hyperlipidemia type: mixed hyperlipidemia Pulmonary embolism I27.82 Pulmonary embolism type: unspecified Chronicity: chronic Acute cor pulmonale presence: unspecified
--- NOTE | 2023-04-13 15:59 | PC.OT ---
OT tx attempted 2x today (1400 and 1530). Pt sleeping soundly on both attempts and family reports pt did not sleep well last night. Physical Therapy was able to get pt up for short time between OT attempts but her BP dropped and she was returned to bed. Pt also has an order for CT to L shoulder due to continued complaints of severe pain. OT to attempt tx again tomorrow.
[2023-04-13] MEDS: cefTRIAXone 1,000 MG in sodium chloride 0.9% (plus) 50 ML 100 MG IV (19:40)
[2023-04-14] VITALS (14 sets, daily range): BP systolic 104–177; BP diastolic 49–86; PULSE 54–86; RESP 13–25; TEMP 36.5–37; O2SAT 94–99
[2023-04-14] MEDS: HYDROcodone-acetaminophen 7.5-325 mg Tablet 1 TAB PO ×3 (04:56→21:41)
[2023-04-14 05:53] LABS: Basophils # 0.1 10^3/uL (0.0-0.1); Basophils % 0.8 %; Eosinophils # 0.2 10^3/uL (0.0-0.8); Eosinophils % 2.4 %; Hematocrit 36.7 % (36-47); Lymphocytes # 0.9 10^3/uL (0.8-4.8); Lymphocytes % 13.8 %; Mean Corpuscular HGB Conc 30.5 g/dL (30-55); Mean Corpuscular Hemoglobin 28.3 pg (27-33); Mean Corpuscular Volume 92.7 fl (85-98); Mean Platelet Volume 9.3 fL (7.4-10.4); Monocytes # 0.6 10^3/uL (0.2-0.9); Monocytes % 8.9 %; Neutrophils # 4.57 10^3/uL (1.8-7.7); Neutrophils % 73.6 %; Nucleated Red Blood Cells % 0 %; Platelet Count 279 10^3/cmm (157-399); Red Blood Count 3.96 10^6/uL (3.85-5.65); White Blood Count 6.21 10^3/uL (3.29-11.43)
[2023-04-14 06:18] LABS: Alanine Aminotransferase 9 U/L (0-33); Albumin Level 3.3 g/dL (3.5-5.2); Alkaline Phosphatase 61 U/L (35-105); Anion Gap 10.9 (5-19); Aspartate Amino Transferase 15 U/L (0-32); Blood Urea Nitrogen 18 mg/dL (8-23); Calcium 8.7 mg/dL (8.5-10.5); Carbon Dioxide 31 mmol/L (22-29); Chloride 106 mmol/L (98-107); Globulin 2.8 g/dL (1.3-4.6); Glucose 115 mg/dL (65-115); Magnesium 1.8 mg/dL (1.7-2.3); Osmolality Calculated 301 mOsm/kg (285-295); Phosphorus 3.3 mg/dL (2.5-4.5); Potassium 3.9 mmol/L (3.5-5.1); Sodium 144 mmol/L (136-145); Total Bilirubin 0.2 mg/dL (0.15-1.2); Total Protein 6.1 g/dL (6.6-8.7)
[2023-04-14] MEDS: gabapentin 400 mg Capsule PO ×2 (08:35→18:12)
[2023-04-14] MEDS: amiodarone 200 mg Tablet 100 MG PO (08:36)
[2023-04-14] MEDS: pantoprazole DR 40 mg Tablet PO (08:38)
[2023-04-14] MEDS: rivaroxaban 10 mg Tablet PO (08:38)
[2023-04-14] MEDS: sodium chloride 0.9% 1,000 ML 50 ML IV (09:06)
--- NOTE | 2023-04-14 10:31 | PC.CHAP ---
Pastoral Care Encounter/Spiritual Assessment Type of Contact [] Declined pharmacy technician instructor visit [] Patient/Family/Request visit [] Outpatient visit [] Follow-up visit [] Physician referral [] Code/Alert [x] Routine visit [] Staff referral [] Actively dying [] Patient sleeping [] Family support [] [] Out of room [] Palliative care [] [] Receiving care in room [] Pre-surgical visit [] Trauma [] Long length of stay [] ICU visit [] Other: Relational/Emotional Strength [] Patient feels connected with others/family/visitors/staff [] Distress [] Loneliness/isolation [] Abandonment Spirituality of Patient [] Person of Janell [] Attends Anglican of their Janell [] Believes in Prayer [] Reads Bible or Sabianism materials [] There are Spiritual issues to be addressed Rn Surgery Interventions [x] Prayer [] Active listening [] Non-anxious presence [] Spiritual/emotional support [] Crisis/trauma care [] Spiritual counseling [] Bereavement support [] Provided bereavement packet [] Provided Bible/devotional materials [] Provided toy/stuffed animal, coloring book to patient or family member [] Provided Communion [] Anointing/[place] [] Salvation [] Completed spiritual assessment [] Other: Impact on Illness or Injury [] Angry [] Fearful [] Anxious [] Often cries [] Exhaustion [] Unable to work [] Unable to attend scientology [] Unable to walk/stand [] Unable to read [] Unable to drive [] Unable to eat/drink [] Unable to sleep [] Unable to be with family [] Patient intubated [] Other: Summary Time spent with patient 15 min
--- NOTE | 2023-04-14 16:10 | PM.PN ---
Subjective Subjective: Patient was seen this morning, she is alert oriented x3, following all commands, her orthostats were positive this morning, drop more than 70 points, she had reported lightheadedness, no fevers, no chills, no cough Vitals/I&O/Wt Last Vital Signs Temp 98.3 F 04/14/23 15:59 Pulse 55 L 04/14/23 15:59 Resp 25 H 04/14/23 15:59 BP 152/59 04/14/23 15:59 Pulse Ox 97 04/14/23 15:59 O2 Del Method Nasal Cannula 04/14/23 15:59 O2 Flow Rate 2 04/12/23 08:02 04/14/23 04/14/23 04/14/23 06:59 14:59 22:59 Intake Total 0 / 990 1600 / 1600 Output Total 1350 / 1650 430 / 430 Balance -1350 / -660 1170 / 1170 Physical Exam Const: COMMON NORMALS: no acute distress and patient oriented x3 Resp: COMMON NORMALS: normal respiratory effort, No retractions, No use of accessory muscles and clear to auscultation bilaterally AUSCULTATION: clear to auscultation bilaterally Cardio: COMMON NORMALS: regular rate, regular rhythm, S1 normal heart sound present and S2 normal heart sound present RATE: regular rate RHYTHM: regular rhythm HEART SOUNDS: S1 normal heart sound present and S2 normal heart sound present GI: COMMON NORMALS: Normal to inspection, nondistended, normoactive bowel sounds present and non-tender Extremity: COMMON NORMALS: no pedal edema Neuro: COMMON NORMALS: patient oriented x3 Psych: COMMON NORMALS: mental status grossly normal Data 04/14/23 05:15 04/14/23 05:15 A&P Assessment and plan (1) Syncope: (2) Chest pain: (3) Orthostatic hypotension: (4) S/P AAA repair: (5) Stented coronary artery: (6) CAD (coronary artery disease): (7) COPD (chronic obstructive pulmonary disease): (8) LOC (loss of consciousness): (9) Anticoagulation adequate with anticoagulant therapy: (10) NSTEMI (non-ST elevated myocardial infarction): (11) Hypertension: Qualifiers: Hypertension type: essential hypertension Qualified Code(s): I10 - Essential (primary) hypertension (12) Hyperlipidemia: Qualifiers: Hyperlipidemia type: mixed hyperlipidemia Qualified Code(s): E78.2 - Mixed hyperlipidemia (13) Pulmonary embolism: Qualifiers: Pulmonary embolism type: unspecified Chronicity: chronic Acute cor pulmonale presence: unspecified Qualified Code(s): I27.82 - Chronic pulmonary embolism Plan Syncope ? Remains symptomatic, and positive orthostatic vitals ?SBP Dropped 70 points ? Recent history of orthostatic hypotension on fludrocortisone, will recheck her orthostats, ? She is currently on antibiotics for UTI repeat UA, started on Rocephin, urine cultures, blood cultures, ? She recently had a stent placed to her left circumflex, serial EKGs, serial troponins, telemetry monitoring, continue Xarelto, aspirin, statin,, she does complain of anterior chest discomfort ? She does have a loop recorder in place, the last time was interrogated was in 09/24/2022, will interrogate ? Continue IV fluids ? Serial EKGs, serial troponins, telemetry monitoring, ? Cardiac echo CONCLUSIONS ?1. Normal left ventricular size, systolic function and wall ?thickness, with no regional wall motion abnormalities. Left ?ventricular ejection fraction is estimated at 70 %. Grade I ?diastolic dysfunction (abnormal relaxation filling pattern), ?normal to mildly elevated filling pressures. ?2. Normal right ventricular size and systolic function. ?3. No significant valvular abnormality. ?4. There may not have been any significant change when compared ?to study dated 11/01/2019. ? Carotid artery ultrasound, US/CV carotid duplex BI* [id number] IMPRESSION: 1. Calcified plaque in the right internal carotid artery with less than 50% stenosis. 2. Calcified plaque in the left internal carotid artery with 50-69% stenosis.? ? CT head within normal limits, ? X-ray left shoulder within normal limits -History of bilateral non-small cell lung cancer stage Ia, status post left upper lobe lobectomy, left mediastinal lymphadenectomy, and right upper lobe lobectomy and right mediastinal lymphadenectomy, ? History of right vocal cord paralysis ? She has a history of repeated falls, history of loss of consciousness for she has a loop recorder placed for monitoring of arrhythmias, last interrogation, no arrhythmia events that I could see ? PT OT, ? Full code ? Xarelto for DVT prophylaxis Plan is to continue IV fluids, continue to monitor orthostatic vitals, Attestations Medical Necessity Statement*: Patient requires hospitalization for persistent orthostatic hypotension, on IV fluids, Diagnoses Syncope R55 Chest pain R07.9 Orthostatic hypotension I95.1 S/P AAA repair Z98.890; Z86.79 Stented coronary artery Z95.5 CAD (coronary artery disease) I25.10 COPD (chronic obstructive pulmonary disease) J44.9 LOC (loss of consciousness) R40.20 Anticoagulation adequate with anticoagulant therapy Z79.01 NSTEMI (non-ST elevated myocardial infarction) I21.4 Hypertension I10 Hypertension type: essential hypertension Hyperlipidemia E78.2 Hyperlipidemia type: mixed hyperlipidemia Pulmonary embolism I27.82 Pulmonary embolism type: unspecified Chronicity: chronic Acute cor pulmonale presence: unspecified
[2023-04-14] MEDS: cefTRIAXone 1,000 MG in sodium chloride 0.9% (plus) 50 ML 100 MG IV (18:07)
[2023-04-14] MEDS: fludrocortisone 0.1 mg Tablet PO (18:12)
[2023-04-14] MEDS: aspirin 81 mg EC Tablet PO (18:12)
[2023-04-15] VITALS (11 sets, daily range): BP systolic 84–172; BP diastolic 44–79; PULSE 50–64; RESP 14–19; TEMP 36.4–36.8; O2SAT 91–100
[2023-04-15 04:03] LABS: Basophils % 0.7 %; Eosinophils # 0.2 10^3/uL (0.0-0.8); Eosinophils % 3.5 %; Lymphocytes % 19.1 %; Mean Corpuscular HGB Conc 30.3 g/dL (30-55); Mean Corpuscular Hemoglobin 28.1 pg (27-33); Mean Corpuscular Volume 92.9 fl (85-98); Mean Platelet Volume 9.5 fL (7.4-10.4); Monocytes # 0.5 10^3/uL (0.2-0.9); Neutrophils # 3.67 10^3/uL (1.8-7.7); Neutrophils % 67.3 %; Nucleated Red Blood Cells % 0 %; Platelet Count 273 10^3/cmm (157-399); Red Blood Count 3.66 10^6/uL (3.85-5.65); Red Cell Distribution Width 13.9 % (12.1-15.1); White Blood Count 5.45 10^3/uL (3.29-11.43)
[2023-04-15 04:31] LABS: Alanine Aminotransferase 8 U/L (0-33); Alkaline Phosphatase 57 U/L (35-105); Anion Gap 11.9 (5-19); Aspartate Amino Transferase 15 U/L (0-32); Blood Urea Nitrogen 20 mg/dL (8-23); Calcium 8.7 mg/dL (8.5-10.5); Carbon Dioxide 29 mmol/L (22-29); Chloride 105 mmol/L (98-107); Globulin 2.6 g/dL (1.3-4.6); Glucose 98 mg/dL (65-115); Magnesium 1.8 mg/dL (1.7-2.3); Osmolality Calculated 297 mOsm/kg (285-295); Phosphorus 3.7 mg/dL (2.5-4.5); Potassium 3.9 mmol/L (3.5-5.1); Sodium 142 mmol/L (136-145); Total Bilirubin 0.2 mg/dL (0.15-1.2); Total Protein 5.6 g/dL (6.6-8.7)
[2023-04-15] MEDS: gabapentin 400 mg Capsule PO ×2 (09:21→17:47)
[2023-04-15] MEDS: amiodarone 200 mg Tablet 100 MG PO (09:21)
[2023-04-15] MEDS: fludrocortisone 0.1 mg Tablet PO ×2 (09:21→17:47)
[2023-04-15] MEDS: rivaroxaban 10 mg Tablet PO (09:22)
[2023-04-15] MEDS: pantoprazole DR 40 mg Tablet PO (09:22)
[2023-04-15] MEDS: HYDROcodone-acetaminophen 7.5-325 mg Tablet 1 TAB PO (10:56)
--- NOTE | 2023-04-15 16:30 | P.PN_ITS ---
Subjective Subjective: Patient was seen this morning, she continues to have orthostatic hypotension, she denies any syncopal episodes but does feel lightheadedness, will continue to monitor her blood pressures, will consider adding on possible midodrine Vitals/I&O/Wt Last Vital Signs Temp 97.8 F 04/15/23 08:18 Pulse 61 04/15/23 12:18 Resp 19 H 04/15/23 12:00 BP 139/69 04/15/23 12:18 Pulse Ox 91 04/15/23 12:00 O2 Del Method Room Air 04/15/23 12:00 O2 Flow Rate 2 04/12/23 08:02 04/15/23 04/15/23 04/15/23 06:59 14:59 22:59 Intake Total 150 / 2000 240 / 240 Balance 150 / 1570 240 / 240 Physical Exam Const: COMMON NORMALS: no acute distress and patient oriented x3 Resp: COMMON NORMALS: normal respiratory effort, No retractions, No use of accessory muscles and clear to auscultation bilaterally AUSCULTATION: clear to auscultation bilaterally Cardio: COMMON NORMALS: regular rate, regular rhythm, S1 normal heart sound present and S2 normal heart sound present RATE: regular rate RHYTHM: regular rhythm HEART SOUNDS: S1 normal heart sound present and S2 normal heart sound present GI: COMMON NORMALS: Normal to inspection, nondistended, normoactive bowel sounds present and non-tender Extremity: COMMON NORMALS: no pedal edema Neuro: COMMON NORMALS: patient oriented x3 Psych: COMMON NORMALS: mental status grossly normal Data 04/15/23 03:17 04/15/23 03:17 A&P Assessment and plan (1) Syncope: (2) Chest pain: (3) Orthostatic hypotension: (4) S/P AAA repair: (5) Stented coronary artery: (6) CAD (coronary artery disease): (7) COPD (chronic obstructive pulmonary disease): (8) LOC (loss of consciousness): (9) Anticoagulation adequate with anticoagulant therapy: (10) NSTEMI (non-ST elevated myocardial infarction): (11) Hypertension: Qualifiers: Hypertension type: essential hypertension Qualified Code(s): I10 - Essential (primary) hypertension (12) Hyperlipidemia: Qualifiers: Hyperlipidemia type: mixed hyperlipidemia Qualified Code(s): E78.2 - Mixed hyperlipidemia (13) Pulmonary embolism: Qualifiers: Pulmonary embolism type: unspecified Chronicity: chronic Acute cor pulmonale presence: unspecified Qualified Code(s): I27.82 - Chronic pulmonary embolism Plan Syncope ? Remains symptomatic, and positive orthostatic vitals ?SBP Dropped 50 points ? Recent history of orthostatic hypotension on fludrocortisone, will recheck her orthostats, ? She is currently on antibiotics for UTI repeat UA, started on Rocephin, urine cultures, blood cultures, ? She recently had a stent placed to her left circumflex, serial EKGs, serial troponins, telemetry monitoring, continue Xarelto, aspirin, statin,, she does complain of anterior chest discomfort ? She does have a loop recorder in place, the last time was interrogated was in 09/24/2022, will interrogate ? Stop IV fluids as there is concerns for fluid overload ? Continue fludrocortisone, ? We will try low-dose midodrine 2.5 mg 3 times daily ? Serial EKGs, serial troponins, telemetry monitoring, ? Cardiac echo CONCLUSIONS ?1. Normal left ventricular size, systolic function and wall ?thickness, with no regional wall motion abnormalities. Left ?ventricular ejection fraction is estimated at 70 %. Grade I ?diastolic dysfunction (abnormal relaxation filling pattern), ?normal to mildly elevated filling pressures. ?2. Normal right ventricular size and systolic function. ?3. No significant valvular abnormality. ?4. There may not have been any significant change when compared ?to study dated 11/01/2019. ? Carotid artery ultrasound, US/CV carotid duplex BI* [id number] IMPRESSION: 1. Calcified plaque in the right internal carotid artery with less than 50% stenosis. 2. Calcified plaque in the left internal carotid artery with 50-69% stenosis.? ? CT head within normal limits, ? X-ray left shoulder within normal limits -History of bilateral non-small cell lung cancer stage Ia, status post left upper lobe lobectomy, left mediastinal lymphadenectomy, and right upper lobe lobectomy and right mediastinal lymphadenectomy, ? History of right vocal cord paralysis ? She has a history of repeated falls, history of loss of consciousness for she has a loop recorder placed for monitoring of arrhythmias, last interrogation, no arrhythmia events that I could see ? PT OT, ? Full code ? Xarelto for DVT prophylaxis Plan is to continue to monitor orthostats, continue PT OT, midodrine Attestations Medical Necessity Statement*: Patient requires hospitalization for syncope, positive orthostats Diagnoses Syncope R55 Chest pain R07.9 Orthostatic hypotension I95.1 S/P AAA repair Z98.890; Z86.79 Stented coronary artery Z95.5 CAD (coronary artery disease) I25.10 COPD (chronic obstructive pulmonary disease) J44.9 LOC (loss of consciousness) R40.20 Anticoagulation adequate with anticoagulant therapy Z79.01 NSTEMI (non-ST elevated myocardial infarction) I21.4 Hypertension I10 Hypertension type: essential hypertension Hyperlipidemia E78.2 Hyperlipidemia type: mixed hyperlipidemia Pulmonary embolism I27.82 Pulmonary embolism type: unspecified Chronicity: chronic Acute cor pulmonale presence: unspecified
[2023-04-15] MEDS: midodrine 5 mg TABLET PO (17:47)
[2023-04-15] MEDS: aspirin 81 mg EC Tablet PO (17:47)
[2023-04-16] VITALS (14 sets, daily range): BP systolic 62–184; BP diastolic 36–100; PULSE 52–71; RESP 15–20; TEMP 36.6–37; O2SAT 95–98
[2023-04-16] MEDS: midodrine 5 mg TABLET PO (01:16)
[2023-04-16] MEDS: HYDROcodone-acetaminophen 7.5-325 mg Tablet 1 TAB PO ×2 (02:24→19:39)
[2023-04-16 05:02] LABS: Basophils # 0.1 10^3/uL (0.0-0.1); Basophils % 0.9 %; Eosinophils # 0.2 10^3/uL (0.0-0.8); Eosinophils % 3.1 %; Hematocrit 36.1 % (36-47); Lymphocytes % 17.5 %; Mean Corpuscular HGB Conc 30.2 g/dL (30-55); Mean Corpuscular Hemoglobin 28.4 pg (27-33); Mean Platelet Volume 9.4 fL (7.4-10.4); Monocytes # 0.5 10^3/uL (0.2-0.9); Neutrophils # 3.74 10^3/uL (1.8-7.7); Neutrophils % 69.1 %; Nucleated Red Blood Cells % 0 %; Platelet Count 293 10^3/cmm (157-399); Red Blood Count 3.84 10^6/uL (3.85-5.65); White Blood Count 5.42 10^3/uL (3.29-11.43)
[2023-04-16 05:28] LABS: Alanine Aminotransferase 9 U/L (0-33); Alkaline Phosphatase 59 U/L (35-105); Anion Gap 11.7 (5-19); Aspartate Amino Transferase 16 U/L (0-32); Blood Urea Nitrogen 21 mg/dL (8-23); Calcium 8.7 mg/dL (8.5-10.5); Carbon Dioxide 31 mmol/L (22-29); Chloride 105 mmol/L (98-107); Globulin 2.8 g/dL (1.3-4.6); Glucose 101 mg/dL (65-115); Magnesium 1.9 mg/dL (1.7-2.3); Osmolality Calculated 301 mOsm/kg (285-295); Phosphorus 3.8 mg/dL (2.5-4.5); Potassium 3.7 mmol/L (3.5-5.1); Sodium 144 mmol/L (136-145); Total Bilirubin 0.3 mg/dL (0.15-1.2); Total Protein 5.8 g/dL (6.6-8.7)
[2023-04-16] MEDS: rivaroxaban 10 mg Tablet PO (08:56)
[2023-04-16] MEDS: gabapentin 400 mg Capsule PO ×2 (08:56→17:54)
[2023-04-16] MEDS: pantoprazole DR 40 mg Tablet PO (08:56)
[2023-04-16] MEDS: midodrine 5 mg TABLET 2.5 MG PO ×3 (08:57→23:45)
[2023-04-16] MEDS: amiodarone 200 mg Tablet 100 MG PO (08:57)
[2023-04-16] MEDS: fludrocortisone 0.1 mg Tablet PO ×2 (09:04→17:54)
[2023-04-16] MEDS: polyethylene glycol 3350 Pkt 17 gm PO (13:18)
--- NOTE | 2023-04-16 13:31 | PM.PN ---
Subjective Subjective: Patient was seen this morning, she tells me that she was lightheaded, when she went to the bathroom, denies passing out, she remains orthostatic, her systolic blood pressure dropped to 66/46, I discussed with her that as she remains orthostatic, I do not think it is dehydration, as she looks fairly euvolemic I am worried about throwing her into heart failure with further fluid therapy, what organ to do is try her on midodrine 5 mg 3 times daily, and see if that takes care of her orthostats, she is on fludrocortisone 0.1 mg twice daily, I can also consider increasing that dose, but I am worried about complications we will see how she does with midodrine, advised her to not get up out of bed without assistance, as she has a high risk of morbidity mortality associated with syncope and falls, she voices understanding, denies any fevers, chills, dysuria, hematuria, no flank pain, no back pain, no headache, Vitals/I&O/Wt Last Vital Signs Temp 98.6 F 04/16/23 12:00 Pulse 56 L 04/16/23 12:00 Resp 15 04/16/23 12:00 BP 144/66 04/16/23 13:20 Pulse Ox 97 04/16/23 12:00 O2 Del Method Room Air 04/16/23 12:00 O2 Flow Rate 2 04/12/23 08:02 04/15/23 04/16/23 04/16/23 22:59 06:59 14:59 Intake Total 240 / 480 720 / 1200 580 / 580 Balance 240 / 480 720 / 1200 580 / 580 Physical Exam Const: COMMON NORMALS: no acute distress and patient oriented x3 Resp: COMMON NORMALS: normal respiratory effort, No retractions, No use of accessory muscles and clear to auscultation bilaterally AUSCULTATION: clear to auscultation bilaterally Cardio: COMMON NORMALS: regular rate, regular rhythm, S1 normal heart sound present and S2 normal heart sound present RATE: regular rate RHYTHM: regular rhythm HEART SOUNDS: S1 normal heart sound present and S2 normal heart sound present GI: COMMON NORMALS: Normal to inspection, nondistended, normoactive bowel sounds present and non-tender Extremity: COMMON NORMALS: no pedal edema Neuro: COMMON NORMALS: patient oriented x3 Data 04/16/23 04:10 04/16/23 04:10 A&P Assessment and plan (1) Syncope: (2) Chest pain: (3) Orthostatic hypotension: (4) S/P AAA repair: (5) Stented coronary artery: (6) CAD (coronary artery disease): (7) COPD (chronic obstructive pulmonary disease): (8) LOC (loss of consciousness): (9) Anticoagulation adequate with anticoagulant therapy: (10) NSTEMI (non-ST elevated myocardial infarction): (11) Hypertension: Qualifiers: Hypertension type: essential hypertension Qualified Code(s): I10 - Essential (primary) hypertension (12) Hyperlipidemia: Qualifiers: Hyperlipidemia type: mixed hyperlipidemia Qualified Code(s): E78.2 - Mixed hyperlipidemia (13) Pulmonary embolism: Qualifiers: Pulmonary embolism type: unspecified Chronicity: chronic Acute cor pulmonale presence: unspecified Qualified Code(s): I27.82 - Chronic pulmonary embolism Plan Syncope ? Remains symptomatic, and positive orthostatic vitals ?SBP Dropped 70 points today ? Recent history of orthostatic hypotension on fludrocortisone, will recheck her orthostats, ? She is currently on antibiotics for UTI repeat UA, started on Rocephin, urine cultures, blood cultures, ? She recently had a stent placed to her left circumflex, serial EKGs, serial troponins, telemetry monitoring, continue Xarelto, aspirin, statin,, she does complain of anterior chest discomfort ? She does have a loop recorder in place, the last time was interrogated was in 09/24/2022, will interrogate ? Stop IV fluids as there is concerns for fluid overload ? Continue fludrocortisone, ? We will try low-dose midodrine 2.5 mg 3 times daily ? Serial EKGs, serial troponins, telemetry monitoring, ? Cardiac echo CONCLUSIONS ?1. Normal left ventricular size, systolic function and wall ?thickness, with no regional wall motion abnormalities. Left ?ventricular ejection fraction is estimated at 70 %. Grade I ?diastolic dysfunction (abnormal relaxation filling pattern), ?normal to mildly elevated filling pressures. ?2. Normal right ventricular size and systolic function. ?3. No significant valvular abnormality. ?4. There may not have been any significant change when compared ?to study dated 11/01/2019. ? Carotid artery ultrasound, US/CV carotid duplex BI* [id number] IMPRESSION: 1. Calcified plaque in the right internal carotid artery with less than 50% stenosis. 2. Calcified plaque in the left internal carotid artery with 50-69% stenosis.? ? CT head within normal limits, ? X-ray left shoulder within normal limits -History of bilateral non-small cell lung cancer stage Ia, status post left upper lobe lobectomy, left mediastinal lymphadenectomy, and right upper lobe lobectomy and right mediastinal lymphadenectomy, ? History of right vocal cord paralysis ? She has a history of repeated falls, history of loss of consciousness for she has a loop recorder placed for monitoring of arrhythmias, last interrogation, no arrhythmia events that I could see ? PT OT, ? Full code ? Xarelto for DVT prophylaxis Plan is to continue to monitor orthostats, continue PT OT, midodrine Attestations Medical Necessity Statement*: Patient has persistent orthostatic hypotension, this morning she felt lightheaded her systolic blood pressure was 66/40, dropped over 70 points, we will continue to monitor as inpatient started on midodrine Diagnoses Syncope R55 Chest pain R07.9 Orthostatic hypotension I95.1 S/P AAA repair Z98.890; Z86.79 Stented coronary artery Z95.5 CAD (coronary artery disease) I25.10 COPD (chronic obstructive pulmonary disease) J44.9 LOC (loss of consciousness) R40.20 Anticoagulation adequate with anticoagulant therapy Z79.01 NSTEMI (non-ST elevated myocardial infarction) I21.4 Hypertension I10 Hypertension type: essential hypertension Hyperlipidemia E78.2 Hyperlipidemia type: mixed hyperlipidemia Pulmonary embolism I27.82 Pulmonary embolism type: unspecified Chronicity: chronic Acute cor pulmonale presence: unspecified
[2023-04-16] MEDS: sodium chloride 1 gm Tablet PO (16:04)
[2023-04-16] MEDS: aspirin 81 mg EC Tablet PO (17:54)
[2023-04-17] VITALS (14 sets, daily range): BP systolic 98–179; BP diastolic 52–71; PULSE 51–74; RESP 15–24; TEMP 36.5–37.2; O2SAT 97–99
[2023-04-17] MEDS: sodium chloride 1 gm Tablet PO ×2 (03:33→15:40)
[2023-04-17 05:12] LABS: Basophils % 0.6 %; Eosinophils # 0.2 10^3/uL (0.0-0.8); Eosinophils % 3.5 %; Hematocrit 35.4 % (36-47); Lymphocytes % 18.7 %; Mean Corpuscular HGB Conc 30.8 g/dL (30-55); Mean Corpuscular Hemoglobin 28.5 pg (27-33); Mean Corpuscular Volume 92.7 fl (85-98); Mean Platelet Volume 9.2 fL (7.4-10.4); Monocytes # 0.5 10^3/uL (0.2-0.9); Monocytes % 9.4 %; Neutrophils # 3.42 10^3/uL (1.8-7.7); Neutrophils % 67.4 %; Nucleated Red Blood Cells % 0 %; Platelet Count 305 10^3/cmm (157-399); Red Blood Count 3.82 10^6/uL (3.85-5.65); Red Cell Distribution Width 13.9 % (12.1-15.1); White Blood Count 5.08 10^3/uL (3.29-11.43)
[2023-04-17 05:34] LABS: Alanine Aminotransferase 9 U/L (0-33); Albumin Level 3.2 g/dL (3.5-5.2); Alkaline Phosphatase 61 U/L (35-105); Anion Gap 11.7 (5-19); Aspartate Amino Transferase 16 U/L (0-32); Blood Urea Nitrogen 21 mg/dL (8-23); Calcium 8.6 mg/dL (8.5-10.5); Carbon Dioxide 30 mmol/L (22-29); Chloride 106 mmol/L (98-107); Globulin 2.7 g/dL (1.3-4.6); Glucose 96 mg/dL (65-115); Osmolality Calculated 301 mOsm/kg (285-295); Phosphorus 3.3 mg/dL (2.5-4.5); Potassium 3.7 mmol/L (3.5-5.1); Sodium 144 mmol/L (136-145); Total Bilirubin 0.3 mg/dL (0.15-1.2); Total Protein 5.9 g/dL (6.6-8.7)
[2023-04-17] MEDS: rivaroxaban 10 mg Tablet PO (09:11)
[2023-04-17] MEDS: fludrocortisone 0.1 mg Tablet PO ×2 (09:12→17:10)
[2023-04-17] MEDS: pantoprazole DR 40 mg Tablet PO (09:12)
[2023-04-17] MEDS: midodrine 5 mg TABLET 2.5 MG PO ×2 (09:12→17:10)
[2023-04-17] MEDS: gabapentin 100 mg Capsule 200 MG PO ×2 (09:35→17:10)
--- NOTE | 2023-04-17 11:00 | PC.NURSE ---
pt ambulated dwon hallways from her room to shower room about 500 feet. pt uses her walker and staff at standby. activity is fairly tolerated. had minimal unsteadyness on her feet. denies any dizziness or lightheadedness.
--- NOTE | 2023-04-17 11:15 | PM.PN ---
Subjective Subjective: Patient was seen this morning, her systolic blood pressure is 171/68, upon standing her blood pressure drops to 98/58, she did report feeling a bit lightheaded and easy, but denies passing out, she continues to be on the midodrine 2.5 mg 3 times daily, and have started her on salt tablets, she tells me that she feels like they have helped, no nausea, no vomiting, abdominal pain, no chest pain, no palpitations, Vitals/I&O/Wt Last Vital Signs Temp 98.2 F 04/17/23 08:00 Pulse 54 L 04/17/23 08:09 Resp 16 04/17/23 08:00 BP 171/68 04/17/23 08:09 Pulse Ox 99 04/17/23 08:00 O2 Del Method Nasal Cannula 04/17/23 08:00 O2 Flow Rate 1 04/17/23 08:00 04/16/23 04/17/23 04/17/23 22:59 06:59 14:59 Intake Total 520 / 1100 300 / 1400 Output Total 300 / 300 0 / 300 700 / 700 Balance 220 / 800 300 / 1100 -700 / -700 Physical Exam Const: COMMON NORMALS: no acute distress and patient oriented x3 Resp: COMMON NORMALS: normal respiratory effort, No retractions, No use of accessory muscles and clear to auscultation bilaterally AUSCULTATION: clear to auscultation bilaterally Cardio: COMMON NORMALS: regular rate, regular rhythm, S1 normal heart sound present and S2 normal heart sound present RATE: regular rate RHYTHM: regular rhythm HEART SOUNDS: S1 normal heart sound present and S2 normal heart sound present GI: COMMON NORMALS: Normal to inspection, nondistended, normoactive bowel sounds present and non-tender Extremity: COMMON NORMALS: no pedal edema Neuro: COMMON NORMALS: patient oriented x3 Psych: COMMON NORMALS: mental status grossly normal Data 04/17/23 04:50 04/17/23 04:50 Micro: Microbiology 04/11/23 14:53 Blood Culture - Final Blood NO GROWTH AFTER 5 DAYS 04/11/23 14:50 Blood Culture - Final Blood NO GROWTH AFTER 5 DAYS A&P Assessment and plan (1) Syncope: (2) Chest pain: (3) Orthostatic hypotension: (4) S/P AAA repair: (5) Stented coronary artery: (6) CAD (coronary artery disease): (7) COPD (chronic obstructive pulmonary disease): (8) LOC (loss of consciousness): (9) Anticoagulation adequate with anticoagulant therapy: (10) NSTEMI (non-ST elevated myocardial infarction): (11) Hypertension: Qualifiers: Hypertension type: essential hypertension Qualified Code(s): I10 - Essential (primary) hypertension (12) Hyperlipidemia: Qualifiers: Hyperlipidemia type: mixed hyperlipidemia Qualified Code(s): E78.2 - Mixed hyperlipidemia (13) Pulmonary embolism: Qualifiers: Pulmonary embolism type: unspecified Chronicity: chronic Acute cor pulmonale presence: unspecified Qualified Code(s): I27.82 - Chronic pulmonary embolism Plan Syncope ? Remains symptomatic, and positive orthostatic vitals ?SBP Dropped 70 points today ? Recent history of orthostatic hypotension on fludrocortisone, will recheck her orthostats, ? She is currently on antibiotics for UTI repeat UA, started on Rocephin, urine cultures, blood cultures, ? She recently had a stent placed to her left circumflex, serial EKGs, serial troponins, telemetry monitoring, continue Xarelto, aspirin, statin,, she does complain of anterior chest discomfort ? She does have a loop recorder in place, the last time was interrogated was in 09/24/2022, will interrogate ? Stop IV fluids as there is concerns for fluid overload ? Continue fludrocortisone, ? We will try low-dose midodrine 2.5 mg 3 times daily ? Serial EKGs, serial troponins, telemetry monitoring, ? Cardiac echo CONCLUSIONS ?1. Normal left ventricular size, systolic function and wall ?thickness, with no regional wall motion abnormalities. Left ?ventricular ejection fraction is estimated at 70 %. Grade I ?diastolic dysfunction (abnormal relaxation filling pattern), ?normal to mildly elevated filling pressures. ?2. Normal right ventricular size and systolic function. ?3. No significant valvular abnormality. ?4. There may not have been any significant change when compared ?to study dated 11/01/2019. ? Carotid artery ultrasound, US/CV carotid duplex BI* [id number] IMPRESSION: 1. Calcified plaque in the right internal carotid artery with less than 50% stenosis. 2. Calcified plaque in the left internal carotid artery with 50-69% stenosis.? ? CT head within normal limits, ? X-ray left shoulder within normal limits -History of bilateral non-small cell lung cancer stage Ia, status post left upper lobe lobectomy, left mediastinal lymphadenectomy, and right upper lobe lobectomy and right mediastinal lymphadenectomy, ? History of right vocal cord paralysis ? She has a history of repeated falls, history of loss of consciousness for she has a loop recorder placed for monitoring of arrhythmias, last interrogation, no arrhythmia events that I could see ? PT OT, ? Full code ? Xarelto for DVT prophylaxis Plan is to continue to monitor orthostats, continue PT OT, midodrine Attestations Medical Necessity Statement*: Patient requires hospitalization for orthostatic hypotension Diagnoses Syncope R55 Chest pain R07.9 Orthostatic hypotension I95.1 S/P AAA repair Z98.890; Z86.79 Stented coronary artery Z95.5 CAD (coronary artery disease) I25.10 COPD (chronic obstructive pulmonary disease) J44.9 LOC (loss of consciousness) R40.20 Anticoagulation adequate with anticoagulant therapy Z79.01 NSTEMI (non-ST elevated myocardial infarction) I21.4 Hypertension I10 Hypertension type: essential hypertension Hyperlipidemia E78.2 Hyperlipidemia type: mixed hyperlipidemia Pulmonary embolism I27.82 Pulmonary embolism type: unspecified Chronicity: chronic Acute cor pulmonale presence: unspecified
[2023-04-17] MEDS: polyethylene glycol 3350 Pkt 17 gm PO (15:40)
[2023-04-17] MEDS: fluticasone nasal spray 16gm Btl 2 SPRAY INTRANASAL (17:07)
[2023-04-17] MEDS: aspirin 81 mg EC Tablet PO (17:10)
[2023-04-17] MEDS: ciprofloxacin-dexameth Otic Susp 7.5 mL Btl 4 DROP EAR-RIGHT (17:10)
[2023-04-18] VITALS (12 sets, daily range): BP systolic 92–183; BP diastolic 50–81; PULSE 52–68; RESP 15–20; TEMP 36.5–36.7; O2SAT 95–99
[2023-04-18] MEDS: midodrine 5 mg TABLET 2.5 MG PO (00:14)
[2023-04-18] MEDS: sodium chloride 1 gm Tablet PO ×2 (04:21→16:30)
[2023-04-18 04:48] LABS: Basophils % 0.6 %; Eosinophils # 0.2 10^3/uL (0.0-0.8); Eosinophils % 3.4 %; Hematocrit 36.2 % (36-47); Lymphocytes % 18.3 %; Mean Corpuscular HGB Conc 30.4 g/dL (30-55); Mean Corpuscular Volume 92.1 fl (85-98); Mean Platelet Volume 9.7 fL (7.4-10.4); Monocytes # 0.5 10^3/uL (0.2-0.9); Monocytes % 9.9 %; Neutrophils % 67.2 %; Nucleated Red Blood Cells % 0 %; Platelet Count 341 10^3/cmm (157-399); Red Blood Count 3.93 10^6/uL (3.85-5.65); Red Cell Distribution Width 13.9 % (12.1-15.1); White Blood Count 5.35 10^3/uL (3.29-11.43)
[2023-04-18 05:02] LABS: Alanine Aminotransferase 12 U/L (0-33); Albumin Level 3.4 g/dL (3.5-5.2); Alkaline Phosphatase 74 U/L (35-105); Anion Gap 12.5 (5-19); Aspartate Amino Transferase 18 U/L (0-32); Blood Urea Nitrogen 23 mg/dL (8-23); Calcium 9.2 mg/dL (8.5-10.5); Carbon Dioxide 32 mmol/L (22-29); Chloride 104 mmol/L (98-107); Globulin 2.7 g/dL (1.3-4.6); Glucose 130 mg/dL (65-115); Osmolality Calculated 305 mOsm/kg (285-295); Phosphorus 3.4 mg/dL (2.5-4.5); Potassium 3.5 mmol/L (3.5-5.1); Sodium 145 mmol/L (136-145); Total Bilirubin 0.3 mg/dL (0.15-1.2); Total Protein 6.1 g/dL (6.6-8.7)
[2023-04-18] MEDS: fludrocortisone 0.1 mg Tablet PO ×2 (09:26→18:38)
[2023-04-18] MEDS: rivaroxaban 10 mg Tablet PO (09:26)
[2023-04-18] MEDS: gabapentin 100 mg Capsule 200 MG PO ×2 (09:26→18:38)
[2023-04-18] MEDS: pantoprazole DR 40 mg Tablet PO (09:27)
[2023-04-18] MEDS: polyethylene glycol 3350 Pkt 17 gm PO (09:27)
[2023-04-18] MEDS: ciprofloxacin-dexameth Otic Susp 7.5 mL Btl 4 DROP EAR-RIGHT ×2 (10:44→18:00)
--- NOTE | 2023-04-18 15:47 | PM.PN ---
Subjective Subjective: Patient was examined multiple times throughout the morning, into the afternoon with family meeting in the afternoon, I had a discussion with patient and her family about her persistent orthostatic hypotension this morning her systolic blood pressures dropped about 100 points, she felt unsteady on her feet, unfortunately in her specific situation I do not have a good solution, 2 days of fluid therapy has not helped, and if she did develop fluid overload, I have started her on salt tablets, I am worried about increasing the dose due to risk of heart failure, fluid retention, she is on fludrocortisone, without any significant benefit, no evidence of infection, she is afebrile, it could be the amiodarone, I have stopped the amiodarone there is a risk of A-fib with RVR, but certainly amiodarone could be a component, I did try midodrine for the last 2 days the issue with the midodrine as she continues to have orthostatic hypotension on 2.5 mg 3 times daily, which she is developing systolic hypertension, systolic blood pressure sitting in the 180s, unfortunately cannot increase the dose given the risk of hypertension CVA, CAD, and I do not believe that 2.5 mg twice daily is helping with orthostats that she remains positive unfortunately in her situation there is no good solution, we will just have to ambulate her with care, have her change position with care, arrange for her to have a wheelchair, wheeled walker, close supervision at home, and close monitoring, patient's family voices understanding patient voices understanding as her systolic blood pressures have dropped over 100 points today I will watch her for another day, and safely discharge her tomorrow, to the care of her family, patient and family voiced understanding, all questions answered, Vitals/I&O/Wt Last Vital Signs Temp 97.9 F 04/18/23 07:52 Pulse 62 04/18/23 12:00 Resp 19 H 04/18/23 12:00 BP 147/65 04/18/23 12:00 Pulse Ox 95 04/18/23 12:00 O2 Del Method Room Air 04/18/23 12:00 O2 Flow Rate 1 04/17/23 20:35 04/18/23 04/18/23 04/18/23 06:59 14:59 22:59 Intake Total 500 / 1334 840 / 840 Output Total 200 / 900 Balance 300 / 434 840 / 840 Physical Exam Const: COMMON NORMALS: no acute distress and patient oriented x3 Resp: COMMON NORMALS: normal respiratory effort, No retractions, No use of accessory muscles and clear to auscultation bilaterally AUSCULTATION: clear to auscultation bilaterally Cardio: COMMON NORMALS: regular rate, regular rhythm, S1 normal heart sound present and S2 normal heart sound present RATE: regular rate RHYTHM: regular rhythm HEART SOUNDS: S1 normal heart sound present and S2 normal heart sound present GI: COMMON NORMALS: Normal to inspection, nondistended, normoactive bowel sounds present and non-tender Extremity: COMMON NORMALS: no pedal edema Neuro: COMMON NORMALS: patient oriented x3 Psych: COMMON NORMALS: mental status grossly normal Data 04/18/23 03:26 04/18/23 03:26 A&P Assessment and plan (1) Syncope: (2) Chest pain: (3) Orthostatic hypotension: (4) S/P AAA repair: (5) Stented coronary artery: (6) CAD (coronary artery disease): (7) COPD (chronic obstructive pulmonary disease): (8) LOC (loss of consciousness): (9) Anticoagulation adequate with anticoagulant therapy: (10) NSTEMI (non-ST elevated myocardial infarction): (11) Hypertension: Qualifiers: Hypertension type: essential hypertension Qualified Code(s): I10 - Essential (primary) hypertension (12) Hyperlipidemia: Qualifiers: Hyperlipidemia type: mixed hyperlipidemia Qualified Code(s): E78.2 - Mixed hyperlipidemia (13) Pulmonary embolism: Qualifiers: Pulmonary embolism type: unspecified Chronicity: chronic Acute cor pulmonale presence: unspecified Qualified Code(s): I27.82 - Chronic pulmonary embolism Plan Syncope ? Remains symptomatic, and positive orthostatic vitals ?SBP Dropped 100 points today ? Recent history of orthostatic hypotension on fludrocortisone, will recheck her orthostats, ? She is currently on antibiotics for UTI repeat UA, started on Rocephin, urine cultures, blood cultures, ? She recently had a stent placed to her left circumflex, serial EKGs, serial troponins, telemetry monitoring, continue Xarelto, aspirin, statin,, she does complain of anterior chest discomfort ? She does have a loop recorder in place, the last time was interrogated was in 09/24/2022, will interrogate ? Stop IV fluids as there is concerns for fluid overload ? Continue fludrocortisone, ? We will try low-dose midodrine 2.5 mg 3 times daily ? Serial EKGs, serial troponins, telemetry monitoring, ? Cardiac echo CONCLUSIONS ?1. Normal left ventricular size, systolic function and wall ?thickness, with no regional wall motion abnormalities. Left ?ventricular ejection fraction is estimated at 70 %. Grade I ?diastolic dysfunction (abnormal relaxation filling pattern), ?normal to mildly elevated filling pressures. ?2. Normal right ventricular size and systolic function. ?3. No significant valvular abnormality. ?4. There may not have been any significant change when compared ?to study dated 11/01/2019. ? Carotid artery ultrasound, US/CV carotid duplex BI* [id number] IMPRESSION: 1. Calcified plaque in the right internal carotid artery with less than 50% stenosis. 2. Calcified plaque in the left internal carotid artery with 50-69% stenosis.? ? CT head within normal limits, ? X-ray left shoulder within normal limits -History of bilateral non-small cell lung cancer stage Ia, status post left upper lobe lobectomy, left mediastinal lymphadenectomy, and right upper lobe lobectomy and right mediastinal lymphadenectomy, ? History of right vocal cord paralysis ? She has a history of repeated falls, history of loss of consciousness for she has a loop recorder placed for monitoring of arrhythmias, last interrogation, no arrhythmia events that I could see ? PT OT, ? Full code ? Xarelto for DVT prophylaxis Plan is to continue to monitor orthostats, continue PT OT, continue fludrocortisone, continue salt tablets Attestations Medical Necessity Statement*: Patient requires hospitalization for orthostatic hypotension Coding Level of Care Code Acute Code for g Fwd Diagnoses Syncope R55 Chest pain R07.9 Orthostatic hypotension I95.1 S/P AAA repair Z98.890; Z86.79 Stented coronary artery Z95.5 CAD (coronary artery disease) I25.10 COPD (chronic obstructive pulmonary disease) J44.9 LOC (loss of consciousness) R40.20 Anticoagulation adequate with anticoagulant therapy Z79.01 NSTEMI (non-ST elevated myocardial infarction) I21.4 Hypertension I10 Hypertension type: essential hypertension Hyperlipidemia E78.2 Hyperlipidemia type: mixed hyperlipidemia Pulmonary embolism I27.82 Pulmonary embolism type: unspecified Chronicity: chronic Acute cor pulmonale presence: unspecified
[2023-04-18] MEDS: aspirin 81 mg EC Tablet PO (18:38)
[2023-04-18] MEDS: HYDROcodone-acetaminophen 7.5-325 mg Tablet 1 TAB PO (21:17)
[2023-04-19] VITALS (8 sets, daily range): BP systolic 98–183; BP diastolic 51–75; PULSE 21–68; RESP 14–21; TEMP 36.9–37; O2SAT 95–100
[2023-04-19] MEDS: sodium chloride 1 gm Tablet PO (04:20)
[2023-04-19 05:29] LABS: Basophils # 0.1 10^3/uL (0.0-0.1); Basophils % 1.1 %; Eosinophils # 0.2 10^3/uL (0.0-0.8); Eosinophils % 3.4 %; Hematocrit 36.3 % (36-47); Lymphocytes # 1.1 10^3/uL (0.8-4.8); Lymphocytes % 20.5 %; Mean Corpuscular Hemoglobin 28.1 pg (27-33); Mean Corpuscular Volume 93.6 fl (85-98); Mean Platelet Volume 9.3 fL (7.4-10.4); Monocytes # 0.5 10^3/uL (0.2-0.9); Monocytes % 8.4 %; Neutrophils # 3.54 10^3/uL (1.8-7.7); Nucleated Red Blood Cells % 0 %; Platelet Count 328 10^3/cmm (157-399); Red Blood Count 3.88 10^6/uL (3.85-5.65); White Blood Count 5.36 10^3/uL (3.29-11.43)
[2023-04-19 05:57] LABS: Alanine Aminotransferase 9 U/L (0-33); Albumin Level 3.1 g/dL (3.5-5.2); Alkaline Phosphatase 59 U/L (35-105); Anion Gap 10.1 (5-19); Aspartate Amino Transferase 17 U/L (0-32); Blood Urea Nitrogen 18 mg/dL (8-23); Calcium 8.4 mg/dL (8.5-10.5); Carbon Dioxide 32 mmol/L (22-29); Chloride 106 mmol/L (98-107); Globulin 2.6 g/dL (1.3-4.6); Glucose 92 mg/dL (65-115); Osmolality Calculated 302 mOsm/kg (285-295); Phosphorus 3.2 mg/dL (2.5-4.5); Potassium 3.1 mmol/L (3.5-5.1); Sodium 145 mmol/L (136-145); Total Bilirubin 0.3 mg/dL (0.15-1.2); Total Protein 5.7 g/dL (6.6-8.7)
[2023-04-19] MEDS: gabapentin 100 mg Capsule 200 MG PO (09:19)
[2023-04-19] MEDS: potassium chloride ER 20 mEq Tablet 40 MEQ PO (09:19)
[2023-04-19] MEDS: rivaroxaban 10 mg Tablet PO (09:19)
[2023-04-19] MEDS: fludrocortisone 0.1 mg Tablet PO (09:19)
[2023-04-19] MEDS: ciprofloxacin-dexameth Otic Susp 7.5 mL Btl 4 DROP EAR-RIGHT (09:19)
[2023-04-19] MEDS: polyethylene glycol 3350 Pkt 17 gm PO (09:19)
[2023-04-19] MEDS: pantoprazole DR 40 mg Tablet PO (09:19)
--- NOTE | 2023-04-19 11:41 | PC.SOCIAL ---
IMM Updated Updated pt on IMM. No questions voiced. Provided pt a copy. Initialed, dated, & timed copy in chart.
--- NOTE | 2023-04-19 11:58 | P.DS_ITS ---
Discharge Providers Date of Admission: 04/12/23 14:47 Date of Discharge: April 19, 2023 Attending Provider at Admission: Bhupinder Cerna MD Attending Provider at Discharge: Bhupinder Cerna MD Primary Care Provider: ALYSON Keane Diagnoses at Discharge Discharge Diagnosis (1) Syncope: Status: Acute (2) Chest pain: Status: Acute (3) Orthostatic hypotension: Status: Acute (4) S/P AAA repair: Status: Acute Permanent problem details: Stent graft (5) Stented coronary artery: Status: Acute (6) CAD (coronary artery disease): Status: Acute (7) COPD (chronic obstructive pulmonary disease): Status: Acute (8) LOC (loss of consciousness): Status: Acute (9) Anticoagulation adequate with anticoagulant therapy: Status: Acute (10) NSTEMI (non-ST elevated myocardial infarction): Status: Acute (11) Hypertension: Status: Acute Qualifiers: Hypertension type: essential hypertension Qualified Code(s): I10 - Essential (primary) hypertension (12) Hyperlipidemia: Status: Acute Qualifiers: Hyperlipidemia type: mixed hyperlipidemia Qualified Code(s): E78.2 - Mixed hyperlipidemia (13) Pulmonary embolism: Status: Acute Qualifiers: Acute cor pulmonale presence: unspecified Chronicity: chronic Pulmonary embolism type: unspecified Qualified Code(s): I27.82 - Chronic pulmonary embolism Reason for Visit Reason for Visit: passes out when standing up,[facility] Hospital Course Keely Chan is a 87 year old female history of CAD status post stenting, most recently to left circumflex a month ago, history of CAD, history of PE on Xarelto, history of anemia, hypertension, hyperlipidemia, who presents to [facility] for recurrent syncopal episodes.? Patient tells me that in the last few weeks she had a few syncopal episodes.? She does not that she saw Savannah Brunner, and she was found to be orthostatic she was put on fludrocortisone.? This morning, she got up, she was ambulating with her walker with her daughter and she suddenly passed out.? She has been feeling more short of breath than her usual.? She has been complaining of anterior chest discomfort more than her usual.? She tells me she always feels lightheaded, dizzy, denies any poor oral intake, no diarrhea, she has had a UTI she is finishing off antibiotics, but continues to have UTI-like symptoms, no flank pain, no fevers, no chills, no bloody or black stools, no nausea, vomiting, abdominal pain.? Her daughter who witnessed the event, said that it lasted for few seconds, she fell face first, she has some bruising over her left brow, she has some right shoulder pain, no seizure-like episodes, no facial droop no slurring of her words, no focal weakness, This is a 87-year-old female, who presents to [facility] for syncope, positive orthostatic vitals, patient had an extensive hospitalization, please look at my prior progress note for further detail, patient's orthostatic hypotension, was persistent during her hospitalization, on discharge her systolic blood pressure still dropped over 100 points but was not symptomatic on discharge. I have done extensive evaluation for her orthostatic hypotension, etiology likely multifactorial component related to vasovagal syncope, age, some component related to possible amiodarone. Throughout her hospitalization, she had an extended stay, she remained orthostatic, I tried fluid therapy, midodrine therapy, salt therapy, different modalities without improvement of her orthostatic vitals. The issue ultimately comes down to all interventions for the orthostatic hypotension resulted in complications such as fluid overload, resulted in episodes of systolic blood pressures greater than 180s, hypertensive episodes. Unfortunately I was honest with patient and family that I do not have a real good solution for her persistent orthostatic hypotension. Except I have stopped her amiodarone and her blood pressure medications. She is on Xarelto and hesitant about discontinuing it given her personal and family history of DVTs and risk of stroke. I discussed with him the morbidity and mortality associate with orthostatic hypotension, falls, lightheadedness, dizziness on anticoagulation however she wants to continue anticoagulation for now. I also offered discharge to pen[facility] facility but her is adamant about dischargi ng home. What I done on discharge is discharge her on fludrocortisone 0.1 twice daily. I will also order compression stockings for her. I have gone over different ways that we can minimize her orthostatic hypotension if she gets up from a seated position or chair she should get into a wheelchair. She should try to use a wheeled walker, and if she feels unwell she should sit in the wheeled walker. Discussed fall plan, life alert, and that family should check up on her regularly. Encouraged p.o. intake of fluid therapy greater than 2 L. Monitor orthostatics closely, ambulate with care, transfer wound care, compression stockings. If she were to have any falls or trauma please go to the emergency room, ambulate with care, if any recurrent syncopal episodes, please come back to the emergency room. Patient and family voiced understanding, all Qs answered, agreed to proceed. Physical Exam Const: COMMON NORMALS: no acute distress and patient oriented x3 Resp: COMMON NORMALS: normal respiratory effort, No retractions, No use of accessory muscles and clear to auscultation bilaterally AUSCULTATION: clear to auscultation bilaterally Cardio: COMMON NORMALS: regular rate, regular rhythm, S1 normal heart sound present and S2 normal heart sound present RATE: regular rate RHYTHM: regular rhythm HEART SOUNDS: S1 normal heart sound present and S2 normal heart sound present GI: COMMON NORMALS: Normal to inspection, nondistended, normoactive bowel sounds present and non-tender Extremity: COMMON NORMALS: capillary refill normal and no pedal edema Neuro: COMMON NORMALS: patient oriented x3 Psych: COMMON NORMALS: mental status grossly normal Discharge Data Studies Completed and Pending Completed Studies During Hospitalization Category Date Time Status CT head wo con* [id number] Stat Cat Scan 04/11/23 11:[address] shoulder LT wo con* [id number] Routine Cat Scan 04/13/23 14:51 Completed XR cervical spine 3V* [id number] Stat Exams 04/11/23 13:11 Completed XR chest 1V portable [id number] Stat Exams 04/11/23 11:42 Completed XR shoulder LT min 2V* [id number] Stat Exams 04/11/23 12:24 Completed CV carotid duplex BI* [id number] Routine Ultrasound 04/11/23 16:43 Completed CV. echo complete* [id number] Routine Ultrasound 04/11/23 16:43 Completed Pending at discharge Category Date Time Status Complete Blood Count w/Auto AM LABS Lab 04/20/23 04:00 Ordered Comprehensive Metabolic Panel AM LABS Lab 04/20/23 04:00 Ordered Magnesium AM LABS Lab 04/20/23 04:00 Ordered Phosphorus AM LABS Lab 04/20/23 04:00 Ordered Radiology Impressions Chest X-Ray 04/11/23 11:42 IMPRESSION: No acute findings. Head CT 04/11/23 11:43 IMPRESSION: No acute intracranial abnormality. Opacified right mastoid and middle ear cavity which may represent otomastoiditis. If there is clinical suspicion for fracture through this region, CT temporal bone is recommended. Shoulder X-Ray 04/11/23 12:24 IMPRESSION: No acute findings. Cervical Spine X-Ray 04/11/23 13:11 IMPRESSION: No acute findings. Carotid Doppler Study 04/11/23 16:43 IMPRESSION: 1. Calcified plaque in the right internal carotid artery with less than 50% stenosis. 2. Calcified plaque in the left internal carotid artery with 50-69% stenosis. REFERENCES: SRU CRITERIA. The degree of internal carotid artery stenosis is based on criteria defined by the Society of Radiologists in Ultrasound (SRU). Normal is no stenosis. Mild is less than 50% stenosis. Moderate is 50-69% stenosis. Severe is greater than 69% stenosis to near occlusion. Near occlusion is a markedly narrowed lumen. Total occlusion is no detectable patent lumen. Shoulder CT 04/13/23 14:51 IMPRESSION: 1. No fracture or joint effusion. 2. Chronic primary osteoarthritis. 3. Calcific tendinosis of the infraspinatus 4. Other chronic findings as described Laboratory Results WBC 5.36 10^3/uL (3.29-11.43) 04/19/23 05:11 RBC 3.88 10^6/uL (3.85-5.65) 04/19/23 05:11 Hgb 10.90 g/dL (11.27-16.99) L 04/19/23 05:11 Hct 36.3 % (36-47) 04/19/23 05:11 MCV 93.6 fl (85-98) 04/19/23 05:11 MCH 28.1 pg (27-33) 04/19/23 05:11 MCHC 30.0 g/dL (30-55) 04/19/23 05:11 RDW 14.0 % (12.1-15.1) 04/19/23 05:11 Plt Count 328 10^3/cmm (157-399) 04/19/23 05:11 MPV 9.3 fL (7.4-10.4) 04/19/23 05:11 Neut % (Auto) 66.0 % 04/19/23 05:11 Lymph % (Auto) 20.5 % 04/19/23 05:11 [place] % (Auto) 8.4 % 04/19/23 05:11 Eos % (Auto) 3.4 % 04/19/23 05:11 Baso % (Auto) 1.1 % 04/19/23 05:11 Neut # (Auto) 3.54 10^3/uL (1.8-7.7) 04/19/23 05:11 Lymph # (Auto) 1.1 10^3/uL (0.8-4.8) 04/19/23 05:11 [place] # (Auto) 0.5 10^3/uL (0.2-0.9) 04/19/23 05:11 Eos # (Auto) 0.2 10^3/uL (0.0-0.8) 04/19/23 05:11 Baso # (Auto) 0.1 10^3/uL (0.0-0.1) 04/19/23 05:11 Nucleated RBC % (auto) 0 % 04/19/23 05:11 Nucleated RBCs # 0.0 /100WBC 04/19/23 05:11 Sodium 145 mmol/L (136-145) 04/19/23 05:11 Potassium 3.1 mmol/L (3.5-5.1) L 04/19/23 05:11 Chloride 106 mmol/L (98-107) 04/19/23 05:11 Carbon Dioxide 32 mmol/L (22-29) H 04/19/23 05:11 Anion Gap 10.1 (5-19) 04/19/23 05:11 BUN 18 mg/dL (8-23) 04/19/23 05:11 Creatinine 1.2 mg/dL (0.5-0.9) H 04/19/23 05:11 GFR Calculation Not Reportable 04/19/23 05:11 Glucose 92 mg/dL (65-115) 04/19/23 05:11 Estimat Average Glucose 114 04/11/23 16:58 Hemoglobin A1c 5.6 % (4.0-6.0) 04/11/23 16:58 Calculated Osmolality 302 mOsm/kg (285-295) H 04/19/23 05:11 Lactic Acid 1.7 mmol/L (0.5-2.2) 04/11/23 14:50 Calcium 8.4 mg/dL (8.5-10.5) L 04/19/23 05:11 Phosphorus 3.2 mg/dL (2.5-4.5) 04/19/23 05:11 Magnesium 2.0 mg/dL (1.7-2.3) 04/19/23 05:11 Total Bilirubin 0.3 mg/dL (0.15-1.2) 04/19/23 05:11 AST 17 U/L (0-32) 04/19/23 05:11 ALT 9 U/L (0-33) 04/19/23 05:11 Alkaline Phosphatase 59 U/L (35-105) 04/19/23 05:11 Troponin T Baseline 39 ng/L (0-10) H 04/11/23 11:52 Troponin T 120 Minute 41.45 ng/L (0-10) H 04/11/23 13:32 Delta Troponin T 2.45 ABS# (0-10) 04/11/23 13:32 Troponin T Hi Sens 6Hr 30.02 ng/L (0-10) H 04/11/23 16:58 Troponin T Hi Sens 6Hr Delta -8.98 ng/L (0-12) L 04/11/23 16:58 C-Reactive Protein 18.5 mg/L (0.0-4.9) H 04/11/23 16:58 NT-Pro-B Natriuret Pep 1319 pg/mL (0-450) H 04/11/23 16:58 Total Protein 5.7 g/dL (6.6-8.7) L 04/19/23 05:11 Albumin 3.1 g/dL (3.5-5.2) L 04/19/23 05:11 Globulin 2.6 g/dL (1.3-4.6) 04/19/23 05:11 Procalcitonin 0.12 ng/mL (0-0.5) 04/11/23 16:58 TSH 1.05 uIU/mL (0.27-4.20) 04/11/23 16:58 Random Cortisol 9.78 ug/dL (2.47-19.5) 04/12/23 04:12 Urine Color Cancelled 04/11/23 20:27 Urine Color Yellow (Yellow) 04/11/23 20:27 Urine Appearance Cancelled 04/11/23 20:27 Urine Appearance Hazy (CLEAR) A 04/11/23 20: Urine pH 6 (5-7) 04/11/23 20: Urine pH Cancelled 04/11/23 20:27 Ur Specific [place] 1.010 (1.005-1.030) 04/11/23 20: Ur Specific [place] Cancelled 04/11/23 20:27 Urine Protein Cancelled 04/11/23 20:27 Urine Protein Neg (Negative) 04/11/23 20:27 Urine Glucose (UA) Cancelled 04/11/23 20: Urine Glucose (UA) Norm (Normal) 04/11/23 20: Urine Ketones Cancelled 04/11/23 20: Urine Ketones Negative (Negative) 04/11/23 20: Urine Blood Cancelled 04/11/23 20:27 Urine Blood Neg (Negative) 04/11/23 20:27 Urine Nitrate Cancelled 04/11/23 20: Urine Nitrate Negative (Negative) 04/11/23 20:27 Urine Bilirubin Cancelled 04/11/23 20:27 Urine Bilirubin Neg (Negative) 04/11/23 20:27 Prot Sulfosalicylic Acd Cancelled 04/11/23 20:27 Urine Urobilinogen Cancelled 04/11/23 20:27 Urine Urobilinogen Neg mg/dL (Negative) 04/11/23 20:27 Ur Leukocyte Esterase 1+ (Negative) H 04/11/23 20:27 Ur Leukocyte Esterase Cancelled 04/11/23 20:27 Urine RBC 0-4 /hpf (0-2) H 04/11/23 20:27 Urine WBC 25-40 /hpf (0-5) H 04/11/23 20:27 Ur Squamous Epith Cells 5-10 /hpf (0-5) H 04/11/23 20:27 Amorphous Sediment Not Reportable 04/11/23 20: Urine Bacteria Trace /hpf (NONE) 04/11/23 20:27 Vitals Last Vital Signs Temp 98.6 F 04/19/23 11:08 Pulse 21 L 04/19/23 11:08 Resp 21 H 04/19/23 11:08 BP 135/66 04/19/23 11:08 Pulse Ox 100 04/19/23 11:08 O2 Del Method Nasal Cannula 04/19/23 11:08 O2 Flow Rate 1 04/17/23 20:35 Discharge Plan Discharge Patient Disposition: Home Health Service Condition: Stable Prescriptions: New ciprofloxacin-dexamethasone 0.3-0.1 % drops,suspension 4 drp otic (ear) BID 7 Days Qty: 7.5 0RF Continued gabapentin 300 mg capsule 400 mg PO BID nitroglycerin [Nitrostat] 0.4 mg tablet, sublingual 0.4 mg SUBLINGUAL Q5M PRN (Reason: Chest Pain) fluticasone propionate [Flonase Allergy Relief] 50 mcg/actuation spray,suspension 2 spray INTRANASAL DAILY PRN (Reason: allergy symptoms) fludrocortisone 0.1 mg tablet 0.1 mg PO BID Qty: 60 2RF meclizine 25 mg Tablet 25 mg PO TID PRN (Reason: Dizziness) cetirizine 10 mg tablet 10 mg PO DAILY PRN (Reason: allergy symptoms) montelukast 10 mg tablet 10 mg PO DAILY PRN (Reason: Allergic Symptoms) famotidine 20 mg tablet 20 mg PO BEDTIME hydrocodone-acetaminophen 7.5-325 mg tablet 1 tab PO Q6H PRN (Reason: Pain) pantoprazole 40 mg tablet,delayed release (DR/EC) 40 mg PO QAM Xarelto 10 mg tablet 10 mg PO QAM Discontinued cholecalciferol (vitamin D3) 1,250 mcg (50,000 unit) capsule 1,250 mcg PO Q7D Rx Instructions: (ON WEDNESDAYS) amlodipine 5 mg tablet 5 mg PO QAM Qty: 90 3RF amiodarone 200 mg tablet 200 mg PO DAILY cefdinir 300 mg capsule 300 mg PO BID Discharge Orders: Discharge Order (Routine); Ordered 04/19/23 Ordered By: Bhupinder Cerna Other Ambulatory Orders: DME: Miscellaneous (Order) Location: None Selected Ordered By: Bhupinder Cerna DME: Wheelchair (Order) Location: None Selected Ordered By: Bhupinder Cerna Referrals: [facility] [Other] Cristiana Willis FNP [Primary Care Provider] - 04/26/23 2:45 pm Discharge Diet: Cardiac Discharge Activity: Resume usual activity Patient Instructions: Ciprofloxacin/Dexamethasone (Into the ear), Hypotension (DC), Syncope in Older Adults (DC), Opioid Safety, Post Heart Attack Stoplight Activity Restrictions/Additional Instructions: - Ambulate with care, monitoring for orthostatic hypotension, if you feel lightheaded or dizzy, please sit down Diet if you have any significant falls please call 911 emergency room Discharge Attestations Time Spent in Discharge Care*: greater than 30 min Status at Discharge: Cognitive status at discharge: cognitively intact , Behavioral status at discharge: cooperative , Quality Metrics Clinical Quality Measures [ No reported AMI, CVA or VTE this stay] Coding Level of Care Code 28083 Total time (in minutes) for Discharge: 45 Diagnoses Syncope R55 Chest pain R07.9 Orthostatic hypotension I95.1 S/P AAA repair Z98.890; Z86.79 Stented coronary artery Z95.5 CAD (coronary artery disease) I25.10 COPD (chronic obstructive pulmonary disease) J44.9 LOC (loss of consciousness) R40.20 Anticoagulation adequate with anticoagulant therapy Z79.01 NSTEMI (non-ST elevated myocardial infarction) I21.4 Hypertension I10 Hypertension type: essential hypertension Hyperlipidemia E78.2 Hyperlipidemia type: mixed hyperlipidemia Pulmonary embolism I27.82 Acute cor pulmonale presence: unspecified Chronicity: chronic Pulmonary embolism type: unspecified
--- NOTE | 2023-04-19 16:12 | PC.NURSE ---
Discharge Note Patient discharged to [home] via [w/c to POV] accompanied by [family]. Discharge instructions reviewed with patient and/or patient access representative. Mobile pharmacy medications and/or prescriptions provided. Belongings/home medications returned.
== END 2023-04-19 15:48 | disposition home health service (06) | DRG 312 ==
LOC: ER 13:11 → CSU 17:02
PROVIDERS: Admitting Provider Family Medicine; Emergency Provider Family Medicine; PCP Nurse Practitioner Family; Visit Provider Family Medicine
DX: I95.1 Orthostatic hypotension (principal); N39.0 Urinary tract infection, site not specified; I25.10 Atherosclerotic heart disease of native coronary artery without angina pectoris; Z95.5 Presence of coronary angioplasty implant and graft; J44.9 Chronic obstructive pulmonary disease, unspecified; Z79.01 Long term (current) use of anticoagulants; I25.2 Old myocardial infarction; I10 Essential (primary) hypertension; E78.2 Mixed hyperlipidemia; Z86.711 Personal history of pulmonary embolism; Z79.891 Long term (current) use of opiate analgesic; Z87.891 Personal history of nicotine dependence; Z85.118 Personal history of other malignant neoplasm of bronchus and lung; Z90.2 Acquired absence of lung [part of]; J38.01 Paralysis of vocal cords and larynx, unilateral; R29.6 Repeated falls; M25.512 Pain in left shoulder
CPT/HCPCS: 36415; 70450; 71045; 72040; 73030; 73200; 80053; 81001; 82533; 83036; 83605; 83735; 83880; 84100; 84145; 84443; 84484; 85025; 86140; 87040; 87086; 93005; 93306; 93880; 94664; 94760; 96361; 96374; 96376; 97110; 97161; 97165; 97530; 97535; 97760; 99285; A4565; A9270; G0378; J0696; J2405; J7030

== ENCOUNTER → 2023-04-22 11:43 | Outpatient (BNVA) | payer MEDICARE, OTHER, SELFPAY | PROVIDERS: PCP Nurse Practitioner Family; Visit Provider Internal Medicine Cardiovascular Disease | DX: R55 Syncope and collapse (principal); Z98.890 Other specified postprocedural states; Z86.79 Personal history of other diseases of the circulatory system; I25.10 Atherosclerotic heart disease of native coronary artery without angina pectoris; Z95.5 Presence of coronary angioplasty implant and graft; J44.9 Chronic obstructive pulmonary disease, unspecified; R29.6 Repeated falls; I48.91 Unspecified atrial fibrillation; Z79.01 Long term (current) use of anticoagulants; R53.1 Weakness; C34.90 Malignant neoplasm of unspecified part of unspecified bronchus or lung; I27.82 Chronic pulmonary embolism; G90.9 Disorder of the autonomic nervous system, unspecified; I11.9 Hypertensive heart disease without heart failure; Z87.891 Personal history of nicotine dependence | CPT/HCPCS: 99214 ==

== ENCOUNTER 2023-08-03 09:46 | Emergency (ER) | payer MEDICARE, OTHER, SELFPAY ==
[2023-08-03] VITALS (30 sets, daily range): BP systolic 113–174; BP diastolic 46–78; PULSE 73–81; RESP 11–24; TEMP 36.6; O2SAT 92–100; BMI 23.6
--- NOTE | 2023-08-03 10:15 | CT_ITS ---
WS: [id number] CT HEAD NONCONTRAST HISTORY: Altered mental status headache oral anticoagulation TECHNIQUE: Contiguous axial imaging performed through the brain in 2.5 mm imaging. Bone and soft tiss ue windows. Sagittal and coronal reformats reviewed. All CT scans at [facility] use at least one of these dose optimization techniques: automated exposure control; mA and/or kV adjustment per pa tient size (includes targeted exams where dose is matched to clinical indication); or iterative recon struction. DLP: 1131.26 mGy.cm COMPARISON: 04/11/2023 Acute extra-axial blood noted along the posterior RIGHT frontal vertex without mass effect. Acute blo od products extends over a length of 3.6 cm. A depth of 0.6 cm with mild contact on the frontal lobe cortex. No significant midline shift. There is a very lobulated appearance of the extra-axial blood. Favor this is subdural blood. Moderate bilateral atrophy and advanced small vessel ischemic disease. Lacunar infarct versus perivas cular space RIGHT inferior basal ganglia. Mild bilateral cerebellar atrophy. Ventricles: Normal size with no hydrocephalus. Paranasal sinuses: Frothy like material in the sphenoid sinuses. No air-fluid levels. Mastoid air cells: Well pneumatized. Calvarium and scalp: Skull is intact with no soft tissue edema or swelling. Moderate calcified plaque in the distal vertebral arteries and through the carotid cavernous sinuses. IMPRESSION: 1. Small acute RIGHT frontal vertex extra-axial hemorrhage. Subdural collection measures 3.6 cm in l ength with a maximum diameter of 0.6 cm with mild contact on the frontal lobe vertex. 2. Otherwise moderate cerebral atrophy and advanced small vessel ischemic disease. Notified Brian Mitchell DO at 08/03/2023 10:54 AM.
--- NOTE | 2023-08-03 10:17 | ED_ITS ---
HPI - Fall 2 General: Chief Complaint: Weakness Stated Complaint: weakness, headache and fall Time Seen by Provider: 08/03/23 09:49 Source: patient Mode of arrival: ambulatory History of Present Illness: 87-year-old female who presents emergenc y room complaining headache for the last few days 2 days ago she fell twice she fell again last night. He has poor appetite but no issues with good some steroids to help with the appetite that did not seem to help she has difficult time maintaining her balance continues to feel unsteady on her feet no vomiting mild headache presents emergency room accompanied by a family member. Denies chest pain shortness of breath or abdominal pain MD complaint: fall Onset (ago): day(s) Fall from: standing Fall witnessed: no Place fall occurred: home Loss of consciousness: Unsure Symptoms prior to fall: dizziness Location of injury: head Associated symptoms-after fall: Reports confusion, difficulty walking and lightheadedness; Denies abdominal pain, chest pain, headache(s), hematuria, neck pain, numbness, short of breath, vertigo or weakness Review of Systems 2 Const: Denies: fever(s) or chills Card: Reports: lightheadedness; Denies: chest pain Resp: Denies: dyspnea GI: Denies: abdominal pain : Denies: hematuria Musc: Denies: neck pain Skin/Breast: Denies: rash Neuro: Reports: difficulty walking and confusion; Denies: headache(s) or vertigo PFSH ED 2 PFSH: Medical History Autonomic neuropathy CAD (coronary artery disease) Chest pressure Palpitations Anticoagulation adequate with anticoagulant therapy Anemia Diastolic dysfunction without heart failure DJD (degenerative joint disease) AAA (abdominal aortic aneurysm) Pulmonary embolism Hypertension Hyperlipidemia Chronic back pain Recurrent adenocarcinoma of lung COPD (chronic obstructive pulmonary disease) Surgical History Stented coronary artery History of lobectomy of lung Twice, bilateral, Right upper lobe lobectomy 2001 Left upper lobe lobectomy 2009 H/O: hysterectomy Hx of cholecystectomy S/P AAA repair Stent graft Family History Father No problems noted. Mother Hypertension Congestive heart failure (CHF) Other CAD (coronary artery disease) Social History Quit status (tobacco/nicotine): has quit using Second hand smoke exposure: No Alcohol intake: former Substance/Drug Use: never Caregiver/support person: Yes Lives independently: Yes Household members: none Housing: House Marital status: / Number of children: 2 Number of grandchildren: 3 Highest education level completed: Some College, No Degree service: No Current occupational status: retired Physical Exam 2 Const: COMMON NORMALS: no acute distress GENERAL APPEARANCE: cooperative and comfortable ORIENTATION/CONSCIOUSNESS: Yes awake, Yes oriented to person, Yes oriented to place and Yes oriented to time HENMT: COMMON NORMALS: normocephalic, atraumatic and hearing grossly normal bilaterally HEAD & SCALP: normocephalic and atraumatic Resp: COMMON NORMALS: normal respiratory effort, No retractions, No use of accessory muscles and clear to auscultation bilaterally AUSCULTATION: clear to auscultation bilaterally Cardio: COMMON NORMALS: regular rate, regular rhythm and No murmurs present (Cardio) RATE: regular rate RHYTHM: regular rhythm GI: COMMON NORMALS: Soft to palpation and No hepatosplenomegaly present A USCULTATION: Yes normoactive bowel sounds PALPATION: Yes Soft to palpation, No Tenderness to palpation present (GI), No Guarding due to palpation present (GI) and Yes No hepatosplenomegaly present Extremity: COMMON NORMALS: normal to inspection, capillary refill normal, no clubbing, cyanosis or edema, no calf tenderness and no pedal edema Neuro: SENSORIUM/ORIENTATION: Yes oriented to person, Yes oriented to place and Yes oriented to time Skin: COMMON NORMALS: no rashes or lesions noted GENERAL SKIN EXAM: no rashes or lesions noted Course 2 Vital Signs: Vital signs: Vital Signs Temperature 97.9 F 08/03/23 09:58 Pulse Rate 77 08/03/23 12:35 Respiratory Rate 21 H 08/03/23 12:35 Blood Pressure 139/58 08/03/23 12:35 Pulse Oximetry 97 08/03/23 12:30 Oxygen Delivery Me thod Room Air 08/03/23 11:50 MDM - Fall Medical Decision Making CT shows subdural hematoma with no left shift. Patient is on Xarelto and Plavix has been taking regularly but is completely intact this point vital signs are stable be on a headache and ataxia she has no other symptoms at this time. Transfer patient to [facility] ER to ER as a trauma patient for neurosurgical monitoring evaluation. Patient was not given reversing agents because she had not significantly decompensated however he was started on nicardipine to manage blood pressure. Dr. Spears in the emergency room at [facility] will accept his ER to ER transfer. Medical Records I reviewed the patient's medical records. Lab Data I reviewed the patient's lab results. 08/03/23 10:28 08/03/23 10:28 Laboratory Results WBC 10.83 10^3/uL (3.29-11.43) 08/03/23 10:28 RBC 4.76 10^6/uL (3.85-5.65) 08/03/23 10:28 Hgb 12.90 g/dL (11.27-16.99) 08/03/23 10:28 Hct 41.1 % (36-47) 08/03/23 10:28 MCV 86.3 fl (85-98) 08/03/23 10:28 MCH 27.1 pg (27-33) 08/03/23 10:28 MCHC 31.4 g/dL (30-55) 08/03/23 10:28 RDW 13.9 % (12.1-15.1) 08/03/23 10:28 Plt Count 398 10^3/cmm (157-399) 08/03/23 10:28 MPV 9.2 fL (7.4-10.4) 08/03/23 10:28 Neut % (Auto) 85.1 % 08/03/23 10:28 Lymph % (Auto) 5.7 % 08/03/23 10:28 [place] % (Auto) 8.2 % 08/03/23 10:28 Eos % (Auto) 0.1 % 08/03/23 10:28 Baso % (Auto) 0.2 % 08/03/23 10:28 Neut # (Auto) 9.21 10^3/uL (1.8-7.7) H 08/03/23 10:28 Lymph # (Auto) 0.6 10^3/uL (0.8-4.8) L 08/03/23 10:28 [place] # (Auto) 0.9 10^3/uL (0.2-0.9) 08/03/23 10:28 Eos # (Auto) 0.0 10^3/uL (0.0-0.8) 08/03/23 10:28 Baso # (Auto) 0.0 10^3/uL (0.0-0.1) 08/03/23 10:28 Nucleated RBC % (auto) 0 % 08/03/23 10:28 Nucleated RBCs # 0.0 /100WBC 08/03/23 10:28 Sodium 136 mmol/L (136-145) 08/03/23 10:28 Potassium 4.0 mmol/L (3.5-5.1) 08/03/23 10:28 Chloride 98 mmol/L (98-107) 08/03/23 10:28 Carbon Dioxide 28 mmol/L (22-29) 08/03/23 10:28 Anion Gap 14.0 (5-19) 08/03/23 10:28 BUN 34 mg/dL (8-23) H 08/03/23 10:28 Creatinine 1.8 mg/dL (0.5-0.9) H 08/03/23 10:28 GFR Calculation Not Reportable 08/03/23 10:28 Glucose 110 mg/dL (65-115) 08/03/23 10:28 Calculated Osmolality 290 mOsm/kg (285-295) 08/03/23 10:28 Calcium 8.6 mg/dL (8.5-10.5) 08/03/23 10:28 Magnesium 1.8 mg/dL (1.7-2.3) 08/03/23 10:28 Total Bilirubin 0.6 mg/dL (0.15-1.2) 08/03/23 10:28 AST 19 U/L (0-32) 08/03/23 10:28 ALT 16 U/L (0-33) 08/03/23 10:28 Alkaline Phosphatase 83 U/L (35-105) 08/03/23 10:28 Total Protein 6.7 g/dL (6.6-8.7) 08/03/23 10:28 Albumin 3.4 g/dL (3.5-5.2) L 08/03/23 10:28 Globulin 3.3 g/dL (1.3-4.6) 08/03/23 10:28 Lipase 44 U/L (13-60) 08/03/23 10:28 All radiology interpretation(s) finalized by discharge Critical Care Time 2 Critical Care Time: Critical Care Time: Yes Total Critical Care Time: 30 Attestation: The high probability of a clinically significant, sudden or life threatening deterioration of the patient's neurologic cardiovascular system(s) required my full and direct attention, intervention and personal management. The critical care time is as shown. This time is in addition to time spent performing any reported procedures but includes the following: [x] Data and vital sign review and interpretation [x] Patient assessment, examination and intervention [x] Documentation [x] Medication orders and management Discharge Plan Discharge Patient Disposition: Transfer to ED Clinical Impression: Acute subdural hematoma, Hypertension Condition: Stable Prescriptions: No Action gabapentin 300 mg capsule 300 mg PO BID nitroglycerin [Nitrostat] 0.4 mg tablet, sublingual 0.4 mg SUBLINGUAL Q5M PRN (Reason: Chest Pain) fluticasone propionate [Flonase Allergy Relief] 50 mcg/actuation spray,suspension 2 spray INTRANASAL DAILY PRN (Reason: allergy symptoms) clopidogrel [Plavix] 75 mg tablet 75 mg PO DAILY Qty: 90 4RF meclizine 25 mg Tablet 25 mg PO TID PRN (Reason: Dizziness) cetirizine 10 mg tablet 10 mg PO DAILY PRN (Reason: allergy symptoms) montelukast 10 mg tablet 10 mg PO DAILY PRN (Reason: Allergic Symptoms) famotidine 20 mg tablet 20 mg PO BEDTIME hydrocodone-acetaminophen 7.5-325 mg tablet 1 tab PO Q6H PRN (Reason: Pain) pantoprazole 40 mg tablet,delayed release (DR/EC) 40 mg PO QAM Xarelto 10 mg tablet 10 mg PO QAM fludrocortisone 0.1 mg tablet 0.1 mg PO BID doxycycline hyclate 100 mg capsule 100 mg PO BID fexofenadine 180 mg tablet 180 mg PO DAILY PRN (Reason: Allergy Symptoms) amlodipine 5 mg tablet 5 mg PO DAILY Coding Level of Care Code ED [employer] for Radha Castaneda
[2023-08-03 10:34] LABS: Basophils % 0.2 %; Eosinophils % 0.1 %; Hematocrit 41.1 % (36-47); Lymphocytes # 0.6 10^3/uL (0.8-4.8); Lymphocytes % 5.7 %; Mean Corpuscular HGB Conc 31.4 g/dL (30-55); Mean Corpuscular Hemoglobin 27.1 pg (27-33); Mean Corpuscular Volume 86.3 fl (85-98); Mean Platelet Volume 9.2 fL (7.4-10.4); Monocytes # 0.9 10^3/uL (0.2-0.9); Monocytes % 8.2 %; Neutrophils # 9.21 10^3/uL (1.8-7.7); Neutrophils % 85.1 %; Nucleated Red Blood Cells % 0 %; Platelet Count 398 10^3/cmm (157-399); Red Blood Count 4.76 10^6/uL (3.85-5.65); Red Cell Distribution Width 13.9 % (12.1-15.1); White Blood Count 10.83 10^3/uL (3.29-11.43)
[2023-08-03 10:55] LABS: Alanine Aminotransferase 16 U/L (0-33); Albumin Level 3.4 g/dL (3.5-5.2); Alkaline Phosphatase 83 U/L (35-105); Aspartate Amino Transferase 19 U/L (0-32); Blood Urea Nitrogen 34 mg/dL (8-23); Calcium 8.6 mg/dL (8.5-10.5); Carbon Dioxide 28 mmol/L (22-29); Chloride 98 mmol/L (98-107); Creatinine Clr Calc Pharmacy 21.2373; Globulin 3.3 g/dL (1.3-4.6); Glucose 110 mg/dL (65-115); Lipase 44 U/L (13-60); Magnesium 1.8 mg/dL (1.7-2.3); Osmolality Calculated 290 mOsm/kg (285-295); Sodium 136 mmol/L (136-145); Total Bilirubin 0.6 mg/dL (0.15-1.2); Total Protein 6.7 g/dL (6.6-8.7)
[2023-08-03] MEDS: nicardipine 20 MG/200 ML PREMIX 50 MG IV (11:56)
[2023-08-03] MEDS: morphine 4 mg/mL SDV 1 mL 2 MG IVP (13:39)
== END 2023-08-03 14:00 ==
PROVIDERS: Emergency Provider Family Medicine
DX: I62.01 Nontraumatic acute subdural hemorrhage (principal); I10 Essential (primary) hypertension; Z79.02 Long term (current) use of antithrombotics/antiplatelets; I25.10 Atherosclerotic heart disease of native coronary artery without angina pectoris; I11.0 Hypertensive heart disease with heart failure; I50.30 Unspecified diastolic (congestive) heart failure; E78.5 Hyperlipidemia, unspecified; J44.9 Chronic obstructive pulmonary disease, unspecified
CPT/HCPCS: 36415; 70450; 80053; 83690; 83735; 85025; 96374; 96375; 99285; J2270

== ENCOUNTER → 2023-08-09 13:54 | Outpatient (BNVA) | payer MEDICARE, OTHER, SELFPAY | PROVIDERS: PCP Family Medicine; Visit Provider Nurse Practitioner Family | DX: I11.9 Hypertensive heart disease without heart failure (principal); I25.10 Atherosclerotic heart disease of native coronary artery without angina pectoris | CPT/HCPCS: 99214 ==

== ENCOUNTER → 2023-08-20 13:17 | Outpatient (BNVA) | payer MEDICARE, OTHER, SELFPAY | PROVIDERS: PCP Family Medicine; Referring Provider Nurse Practitioner Family; Visit Provider Specialist | DX: G90.9 Disorder of the autonomic nervous system, unspecified (principal); R29.6 Repeated falls; R63.0 Anorexia; G62.9 Polyneuropathy, unspecified; R26.9 Unspecified abnormalities of gait and mobility | CPT/HCPCS: 36415; 82525; 82607; 99205 ==

== ENCOUNTER → 2023-11-04 12:44 | Outpatient (BNVA) | payer MEDICARE, OTHER, SELFPAY | PROVIDERS: PCP Family Medicine; Visit Provider Internal Medicine Cardiovascular Disease | DX: Z98.890 Other specified postprocedural states (principal); Z86.79 Personal history of other diseases of the circulatory system; C34.90 Malignant neoplasm of unspecified part of unspecified bronchus or lung; E78.2 Mixed hyperlipidemia; I27.82 Chronic pulmonary embolism; I95.9 Hypotension, unspecified; I48.91 Unspecified atrial fibrillation; R00.2 Palpitations; I25.10 Atherosclerotic heart disease of native coronary artery without angina pectoris; Z95.5 Presence of coronary angioplasty implant and graft; R29.6 Repeated falls; R26.9 Unspecified abnormalities of gait and mobility; G90.9 Disorder of the autonomic nervous system, unspecified; G62.9 Polyneuropathy, unspecified; I11.9 Hypertensive heart disease without heart failure; Z87.891 Personal history of nicotine dependence | CPT/HCPCS: 99214 ==

== ENCOUNTER → 2023-12-24 12:45 | Outpatient (BNVA) | payer MEDICARE, OTHER, SELFPAY | PROVIDERS: PCP Family Medicine; Visit Provider Specialist | DX: G90.9 Disorder of the autonomic nervous system, unspecified (principal); R29.6 Repeated falls; R26.9 Unspecified abnormalities of gait and mobility; G62.9 Polyneuropathy, unspecified; M48.062 Spinal stenosis, lumbar region with neurogenic claudication | CPT/HCPCS: 99214 ==